=== PATIENT | male | born 1955 | race Caucasian/White ===

== ENCOUNTER 2016-07-08 09:31 | Inpatient (IN) | payer OTHER ==
--- NOTE | 2016-06-13 10:58 | PAT Medication Instructions ---
Service Date Jun 13, 2016. 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 Instructions For Your Scheduled Surgery -Continue as directed: [Nitroglycerin], 1 SPRAY PO UD PRN for RN - Hold the following medications the morning of surgery: Calcium Carbonate (Antacid) (Tums), 500-1,000 MG PO PRN Enalapril (Vasotec), 5 MG PO QAM Furosemide (Lasix), 20 MG PO DAILY PRN Ibuprofen (Advil), 800 MG PO PRN - Take the following medications the morning of surgery with a sip of water OTHERWISE NOTHING TO EAT OR DRINK AFTER MIDNIGHT: Levothyroxine Sodium (Levothyroxine Sodium), 1 TAB PO QAM Carvedilol (Coreg), 12.5 MG PO QAM Aspirin (Aspirin Ec), 81 MG PO QAM Atorvastatin (Lipitor), 80 MG PO QAM If you have any questions please call us at [phone] or [phone] or [phone]
[2016-06-13 11:47] LABS: BASO % 1.5 %; COMPLETE YES; EOS % 3.2 %; HEMATOCRIT 29.8 % (42-52); LYMPH ABS # 1.06 K/uL (1.2-3.4); MEAN CORPUSCULAR HEMOGLOBIN 22.8 pg (25-34); MEAN CORPUSCULAR HGB CONC 31.2 g/dl (32-36); MEAN PLATELET VOLUME 10.6 fL (7.4-10.4); MONO % 9.3 %; PLATELET COUNT 257 K/uL (130-400); RED BLOOD COUNT 4.08 M/uL (4.7-6.1); WHITE BLOOD COUNT 6.64 K/uL (4.8-10.8)
[2016-06-13 11:54] LABS: INR 1.1 (0.9-1.1); PARTIAL THROMBOPLASTIN RATIO 1.1; PROTHROMBIN TIME (PATIENT) 11.4 SECONDS (9.0-12.0)
[2016-06-13 11:57] LABS: ESTIMATED AVERAGE GLUCOSE 117 mg/dl; HA1C FLAG Normal (Normal)
[2016-06-13 12:17] LABS: BUN/CREATININE RATIO 10.6 (10-20); CALCIUM 9.1 mg/dl (8.5-10.1); CREATININE 1.2 mg/dl (0.60-1.40)
--- NOTE | 2016-07-03 20:29 | HISTORY & PHYSICAL EXAMINATION ---
DATE OF ADMISSION: 07/08/2016 SUBJECTIVE: CHIEF COMPLAINT: Right knee pain. HISTORY OF PRESENT ILLNESS: The patient is a 60-year-old male, who presents with right knee pain. He states that his pain has been chronic and nontraumatic. He describes the pain as being aching, throbbing and stabbing at times. It makes it difficult for him to do his activities of daily living. He has failed cortisone injections, anti-inflammatories and physical therapy. He would like to proceed with a right total knee arthroplasty. PAST MEDICAL HISTORY: Significant for hypothyroidism, hypercholesterolemia and hypertension. PAST SURGICAL HISTORY: CABG, stent placement, left TKA and tonsillectomy. SOCIAL HISTORY: He drinks alcohol occasionally. He denies smoking or tobacco use. He denies IV drug use. He lives in a one-renea house. 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 FAMILY HISTORY: Dad had a history of heart attack. ALLERGIES: No known drug allergies. MEDICATIONS: Atorvastatin 80 mg once a day, levothyroxine 125 mcg one tablet once a day, enalapril 5 mg once a day, carvedilol 12.5 mg twice daily, Lasix 20 mg one tablet as needed for weight loss, nitroglycerin 0.4 mg per spray as needed for chest pain and aspirin 81 mg one tablet daily. REVIEW OF SYSTEMS: He denies headaches, fevers, chills, double vision, blurry vision, sore throat, cough, chest pain, nausea, vomiting, diarrhea, constipation, numbness, tingling, feelings tired, urinary problems, thoughts to harm himself or harm others or depression. He is positive for joint pain and joint stiffness of the right knee. OBJECTIVE: GENERAL APPEARANCE: The patient is in no acute distress. He is well dressed and well nourished. He is awake, alert and oriented x3. VITAL SIGNS: He is 6 feet 1 inch tall, 235 pounds. Blood pressure is 122/92. HEENT: Normocephalic and atraumatic. Extraocular movements are intact. PERRLA. Mucosa was moist. No septal deviation. NECK: Supple, no lymphadenopathy, no JVD, no thyromegaly. HEART: Regular rate and rhythm. No murmurs or gallops. LUNGS: Clear to auscultation. No wheezing or rhonchi. ABDOMEN: Soft, nontender and nondistended. Normal bowel sounds, no hepatosplenomegaly. EXTREMITIES: Paying particular attention to the right lower extremity; he is able to extend his knee to 0 degrees flexion and actively flex his knee to 100 degrees. His ligaments are intact. Negative Yoan, negative anterior and negative posterior drawer. Negative valgus and varus stress tests. He has diffuse pain over the knee, more particularly to the medial joint line. NEUROLOGIC: Cranial nerves II-XII are intact. Pulses were compared bilaterally and were equal. IMAGING: X-rays of the right knee demonstrate bone on bone in the medial compartment, subchondral sclerosis and periarticular osteophyte formation. IMPRESSION: Severe end-stage osteoarthritis of the right knee. PLAN: The patient is scheduled for a right total knee arthroplasty. The patient has failed conservative therapies that include cortisone injections, anti-inflammatories and physical therapy. He would like to proceed with a right total knee arthroplasty. Risks and benefits of surgery were discussed that were included but not limited to infection, DVT, pain, stiffness, need for revision surgeries, blood vessel damage, nerve damage, PE, and anesthesia risks were all discussed and he wishes to proceed. All questions were answered to his satisfaction. Discharged, he would like to go home with outpatient thereapy. Followup appointment is 07/21/2016 at 8:00 a.m. Per his defect cutter, he must maintain his aspirin uninterrupted throughout the perioperative period, which he understands and there is no medication changes to be made at this time. DVT prophylaxis will be aspirin 81 mg. MARIBEL
[~2016-07-08] VITALS: Ht 185.4 cm; Wt 106.2 kg
[2016-07-08] MEDS: TRANEXAMIC ACID INJ 1,000 MG in SODIUM CHLORIDE 0.9% 100ML 100 ML IV SCH ×2 (06:30→10:39)
[~2016-07-08 09:31] MED LIST: ACETAMINOPHEN 500 MG TAB PO SCH; ASPI81TA28 PO; ATOR-26 PO; BUPIVACAINE 0.25% 30 ML VIAL ONE; BUPIVACAINE 0.5 % 5 MG/1 ML PF 10ML VIAL ONE; CALC500C50 PO; CARV12.52 PO; CEFAZOLIN 2000 MG/60 ML D5W 60 ML IV SCH; CeleBREX 200 MG CAP PO SCH; DEXAMETHASONE 4 MG TAB PO SCH; ENAL5TAB83 PO; FAMOTIDINE 20 MG TAB PO SCH; FERR1TAB13 PO; FURO20TA PO; GABAPENTIN 300 MG CAP PO SCH; IBUP-1050 PO; LACTATED RINGER'S 1000ML 1,000 ML IV SCH; LACTATED RINGER'S 1000ML IV SCH; LACTATED RINGER'S 500 ML IV SCH; LEVO125T5 PO; METOCLOPRAMIDE HCL 10 MG TAB PO SCH; MIDAZOLAM HCL 1 MG/ML 2ML VIAL ONE; NITROGLYCERIN PO; ROPIVACAINE 5MG/ML 30 ML 150 MG, BUPIVACAINE/EPINEPHR 0.5% MPF 30 ML, KETOROLAC TROMETH... INFIL SCH
[2016-07-08] MEDS ORDERED: FENTANYL CITRATE INJ 50 MCG/1 ML 2 ML VIAL ONE (09:49)
[2016-07-08 09:52] VITALS: BP 147/80; PULSE 67; TEMP 36.7; O2SAT 98; Ht 185.4 cm; Wt 106.2 kg
--- NOTE | 2016-07-08 09:52 | History & Physical Bridge Note ---
H&P Re-Evaluation Bridge Note: I have examined the patient, reviewed the History & Physical and in the interval since the performance of the History & Physical I have noted the following changes of clinical significance: No changes noted
[2016-07-08 10:24] LABS: HEMATOCRIT 30.9 % (42-52); MEAN CELL VOLUME 76.9 fL (80-100); MEAN CORPUSCULAR HEMOGLOBIN 23.9 pg (25-34); MEAN PLATELET VOLUME 10.1 fL (7.4-10.4); PLATELET COUNT 282 K/uL (130-400); RED BLOOD COUNT 4.02 M/uL (4.7-6.1); WHITE BLOOD COUNT 6.37 K/uL (4.8-10.8)
[2016-07-08 10:26] LABS: MEAN CORPUSCULAR HGB CONC 31.1 g/dl (32-36)
[2016-07-08] MEDS ORDERED: NALOXONE HCL 0.4 MG/1 ML VIAL/CARP IV PRN (11:15)
[2016-07-08] MEDS ORDERED: HYDROmorphone INJ 1 MG/ML SYR IV PRN (11:15)
[2016-07-08] MEDS ORDERED: ATROPINE SULFATE 0.1 MG/ML 5ML SYR IV PRN (11:15)
[2016-07-08] MEDS ORDERED: EpHEDrine SULFATE INJ 50 MG/ML AMP IV PRN (11:15)
[2016-07-08] MEDS ORDERED: BACITRACIN 50,000 UNITS IR ONE (11:51)
--- NOTE | 2016-07-08 12:31 | [facility] Post Operative Brief Note ---
Immediate Operative Summary Operative Date July 08, 2016. Pre-Operative Diagnosis Severe End Stage Osteoarthritis of the Right Knee Post-Operative Diagnosis Severe End Stage Osteoarthritis of the Right Knee Procedure(s) Performed Right Total Knee Arthroplasty - Cemented Surgeon Dr. Dashawn Friedman Calender Worker Helper Surgeon(s) Harshal Huntley PA-C Estimated Blood Loss 20mL Findings above Specimens A: Right Knee Tissue and Bone Drains 1 hemovac Anesthesia spinal Complication(s) None Disposition Recovery Room / PACU
[2016-07-08] MEDS ORDERED: LIDOCAINE HCL 2% 2 ML VIAL (20MG/ML) ONE (12:34)
[2016-07-08] MEDS ORDERED: PROPOFOL IV EMULSION 10 MG/ML 20 ML VIAL IV ONE (12:34)
[2016-07-08] MEDS ORDERED: DiphenhydrAMINE HCL 50 MG/ML VIAL IV PRN (12:45)
[2016-07-08] MEDS ORDERED: MoRPHine SULFATE 2 MG/ML CARP IV PRN (12:45)
[2016-07-08] MEDS ORDERED: NITROGLYCERIN 400 MCG/1 SPRAY 60 DOSE UT PRN (12:45)
[2016-07-08] MEDS ORDERED: ZOLPIDEM TARTRATE 5 MG TAB PO PRN (12:45)
[2016-07-08] MEDS ORDERED: CALCIUM CARBONATE 500 MG CHEWABLE PO PRN (12:45)
[2016-07-08] MEDS ORDERED: METOCLOPRAMIDE HCL INJ 5 MG/ML 2 ML VIAL IV PRN (12:45)
[2016-07-08] MEDS ORDERED: ALUMINUM/MAGNESIUM/SIMETH (MAALOX MAX) 30 ML UDC PO PRN (12:45)
[2016-07-08] MEDS ORDERED: MAGNESIUM HYDROXIDE SUSP 30 ML UDC PO PRN (12:45)
[2016-07-08] MEDS ORDERED: ONDANSETRON INJ 2 MG/ML 2 ML VIAL IV PRN (12:45)
[2016-07-08] MEDS ORDERED: POVIDONE-IODINE OP SOLN 30 ML BTL ONE (13:46)
[2016-07-08] MEDS ORDERED: ORTHO JOINT ANESTHETIC ONE (13:46)
--- NOTE | 2016-07-08 13:46 | DIAGNOSTIC IMAGING REPORT ---
RIGHT KNEE 1 OR 2 VIEWS ROUTINE CLINICAL HISTORY: Osteoarthritis. Postsurgical study. COMPARISON: None. DISCUSSION: There are postsurgical changes of a total right knee arthroplasty and patellar resurfacing. The femoral and tibial components appear well seated. Overlying skin evie and surgical drains are evident. There is air in soft tissues consistent with recent surgery. IMPRESSION: Postsurgical changes of a total right knee arthroplasty. Electronically signed by: Nicko Jorgensen M.D. 07/08/2016 1:45 PM Dictated Date/Time: 07/08/2016 1:44 PM
--- NOTE | 2016-07-08 13:56 | Anesthesiology Progress Note ---
Anesthesia Post Op Note Date & Time July 08, 2016 at 13:52 Vital Signs Pain Intensity: 0 Vital Signs Past 12 Hours Date Time Temp Pulse Resp B/P Pulse Ox O2 Delivery O2 Flow Rate FiO2 07/08/16 13:45 56 16 138/96 99 Nasal Cannula 2 07/08/16 13:35 56 16 140/92 99 Nasal Cannula 2 07/08/16 13:25 51 16 139/83 100 Diffusion Mask 10 07/08/16 13:15 51 16 141/87 100 Diffusion Mask 10 07/08/16 13:07 36.3 51 16 140/90 100 Diffusion Mask 10 07/08/16 09:52 36.7 67 20 147/80 98 Room Air Notes Mental Status: alert / awake / arousable, participated in evaluation Pt Amnestic to Procedure: Yes Nausea / Vomiting: adequately controlled Pain: adequately controlled Airway Patency, RR, SpO2: stable & adequate BP & HR: stable & adequate, see Notes Hydration State: stable & adequate Anesthetic Complications: no major complications apparent Patient first noted in AFib after spinal placed when put on monitor in OR. Rate remained below 70 without intervention. Patient was awake at the time and asymptomatic with acceptable blood pressure. I spoke with the patient and he claims he has never had afib in the past. He does have a history of chronic systolic failure which appears well compentated with an EF 20-25%. Case was otherwise uncomplicated and proceeded without incident. I have moved patient's disposition to PCU and will consult [facility] cardiology for decision making of rate vs rhythm control and anticoagulation given his fresh total knee replacement.
[2016-07-08 14:49] VITALS: BP 155/92; PULSE 58; TEMP 36.6; O2SAT 98
[2016-07-08 15:18] VITALS: BP 145/91; PULSE 67; TEMP 36.5; O2SAT 99
[2016-07-08] MEDS ORDERED: NITROGLYCERIN SL SPR 4.9 GM BTL UT PRN (15:30)
[2016-07-08] MEDS: D5W AND 1/2NSS + 20MEQ KCL 1,000 ML IV SCH (15:36)
[2016-07-08] MEDS: KETOROLAC TROMETHAMINE 30 MG/ML VIAL IV. SCH ×2 (15:55→21:37)
[2016-07-08] MEDS: FERROUS GLUCONATE 324 MG TAB PO SCH (16:14)
--- NOTE | 2016-07-08 16:48 | CARDIOLOGY CONSULTATION ---
DATE OF CONSULTATION: 07/08/2016 REFERRING PHYSICIAN: Dr. Friedman. REASON FOR CONSULTATION: Atrial fibrillation. HISTORY OF PRESENT ILLNESS: Mr. Wheatley is a 60-year-old gentleman who was admitted today for elective right total knee arthroplasty. Procedure was uneventful. I was contacted by the anesthesiologist regarding atrial fibrillation. Apparently, the patient was placed on a monitor at that time of spinal anesthesia, where an irregular rhythm was noted. ECG confirms the presence of atrial fibrillation with controlled ventricular response. The patient was recovered without incident. He has been transferred to the progressive care unit for telemetry monitoring. The monitor confirms the presence of atrial fibrillation. The patient was seen and examined at the bedside. He is feeling well postoperatively. Knee pain is controlled. He is unaware of the irregular heartbeat, palpitations, or change in functional capacity recently. His most recent echocardiogram demonstrated an ischemic cardiomyopathy with an ejection fraction of 20%-25% in June of 2015. His ejection fraction was calculated as 40% per nuclear study in June of 2015. He does not have a defibrillator. In general, he is an active person. He was able to levi over the fall and winter without restrictions. Denies exertional chest pain or unusual shortness of breath. His is present at bedside. She offers no other complaints/concerns. Review of the medical record demonstrates an iron deficiency, microcytic anemia, for which the patient has been prescribed iron supplementation. REVIEW OF SYSTEMS: The pertinent positives noted above. Comprehensive 10-system review is otherwise negative. PAST MEDICAL HISTORY: 1. Ischemic cardiomyopathy, ejection fraction of 40%. 2. Coronary artery disease with coronary artery bypass grafting as well as a history of PCI to the LAD. 3. Hypertension. 4. Dyslipidemia. 5. Hypothyroidism. PAST SURGICAL HISTORY: 1. Left total knee replacement. 2. Coronary artery bypass grafting. 3. PCI of the LAD. 4. Tonsillectomy. FAMILY HISTORY: Father with a history of coronary artery disease. SOCIAL HISTORY: He drinks alcohol socially. Denies any tobacco or illicit drug use. He lives with his in a one-story home. ALLERGIES: No known drug allergies. CURRENT OUTPATIENT MEDICATIONS: 1. Atorvastatin 80 mg daily. 2. Synthroid 125 mcg daily. 3. Enalapril 5 mg daily. 4. Carvedilol 12.5 mg twice daily. 5. Lasix 20 mg as needed. 6. Nitro spray as needed. 7. Aspirin 81 mg daily. 8. Ferrous gluconate 324 mg t.i.d. ECG: Atrial fibrillation with slow ventricular response, left axis deviation, and nonspecific interventricular conduction block. LABORATORY DATA: White blood cell count 6.37, hemoglobin is 9.6, MCV is 76.9, and platelet count is 282. INR is 1.1. On 06/13/2016, sodium was 134, potassium was 5.0, chloride was 101, CO2 was 26, BUN was 13, and creatinine was 1.20. PHYSICAL EXAMINATION: VITAL SIGNS: Temperature is 36.5 degrees centigrade, pulse is 62 beats per minute and irregular, respiratory rate is 18 breaths per minute, blood pressure 145/91, and Sa02 is 99% on 2 liters. GENERAL: NAD, awake, alert and oriented x3. THROAT: Mucous membranes are moist. No scleral icterus. Conjunctivae pink. NECK: Supple. No JVD or HJR. No carotid bruits. HEART: Irregular, borderline bradycardic with a normal S1 and S2. There is no murmur, rub or gallop. LUNGS: Clear without rales, rhonchi or wheeze. ABDOMEN: Soft and nontender. No rebound or guarding. Normal bowel sounds. EXTREMITIES: Warm and dry. There is no clubbing, cyanosis, or edema. Right knee immobilizer noted. There is a drain in place with bloody drainage. NEUROLOGIC: Cranial nerves intact. FINAL IMPRESSION: 1. Paroxysmal atrial fibrillation with slow ventricular response. This is a new diagnosis. The patient is asymptomatic. 2. Ischemic cardiomyopathy with reported ejection fraction ranging from 25% to 40%. The patient appears well compensated with functional class 1 activity level. 3. Chronic coronary artery disease with a history of prior coronary artery bypass grafting as well as PCI to the LAD -- clinically stable without angina. 4. Microcytic anemia. Recently diagnosed with iron deficiency. The patient is unaware of this diagnosis. 5. Postoperative day zero right-sided total knee replacement. 6. Hypertension, controlled. 7. Dyslipidemia. PLAN AND RECOMMENDATIONS: The patient will continue current outpatient cardiovascular medications including carvedilol, enalapril, atorvastatin, and aspirin. Stroke risk associated with his atrial fibrillation discussed. Oral anticoagulation is indicated; however, newly diagnosed iron deficiency anemia requires further evaluation. We will discuss further with internal medicine regarding possible gastroenterology referral and fecal occult blood testing. He will continue iron supplementation. Repeat resting 2D transthoracic echo ordered and pending at this time. I have also ordered a repeat basic metabolic panel, serum magnesium level, and thyroid stimulating hormone level. Further recommendations pending result of testing and clinical course. Thank you for allowing me to take part in the care of your patient.
[2016-07-08 17:09] LABS: BUN/CREATININE RATIO 14.5 (10-20); CALCIUM 8.9 mg/dl (8.5-10.1); CREATININE 0.94 mg/dl (0.60-1.40); MAGNESIUM 1.9 mg/dl (1.8-2.4); POTASSIUM 4.8 mmol/L (3.5-5.1)
[2016-07-08 17:25] LABS: THYROID STIMULATING HORMONE 0.399 uIu/ml (0.300-4.500)
[2016-07-08] MEDS: ACETAMINOPHEN 500 MG TAB PO SCH (17:42)
--- NOTE | 2016-07-08 18:14 | Medical Consult ---
Consultation Date of Consultation: July 08, 2016. Attending Physician: Dashawn Friedman M.D. Reason for Consultation: A.fib postop and anemia History of Present Illness 60 y/o female, with PMHx of ischemic cardiomyopathy w/ ejection fraction of 40% , coronary artery disease with coronary artery bypass grafting as well as a history of PCI to the LAD, hypertension, dyslipidemia, hypothyroidism, s/p R TKA on 07/[address] Friedman on 07/08. Cardiology was contacted after the procedure regarding a.fib on the monitor at the time of spinal anesthesia. Patient states he is feeling well postop. His pain is 0/10. He just ate dinner with no complaints. He denies any flatus/BM postop. He admits to a history of anemia. He was recently placed on iron supplement 3 weeks ago because his iron level was low. He denies any h/o GI bleed. He denies any BRBPR or melena. He denies excessive alcohol or NSAID use. He denies h/o anticoagulation therapy. Patient denies any fever, chills, sweats, lightheadedness, dizziness, vision changes, CP, palpitations, edema, SOB, wheezing, cough, abdominal pain, nausea, vomiting, diarrhea, urinary symptoms, melena, numbness/tingling, weakness, muscle/joint pain, anxiety/depression, active bleeding, or new skin discoloration/changes. Past Medical/Surgical History PAST MEDICAL HISTORY: Ischemic cardiomyopathy w/ ejection fraction of 40%. Coronary artery disease with coronary artery bypass grafting as well as a history of PCI to the LAD. Hypertension Dyslipidemia Hypothyroidism PAST SURGICAL HISTORY: Left total knee replacement Coronary artery bypass grafting PCI of the LAD Tonsillectomy Family History CAD Social History Smoking Status: Former Smoker Drug Use: none Marital Status: Housing Status: lives with significant other Occupation Status: employed Allergies Coded Allergies: Shellfish (Verified Allergy, Severe, TONGUE SWELLS UP, 07/08/16) Iodinated Diagnostic Agents (Verified Adverse Reaction, Unknown, SWEATING, NAUSEA-WITH TEST DYE, 07/08/16) Per patient, no issues now Home Medications Reported Home Medications Medications Dose Route/Sig Max Daily Dose Days Date Category Dose Instructions Kp Ferrous Sulfate (Ferrous Sulfate) 325 Mg Tab 1 Tab PO BID 30 06/23/16 Reported Advil (Ibuprofen) 200 Mg Tab 800 Mg PO PRN 06/13/16 Reported Aspirin Ec (Aspirin) 81 Mg Tab 81 Mg PO QAM 06/13/16 Reported [Nitroglycerin] 1 [place] PO UD PRN 07/13/15 Reported 0.4 MG PER SPRAY Levothyroxine Sodium 125 Mcg Tab 1 Tab PO QAM 90 07/13/15 Reported Coreg (Carvedilol) 12.5 Mg Tab 12.5 Mg PO QAM 07/13/15 Reported Vasotec (Enalapril Maleate) 5 Mg Tab 5 Mg PO QAM 07/13/15 Reported Lipitor (Atorvastatin Calcium) 80 Mg Tab 80 Mg PO QAM 07/13/15 Reported Lasix (Furosemide) 20 Mg Tab 20 Mg PO DAILY PRN 01/18/12 Reported Tums (Calcium Carbonate (Antacid)) 500 Mg Chw 500-1,000 Mg PO PRN 01/18/12 Reported Current Inpatient Medications Current Inpatient Medications Medications (Trade) Dose Ordered Sig/Latanya Route Start Time Stop Time Status Last Admin Dose Admin Lactated Ringer's 1,000 ml @ 60 mls/hr [id number] IV 07/08/16 06:00 07/08/16 22:39 Cefazolin Sodium (Ancef 2000mg/60 ml D5W) 60 ml @ 100 mls/hr PREOP IV 07/08/16 06:00 07/08/16 18:00 07/08/16 11:10 100 MLS/HR Acetaminophen (Tylenol Tab) 1,000 mg PREOP PO 07/08/16 06:00 07/08/16 18:00 07/08/16 10:18 1,000 MG Celecoxib (CeleBREX CAP) 200 mg PREOP PO 07/08/16 06:00 07/08/16 18:00 07/08/16 10:18 200 MG Dexamethasone (Decadron Tab) 8 mg PREOP PO 07/08/16 06:00 07/08/16 18:00 07/08/16 10:17 8 MG Famotidine (Pepcid Tab) 20 mg PREOP PO 07/08/16 06:00 07/08/16 18:00 07/08/16 10:18 20 MG Gabapentin (Neurontin Cap) 600 mg PREOP PO 07/08/16 06:00 07/08/16 18:00 07/08/16 10:17 600 MG Metoclopramide HCl 10 mg 10 mg PREOP PO 07/08/16 06:00 07/08/16 18:00 07/08/16 10:17 10 MG Tranexamic Acid 1000 mg/Sodium Chloride 110 ml @ 660 mls/hr TODAY@06,0630 IV 07/08/16 06:00 07/08/16 18:00 07/08/16 10:39 660 MLS/HR Lactated Ringer's (Lr 1000ml) 1,000 ml @ 15 mls/hr Q24H IV 07/08/16 06:00 07/09/16 05:59 07/08/16 10:25 15 MLS/HR Atorvastatin Calcium (Lipitor Tab) 80 mg QAM PO 07/09/16 09:00 08/08/16 08:59 Calcium Carbonate (Tums Chew Tab) 500 mg QAM PRN PO 07/08/16 12:45 08/07/16 12:44 Carvedilol (Coreg Tab) 12.5 mg QAM PO 07/09/16 09:00 08/08/16 08:59 Enalapril Maleate (Vasotec Tab) 5 mg QAM PO 07/09/16 09:00 08/08/16 08:59 Furosemide (Lasix Tab) 20 mg DAILY PO 07/09/16 09:00 08/08/16 08:59 Levothyroxine Sodium 125 mcg 125 mcg DAILYBB PO 07/09/16 06:00 08/08/16 05:59 Potassium Chloride/Dextrose/ Sod Cl 1,000 ml @ 100 mls/hr Q10H IV 07/08/16 16:00 07/09/16 15:59 07/08/16 15:36 100 MLS/HR Cefazolin Sodium/ Dextrose (Ancef Iv/D5 50ml) 60 ml @ 100 mls/hr Q8H IV 07/08/16 20:00 07/09/16 04:35 Ketorolac Tromethamine (Toradol Inj) 30 mg Q6H IV. 07/08/16 16:00 07/09/16 15:59 07/08/16 15:55 30 MG Celecoxib (CeleBREX CAP) 200 mg BID PO 07/08/16 21:00 08/07/16 20:59 Future Hold Oxycodone HCl (Roxicodone Immediate Rel Tab) 1 TABLET FOR PAIN RATING... Q4H PRN PO 07/08/16 12:45 07/22/16 12:44 Oxycodone HCl (Oxycontin Tab) 10 mg Q12 PO 07/08/16 21:00 07/22/16 20:59 Morphine Sulfate (MoRPHine SULFATE INJ) 2 mg Q2H PRN IV 07/08/16 12:45 07/22/16 12:44 Acetaminophen (Tylenol Tab) 1,000 mg Q8H PO 07/08/16 18:00 08/07/16 17:59 07/08/16 17:42 1,000 MG Magnesium Hydroxide (Milk Of Magnesia Susp) 30 ml Q6H PRN PO 07/08/16 12:45 08/07/16 12:44 Docusate Sodium (coLACE CAP) 100 mg BID PO 07/08/16 21:00 08/07/16 20:59 Diphenhydramine HCl (Benadryl Cap) 25 mg Q8H PRN PO 07/08/16 12:45 08/07/16 12:44 Diphenhydramine HCl (Benadryl Inj) 25 mg Q8H PRN IV 07/08/16 12:45 08/07/16 12:44 Al Hydrox/Mg Hydrox/Simethicone (Maalox Max Susp) 15 ml Q4H PRN PO 07/08/16 12:45 08/07/16 12:44 Zolpidem Tartrate (Ambien Tab) 5 mg HSZ PRN PO 07/08/16 12:45 08/07/16 12:44 Multivitamins (Multivitamin Tab) 1 tab QAM PO 07/09/16 09:00 08/08/16 08:59 Ondansetron HCl (Zofran Inj) 4 mg Q6H PRN IV 07/08/16 12:45 08/07/16 12:44 Metoclopramide HCl (Reglan Inj) 10 mg Q6H PRN IV 07/08/16 12:45 08/07/16 12:44 Ferrous Gluconate (Ferrous Gluconate Tab) 324 mg TIDM PO 07/08/16 16:45 08/07/16 17:59 07/08/16 16:14 324 MG Pantoprazole Sodium (Protonix Tab) 40 mg QAM PO 07/09/16 09:00 6/12/17 08:59 Dexamethasone (Decadron Tab) 8 mg 0730 ONCE PO 07/09/16 07:30 07/09/16 07:31 Aspirin (Ecotrin Tab) 81 mg BID PO 07/08/16 21:00 08/07/16 20:59 Nitroglycerin (Nitrolingual [place]) 1 sprays DAILY PRN [place] 07/08/16 15:30 08/07/16 12:44 Physical Exam Date Time Temp Pulse Resp B/P Pulse Ox O2 Delivery O2 Flow Rate FiO2 07/08/16 15:18 36.5 67 18 145/91 99 Nasal Cannula 2.0 07/08/16 14:49 36.6 58 20 155/92 98 Room Air 07/08/16 14:15 36.1 56 16 139/93 99 Nasal Cannula 2 07/08/16 14:05 36.1 56 16 137/86 99 Nasal Cannula 2 07/08/16 13:55 56 16 138/89 99 Nasal Cannula 2 07/08/16 13:45 56 16 138/96 99 Nasal Cannula 2 07/08/16 13:35 56 16 140/92 99 Nasal Cannula 2 07/08/16 13:25 51 16 139/83 100 Diffusion Mask 10 07/08/16 13:15 51 16 141/87 100 Diffusion Mask 10 07/08/16 13:07 36.3 51 16 140/90 100 Diffusion Mask 10 07/08/16 09:52 36.7 67 20 147/80 98 Room Air General Appearance: no apparent distress, + obese Head: normocephalic, atraumatic Eyes: normal inspection, PERRL ENT: hearing grossly normal Neck: supple Respiratory/Chest: lungs clear, no respiratory distress, no accessory muscle use Cardiovascular: regular rate, rhythm Abdomen/GI: normal bowel sounds, non tender, soft Back: normal inspection Extremities/Musculoskelatal: no calf tenderness, no pedal edema, + pertinent finding (SCDs on ) Neurologic/Psych: alert, normal mood/affect, oriented x 3 Skin: normal color, warm/dry, no rash Laboratory Results Last 24 Hours Test 07/08/16 10:08 07/08/16 16:45 White Blood Count 6.37 K/uL Red Blood Count 4.02 M/uL Hemoglobin 9.6 g/dL Hematocrit 30.9 % Mean Corpuscular Volume 76.9 fL Mean Corpuscular Hemoglobin 23.9 pg Mean Corpuscular Hemoglobin Concent 31.1 g/dl RDW Standard Deviation 53.4 fL RDW Coefficient of Variation 19.3 % Platelet Count 282 K/uL Mean Platelet Volume 10.1 fL Sodium Level 131 mmol/L Potassium Level 4.8 mmol/L Chloride Level 100 mmol/L Carbon Dioxide Level 25 mmol/L Anion Gap 6.0 mmol/L Blood Urea Nitrogen 14 mg/dl Creatinine 0.94 mg/dl Est Creatinine Clear Calc Drug Dose 108.8 ml/min Estimated GFR () 103.2 Estimated GFR (Non- 89.0 BUN/Creatinine Ratio 14.5 Random Glucose 125 mg/dl Calcium Level 8.9 mg/dl Magnesium Level 1.9 mg/dl Thyroid Stimulating Hormone (TSH) 0.399 uIu/ml Assessment & Plan 60 y/o female, with PMHx of ischemic cardiomyopathy w/ ejection fraction of 40% , coronary artery disease with coronary artery bypass grafting as well as a history of PCI to the LAD, hypertension, dyslipidemia, hypothyroidism, s/p R TKA on 07/[address] Friedman on 07/08. s/p R TKA on 07/[address] Friedman: - Surgical management, pain management, PT/OT, and DVT prophylaxis as per primary team - Follow CBC and PRP Ischemic cardiomyopathy w/ ejection fraction of 40%/CAD s/p CABG/a.fib: - Cardiology following - ECHO pending per cardiology - Coreg 12.5 mg daily, Lasix 20 mg daily Chronic anemia- STABLE: - Continue Ferrous sulfate BID - Check iron level - Follow H&H postop Hypothyroidism: - TSH WNL - Continue Synthroid 125 mcg daily Hyponatremia: - IVF - Follow PRP Dyslipidemia: Lipitor 80 mg daily HTN: Vasotec 5 mg daily- postop PRP reviewed GI prophylaxis: Protonix DVT prophylaxis: As per primary team Code Status: LEVEL I, FULL Dispo: Discharge as per primary team
[2016-07-08 19:16] VITALS: BP 129/83; PULSE 52; TEMP 36.8; O2SAT 99
[2016-07-08] MEDS: CEFAZOLIN IV 2,000 MG in DEXTROSE 5% 50ML 50 ML IV SCH (20:26)
[2016-07-08] MEDS ORDERED: CeleBREX 200 MG CAP PO SCH (21:00)
[2016-07-08] MEDS ORDERED: NON-FORMULARY MEDICATION (Ferrous Sulfate (Kp Ferrous Sulfate) 1 TAB) PO SCH (21:00)
--- NOTE | 2016-07-08 21:24 | OPERATIVE REPORT ---
DATE OF OPERATION: 07/08/2016 PREOPERATIVE DIAGNOSIS: Right knee degenerative joint disease. POSTOPERATIVE DIAGNOSIS: Same. PROCEDURE: Right total knee arthroplasty. SURGEON: Dr. Friedman. QUALITY REVIEWER: JORGE L Penny, who assisted with the procedure with positioning, prepping, draping, retraction and closure. ANESTHESIA: Spinal with adductor canal block. SPECIMEN: Bone and tissue. IMPLANTS: Mejia \T\ Nephew Journey version II, femur 7, tibia 6, poly 12, patella 35 oval. COMPLICATIONS: None. ESTIMATED BLOOD LOSS: 20 mL INDICATIONS: The patient is a 60-year-old male with longstanding degenerative joint disease of the right knee, he has bone on bone. He has failed conservative measures. Failing conservative measures, he wished to proceed with right total knee arthroplasty. Risks, benefits, and alternatives of surgery including but not limited to infection, DVT, pain, stiffness, need for urgent surgery, failure to relieve all symptoms, damage to blood vessels, damage to nerves, risks of anesthesia discussed with the patient, and he wished to proceed. DESCRIPTION OF PROCEDURE: The patient was identified, laterality was confirmed and marked. He received a preoperative antibiotic as well as a spinal anesthetic and adductor canal block. A well-padded tourniquet was placed on the thigh. Limb was prepped and draped in usual sterile manner with ChloraPrep. Limb was exsanguinated and tourniquet was inflated. I made an anterior incision on the anterior aspect of the knee, sharply incised the skin utilizing Bovie electrocautery to achieve hemostasis. I made a medial parapatellar arthrotomy, mobilized the patella laterally. I then excised the anterior horns of the medial and lateral meniscus and then elevated deep MCL. I then pinned into place a distal femoral cutting guide, made my distal femoral resection, and then pinned into place a size 5-in-1 cutting guide, made my anterior, posterior and chamfer cuts. I then removed the cruciates and the remaining portions of the menisci. I then pinned into place patient-matched tibial cutting guide, made my tibial resection. I then positioned and pinned a size 6 tibia and then cut for the post. I then removed posterior osteophytes from the femur. I then placed the trial femur into position, cut for the trochlear component. I then sequentially trialed up to a size 12 poly. We had good range of motion, good soft tissue balancing with the 12. I then prepared the patella with a freehand cut, sized and drilled for a 35 oval patella. We had good tracking of the patella. No lateral release was needed. All the trial components were removed. Wound was thoroughly irrigated. The deep tissues were anesthetized with an Orthomix solution, and then with Simplex HV with gent cement, I cemented my definitive components. This was Mejia \T\ Nephew Journey version II, femur 7, tibia 6, poly 12, patella 35 oval. Deep drain was placed. Arthrotomy was closed with interrupted #1 Vicryl sutures, subcutaneous tissue with interrupted 2-0 Vicryl suture, and skin with evie. A sterile dressing was applied. All needle and sponge counts were correct at the end of the procedure. The patient was transferred to PACU in stable condition without apparent complication. I attest to the content of the Intraoperative Record and any orders documented therein. Any exceptio ns are noted below.
[2016-07-08] MEDS: ASPIRIN 81 MG ECTAB PO SCH (21:37)
[2016-07-08] MEDS: OXYCODONE HCL 10 MG TABCR (OXYCONTIN) PO SCH (21:38)
[2016-07-08] MEDS: DOCUSATE SODIUM 100 MG CAP PO SCH (21:38)
[2016-07-09] VITALS (7 sets, daily range): BP systolic 124–150; BP diastolic 71–89; PULSE 53–81; TEMP 36.6–36.9; O2SAT 95–98
[2016-07-09] MEDS: D5W AND 1/2NSS + 20MEQ KCL 1,000 ML IV SCH ×2 (01:57→11:41)
[2016-07-09] MEDS: OXYCODONE HCL IR 5 MG TAB (IMMEDIATE RELEASE) PO PRN ×2 (01:58→12:54)
[2016-07-09] MEDS: ACETAMINOPHEN 500 MG TAB PO SCH ×3 (02:34→17:11)
[2016-07-09] MEDS: KETOROLAC TROMETHAMINE 30 MG/ML VIAL IV. SCH ×2 (04:12→10:07)
[2016-07-09] MEDS: CEFAZOLIN IV 2,000 MG in DEXTROSE 5% 50ML 50 ML IV SCH (04:12)
[2016-07-09] MEDS: LEVOTHYROXINE 125 MCG TAB PO SCH (05:47)
[2016-07-09 06:10] LABS: MEAN CELL VOLUME 76.7 fL (80-100); MEAN CORPUSCULAR HEMOGLOBIN 23.9 pg (25-34); MEAN CORPUSCULAR HGB CONC 31.1 g/dl (32-36); MEAN PLATELET VOLUME 10.4 fL (7.4-10.4); PLATELET COUNT 273 K/uL (130-400); RED BLOOD COUNT 3.52 M/uL (4.7-6.1); WHITE BLOOD COUNT 9.57 K/uL (4.8-10.8)
[2016-07-09 06:45] LABS: BUN/CREATININE RATIO 13.2 (10-20); CALCIUM 8.6 mg/dl (8.5-10.1); MAGNESIUM 1.9 mg/dl (1.8-2.4); POTASSIUM 4.9 mmol/L (3.5-5.1)
[2016-07-09] MEDS ORDERED: DEXAMETHASONE 4 MG TAB PO ONE (07:30)
[2016-07-09] MEDS: MULTIVITAMIN TAB PO SCH (08:15)
[2016-07-09] MEDS: OXYCODONE HCL 10 MG TABCR (OXYCONTIN) PO SCH ×2 (08:15→20:24)
[2016-07-09] MEDS: ATORVASTATIN 40 MG TAB PO SCH (08:16)
[2016-07-09] MEDS: ASPIRIN 81 MG ECTAB PO SCH ×2 (08:16→20:20)
[2016-07-09] MEDS: PANTOprazole SOD 40 MG TAB PO SCH (08:16)
[2016-07-09] MEDS: FERROUS GLUCONATE 324 MG TAB PO SCH ×3 (08:16→17:10)
[2016-07-09] MEDS: FUROSEMIDE 20 MG TAB PO SCH (08:17)
[2016-07-09] MEDS: CARVEDILOL 12.5 MG TAB PO SCH (08:17)
[2016-07-09] MEDS: DOCUSATE SODIUM 100 MG CAP PO SCH ×2 (08:18→20:19)
[2016-07-09] MEDS: ENALAPRIL MALEATE 5 MG TAB PO SCH (08:18)
--- NOTE | 2016-07-09 08:40 | Hospitalist Progress Note ---
Hospitalist Progress Note Date of Service July 09, 2016. Subjective Pt evaluation today including: conversation w/ patient, chart review Denies CP or SOB. Tele: Rate controlled atrial fibrillation Medications Medications (Trade) Dose Ordered Sig/Latanya Route Start Time Stop Time Status Last Admin Dose Admin Bacitracin (Bacitracin 50,000 Units) 50,000 units ONE ONCE IR 07/08/16 11:51 07/08/16 11:53 DC 07/08/16 11:51 50,000 UNITS Atorvastatin Calcium (Lipitor Tab) 80 mg QAM PO 07/09/16 09:00 08/08/16 08:59 07/09/16 08:16 80 MG Carvedilol (Coreg Tab) 12.5 mg QAM PO 07/09/16 09:00 08/08/16 08:59 07/09/16 08:17 12.5 MG Enalapril Maleate (Vasotec Tab) 5 mg QAM PO 07/09/16 09:00 08/08/16 08:59 07/09/16 08:18 5 MG Furosemide (Lasix Tab) 20 mg DAILY PO 07/09/16 09:00 08/08/16 08:59 07/09/16 08:17 20 MG Levothyroxine Sodium 125 mcg 125 mcg DAILYBB PO 07/09/16 06:00 08/08/16 05:59 07/09/16 05:47 125 MCG Potassium Chloride/Dextrose/ Sod Cl 1,000 ml @ 100 mls/hr Q10H IV 07/08/16 16:00 07/09/16 15:59 07/09/16 01:57 100 MLS/HR Cefazolin Sodium/ Dextrose (Ancef Iv/D5 50ml) 60 ml @ 100 mls/hr Q8H IV 07/08/16 20:00 07/09/16 04:35 DC 07/09/16 04:12 100 MLS/HR Ketorolac Tromethamine (Toradol Inj) 30 mg Q6H IV. 07/08/16 16:00 07/09/16 15:59 07/09/16 04:12 30 MG Oxycodone HCl (Roxicodone Immediate Rel Tab) 1 TABLET FOR PAIN RATING... Q4H PRN PO 07/08/16 12:45 07/22/16 12:44 07/09/16 01:58 10 MG Oxycodone HCl (Oxycontin Tab) 10 mg Q12 PO 07/08/16 21:00 07/22/16 20:59 07/09/16 08:15 10 MG Acetaminophen (Tylenol Tab) 1,000 mg Q8H PO 07/08/16 18:00 08/07/16 17:59 07/09/16 02:34 1,000 MG Docusate Sodium (coLACE CAP) 100 mg BID PO 07/08/16 21:00 08/07/16 20:59 07/09/16 08:18 100 MG Multivitamins (Multivitamin Tab) 1 tab QAM PO 07/09/16 09:00 08/08/16 08:59 07/09/16 08:15 1 TAB Ferrous Gluconate (Ferrous Gluconate Tab) 324 mg TIDM PO 07/08/16 16:45 08/07/16 17:59 07/09/16 08:16 324 MG Pantoprazole Sodium (Protonix Tab) 40 mg QAM PO 07/09/16 09:00 08/08/16 08:59 07/09/16 08:16 40 MG Dexamethasone (Decadron Tab) 8 mg 0730 ONCE PO 07/09/16 07:30 07/09/16 07:31 DC 07/09/16 08:19 8 MG Aspirin (Ecotrin Tab) 81 mg BID PO 07/08/16 21:00 08/07/16 20:59 07/09/16 08:16 81 MG Objective Vital Signs Date Time Temp Pulse Resp B/P Pulse Ox O2 Delivery O2 Flow Rate FiO2 07/09/16 08:15 36.7 79 20 130/86 95 Room Air 07/09/16 07:31 Nasal Cannula 3.0 07/09/16 07:31 Room Air 07/09/16 04:00 36.6 60 18 150/82 97 Room Air 07/09/16 04:00 Room Air 07/09/16 00:00 Room Air 07/09/16 00:00 36.7 72 18 124/79 98 Nasal Cannula 2.0 07/08/16 20:00 Room Air 07/08/16 19:16 36.8 52 20 129/83 99 Nasal Cannula 2.0 07/08/16 15:18 36.5 67 18 145/91 99 Nasal Cannula 2.0 07/08/16 14:49 36.6 58 20 155/92 98 Room Air 07/08/16 14:15 36.1 56 16 139/93 99 Nasal Cannula 2 07/08/16 14:05 36.1 56 16 137/86 99 Nasal Cannula 2 07/08/16 13:55 56 16 138/89 99 Nasal Cannula 2 07/08/16 13:45 56 16 138/96 99 Nasal Cannula 2 07/08/16 13:35 56 16 140/92 99 Nasal Cannula 2 07/08/16 13:25 51 16 139/83 100 Diffusion Mask 10 07/08/16 13:15 51 16 141/87 100 Diffusion Mask 10 07/08/16 13:07 36.3 51 16 140/90 100 Diffusion Mask 10 07/08/16 09:52 36.7 67 20 147/80 98 Room Air Physical Exam General Appearance: WD/WN Eyes: normal inspection ENT: normal ENT inspection Neck: supple, no adenopathy Respiratory/Chest: chest non-tender, lungs clear Cardiovascular: no edema, no gallop, + irregularly irregular Abdomen: normal bowel sounds, non tender, soft Extremities: + pertinent finding (right knee in dressing with drain) Neurologic/Psychiatric: no motor/sensory deficits, alert, normal mood/affect Laboratory Results Last 24 Hours Test 07/08/16 10:08 07/08/16 16:45 07/09/16 05:39 White Blood Count 6.37 K/uL 9.57 K/uL Red Blood Count 4.02 M/uL 3.52 M/uL Hemoglobin 9.6 g/dL 8.4 g/dL Hematocrit 30.9 % 27.0 % Mean Corpuscular Volume 76.9 fL 76.7 fL Mean Corpuscular Hemoglobin 23.9 pg 23.9 pg Mean Corpuscular Hemoglobin Concent 31.1 g/dl 31.1 g/dl RDW Standard Deviation 53.4 fL 53.4 fL RDW Coefficient of Variation 19.3 % 19.0 % Platelet Count 282 K/uL 273 K/uL Mean Platelet Volume 10.1 fL 10.4 fL Sodium Level 131 mmol/L 129 mmol/L Potassium Level 4.8 mmol/L 4.9 mmol/L Chloride Level 100 mmol/L 97 mmol/L Carbon Dioxide Level 25 mmol/L 25 mmol/L Anion Gap 6.0 mmol/L 7.0 mmol/L Blood Urea Nitrogen 14 mg/dl 13 mg/dl Creatinine 0.94 mg/dl 1.00 mg/dl Est Creatinine Clear Calc Drug Dose 108.8 ml/min 102.2 ml/min Estimated GFR () 103.2 95.7 Estimated GFR (Non- 89.0 82.6 BUN/Creatinine Ratio 14.5 13.2 Random Glucose 125 mg/dl 147 mg/dl Calcium Level 8.9 mg/dl 8.6 mg/dl Magnesium Level 1.9 mg/dl 1.9 mg/dl Thyroid Stimulating Hormone (TSH) 0.399 uIu/ml Iron Level 92 mcg/dl Assessment and Plan 60 y/o female, with PMHx of ischemic cardiomyopathy w/ ejection fraction of 40% , coronary artery disease with coronary artery bypass grafting as well as a history of PCI to the LAD, hypertension, dyslipidemia, hypothyroidism, s/p R TKA on 07/[address] Friedman on 07/08. s/p R TKA on 07/[address] Friedman: - Surgical management, pain management, PT/OT, and DVT prophylaxis as per primary team - Follow CBC and PRP Ischemic cardiomyopathy w/ ejection fraction of 40%/CAD s/p CABG/a.fib: - Cardiology following - ECHO pending per cardiology - Coreg 12.5 mg daily, Lasix 20 mg daily New onset atrial fibrillation - Rate is controlled. - Anti coagulants, oral when OK with Orthopedics given recent surgery as per Cards recommendations Chronic anemia- STABLE: - Continue Ferrous sulfate BID - Check iron level - Follow H&H postop Hypothyroidism: - TSH WNL - Continue Synthroid 125 mcg daily Hyponatremia: - IVF - Follow PRP Dyslipidemia: Lipitor 80 mg daily HTN: Vasotec 5 mg daily- postop PRP reviewed GI prophylaxis: Protonix DVT prophylaxis: As per primary team Code Status: LEVEL I, FULL Dispo: Discharge as per primary team
--- NOTE | 2016-07-09 09:58 | CARDIOLOGY PROGRESS NOTE ---
DATE: 07/09/2016 DATE: 07/09/2016. HISTORY OF PRESENT ILLNESS: This is a 60-year-old male patient who underwent a right total knee replacement. The patient is followed by Dr. Hugh Mendez through our cardiology clinic. He has a history of prior coronary artery bypass surgery as well as PCI to the LAD. He also has a history of ischemic cardiomyopathy with an estimated left ventricular ejection fraction around 40%. During the patient's surgery, it was noted that he was in atrial fibrillation and postop he was admitted to telemetry unit. His surgery was noncomplicated and he actually is unaware that he is in a rate controlled atrial fibrillation. He has no complaints this morning and is anxious to move forward with physical therapy. OBJECTIVE: GENERAL: He is alert and oriented in no acute distress. VITAL SIGNS: Blood pressure 130/80, pulse is regular at 80. He is afebrile. HEAD, EYES, EARS, NOSE, AND THROAT: He is normocephalic. Pupils are equal and reactive to light. Extraocular muscles are intact bilaterally. NECK: The neck veins are flat. Carotids have good upstrokes bilaterally without bruits. Thyroid is nonpalpable. RESPIRATORY: Breath sounds equal bilaterally and clear to auscultation. CARDIOVASCULAR: Heart has an irregular rhythm. Normal S1, S2. No S3, S4. No cardiac rubs or murmurs. GASTROINTESTINAL: Abdomen is soft, nontender without organomegaly. EXTREMITIES: The patient is status post right total knee replacement. NEUROLOGIC: Grossly intact. SKIN: Warm to touch. LYMPH NODES: Negative to palpation. LABORATORY DATA: Hemoglobin is 8.4, potassium is 4.9, creatinine 1.0. IMPRESSION: 1. Status post right total knee replacement. 2. Ischemic cardiomyopathy, estimated left ventricular ejection fraction of 40%. 3. Paroxysmal atrial fibrillation. 4. Previous coronary artery bypass surgery. RECOMMENDATIONS: As outlined above, the patient is completely unaware that he is in atrial fibrillation. He will need to be anticoagulated for several weeks postop and I think that that should proceed. We can make further decisions regarding the atrial fibrillation even after he returns as an outpatient to see Dr. Mendez. We will continue to follow him during his hospital stay. At present I would leave him on the telemetry unit.
--- NOTE | 2016-07-09 10:48 | Orthopedic Progress Note ---
Orthopedic Progress Note Date of Service July 09, 2016. Subjective Post OP Day: 1 Reports: feeling well, pain controlled w PO medications, Denies: SOB, calf pain , chest pain, complaints, light headedness, nausea / vomiting Objective calves soft nontender, N/V intact, dressing C/D/I, hemovac drainage Date Time Temp Pulse Resp B/P Pulse Ox O2 Delivery O2 Flow Rate FiO2 07/09/16 08:15 36.7 79 20 130/86 95 Room Air 07/09/16 07:31 Nasal Cannula 3.0 07/09/16 07:31 Room Air 07/09/16 04:00 36.6 60 18 150/82 97 Room Air 07/09/16 04:00 Room Air 07/09/16 00:00 Room Air 07/09/16 00:00 36.7 72 18 124/79 98 Nasal Cannula 2.0 07/08/16 20:00 Room Air 07/08/16 19:16 36.8 52 20 129/83 99 Nasal Cannula 2.0 07/08/16 15:18 36.5 67 18 145/91 99 Nasal Cannula 2.0 07/08/16 14:49 36.6 58 20 155/92 98 Room Air 07/08/16 14:15 36.1 56 16 139/93 99 Nasal Cannula 2 07/08/16 14:05 36.1 56 16 137/86 99 Nasal Cannula 2 07/08/16 13:55 56 16 138/89 99 Nasal Cannula 2 07/08/16 13:45 56 16 138/96 99 Nasal Cannula 2 07/08/16 13:35 56 16 140/92 99 Nasal Cannula 2 07/08/16 13:25 51 16 139/83 100 Diffusion Mask 10 07/08/16 13:15 51 16 141/87 100 Diffusion Mask 10 07/08/16 13:07 36.3 51 16 140/90 100 Diffusion Mask 10 Laboratory Results 24 Hours: Test 07/09/16 05:39 Hematocrit 27.0 % Hemoglobin 8.4 g/dL Assessment & Plan Assessment: POD 1 R TKA Plan: Pain controlled doing ROM in bed, has not yet PT yet on ASA 81 mg for DVT proph now, uncertain what cardio will want for prophylaxis for a-fib hgb 8.4, no symptoms currently, will follow Inhouse Planning Pain Management: Oxycontin, Oxy IR DVT Prophylaxis: TEDs, SCDs, ASA
[2016-07-10] VITALS (7 sets, daily range): BP systolic 118–151; BP diastolic 66–89; PULSE 58–71; TEMP 36.6–36.9; O2SAT 97–99
[2016-07-10] MEDS: ACETAMINOPHEN 500 MG TAB PO SCH ×3 (02:42→21:23)
[2016-07-10] MEDS: OXYCODONE HCL IR 5 MG TAB (IMMEDIATE RELEASE) PO PRN ×3 (04:30→17:36)
[2016-07-10] MEDS: LEVOTHYROXINE 125 MCG TAB PO SCH (04:37)
--- NOTE | 2016-07-10 06:43 | Orthopedic Progress Note ---
Orthopedic Progress Note Date of Service July 10, 2016. Subjective Post OP Day: 2 Reports: feeling well, pain controlled w PO medications, Denies: SOB, calf pain , chest pain, complaints, light headedness, nausea / vomiting Objective calves soft nontender, N/V intact, capillary refill less than 2 sec., dressing C /D/I, A&O x3, toes mobile Date Time Temp Pulse Resp B/P Pulse Ox O2 Delivery O2 Flow Rate FiO2 07/10/16 04:00 Room Air 07/10/16 03:44 36.9 66 20 137/77 97 Room Air 07/10/16 00:00 36.7 71 18 136/84 98 Room Air 07/09/16 23:59 Room Air 07/09/16 20:00 Room Air 07/09/16 19:05 36.8 72 18 134/89 97 Room Air 07/09/16 16:08 Room Air 07/09/16 16:04 36.9 53 18 133/83 98 Room Air 07/09/16 12:35 36.7 81 20 125/71 96 Room Air 07/09/16 11:57 Room Air 07/09/16 11:21 78 97 07/09/16 08:15 36.7 79 20 130/86 95 Room Air 07/09/16 07:31 Nasal Cannula 3.0 07/09/16 07:31 Room Air Assessment & Plan Assessment: POD 2 R TKA -pt/ot -dvt proph with shavon/scd/asa- pending any further recommendations from cardiology -d/c drain today -plan for home PT followed by [facility]T @ [facility] Plan: PER CARDIOLOGY Ischemic cardiomyopathy, estimated left ventricular ejection fraction of 40%, Paroxysmal atrial fibrillation, Previous coronary artery bypass surgery. -recommending anticoagulation for several weeks post-op and will make decision then re: his Afib.
[2016-07-10 07:15] LABS: BASO % 0.1 %; BASO ABS # 0.01 K/uL (0-0.2); EOS % 0.3 %; HEMATOCRIT 25.2 % (42-52); IG% 0.1 %; LYMPH % 10.5 %; LYMPH ABS # 1.17 K/uL (1.2-3.4); MEAN CORPUSCULAR HEMOGLOBIN 24.5 pg (25-34); MEAN CORPUSCULAR HGB CONC 31.3 g/dl (32-36); MEAN PLATELET VOLUME 9.6 fL (7.4-10.4); MONO % 8.6 %; NEUT % 80.4 %; PLATELET COUNT 282 K/uL (130-400); RED BLOOD COUNT 3.23 M/uL (4.7-6.1); WHITE BLOOD COUNT 11.13 K/uL (4.8-10.8)
[2016-07-10 07:40] LABS: ACANTHOCYTES 1+; ANISOCYTOSIS PRESENT; COMPLETE YES
[2016-07-10] MEDS: FERROUS GLUCONATE 324 MG TAB PO SCH ×3 (07:46→17:35)
[2016-07-10] MEDS: PANTOprazole SOD 40 MG TAB PO SCH (07:47)
[2016-07-10] MEDS: MULTIVITAMIN TAB PO SCH (07:47)
[2016-07-10] MEDS: CARVEDILOL 12.5 MG TAB PO SCH (07:47)
[2016-07-10] MEDS: FUROSEMIDE 20 MG TAB PO SCH (07:47)
[2016-07-10] MEDS: ATORVASTATIN 40 MG TAB PO SCH (07:48)
[2016-07-10 07:54] LABS: BUN/CREATININE RATIO 12.7 (10-20); CALCIUM 8.4 mg/dl (8.5-10.1); CREATININE 0.9 mg/dl (0.60-1.40); POTASSIUM 4.8 mmol/L (3.5-5.1)
--- NOTE | 2016-07-10 08:12 | Hospitalist Progress Note ---
Hospitalist Progress Note Date of Service July 10, 2016. Subjective No cardio-resp symptoms Medications Medications (Trade) Dose Ordered Sig/Latanya Route Start Time Stop Time Status Last Admin Dose Admin Atorvastatin Calcium (Lipitor Tab) 80 mg QAM PO 07/09/16 09:00 08/08/16 08:59 07/10/16 07:48 80 MG Carvedilol (Coreg Tab) 12.5 mg QAM PO 07/09/16 09:00 08/08/16 08:59 07/10/16 07:47 12.5 MG Enalapril Maleate (Vasotec Tab) 5 mg QAM PO 07/09/16 09:00 08/08/16 08:59 07/09/16 08:18 5 MG Furosemide (Lasix Tab) 20 mg DAILY PO 07/09/16 09:00 08/08/16 08:59 07/10/16 07:47 20 MG Multivitamins (Multivitamin Tab) 1 tab QAM PO 07/09/16 09:00 08/08/16 08:59 07/10/16 07:47 1 TAB Pantoprazole Sodium (Protonix Tab) 40 mg QAM PO 07/09/16 09:00 08/08/16 08:59 07/10/16 07:47 40 MG Objective Vital Signs Date Time Temp Pulse Resp B/P Pulse Ox O2 Delivery O2 Flow Rate FiO2 07/10/16 07:42 36.8 70 20 151/89 98 Room Air 07/10/16 04:00 Room Air 07/10/16 03:44 36.9 66 20 137/77 97 Room Air 07/10/16 00:00 36.7 71 18 136/84 98 Room Air 07/09/16 23:59 Room Air 07/09/16 20:00 Room Air 07/09/16 19:05 36.8 72 18 134/89 97 Room Air 07/09/16 16:08 Room Air 07/09/16 16:04 36.9 53 18 133/83 98 Room Air 07/09/16 12:35 36.7 81 20 125/71 96 Room Air 07/09/16 11:57 Room Air 07/09/16 11:21 78 97 07/09/16 08:15 36.7 79 20 130/86 95 Room Air Physical Exam General Appearance: WD/WN Eyes: normal inspection ENT: normal ENT inspection Neck: supple, no adenopathy Respiratory/Chest: chest non-tender, lungs clear Cardiovascular: no murmur, + irregularly irregular Abdomen: normal bowel sounds, non tender, soft Extremities: + pertinent finding (Dressing over right knee with drain in-situ) Neurologic/Psychiatric: 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 tested, alert, oriented x 3 Skin: normal color Laboratory Results Last 24 Hours Test 07/10/16 07:00 White Blood Count 11.13 K/uL Red Blood Count 3.23 M/uL Hemoglobin 7.9 g/dL Hematocrit 25.2 % Mean Corpuscular Volume 78.0 fL Mean Corpuscular Hemoglobin 24.5 pg Mean Corpuscular Hemoglobin Concent 31.3 g/dl Platelet Count 282 K/uL Mean Platelet Volume 9.6 fL Neutrophils (%) (Auto) 80.4 % Lymphocytes (%) (Auto) 10.5 % Monocytes (%) (Auto) 8.6 % Eosinophils (%) (Auto) 0.3 % Basophils (%) (Auto) 0.1 % Neutrophils # (Auto) 8.95 K/uL Lymphocytes # (Auto) 1.17 K/uL Monocytes # (Auto) 0.96 K/uL Eosinophils # (Auto) 0.03 K/uL Basophils # (Auto) 0.01 K/uL RDW Standard Deviation 55.7 fL RDW Coefficient of Variation 19.5 % Immature Granulocyte % (Auto) 0.1 % Immature Granulocyte # (Auto) 0.01 K/uL Anisocytosis PRESENT Acanthocytes 1+ Sodium Level 132 mmol/L Potassium Level 4.8 mmol/L Chloride Level 99 mmol/L Carbon Dioxide Level 28 mmol/L Anion Gap 5.0 mmol/L Blood Urea Nitrogen 11 mg/dl Creatinine 0.90 mg/dl Est Creatinine Clear Calc Drug Dose 114.5 ml/min Estimated GFR () 108.7 Estimated GFR (Non- 93.8 BUN/Creatinine Ratio 12.7 Random Glucose 106 mg/dl Calcium Level 8.4 mg/dl Assessment and Plan 60 y/o male with PMHx of ischemic cardiomyopathy w/ ejection fraction of 40%, coronary artery disease with coronary artery bypass grafting as well as a history of PCI to the LAD, hypertension, dyslipidemia, hypothyroidism, s/p R TKA on 07/[address] Friedman on 07/08. s/p R TKA on 07/[address] Friedman: - Surgical management, pain management, PT/OT, and DVT prophylaxis as per primary team - Follow CBC and PRP Ischemic cardiomyopathy w/ ejection fraction of 40%/CAD s/p CABG/a.fib: - Cardiology following - ECHO pending per cardiology - Coreg 12.5 mg daily, Lasix 20 mg daily New onset atrial fibrillation - Rate is controlled. - Anti coagulants, oral when OK with Orthopedics given recent surgery as per Cards recommendations Chronic anemia- STABLE: - Continue Ferrous sulfate BID - Check iron level - Follow H&H postop Hypothyroidism: - TSH WNL - Continue Synthroid 125 mcg daily Hyponatremia: - IVF - Follow PRP Dyslipidemia: Lipitor 80 mg daily HTN: Vasotec 5 mg daily- postop PRP reviewed GI prophylaxis: Protonix DVT prophylaxis: As per primary team Code Status: LEVEL I, FULL Dispo: Discharge as per primary team
[2016-07-10] MEDS: OXYCODONE HCL 10 MG TABCR (OXYCONTIN) PO SCH ×2 (10:03→21:21)
[2016-07-10] MEDS: ASPIRIN 81 MG ECTAB PO SCH ×2 (10:03→21:20)
[2016-07-10] MEDS: ENALAPRIL MALEATE 5 MG TAB PO SCH (10:03)
[2016-07-10] MEDS: DOCUSATE SODIUM 100 MG CAP PO SCH ×2 (10:04→21:21)
--- NOTE | 2016-07-10 11:40 | PROGRESS NOTE ---
DATE: 07/10/2016 SUBJECTIVE: The patient is a 60-year-old who underwent right total knee replacement. He has a history of ischemic heart disease with an ischemic cardiomyopathy. He has been in atrial fibrillation since his surgery. The rate has been controlled and he has been completely asymptomatic in regard to the dysrhythmia and continues to be so. He is receiving physical therapy and has no cardiac complaints. He still has a drain in his knee and it would appear that he will be remaining in the hospital for that reason. 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 PHYSICAL EXAMINATION: VITAL SIGNS: Blood pressure 150/80. Pulse is regular at 70 beats per minute. He is afebrile. GENERAL: He is alert and oriented, in no acute distress. HEENT: Normocephalic. Pupils are equal and reactive to light. Extraocular muscles are intact bilaterally. NECK: The neck veins are flat. Carotids have good upstrokes bilaterally without bruits. Thyroid is nonpalpable. RESPIRATORY: Breath sounds equal bilaterally and clear to auscultation. CARDIOVASCULAR: Heart has a regular rhythm. Normal S1, S2. No S3, S4. No cardiac rubs or murmurs. GASTROINTESTINAL: Abdomen is soft, nontender without organomegaly. EXTREMITIES: Free of edema, digit clubbing, or cyanosis. NEUROLOGIC: Grossly intact. SKIN: Warm to touch. LYMPH NODES: Negative to palpation. IMPRESSION: 1. Persistent atrial fibrillation. 2. Status post right total knee replacement. 3. Ischemic cardiomyopathy. 4. History of coronary artery bypass surgery. RECOMMENDATIONS: Clinically, the patient remains stable and is completely asymptomatic in regard to his atrial arrhythmias. At this point, I would continue his current treatment, but maintain him on the telemetry unit. His primary digital business analyst, Dr. Mendez, will be back tomorrow and can make decisions regarding his atrial arrhythmias.
[2016-07-11 04:00] VITALS: BP 123/82; PULSE 70; TEMP 36.6; O2SAT 98
[2016-07-11] MEDS: LEVOTHYROXINE 125 MCG TAB PO SCH (05:51)
[2016-07-11] MEDS: ACETAMINOPHEN 500 MG TAB PO SCH ×3 (05:51→19:41)
[2016-07-11] MEDS: DOCUSATE SODIUM 100 MG CAP PO SCH ×2 (08:07→19:40)
[2016-07-11] MEDS: OXYCODONE HCL 10 MG TABCR (OXYCONTIN) PO SCH ×2 (08:07→19:41)
[2016-07-11] MEDS: ASPIRIN 81 MG ECTAB PO SCH ×2 (08:07→19:40)
[2016-07-11] MEDS: MULTIVITAMIN TAB PO SCH (08:07)
[2016-07-11] MEDS: ENALAPRIL MALEATE 5 MG TAB PO SCH (08:07)
[2016-07-11] MEDS: CARVEDILOL 12.5 MG TAB PO SCH (08:07)
[2016-07-11] MEDS: ATORVASTATIN 40 MG TAB PO SCH (08:07)
[2016-07-11] MEDS: FERROUS GLUCONATE 324 MG TAB PO SCH ×3 (08:08→17:33)
[2016-07-11] MEDS: PANTOprazole SOD 40 MG TAB PO SCH (08:08)
[2016-07-11] MEDS: FUROSEMIDE 20 MG TAB PO SCH (08:08)
--- NOTE | 2016-07-11 08:33 | Anesthesiology Progress Note ---
Anesthesia Post Op Note Date & Time July 11, 2016 at 08:33 Vital Signs Pain Intensity: 1.0 Vital Signs Past 12 Hours Date Time Temp Pulse Resp B/P Pulse Ox O2 Delivery O2 Flow Rate FiO2 07/11/16 07:30 Room Air 07/11/16 04:00 36.6 70 18 123/82 98 Room Air 07/11/16 04:00 Room Air 07/10/16 23:59 Room Air 07/10/16 23:55 36.6 63 18 127/81 99 Room Air Notes Mental Status: alert / awake / arousable, participated in evaluation Pt Amnestic to Procedure: Yes Nausea / Vomiting: adequately controlled Pain: adequately controlled Airway Patency, RR, SpO2: stable & adequate BP & HR: stable & adequate Hydration State: stable & adequate Neuraxial Anesthesia: sensory block resolved Anesthetic Complications: no major complications apparent
[2016-07-11 09:04] VITALS: BP 155/87; PULSE 85; TEMP 36.5; O2SAT 96
--- NOTE | 2016-07-11 09:23 | Hospitalist Progress Note ---
Hospitalist Progress Note Date of Service July 11, 2016. Subjective Pt evaluation today including: conversation w/ patient, conversation w/ family , physical exam, chart review, lab review, review of studies Pain: Moderate, 4/10 PO Intake: good Voiding: no voiding problems The patient was seen and examined this morning. Patient reports feeling well today. He has just worked with physical therapy and reports this why he is having moderate pain in his knee. He denies having any acute complaints. Patient denies any fever, chills, sweats overnight. Discussion was held regarding the plan of starting anticoagulation, and that we will ask orthopedics to choose. Additional Comments: Constitutional: No fever, sweats or chills Eyes: No diplopia, no worsening or blurred vision ENT: normal hearing, no trouble swallowing Respiratory: No cough, sputum, dyspnea at rest or on exertion Cardiovascular: No chest pain, tightness or palpitations Abdomen: No pain, nausea, vomiting, diarrhea or constipation Musculoskeletal: + Right knee pain, no calf pain, no swelling Neurologic: No weakness, numbness/tingling, or balance problems Psychiatric: No anxiety or depression Skin: No rash or itch Objective Vital Signs Date Time Temp Pulse Resp B/P Pulse Ox O2 Delivery O2 Flow Rate FiO2 07/11/16 09:04 36.5 85 20 155/87 96 Room Air 07/11/16 07:30 Room Air 07/11/16 04:00 36.6 70 18 123/82 98 Room Air 07/11/16 04:00 Room Air 07/10/16 23:59 Room Air 07/10/16 23:55 36.6 63 18 127/81 99 Room Air 07/10/16 20:00 Room Air 07/10/16 18:56 36.8 62 20 139/66 99 Room Air 07/10/16 16:30 Room Air 07/10/16 15:43 36.8 58 18 118/72 97 Room Air 07/10/16 12:30 Room Air 07/10/16 12:00 36.9 64 20 129/84 98 Room Air Physical Exam Notes: General: awake, alert, no apparent distress Head: Normocephalic, atraumatic ENT: PERRL, EOMI, no pharyngeal exudate, mucous membranes moist Chest: Clear to auscultation, on room air, no adventitious breath sounds Cardiac: Irregularly irregular, no JVD, normal peripheral pulses, good capillary refill Abdominal: NABS x 4 quadrants, soft, nontender to palpation, no rebound, guarding or tenderness Extremities: Right knee with bandage overlying surgical site, appears C/D/I, drain in place, no peripheral edema or erythema, calfs nontender to palpation Psych: Normal mood and affect Neuro: AAO x 3, no motor deficits, speech is clear, no peripheral sensory deficits Assessment and Plan 60 y/o male with PMHx of ischemic cardiomyopathy w/ ejection fraction of 40%, coronary artery disease with coronary artery bypass grafting as well as a history of PCI to the LAD, hypertension, dyslipidemia, hypothyroidism, s/p R TKA on 07/[address] Friedman on 07/08. s/p R TKA on 07/[address] Friedman: - Surgical management, pain management, PT/OT, and DVT prophylaxis as per primary team - Hemoglobin has remained stable, rechecking now and will follow with morning labs. - Would recommend not transfusing a unit of blood at this time as the patient is feeling well, denies any lightheadedness or dizziness, and is asymptomatic even though he is in A. fib. Would not transfuse unless the patient drops more than a gram. - Orthopedic plan to start Pradaxa twice a day and stop ASA once pradaxa is started. - Follow CBC and PRP Ischemic cardiomyopathy w/ ejection fraction of 40%/CAD s/p CABG/a.fib: - Cardiology following - appreciate recs - Coreg 12.5 mg daily, Lasix 20 mg daily - ECHO unnecessary, canceled Chronic paroxysmal atrial fibrillation - Rate is controlled - pt remains asymptomatic - Per Cards pt should be anticoagulated for several weeks- Will start Pradaxa BID Chronic anemia- STABLE: - Continue Ferrous sulfate BID - iron level is adequate - H&H recheck now Hypothyroidism: - TSH WNL - Continue Synthroid 125 mcg daily Hyponatremia: resolved - Pt is tolerating oral intake without difficulty, fluids off. Dyslipidemia: Cont Lipitor 80 mg daily HTN: Vasotec 5 mg daily DVT ppx: on asa now, plan to start Pradaxa BID. CODE STATUS: FULL CODE Dispo: Discharge as per primary team, likely within 1 day.
--- NOTE | 2016-07-11 10:57 | Orthopedic Progress Note ---
Orthopedic Progress Note Date of Service July 11, 2016. Subjective Post OP Day: 3 Reports: feeling well, Denies: complaints Objective calves soft nontender, N/V intact, dressing C/D/I, A&O x3, toes mobile Date Time Temp Pulse Resp B/P Pulse Ox O2 Delivery O2 Flow Rate FiO2 07/11/16 09:04 36.5 85 20 155/87 96 Room Air 07/11/16 07:30 Room Air 07/11/16 04:00 36.6 70 18 123/82 98 Room Air 07/11/16 04:00 Room Air 07/10/16 23:59 Room Air 07/10/16 23:55 36.6 63 18 127/81 99 Room Air 07/10/16 20:00 Room Air 07/10/16 18:56 36.8 62 20 139/66 99 Room Air 07/10/16 16:30 Room Air 07/10/16 15:43 36.8 58 18 118/72 97 Room Air 07/10/16 12:30 Room Air 07/10/16 12:00 36.9 64 20 129/84 98 Room Air Assessment & Plan Assessment: POD 3 R TKA -Acute Blood Loss Anemia -pt/ot -dvt proph with shavon/scd/ Pradaxa bid. -plan for home PT followed by [facility] @ [facility] Plan: Spoke to Dr Mendez. Starting Pradaxa today bid. Stop ASA once Pradaxa started Hgb drop to 7.9 yesterday. With lower EF, Dr Mendez asking for 1 unit of PRBC' s to get him above 9.0 Hgb We will keep him one more day to make sure he's maintaining his Hgb. Inhouse Planning Pain Management: Oxycontin, Morphine, Oxy IR DVT Prophylaxis: TEDs, SCDs, ASA, other (Pradaxa to be added by Dr Mendez today) Discharge Planning Discharge Planning: home with oppt Pain Management: Oxycontin, Oxy IR DVT Prophylaxis: TEDs, SCDs, other (Pradaxa) Therapy: Physical Therapy
--- NOTE | 2016-07-11 11:07 | Cardiology Follow-Up ---
Subjective Subjective Date of Service: July 11, 2016. Pt evaluation today including: conversation w/ patient, physical exam, chart review, lab review, review of studies, conversation w/ data management consultant, review of inpatient medication list Additional Details: Pt seen and examined, states that he feels fine, ambulating well in hallway. Denies cp, sob, palpitations, lightheadedness or dizziness. Tele reviewed: atrial fibrillation rate controlled at rest, rvr with exertion. Review of Systems Respiratory: No cough, No dyspnea at rest, No dyspnea on exertion, No hemoptysis, No problem reported, No see HPI, No shortness of breath, No sputum, No wheezing Cardiac: No PND, No chest pain, No claudication, No edema, No orthopnea, No palpitations, No problem reported, No see HPI Objective Vital Signs Last Vital Signs Documentation Date Time Temp Pulse Resp B/P Pulse Ox O2 Delivery O2 Flow Rate FiO2 07/11/16 09:04 36.5 85 20 155/87 96 Room Air 07/09/16 07:31 3.0 Physical Exam: General Appearance: WD/WN, no apparent distress Eyes: bilateral eyes EOMI, bilateral eyes PERRL, bilateral eyes normal inspection ENT: normal ENT inspection, hearing grossly normal, pharynx normal Neck: supple, no adenopathy, thyroid normal, no JVD, no carotid bruits, trachea midline Respiratory/Chest: chest non-tender, lungs clear, normal breath sounds, no respiratory distress, no accessory muscle use Cardiovascular: no murmur, + bradycardia, + irregularly irregular Abdomen: normal bowel sounds, non tender, soft Extremities: normal inspection, no pedal edema, no calf tenderness, + pertinent finding (Dressing over right knee with drain in-situ) Neurologic/Psychiatric: training representative II-XII nml as tested, no motor/sensory deficits, alert, normal mood/affect, oriented x 3 Skin: normal color, warm/dry, no rash Lymphatic: no adenopathy Assessment and Plan 1. atrial fibrillation new onset unclear duration asymptomatic rates relatively well controlled on outpatient coreg discussed STEPHANIE guided cardioversion now vs. anticoagulation for 1 month and then possible cardioversion pt would prefer not to undergo STEPHANIE lengthy discussion on anticoagulation agents pros and cons of meds reviewed pt would prefer Pradaxa, I have asked case management to check for insurance coverage will follow as an outpatient in 3-4 weeks 2. ICM stable would prefer to maintain hgb >9 discussed with ortho, agreeable 3. anemia newly discovered since starting anticoagulation would prefer to monitor for additional 24 hours will require further work up as outpatient with PCP and likely GI
[2016-07-11 11:46] LABS: HEMATOCRIT 27.8 % (42-52); MEAN CELL VOLUME 78.1 fL (80-100); MEAN CORPUSCULAR HEMOGLOBIN 23.9 pg (25-34); MEAN CORPUSCULAR HGB CONC 30.6 g/dl (32-36); MEAN PLATELET VOLUME 9.6 fL (7.4-10.4); PLATELET COUNT 311 K/uL (130-400); RED BLOOD COUNT 3.56 M/uL (4.7-6.1); WHITE BLOOD COUNT 11.27 K/uL (4.8-10.8)
[2016-07-11 12:12] VITALS: BP 112/75; PULSE 69; TEMP 37.1; O2SAT 100
[2016-07-11] MEDS ORDERED: DABIGATRAN ELEXILATE 75 MG CAP PO ONE (12:30)
[2016-07-11] MEDS ORDERED: ACET-1138 PO (13:16)
[2016-07-11] MEDS ORDERED: PRD75 PO (13:16)
[2016-07-11] MEDS ORDERED: OXYSR10 PO (13:16)
[2016-07-11] MEDS ORDERED: ONDA8TAB6 PO (13:16)
[2016-07-11] MEDS ORDERED: RXC5 PO (13:16)
--- NOTE | 2016-07-11 13:23 | Discharge Instructions ---
Discharge Instructions Date of Service July 11, 2016. Admission Reason for Admission: Right Knee Osteoarthritis Discharge Discharge Diagnosis / Problem: Right Knee Djd Discharge Goals Goal(s): Decrease discomfort, Improve function Activity Recommendations Activity Limitations: per Instructions/Follow-up section Weightbearing Status: Right weightbearing (as tolerated) . Instructions / Follow-Up Instructions / Follow-Up ACTIVITY RECOMMENDATIONS: SELF CARE INSTRUCTIONS AFTER TOTAL KNEE REPLACEMENT A. You may need to continue a physical therapy program after discharge from the hospital. There are several options available to you. Your doctor will assist you in selecting the best one for you. 1. An out-patient facility 2 to 3 times a week for therapy or home therapy. 2. Continue working on all exercises taught to you in the hospital. Your goals should be to increase bending of your knee to 90 degrees and beyond and to fully straighten your knee. B. You may progress at your own pace from walking with a walker or crutches to a cane; then to no assistive devices. C. Make walking a part of your daily routine. Be up as much as comfortable with rest periods throughout the day. Rest with leg elevation is very important. Use the ice wrap frequently for the first 3-4 weeks. D. There are no restrictions on activities. You may ride in a car, shop, participate in jukebox routeman and all social activities. E. Wear the long elastic stockings (ANANT hose) 20 hours a day for 2 weeks after surgery. They can be removed several times a day for laundering and for a bath. F. You may shower, no tub baths until cleared by your doctor. SPECIAL CARE INSTRUCTIONS: VERY IMPORTANT TO READ AND REVIEW A. There are a few signs you need to watch for after you are home. Call [facility] if you notice any of the followin. Increased severe knee pain. Some pain is expected especially when you exercise. 2. Increased swelling in your leg or knee; pain or swelling of the calf muscle in either lower leg. 3. Any fluid drainage from the incision. 4. Shortness of breath or chest pain. B. Please call [facility] at if you have any concerns or questions about your operation or recovery. The doctor or his nurse will return your call promptly. C. You must take antibiotics before dental work, bladder, bowel or other surgery. Your doctor will provide you with a permanent care to carry describing this precaution. IMPORTANT: * REMEMBER TO TAKE ASPIRIN, 81 MG, TWICE DAILY FOR 4 WEEKS UNLESS OTHERWISE DIRECTED. THIS IS YOUR BLOOD THINNER. * HIGH RISK PATIENTS MAY BE PRESCRIBED A STRONGER BLOOD THINNER. THIS WILL BE PROVIDED AT DISCHARGE. * CALL IF INCREASED PAIN, REDNESS, DRAINAGE OR FEVER GREATER THAT 101. * WEAR ANANT HOSE 20 HOURS PER DAY FOR 2 WEEKS. * Silverlon- This is a large adhesive bandage that contains silver ions. This helps your incision heal by fighting off bacteria and protecting it from the outside environment. You are permitted to shower with this dressing. This will remain on your incision for 7 days and then should be removed. Some visible blood or drainage through the dressing window is normal. If there is significant drainage or leaking noted before the 7 days notify your doctor's office immediately. Once removed, keep incision clean and dry. If there is any drainage or redness noted, please call your surgeon. . FOLLOW UP VISIT: If appointment is not already scheduled: Please call [facility] to make a follow-up appointment for 2 weeks after your surgery at . Current Hospital Diet Patient's current hospital diet: Regular Diet Discharge Diet Recommended Diet: Regular Diet Procedures Procedures Performed: Right Total Knee Arthroplasty - Cemented Pending Studies Studies pending at discharge: no Laboratory Results Hemoglobin A1c Test 06/13/16 11:03 Range/Units Estimated Average Glucose 117 mg/dl Hemoglobin A1c 5.7 H 4.5-5.6 % Medical Emergencies . Who to Call and When: Medical Emergencies: If at any time you feel your situation is an emergency, please call 911 immediately. . Non-Emergent Contact Non-Emergency issues call your: Surgeon Call Non-Emergent contact if: temperature is above 101.5, your pain is not controlled, your pain is worsening, wound has increased drainage, wound has increased redness . "Provider Documentation" section prepared by Harshal Huntley. . VTE Core Measure Inpt VTE Proph given/why not?: Other Anticoagulation, T.E.D. Stockings, SCD's [place] Drug Monitoring Program Search Results: patient reviewed within database, no issues identified
[2016-07-11 15:49] VITALS: BP 132/88; PULSE 69; TEMP 36.7; O2SAT 98
[2016-07-11] MEDS: OXYCODONE HCL IR 5 MG TAB (IMMEDIATE RELEASE) PO PRN (16:54)
[2016-07-11 19:30] VITALS: BP 138/84; PULSE 71; TEMP 37; O2SAT 99
[2016-07-11] MEDS: DABIGATRAN ELEXILATE 75 MG CAP PO SCH (19:40)
[2016-07-12] VITALS (7 sets, daily range): BP systolic 112–143; BP diastolic 73–93; PULSE 67–80; TEMP 36.8–37.1; O2SAT 94–98
[2016-07-12] MEDS: OXYCODONE HCL IR 5 MG TAB (IMMEDIATE RELEASE) PO PRN (01:59)
[2016-07-12] MEDS: LEVOTHYROXINE 125 MCG TAB PO SCH (06:13)
[2016-07-12] MEDS: ACETAMINOPHEN 500 MG TAB PO SCH ×2 (06:13→14:42)
[2016-07-12] MEDS: CARVEDILOL 12.5 MG TAB PO SCH (07:49)
[2016-07-12] MEDS: FUROSEMIDE 20 MG TAB PO SCH (07:49)
[2016-07-12] MEDS: MULTIVITAMIN TAB PO SCH (07:49)
[2016-07-12] MEDS: ATORVASTATIN 40 MG TAB PO SCH (07:49)
[2016-07-12] MEDS: ASPIRIN 81 MG ECTAB PO SCH (07:50)
[2016-07-12] MEDS: DOCUSATE SODIUM 100 MG CAP PO SCH (07:50)
[2016-07-12] MEDS: ENALAPRIL MALEATE 5 MG TAB PO SCH (07:50)
[2016-07-12] MEDS: FERROUS GLUCONATE 324 MG TAB PO SCH ×3 (07:50→15:46)
[2016-07-12] MEDS: PANTOprazole SOD 40 MG TAB PO SCH (07:50)
[2016-07-12] MEDS: OXYCODONE HCL 10 MG TABCR (OXYCONTIN) PO SCH (07:51)
[2016-07-12] MEDS: DABIGATRAN ELEXILATE 75 MG CAP PO SCH (07:52)
[2016-07-12 08:55] LABS: HEMATOCRIT 30.3 % (42-52)
--- NOTE | 2016-07-12 10:09 | Cardiology Follow-Up ---
Subjective Subjective Date of Service: July 12, 2016. Pt evaluation today including: conversation w/ patient, physical exam, chart review, lab review, review of studies, conversation w/ agriculture consultant, review of inpatient medication list Additional Details: Pt seen and examined, states that he feels fine. Was awoken this AM by nursing around 0415 but denied complaints. Otherwise feels great, no knee pain. Denies cp, sob, palpitations, lightheadedness or dizziness. Tele reviewed: afib variable rates, over a 20 second run of ventricular tachycardia at approx 0411 this AM. Review of Systems Respiratory: No cough, No dyspnea at rest, No dyspnea on exertion, No hemoptysis, No problem reported, No see HPI, No shortness of breath, No sputum, No wheezing Cardiac: No PND, No chest pain, No claudication, No edema, No orthopnea, No palpitations, No problem reported, No see HPI Objective Vital Signs Last Vital Signs Documentation Date Time Temp Pulse Resp B/P Pulse Ox O2 Delivery O2 Flow Rate FiO2 07/12/16 08:04 Room Air 07/12/16 07:42 36.8 74 16 143/93 98 07/09/16 07:31 3.0 Physical Exam: General Appearance: WD/WN, no apparent distress Eyes: bilateral eyes EOMI, bilateral eyes PERRL, bilateral eyes normal inspection ENT: normal ENT inspection, hearing grossly normal, pharynx normal Neck: supple, no adenopathy, thyroid normal, no JVD, no carotid bruits, trachea midline Respiratory/Chest: chest non-tender, lungs clear, normal breath sounds, no respiratory distress, no accessory muscle use Cardiovascular: no murmur, + bradycardia, + irregularly irregular Abdomen: normal bowel sounds, non tender, soft Extremities: normal inspection, no pedal edema, no calf tenderness, + pertinent finding (Dressing over right knee with drain in-situ) Neurologic/Psychiatric: editor at large II-XII nml as tested, no motor/sensory deficits, alert, normal mood/affect, oriented x 3 Skin: normal color, warm/dry, no rash Lymphatic: no adenopathy Assessment and Plan 1. atrial fibrillation new onset unclear duration asymptomatic rates relatively well controlled on outpatient coreg discussed STEPHANIE guided cardioversion now vs. anticoagulation for 1 month and then possible cardioversion pt would prefer not to undergo STEPHANIE lengthy discussion on anticoagulation agents pros and cons of meds reviewed pt would prefer Pradaxa, I have asked case management to check for insurance coverage will follow as an outpatient in 3-4 weeks insurance will not cover pradaxa, will d/c and start Xarelto 2. ventricular tachycardia sustained asymptomatic given EF <35% will require ICD unfortunately, given that he is POD #4 from knee will have to be delayed will place LifeVest and tentatively plan for ICD in 1 month discussed adding amiodarone but would require STEPHANIE to evaluate for NANNETTE thrombus pt would prefer to avoid additional procedures at this time will proceed with LifeVest only and continued beta freya 3. ICM echo repeated today, EF <35% full report to follow 4. anemia newly discovered HGB up to 9 this AM will require further work up as outpatient with PCP and likely GI would be ok to d/c to home today once LifeVest is placed
[2016-07-12 10:28] LABS: BUN/CREATININE RATIO 13.1 (10-20); CALCIUM 9.1 mg/dl (8.5-10.1); CREATININE 1.1 mg/dl (0.60-1.40); POTASSIUM 4.6 mmol/L (3.5-5.1)
--- NOTE | 2016-07-12 11:24 | Progress Note ---
Progress Note Date of Service July 12, 2016. 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 Dictation Number [id number]
--- NOTE | 2016-07-12 12:04 | ECHOCARDIOGRAM REPORT ---
*NOTICE TO RECEIVING [employer] This information is strictly Confidential and protected under [place] law. [place] law prohibits you from making any further disclosure of this information unless further disclosure is expressly permitted by the written consent of the person to whom it pertains or is authorized by law. A general authorization for the release of medical or other information is not sufficient for this purpose. Hospital accepts no responsibility if the information is made available to any other person, INCLUDING THE PATIENT. Interpretation Summary * Name: BREE EMMANUEL Study Date: 07/12/2016 09:44 AM BP: 143/93 mmHg * Patient Location: 35 HR: 79 * : 1955 (M/d/yyyy) Gender: Male Height: 73 in * Age: 60 yrs Ethnicity: [place] Weight: 234 lb * Ordering Physician: Hugh Mendez DO * Referring Physician: Hugh Mendez DO * Performed By: Elsa Mejia RCS * * Reason For Study: EVAL WALL MOTION / EF * BSA: 2.3 m2 * -- Conclusions -- * The left ventricle is mildly dilated. * Left ventricular systolic function is severely reduced. * Ejection Fraction = 25-30%. * Akinesis of the anteroseptal, anterior, anterolateral and apical sosa. Mild to moderate hypokinesis of the inferoseptal wall. Normal motion of the inferior/inferolateral sosa. Procedure Details * Limited views were obtained. Left Ventricle * The left ventricle is mildly dilated. * Left ventricular systolic function is severely reduced. * Ejection Fraction = 25-30%. * Akinesis of the anteroseptal, anterior, anterolateral and apical sosa. Mild to moderate hypokinesis of the inferoseptal wall. Normal motion of the inferior/inferolateral sosa. MMode 2D Measurements and Calculations IVSd 1.4 cm IVSs 1.9 cm LVIDd 5.5 cm LVIDs 4.9 cm LVPWd 1.8 cm LVPWs 1.8 cm IVS/LVPW 0.76 FS 10.9 % EDV(Teich) 149.1 ml ESV(Teich) 114.0 ml EF(Teich) 23.5 % EDV(cubed) 168.8 ml ESV(cubed) 119.3 ml EF(cubed) 29.3 % % IVS thick 41.0 % % LVPW thick 0.27 % LV mass(C)d 407.6 grams LV mass(C)dI 177.2 grams/m\S\2 LV mass(C)s 441.9 grams LV mass(C)sI 192.1 grams/m\S\2 SV(Teich) 35.1 ml SI(Teich) 15.2 ml/m\S\2 SV(cubed) 49.5 ml SI(cubed) 21.5 ml/m\S\2 Ao root diam 3.4 cm Ao root area 8.9 cm\S\2 LVOT diam 2.0 cm LVOT area 3.3 cm\S\2
--- NOTE | 2016-07-12 12:15 | Progress Note ---
Subjective Date of Service: July 12, 2016. Subjective Pt evaluation today including: conversation w/ patient, physical exam, lab review, review of studies, conversation w/ healthcare network pricing consultant, review of inpatient medication list Pain: little knee pain PO Intake: adequate Voiding: no voiding problems patient feeling well, no complaints had a run of V tach at 0415, was sleeping, no symptoms discussed with Dr. Mendez, he checked an echo and EF 35%, should have and ICD appreciate EP consult, due to recent knee surgery, would need to delay ICD for several weeks, recommend life vest can go home once life vest placed and follow up with cardiology Review of Systems Musculoskeletal: + joint pain (right knee, mild to moderate only) All Other Systems: Reviewed and Negative Medications Current Inpatient Medications Medications (Trade) Dose Ordered Sig/Latanya Route Start Time Stop Time Status Last Admin Dose Admin Atorvastatin Calcium (Lipitor Tab) 80 mg QAM PO 07/09/16 09:00 08/08/16 08:59 07/12/16 07:49 80 MG Calcium Carbonate (Tums Chew Tab) 500 mg QAM PRN PO 07/08/16 12:45 08/07/16 12:44 Carvedilol (Coreg Tab) 12.5 mg QAM PO 07/09/16 09:00 08/08/16 08:59 07/12/16 07:49 12.5 MG Enalapril Maleate (Vasotec Tab) 5 mg QAM PO 07/09/16 09:00 08/08/16 08:59 07/12/16 07:50 5 MG Furosemide (Lasix Tab) 20 mg DAILY PO 07/09/16 09:00 08/08/16 08:59 07/12/16 07:49 20 MG Levothyroxine Sodium (Synthroid Tab) 125 mcg DAILYBB PO 07/09/16 06:00 08/08/16 05:59 07/12/16 06:13 125 MCG Celecoxib (CeleBREX CAP) 200 mg BID PO 07/08/16 21:00 08/07/16 20:59 Future Hold Oxycodone HCl (Roxicodone Immediate Rel Tab) 1 TABLET FOR PAIN RATING... Q4H PRN PO 07/08/16 12:45 07/22/16 12:44 07/12/16 01:59 10 MG Oxycodone HCl (Oxycontin Tab) 10 mg Q12 PO 07/08/16 21:00 07/22/16 20:59 07/12/16 07:51 10 MG Morphine Sulfate (MoRPHine SULFATE INJ) 2 mg Q2H PRN IV 07/08/16 12:45 07/22/16 12:44 Acetaminophen (Tylenol Tab) 1,000 mg Q8H PO 07/08/16 18:00 08/07/16 17:59 07/12/16 06:13 1,000 MG Magnesium Hydroxide (Milk Of Magnesia Susp) 30 ml Q6H PRN PO 07/08/16 12:45 08/07/16 12:44 Docusate Sodium (coLACE CAP) 100 mg BID PO 07/08/16 21:00 08/07/16 20:59 07/12/16 07:50 100 MG Diphenhydramine HCl (Benadryl Cap) 25 mg Q8H PRN PO 07/08/16 12:45 08/07/16 12:44 Diphenhydramine HCl (Benadryl Inj) 25 mg Q8H PRN IV 07/08/16 12:45 08/07/16 12:44 Al Hydrox/Mg Hydrox/Simethicone (Maalox Max Susp) 15 ml Q4H PRN PO 07/08/16 12:45 08/07/16 12:44 Zolpidem Tartrate (Ambien Tab) 5 mg HSZ PRN PO 07/08/16 12:45 08/07/16 12:44 Multivitamins (Multivitamin Tab) 1 tab QAM PO 07/09/16 09:00 08/08/16 08:59 07/12/16 07:49 1 TAB Ondansetron HCl (Zofran Inj) 4 mg Q6H PRN IV 07/08/16 12:45 08/07/16 12:44 Metoclopramide HCl (Reglan Inj) 10 mg Q6H PRN IV 07/08/16 12:45 08/07/16 12:44 Ferrous Gluconate (Ferrous Gluconate Tab) 324 mg TIDM PO 07/08/16 16:45 08/07/16 17:59 07/12/16 11:51 324 MG Pantoprazole Sodium (Protonix Tab) 40 mg QAM PO 07/09/16 09:00 08/08/16 08:59 07/12/16 07:50 40 MG Aspirin (Ecotrin Tab) 81 mg BID PO 07/08/16 21:00 08/07/16 20:59 07/12/16 07:50 81 MG Nitroglycerin (Nitrolingual Amenia) 1 sprays DAILY PRN UT 07/08/16 15:30 08/07/16 12:44 Dabigatran (Pradaxa Cap) 150 mg BID PO 07/11/16 21:00 08/10/16 20:59 07/12/16 07:52 150 MG Objective Vital Signs Date Time Temp Pulse Resp B/P Pulse Ox O2 Delivery O2 Flow Rate FiO2 07/12/16 11:04 37.1 78 18 112/73 94 Room Air 07/12/16 08:04 Room Air 07/12/16 07:42 36.8 74 16 143/93 98 Room Air 07/12/16 04:00 Room Air 07/12/16 04:00 36.8 69 20 134/76 96 Room Air 07/12/16 00:00 37.0 80 20 137/83 96 Room Air 07/12/16 00:00 Room Air 07/11/16 20:00 Room Air 07/11/16 19:30 37.0 71 18 138/84 99 Room Air 07/11/16 16:15 Room Air 07/11/16 15:49 36.7 69 18 132/88 98 Room Air 07/11/16 12:30 Room Air 07/11/16 12:12 37.1 69 20 112/75 100 Room Air Physical Exam General Appearance: WD/WN, no apparent distress Eyes: normal inspection, EOMI, sclerae normal Neck: supple, no adenopathy, no JVD, trachea midline Respiratory/Chest: chest non-tender, lungs clear, normal breath sounds, no respiratory distress, no accessory muscle use Cardiovascular: no edema, no gallop, no JVD, no murmur, + irregularly irregular Abdomen: normal bowel sounds, non tender, soft, no organomegaly Extremities: no pedal edema, no calf tenderness, normal capillary refill, pelvis stable, + pertinent finding (right knee swelling, decreased ROM) Neurologic/Psychiatric: pressurizer II-XII nml as tested, no motor/sensory deficits, alert, normal mood/affect, oriented x 3 Skin: normal color, warm/dry, no rash Lymphatic: no adenopathy Laboratory Results Last 24 Hours Test 07/11/16 12:41 07/12/16 07:50 07/12/16 10:00 Total Bilirubin 0.4 mg/dl Direct Bilirubin 0.1 mg/dl Aspartate Amino Transf (AST/SGOT) 17 U/L Alanine Aminotransferase (ALT/SGPT) 18 U/L Alkaline Phosphatase 64 U/L Total Protein 6.4 gm/dl Albumin 3.6 gm/dl Hemoglobin 9.0 g/dL Hematocrit 30.3 % Magnesium Level 1.8 mg/dl Sodium Level 134 mmol/L Potassium Level 4.6 mmol/L Chloride Level 98 mmol/L Carbon Dioxide Level 31 mmol/L Anion Gap 5.0 mmol/L Blood Urea Nitrogen 14 mg/dl Creatinine 1.10 mg/dl Est Creatinine Clear Calc Drug Dose 93.6 ml/min Estimated GFR () 85.3 Estimated GFR (Non- 73.6 BUN/Creatinine Ratio 13.1 Random Glucose 91 mg/dl Calcium Level 9.1 mg/dl Assessment and Plan 60 y/o male with PMHx of ischemic cardiomyopathy w/ ejection fraction of 40%, coronary artery disease with coronary artery bypass grafting as well as a history of PCI to the LAD, hypertension, dyslipidemia, hypothyroidism, s/p R TKA on 07/[address] Friedman on 07/08. s/p R TKA on 07/[address] Friedman: - Surgical management, pain management, PT/OT, and DVT prophylaxis as per primary team - Hemoglobin dropped slightly but trending back up, 9.0 today, no need for transfusion - stable for discharge from medical standpoint, see below for cardiac discussion Ischemic cardiomyopathy w/ prior ejection fraction ranging from 25% - 40%/CAD s/ p CABG, paroxysmal afib rates controlled on Coreg 12.5mg BID which was prior home dose will anticoagulate on Pradaxa BID repeat echo today shows EF 35% will follow up with [facility] cardiology Ventricular tachycardia (20 seconds): occurred overnight, 414, no symptoms with EF of 35% he needs ICD but with recent TKA, would want to delay for several weeks to prevent hardware infection cardiology recommends Life Vest placement and can be discharged home once placed should follow up with [facility] cardiology in a few weeks Chronic anemia- STABLE: - Continue Ferrous sulfate BID - iron level is adequate - Hb 9.0 today Hypothyroidism: - TSH WNL - Continue Synthroid 125 mcg daily Hyponatremia: resolved - Pt is tolerating oral intake without difficulty, fluids off. Dyslipidemia: Cont Lipitor 80 mg daily HTN: Vasotec 5 mg daily DVT ppx: Pradaxa BID CODE STATUS: FULL CODE Dispo: can d/c home once Life Vest placed, follow up with cardiology in 2 weeks to discuss elective ICD placement in approximately one month
--- NOTE | 2016-07-12 12:22 | Discharge Instructions ---
Discharge Instructions Date of Service July 12, 2016. Admission Reason for Admission: Right Knee Osteoarthritis Discharge Discharge Diagnosis / Problem: Right knee osteoarthritis, paroxysmal atrial fibrillation, V tach Discharge Goals Goal(s): Improve function, Therapeutic intervention (defibrillator placement in one month) Activity Recommendations Activity Limitations: as noted below please refer to orthopedic surgery instructions for limitations . Instructions / Follow-Up Instructions / Follow-Up Medications: - XARELTO: started for anticoagulation with atrial fibrillation, take once a day Medical issues that were addressed: - Atrial fibrillation: your rates have been controlled on Coreg dose that you were previously taking, you have been started on Xarelto for anticoagulation - Ventricular tachycardia: lasted about 20 seconds while you were sleeping, stopped spontaneously, however, with your cardiomyopathy and ejection fraction of 35%, you are at risk for further V tach cardiology recommends that you go home with a Life Vest which will act as a defibrillator if you need it ultimately, you need an ICD (implanted defibrillator) in about one month's time after you have recovered and knee incision completely healed *FOLLOW UP* - Dr. Mendez in 2 weeks for follow up and to set up elective ICD placement in 4 weeks time, Current Hospital Diet Patient's current hospital diet: Regular Diet Discharge Diet Recommended Diet: AHA Diet (Heart Healthy) Procedures Procedures Performed: Right Total Knee Arthroplasty - Cemented Pending Studies Studies pending at discharge: no Laboratory Results Hemoglobin A1c Test 06/13/16 11:03 Range/Units Estimated Average Glucose 117 mg/dl Hemoglobin A1c 5.7 H 4.5-5.6 % Medical Emergencies . Who to Call and When: Medical Emergencies: If at any time you feel your situation is an emergency, please call 911 immediately. . Non-Emergent Contact Non-Emergency issues call your: Medical Fee Clerk Call Non-Emergent contact if: you have any medication questions . Past History Medical & Surgical History: (1) Atrial fibrillation (2) Ventricular tachycardia (3) Ischemic cardiomyopathy (4) Chronic systolic (congestive) heart failure . "Provider Documentation" section prepared by Jose Jurado. . VTE Core Measure Inpt VTE Proph given/why not?: Other Anticoagulation, T.E.D. Stockings, SCD's
--- NOTE | 2016-07-12 13:26 | CARDIOLOGY CONSULTATION ---
DATE OF CONSULTATION: 07/12/2016 CONSULTING PHYSICIAN: Dr. Hugh Mendez. REASON FOR CONSULT: Sustained ventricular tachycardia. HISTORY OF PRESENT ILLNESS: This is a 60-year-old gentleman known to Dr. Mendez as he has a past medical history of coronary artery disease and is status post CABG and PCI to the LAD, hypertension, ischemic cardiomyopathy, ejection fraction 40%, hyperlipidemia, hypothyroidism. He underwent a total knee replacement on 07/08/2016 without any complications. On his admission EKG, he was found to be in atrial fibrillation which seemed to be a newly found diagnosis for him. He was asymptomatic. He has been monitored on telemetry since the total knee replacement; however, earlier this morning around 4:00 in the morning, he went into wide complex tachycardia that seemed to accelerate to over 300 beats a minute, it does not seem to be AFib with aberrancy,rather to be sustained ventricular tachycardia/ventricular fibrillation, asymptomatic as pt was asleep. The patient was sleeping during it. This prompted electrophysiology consult. The patient denies any lightheadedness, dizziness or near syncopal episodes. He denies any palpitations, nausea or vomiting. He has been up and walking around and was due to go home this morning. PAST MEDICAL HISTORY: Coronary artery disease, hypertension, ischemic cardiomyopathy, hyperlipidemia, hypothyroidism. PAST SURGICAL HISTORY: CABG along with cardiac catheterization and stent to the LAD, recent total knee replacement on the right on 07/08/2016 and a history of left total knee replacement in 07/2005. The CABG was in 2008, GUILLORY to LAD, SVG to diagonal, posterolateral circumflex, and PDA. ALLERGIES: TO IODINE. FAMILY HISTORY: Unknown. SOCIAL HISTORY: He is a former tobacco user, he used to smoke a pipe. Alcohol use socially. REVIEW OF SYSTEMS: All other 10-point review of systems were reviewed and are essentially negative at this time. PHYSICAL EXAMINATION: VITAL SIGNS: Temperature 37 degrees Celsius, heart rate 78, blood pressure 112/73, respirations 18, oxygen saturation 94% on room air. GENERAL: He is awake, alert, and oriented x3, in no acute distress, sitting up in the bed comfortably. HEENT: Normocephalic, atraumatic. Extraocular movements intact. Sclerae nonicteric. Mucous membranes moist. NECK: Supple. No JVD, no carotid bruits appreciated. CARDIOVASCULAR: Irregularly irregular. S1, S2. No murmur appreciated. PULMONARY: Clear to auscultation without any wheezes, rales or rhonchi. ABDOMEN: Positive bowel sounds, soft, nontender. EXTREMITIES: No clubbing or cyanosis in bilateral fingers. No edema in bilateral lower extremities. Right surgical bandage noted over the knee. NEUROLOGIC: Grossly intact. PERTINENT TESTING: Telemetry strips reviewed from this morning, he has been in AFib since he has been in the hospital with average rates in the 70s and then around 410 this morning. He went into wide complex tachycardia initially around 150 beats per minute, seems pretty regular, broke out of it for a couple of beats and then went back in at an accelerated rate of 300 and more, again regular monomorphic sustained VT were over about 30 seconds. A preliminary limited echocardiogram performed today while the patient is in AFib, there does seem to be anterior wall severe hypokinesis and akinesis and the global EF depressed about 30%. EKG from 07/11/2016 is atrial fibrillation, 74 beats per minute, nonspecific IVCD, QTc 421. EKG on 07/08/2016, AFib at 59 beats per minute, nonspecific IVCD, QTc about 451. LABORATORY STUDIES: Hemoglobin 9, hematocrit 30. Chemistry from today, sodium 134, potassium 4.6, chloride 98, carbon dioxide 31, BUN 14, creatinine 1.1, glucose 91, calcium 9.1. LFTs on 07/11/2016, total bilirubin 0.4, direct bilirubin 0.1, AST 17, ALT 18, alkaline phosphatase 64, total protein 6.4, albumin 3.6. TSH on 07/08/2016 was 0.399, on the lower end of normal. Echocardiogram 07/17/2015 done as an outpatient, EF 20-25%. Sosa are moderately hypokinetic, the anterior and inferior septal sosa are severely hypokinetic at the midlevel, and the apex is akinetic and thinning with mild atypical expansion. Prior echo in 2012, ejection fraction was 30-34%, the LA was moderately enlarged, there was moderate MR, anterior and inferolateral sosa were hypokinetic at the midlevel and akinetic at the apex, and the LV was mildly enlarged. Cardiac cath in 2008 was done at [place]. Left main was normal, LAD stent in the proximal portion widely patent, in the mid was 50-60%, the diagonal 2 was a medium-sized vessel, had ostial 70%, circumflex medium sized vessel and mid 90%, RCA was large dominant vessel, stent in the mid portion widely patent, the distal portion of the RCA at the origin of PDA was 80%, minimal collaterals from the RCA filling the subtotally occluded distal circumflex. IMPRESSION: 1. Sustained monomorphic ventricular tachycardia. 2. Ischemic cardiomyopathy, ejection fraction about 30%. 3. Atrial fibrillation, probably persistent, although the onset is uncertain. Started on Pradaxa. 4. Coronary artery disease, history of coronary artery bypass graft along with left anterior descending artery and right coronary artery stent. 5. Hypertension. 6. Hyperlipidemia. 7. Sinus bradycardia. 8. Arthritis, status post recent right-sided total knee replacement. PLAN: The patient does qualify for implantable cardiac defibrillator given his sustained ventricular tachycardia and his ischemic cardiomyopathy; however, in the recent setting of a total knee replacement, I would opt to not do this elective procedure at this time, would give at least 4 weeks, maybe even 6-8 before putting an implantable cardiac defibrillator in him since he just had a total knee replacement. His QRS duration is 120 milliseconds when he is in normal sinus rhythm. Does not seem to have too much heart failure, so I think the best would probably be a dual chamber given his sinus bradycardia, so then we can increase his dose of carvedilol. I would recommend at this point for, prior to hospital discharge, him having a LifeVest in place, would make sure the settings are appropriate for high ventricular runs. Dr. Mendez and I did talk to the patient today about possible amiodarone antiarrhythmics; however, to safely start amiodarone, he would need a STEPHANIE prior since we do not know the duration of his AFib. Given this and the patient is not symptomatic, I do think it is the best option, and the patient declined a STEPHANIE anyway. So the patient is safe for discharge home as long as he gets his LifeVest today. Would continue the Coreg. If we can titrate it up, that would be ideal and he will follow up in my office as an outpatient. MARIBEL
[2016-07-12] MEDS ORDERED: XRL20 PO (14:45)
--- NOTE | 2016-07-12 16:52 | Orthopedic Progress Note ---
Orthopedic Progress Note Date of Service July 12, 2016. Subjective Post OP Day: 4 Reports: feeling well, Denies: complaints Objective calves soft nontender, N/V intact, dressing C/D/I, A&O x3, toes mobile Date Time Temp Pulse Resp B/P Pulse Ox O2 Delivery O2 Flow Rate FiO2 07/12/16 16:02 Room Air 07/12/16 15:42 36.8 67 20 127/78 98 Room Air 07/12/16 12:26 37.1 78 18 94 Room Air 07/12/16 12:06 Room Air 07/12/16 11:04 37.1 78 18 112/73 94 Room Air 07/12/16 08:04 Room Air 07/12/16 07:42 36.8 74 16 143/93 98 Room Air 07/12/16 04:00 Room Air 07/12/16 04:00 36.8 69 20 134/76 96 Room Air 07/12/16 00:00 37.0 80 20 137/83 96 Room Air 07/12/16 00:00 Room Air 07/11/16 20:00 Room Air 07/11/16 19:30 37.0 71 18 138/84 99 Room Air Laboratory Results 24 Hours: Test 07/12/16 07:50 Hematocrit 30.3 % Hemoglobin 9.0 g/dL Assessment & Plan Assessment: POD 4 R TKA -Acute Blood Loss Anemia -pt/ot -dvt proph with shavon/scd/ Pradaxa bid. -plan for home PT followed by OPPT @ [facility] SVT overnight Plan: Spoke to Dr Mendez this AM. Due to SVT overnight, Pt will need ICD device but must weight 1 month. Will need to fitted with an external defib vest before going home. Authorizations put in and waiting to hear if it's been approved. Once vest is fitted, patient will be able to go home. Likely tomorrow. Hgb 9.0 Inhouse Planning Pain Management: Oxycontin, Morphine, Oxy IR DVT Prophylaxis: TEDs, SCDs, other (Pradaxa) Discharge Planning Discharge Planning: home with oppt Pain Management: Oxycontin, Oxy IR DVT Prophylaxis: TEDs, SCDs, other (Pradaxa) Therapy: Physical Therapy
[2016-07-12] MEDS ORDERED: RIVAROXABAN 20 MG TAB PO SCH (17:00)
--- NOTE | 2016-07-15 08:19 | DISCHARGE SUMMARY ---
DISCHARGE DIAGNOSIS: Degenerative joint disease, right knee. SECONDARY DIAGNOSES: Hypothyroidism, hypercholesterolemia, hypertension, ischemic cardiomyopathy with ejection fraction of 40%, coronary artery disease with coronary artery bypass graft and history of percutaneous coronary intervention to the left anterior descending, paroxysmal atrial fibrillation during this stay with slow ventricular response, anemia. CONSULTS: 1. Dr. Miller. 2. Saritha Larsen PA-C/Frandy Garcia M.D. COMPLICATIONS: New onset paroxysmal atrial fibrillation during this stay with an episode of SVT requiring external ICD vest. PROCEDURES: Right total knee arthroplasty performed by Dr. Friedman on 07/08/2016. BRIEF HISTORY: As dictated in the history and physical. HOSPITAL SUMMARY: The patient was admitted on the above date and had the above-noted surgery performed which he tolerated well. Postoperatively, the patient developed paroxysmal atrial fibrillation with a slow ventricular response postoperatively which was a new diagnosis. Dr. Miller was consulted as well as was [facility] hospitalist service. The patient was then taken to the telemetry unit where he stayed for the majority of his stay. He was remaining stable; however, was continued workup for his atrial fibrillation. On his first postoperative day, he was feeling well and pain was controlled with his knee. Calves were soft, nontender, neurovascularly intact. Dressings clean, dry and intact and hemoglobin was 8.4. Vital signs showed stable. He was afebrile. He was doing range of motion in bed but had not yet done PT and plans were to start physical therapy and OT whenever it was okay with cardiology. Currently, he was on aspirin 81 mg for DVT prophylaxis at this time and plans were to discuss this with cardiology. By the second postoperative day, he was feeling well and pain was continuing to remain controlled and calves were soft, nontender, neurovascularly intact. Silverlon dressing was intact and toes were mobile. Vital signs were stable. He was afebrile. By his third postoperative day calves were soft, nontender, neurovascularly intact. Dressings were intact. He was feeling well and had no complaints and had been started on his PT and OT protocols. I spoke with Dr. Mendez and plans were to start Pradaxa that morning and stop his aspirin once his Pradaxa was started. Hemoglobin had dropped down to 7.9 the previous day and with his lower ejection fraction it was a possibility that he would need a transfusion. Repeat H\T\H did show his hemoglobin had come up to 8.5 and his transfusion was held, but that evening the patient ended up going into SVT and he would need an ICD device implanted, which would have to wait 1 month since he was just recently underwent his total knee arthroplasty. Plans were to fit him with an external defibrillator vest before going home and once vest was fitted he would be able to discharged. He was otherwise remaining stable and the rest of his stay was uneventful and by 07/12/2016 it was felt that he could be discharged to home. For further review, please see chart. LAB AND X-RAY DATA: As per chart. DISCHARGE INSTRUCTIONS: The patient was discharged to home in satisfactory condition on 07/12/2016. DIET: Regular. ACTIVITY: Weightbearing as tolerated right lower extremity. Follow TK instruction sheets and special care instructions as noted. Patient to follow up with Dr. Friedman in 2 weeks. The patient to call for appointment if one has not been made for you. The patient to follow up with Dr. Mendez for further workup for his atrial fibrillation and SVT. DISCHARGE MEDICATIONS: Acetaminophen 1000 mg p.o. q. 8 hours, Zofran 8 mg p.o. t.i.d., OxyContin 10 mg p.o. q. 12 hours, oxycodone 5-10 mg p.o. q. 4 hours p.r.n., Xarelto 20 mg p.o. daily, atorvastatin 80 mg p.o. q.a.m., resume calcium carbonate, carvedilol 12.5 mg p.o. q.a.m., enalapril 5 mg p.o. q.a.m., ferrous sulfate 1 tab p.o. b.i.d., furosemide 20 mg p.o. daily, levothyroxine 1 tab p.o. q.a.m., nitroglycerin 1 spray p.o. daily p.r.n., stop taking aspirin and ibuprofen. Note, Dr. Mendez to make final decision on dabigatran versus rivaroxaban for definitive DVT prophylaxis.
== END 2016-07-12 18:50 | disposition home or self-care (01) | DRG 470 ==
LOC: ENRESERVDT → ENRESERVTM → C.ACU 09:31 → C.2T 14:02 → EDBEDREQSVC 14:05 → EDBEDREQ 14:05
PROVIDERS: ADMIT Orthopaedic Surgery; ATTEND Orthopaedic Surgery
PROC: 0SRC0J9 Replacement of Right Knee Joint with Synthetic Substitute, Cemented, Open Approach (ICD-10-PCS; principal; 2016-07-08 12:00)
DX: M17.11 Unilateral primary osteoarthritis, right knee (principal); D62 Acute posthemorrhagic anemia; I47.2 Ventricular tachycardia; E87.1 Hypo-osmolality and hyponatremia; I48.0 Paroxysmal atrial fibrillation; D50.9 Iron deficiency anemia, unspecified; I25.5 Ischemic cardiomyopathy; I25.10 Atherosclerotic heart disease of native coronary artery without angina pectoris; I11.9 Hypertensive heart disease without heart failure; E03.9 Hypothyroidism, unspecified; E78.00 Pure hypercholesterolemia, unspecified; E78.5 Hyperlipidemia, unspecified; E66.9 Obesity, unspecified; Z51.81 Encounter for therapeutic drug level monitoring; Z79.899 Other long term (current) drug therapy; Z79.82 Long term (current) use of aspirin; Z96.652 Presence of left artificial knee joint; Z95.1 Presence of aortocoronary bypass graft; Z95.5 Presence of coronary angioplasty implant and graft; Z68.30 Body mass index [BMI] 30.0-30.9, adult; Z82.49 Family history of ischemic heart disease and other diseases of the circulatory system

== ENCOUNTER 2016-08-17 11:10 | Observation (INO) | payer OTHER ==
[~2016-08-17] VITALS: Ht 185.4 cm; Wt 100.7 kg
[2016-08-17] VITALS (12 sets, daily range): BP systolic 136–170; BP diastolic 85–107; PULSE 71–91; TEMP 36.8–37.2; O2SAT 95–98; Ht 185.4 cm; Wt 100.7 kg
[~2016-08-17 11:10] MED LIST changes: +ACET-1138 PO; -ACETAMINOPHEN 500 MG TAB PO SCH; -ASPI81TA28 PO; -BUPIVACAINE 0.25% 30 ML VIAL ONE; -BUPIVACAINE 0.5 % 5 MG/1 ML PF 10ML VIAL ONE; -CEFAZOLIN 2000 MG/60 ML D5W 60 ML IV SCH; +CEFAZOLIN 2000 MG/60 ML D5W IV SCH; -CeleBREX 200 MG CAP PO SCH; -DEXAMETHASONE 4 MG TAB PO SCH; -FAMOTIDINE 20 MG TAB PO SCH; -GABAPENTIN 300 MG CAP PO SCH; -IBUP-1050 PO; -LACTATED RINGER'S 1000ML IV SCH; -LACTATED RINGER'S 500 ML IV SCH; -METOCLOPRAMIDE HCL 10 MG TAB PO SCH; -MIDAZOLAM HCL 1 MG/ML 2ML VIAL ONE; +ONDA8TAB6 PO; +OXYSR10 PO; -ROPIVACAINE 5MG/ML 30 ML 150 MG, BUPIVACAINE/EPINEPHR 0.5% MPF 30 ML, KETOROLAC TROMETH... INFIL SCH; +RXC5 PO; +XRL20 PO
--- NOTE | 2016-08-17 12:07 | Procedure Note ---
Pre-Mod Sedation Assessment General Date of Moderate Sedation: Aug 17, 2016. Vital Signs: Vital Signs Past 12 Hours Date Time Temp Pulse Resp B/P (MAP) Pulse Ox O2 Delivery O2 Flow Rate FiO2 08/17/16 11:39 37.2 74 18 150/87 (108) 98 Room Air Review Cardiovascular: + irregularly irregular Abdomen: soft Lungs: lungs clear Airway Class: II Pre-Sedation Airway Assessment Oral Cavity: WNL Short Thick Neck: No Hx of Sleep Apnea: No Smoking Status: Light Tobacco Smoker Mallampati Classification: Class II ASA Classification: Class II Procedure Planning Contraindications-for Mod Sed: None Yes Notes The planned sedation has been discussed with the patient and consent obtained. I have identified the patient, determined the appropriateness of sedation and have assessed the patient immediately prior to the procedure. All medicine(s) and interventions are by my order.
--- NOTE | 2016-08-17 12:10 | Discharge Instructions ---
Discharge Instructions Date of Service Aug 17, 2016. Admission Reason for Admission: Ischemic Cardiomyopathy Discharge Discharge Diagnosis / Problem: ICM Discharge Goals Goal(s): Improve function Activity Recommendations Activity Limitations: as noted below Lifting Limitations: no more than 10 pounds (DO NOT LIFT THE LEFT ELBOW OVER THE LEFT SHOULDER FOR 1 MONTH; DO NOT LIFT MORE THAN 10 POUNDS WITH THE LEFT ARM FOR 2 WEEKS) Shower/Bathe: tomorrow Driving or Machine Use: resume 1 day after discharge . Current Hospital Diet Patient's current hospital diet: Discharge Diet Recommended Diet: AHA Diet (Heart Healthy), Low Sodium Diet (2gm Na) Procedures Procedures Performed: dual chamber ICD Pending Studies Studies pending at discharge: no Laboratory Results Hemoglobin A1c Test 06/13/16 11:03 Range/Units Estimated Average Glucose 117 mg/dl Hemoglobin A1c 5.7 H 4.5-5.6 % Medical Emergencies . Who to Call and When: Medical Emergencies: If at any time you feel your situation is an emergency, please call 911 immediately. . Non-Emergent Contact Non-Emergency issues call your: Sightseeing Guide . . "Provider Documentation" section prepared by Sera Quiros. . VTE Core Measure Inpt VTE Proph given/why not?: Other Anticoagulation (XARELTO)
[2016-08-17] MEDS ORDERED: FENTANYL CITRATE INJ 50 MCG/1 ML 2 ML VIAL ONE (13:10)
[2016-08-17] MEDS ORDERED: MIDAZOLAM HCL 5 MG/ML 1 ML VIAL ONE (13:10)
[2016-08-17] MEDS ORDERED: DiphenhydrAMINE HCL 50 MG/ML VIAL ONE (13:11)
[2016-08-17] MEDS ORDERED: METHYLPREDNISOLONE 125 MG VIAL ONE (13:11)
[2016-08-17] MEDS ORDERED: RANITIDINE HCL 25 MG/ML INJ ONE (13:11)
[2016-08-17] MEDS ORDERED: LIDOCAINE HCL 1% 20 ML VIAL ONE (13:15)
[2016-08-17] MEDS ORDERED: BUPIVACAINE 0.5 % 5 MG/1 ML MPF 30ML VIAL ONE (13:16)
[2016-08-17] MEDS ORDERED: BACITRACIN 50000 UNIT VIAL ONE (13:16)
[2016-08-17] MEDS ORDERED: ACETAMINOPHEN 325 MG TAB PO PRN (14:45)
[2016-08-17] MEDS ORDERED: FUROSEMIDE 20 MG TAB PO PRN (14:45)
--- NOTE | 2016-08-17 14:51 | Discharge Summary ---
Discharge Summary Date of Service Aug 17, 2016. Discharge Summary Admission Date: Discharge Date: Aug 18, 2016 Principal Diagnosis: ICM Secondary Diagnoses/Problems: 1. pVT 2. Persistent AF diagnosed 06/2016 after TKR on xarelto 3. CAD h/o CABG 4. HTN 5. HLD Procedures: Dual chamber ICD with peripheral venogram Medication Reconciliation Continued Medications: Acetaminophen (Tylenol Extra Strength) 500 Mg Tab 1000 MG PO Q8H for 30 Days, #180 TAB Atorvastatin (Lipitor) 80 Mg Tab 80 MG PO QAM, TAB Calcium Carbonate (Antacid) (Tums) 500 Mg Chw 500-1000 MG PO PRN Carvedilol (Coreg) 12.5 Mg Tab 12.5 MG PO QAM, TAB Enalapril (Vasotec) 5 Mg Tab 5 MG PO QAM, TAB Ferrous Sulfate (Kp Ferrous Sulfate) 325 Mg Tab 1 TAB PO BID for 30 Days, #60 TAB 3 Refills Furosemide (Lasix) 20 Mg Tab 20 MG PO DAILY PRN, TAB Levothyroxine Sodium (Levothyroxine Sodium) 125 Mcg Tab 1 TAB PO QAM for 90 Days, #90 TAB 3 Refills Rivaroxaban (Xarelto) 20 Mg Tab 20 MG PO DAILY for 30 Days, #30 TABS 3 Refills [Nitroglycerin] () 1 SPRAY PO UD PRN for RN 0.4 MG PER SPRAY Admission Information Physical Exam (per Admitting): aaox3, NAD NC/AT, EOMI Supple, No JVD Irregular irregular S1/S2, no murmur CTA b/l no w/r/r Soft NT/ND No edema b/l No focal deficits Skin intact Hospital Course Pt admitted for elective ICD due to ICM. He underwent dual chamber ICD implant without any complications. Monitored overnight and discharged home in stable condition next morning. Remained in AF this will be addressed as outpatient by general cardiology Total time spent on discharge = This includes examination of the patient, discharge planning, medication reconciliation, and communication with other providers. Discharge Instructions ACTIVITY RECOMMENDATIONS: * Do not raise affected arm over head for 4 weeks. SPECIAL CARE INSTRUCTIONS: * If bleeding occurs, apply direct pressure to area for 5 minutes. * Call your doctor if you have severe pain, fever, drainage or bleeding at site. * Keep dry for 24 hours then remove. * Keep any scheduled doctor's appointment. * Implant Card - hand held device with website information given. SKIN IRRITATION: * You may experience some redness and/or swelling in the area where radiation was administered. If any skin irritation occurs, please contact your family physician. FOLLOW UP VISIT: Keep any scheduled doctor appointments.
[2016-08-17] MEDS ORDERED: IV FLUIDS COMPLETED PRN (15:00)
[2016-08-17] MEDS ORDERED: NITROGLYCERIN SL SPR 4.9 GM BTL SL PRN (15:15)
[2016-08-17 16:33] LABS: CREATININE 0.93 mg/dl (0.60-1.40)
[2016-08-17 16:34] LABS: PROTHROMBIN TIME (PATIENT) 11.1 SECONDS (9.0-12.0)
--- NOTE | 2016-08-17 16:43 | Procedure Note ---
Post-Mod Sedation Assessment General Date of Moderate Sedation Aug 17, 2016. Vital Signs: Vital Signs Past 12 Hours Date Time Temp Pulse Resp B/P (MAP) Pulse Ox O2 Delivery O2 Flow Rate FiO2 08/17/16 15:00 37.2 72 18 150/85 Room Air 08/17/16 14:40 72 18 150/85 (106) 100 Room Air 08/17/16 14:25 77 18 161/107 (125) 100 Room Air 08/17/16 14:10 77 18 153/109 (124) 100 Mask 5 08/17/16 11:39 37.2 74 18 150/87 (108) 98 Room Air Review - Discharge Criteria Vital Signs Stable: Yes Alert/Oriented/Conversant: Yes Returned to Baseline Mental St: Yes Nausea Absent/Minimal: Yes Pain/Discomfort/Absent/Minimal: Yes Normal/Baseline Respirations: Yes Active Bleeding?: No Pt Received D/C Instructions: N/A Prescriptions Given: None Specific Proced. D/C Criteria Distal Pulses Present (Cardiac: N/A Groin site assessed-Card Cath: N/A Voided Prior To Discharge: N/A Discharged Patients Adult Escort/Transportation: N/A
--- NOTE | 2016-08-17 16:44 | [facility] Post Operative Brief Note ---
Immediate Operative Summary Operative Date Aug 17, 2016. Pre-Operative Diagnosis icm, pVT, persistent AF Post-Operative Diagnosis same Procedure(s) Performed dual chamber ICD with peripheral venogram Surgeon ruth ann mas Wheel Presser Surgeon(s) none Estimated Blood Loss 10cc Findings none Fluids (cc crystalloids) 200cc Specimens none Drains none Anesthesia 3mg versed and 75mcg fenatnyl Complication(s) None Disposition PCU
--- NOTE | 2016-08-17 17:07 | OPERATIVE REPORT ---
DATE OF OPERATION: 08/17/2016 PREOPERATIVE DIAGNOSES: Ischemic cardiomyopathy, paroxysmal ventricular tachycardia. POSTOPERATIVE DIAGNOSES: Same. PROCEDURE: Dual chamber rate responsive implantable cardiac defibrillator under fluoroscopic guidance along with peripheral venogram. SURGEON: Sera Quiros DO WEB DEVELOPER: None. ANESTHESIA: Monitored conscious sedation given under my supervision, administered by Xander Erickson, start time 1315, end time 1412, a total of 3 mg of Versed and 75 mcg of fentanyl. INTRAVENOUS FLUIDS: 200 mL. NOTE: Since the patient has a contrast allergy, he was given 50 mg of Benadryl, 50 mg of Zantac, and 125 mg of Solu-Medrol. CONTRAST: 10 mL of IV contrast. COMPLICATIONS: None. CONDITION: Stable. BLOOD LOSS: Less than 5 mL. URINE OUTPUT: Not applicable. SPECIMENS: None. FINDINGS: None. DRAINS: None. INDICATIONS FOR PROCEDURE: This is a 60-year-old gentleman with a past medical history of ischemic cardiomyopathy, ejection fraction 20-30%, paroxysmal ventricular tachycardia, atrial fibrillation, persistent has been diagnosed in June 2016 after total knee replacement on Xarelto, IVCD, coronary artery disease, history of CABG in 2008, hypertension and hyperlipidemia. The patient was discharged home after a total knee replacement where he had a VT during that hospitalization on a LifeVest and wanted to wait a good 4 weeks after his total knee replacement before having implantable cardiac defibrillator. CONSENT: The patient was informed of the risks, benefits, alternatives to the procedure. Risks include but not limited to sudden cardiac ; cardiac arrhythmias; cerebrovascular accident; myocardial infarction; injury to the blood vessels, chamber of the heart, lungs, bleeding and infection. The patient understood these risks and agreed to go to the procedure as planned. Informed consent was obtained. DESCRIPTION OF THE PROCEDURE: The patient was brought into the electrophysiology lab in a fasting state. He was connected to continuous cardiac monitoring. Timeout was performed to ensure patient's identity and procedure correctly. The patient received prophylactic antibiotics prior to incision. He was given monitored conscious sedation throughout the procedure for patient's comfort level. [place] precautions were maintained throughout the procedure. A 10 mL of 1% lidocaine, bupivacaine mixture were given in the left deltopectoral. Incision was made in the left deltoid repair. Blunt dissection was performed down to identify the cephalic vein; however, none could be identified, so a peripheral venogram was performed using 10 mL of IV contrast diluted in 10 mL of saline followed by 20 mL flush. The axillary vein was then obtained with axillary venous access stick. A 9 and an 8-Sammarinese sheath was inserted over the guidewire without any resistance. The dilator was removed and a second guidewire was inserted through the 8-Sammarinese sheath without any resistance and the sheath was removed. A 9.5-Sammarinese sheath was inserted over one of the guidewires without any resistance. The guidewire and dilator were removed. The right ventricular defibrillator lead was advanced into the right ventricle and positioned into the right ventricular apex under fluoroscopic guidance. There was adequate pacing and sensing thresholds and no diaphragmatic stimulation with high output pacing. The sheath was peeled away and lead was fixated to pectoralis muscle using 0 silk suture. The 8-Sammarinese sheath was then advanced over the retained guidewire without any resistance. The guidewire and dilator were removed. The right atrial pacing lead was advanced into the right atrium and positioned into the right atrial appendage under fluoroscopic guidance. Initially with a J preformed curved however, it became dislodged, so we used the mart preformed curve. There was adequate pacing and sensing thresholds. The patient was in AFib, so we did not do any threshold testing, but there was no diaphragmatic stimulation when we paced briefly at 10 volts. The sheath was peeled away and lead was fixated to pectoralis muscle using 0 silk suture. A pacemaker pocket was created using blunt dissection over the pectoralis muscle within the pectoralis fascia. The pocket was flushed with copious amounts of bacitracin saline wash and inspected for hemostasis. The defibrillator generator was then attached to the leads making sure that the pins were in appropriate position, passed the set screws and the set screws were all tightened. The defibrillator was placed in the pocket, making sure that the leads were lying flat beneath the device. The incision was closed in a 3-layer fashion using 2-0 Vicryl suture, followed by a 3-0 Vicryl suture, followed by a 4-0 Monocryl running stitch and Dermabond applied. Stevenson stat was used in the pocket as the patient is on Xarelto and a pressure dressing was placed since the patient is going back on the Xarelto. EQUIPMENT: 1. Defibrillator generator is an [employer]Dep-Xplora XT [place] [id number], serial number [id number]. 2. Right atrial lead: Medtronic 5076-52 cm, serial number [id number]. 3. Right ventricular lead: Medtronic 6935-62 cm, serial number [id number]. INTRAOPERATIVE TESTIN. Right atrial lead: P-wave 1.7 millivolts, impedance 558 ohms, AFib waves were 1.7 millivolts, so no threshold testing as the patient was in AFib. 2. Right ventricular lead: R-wave 6.6 millivolts, impedance 765 ohms, threshold 0.3 volts at 0.3 milliamps. FINAL MEASUREMENTS THROUGH THE DEVICE: 1. Right atrial lead: Fib waves 1.5 millivolts, impedance 437 ohms. 2. Right ventricular lead: R-wave 7.4 millivolts, impedance 627 ohms, threshold 0.5 volts at 0.4 milliseconds. FINAL PARAMETERS: 1. MVP-R 60/140. Right atrial and right ventricular amplitude 3.5 volts, pulse width 0.4 milliseconds, sensitivity 0.3 millivolts. 2. VF zone at 200 beats per minute, 30/40. VT zone at 176 beats per minute with 20 intervals and the monitor zone at 150 for 32 intervals. INTERVAL IMPRESSION: Successful implantation of the implantable cardiac defibrillator rate responsive secondary to cardiomyopathy and ventricular tachycardia. PLAN: Monitor the patient overnight, 12-lead ECG, chest x-ray, continue his home medications. He is not allowed to lift the left elbow over the left shoulder for 1 month and he cannot lift more than 10 pounds with the left arm for 2 weeks. He can shower tomorrow, let water run over the incision and do not scrub it. He will follow up in our [facility] device clinic in 7-10 days for device and wound check and he will follow up with general cardiology to arrange for cardioversion once he has been back on his Xarelto for 3 weeks to reestablish sinus rhythm. I attest to the content of the Intraoperative Record and any orders documented therein. Any exceptions are noted below. MARIBEL
[2016-08-17] MEDS ORDERED: NURSING VERBAL MED ORDER ONE ×3 (17:15→18:00)
[2016-08-17] MEDS: FERROUS SULFATE 325 MG TAB PO SCH (17:37)
[2016-08-17] MEDS ORDERED: HydrALAZINE HCL 20 MG/ML VIAL IV. PRN (18:15)
[2016-08-17] MEDS: ACETAMINOPHEN 500 MG TAB PO SCH (22:19)
[2016-08-18 03:30] VITALS: BP 155/96; PULSE 73; TEMP 37; O2SAT 96
[2016-08-18] MEDS: ACETAMINOPHEN 500 MG TAB PO SCH (05:50)
[2016-08-18] MEDS ORDERED: LEVOTHYROXINE 125 MCG TAB PO SCH (06:00)
--- NOTE | 2016-08-18 07:20 | DIAGNOSTIC IMAGING REPORT ---
CHEST 2 VIEWS ROUTINE CLINICAL HISTORY: EXACT TIME ORDERED Evaluate for pneumothorax and lead placement COMPARISON STUDY: 07/13/2015 FINDINGS: Bipolar cardiac pacer with leads in good position. No evidence pneumothorax. Lungs are grossly clear. Minimal atelectasis left base. IMPRESSION: Bipolar cardiac pacer with leads in good position no evidence pneumothorax. Electronically signed by: Chay Beltre M.D. 08/18/2016 7:18 AM Dictated Date/Time: 08/18/2016 7:17 AM
[2016-08-18] MEDS: FERROUS SULFATE 325 MG TAB PO SCH (07:52)
[2016-08-18 08:00] VITALS: O2SAT 96
[2016-08-18 08:11] VITALS: BP_SYST 178; BP_SYST 189; BP_DIAS 103; BP_DIAS 119; PULSE 100; TEMP 36.8; O2SAT 97
--- NOTE | 2016-08-18 08:28 | Cardiology Follow-Up ---
Subjective Subjective Date of Service: Aug 18, 2016. Pt evaluation today including: conversation w/ patient, physical exam, lab review Additional Details: No pain; BP still on high side but he did not get his evening dose of anti- hypertensives Review of Systems Constitutional: No fatigue Respiratory: No shortness of breath Cardiac: No chest pain, No edema, No palpitations Abdomen: No diarrhea Endo: No fatigue Objective Vital Signs Last Vital Signs Documentation Date Time Temp Pulse Resp B/P (MAP) Pulse Ox O2 Delivery O2 Flow Rate FiO2 08/18/16 08:11 36.8 100 16 178/119 (138) 97 Room Air 189/103 (131) 08/17/16 14:10 5 Physical Exam: General Appearance: WD/WN, no apparent distress Eyes: bilateral eyes PERRL, bilateral eyes EOMI Neck: supple, no JVD Respiratory/Chest: lungs clear, normal breath sounds Cardiovascular: no edema (left pectoral incision intact no hematoma mild ecchymosis), no JVD, no murmur, + irregularly irregular Abdomen: normal bowel sounds, soft Extremities: no pedal edema Neurologic/Psychiatric: alert, oriented x 3 Skin: normal color, warm/dry, no rash Assessment and Plan Impression: 1. ICM s/p dual chamber ICD 08/17/2016 2. pVT 3. Persistent AF on xarelto 4. HTN 5. HLD 6. CAD Plan: -Ok for discharge home today -Continue home medications -Monitor BP if still elevated he is to call us and we will adjust anti- hypertensive medications as outpatient -Not allowed to left the left elbow over the left shoulder for 1 month and no lifting more than 10 pounds with the left arm for 2 weeks -Wound and device check in 7-10 days in [facility] device clinic -F/u with general cardiology to arrange for DCCV in about 3-4 weeks of uninterrupted Xarelto Discharge planning: home Medications: Medications Administered Medications (Trade) Dose Ordered Sig/Latanya Route Start Time Stop Time Status Last Admin Dose Admin Cefazolin Sodium 60 ml @ 100 mls/hr PREOP IV 08/17/16 06:00 08/17/16 18:00 DC 08/17/16 06:00 100 MLS/HR Midazolam HCl (Versed Inj) 5 mg STK-MED ONCE .ROUTE 08/17/16 13:10 08/17/16 13:11 DC 08/17/16 13:10 3 MG Fentanyl Citrate (Fentanyl Inj) 100 mcg STK-MED ONCE .ROUTE 08/17/16 13:10 08/17/16 13:11 DC 08/17/16 13:10 75 MCG Diphenhydramine HCl (Benadryl Inj) 50 mg STK-MED ONCE .ROUTE 08/17/16 13:11 08/17/16 13:12 DC 08/17/16 13:11 50 MG Ranitidine HCl (zANTac IV) 50 mg STK-MED ONCE .ROUTE 08/17/16 13:11 08/17/16 13:12 DC 08/17/16 13:11 50 MG Methylprednisolone Sodium Succinate (Solu-Medrol IV) 125 mg STK-MED ONCE .ROUTE 08/17/16 13:11 08/17/16 13:12 DC 08/17/16 13:11 125 MG Acetaminophen (Tylenol Tab) 1,000 mg Q8H PO 08/17/16 22:00 09/16/16 21:59 08/18/16 05:50 1,000 MG Atorvastatin Calcium (Lipitor Tab) 80 mg QAM PO 08/18/16 09:00 09/17/16 08:59 08/18/16 07:52 80 MG Carvedilol (Coreg Tab) 12.5 mg QAM PO 08/18/16 09:00 09/17/16 08:59 08/18/16 07:52 12.5 MG Enalapril Maleate (Vasotec Tab) 5 mg QAM PO 08/18/16 09:00 09/17/16 08:59 08/18/16 07:52 5 MG Levothyroxine Sodium (Synthroid Tab) 125 mcg DAILYBB PO 08/18/16 06:00 09/17/16 06:59 08/18/16 05:48 125 MCG Rivaroxaban (Xarelto Tab) 20 mg DAILY PO 08/18/16 09:00 09/17/16 08:59 08/18/16 07:52 20 MG Ferrous Sulfate (Feosol Tab) 325 mg BID17 PO 08/17/16 17:00 09/16/16 16:59 08/18/16 07:52 325 MG Lab Results: ECG: AF Telemetry: AF ICD Interrogation: Stable threshold in RV; stable sensing and impedance of RA & RV 6.8% RVP overnight CXR: No PTX Leads in place Last 24 Hours Test 08/17/16 15:55 Prothrombin Time 11.1 SECONDS Prothromb Time International Ratio 1.0 Creatinine 0.93 mg/dl Est Creatinine Clear Calc Drug Dose 109.9 ml/min Estimated GFR () 104.5 Estimated GFR (Non- 90.2
[2016-08-18 08:35] VITALS: BP 149/95
[2016-08-18 08:37] VITALS: BP 149/95; PULSE 100; TEMP 36.8; O2SAT 97
[2016-08-18] MEDS ORDERED: CARVEDILOL 12.5 MG TAB PO SCH (09:00)
[2016-08-18] MEDS ORDERED: RIVAROXABAN 20 MG TAB PO SCH (09:00)
[2016-08-18] MEDS ORDERED: ENALAPRIL MALEATE 5 MG TAB PO SCH (09:00)
[2016-08-18] MEDS ORDERED: ATORVASTATIN 40 MG TAB PO SCH (09:00)
== END 2016-08-18 09:40 | disposition home or self-care (01) ==
LOC: C.ACU 11:10 → EDBEDREQ 14:02 → ENRESERV 14:17 → C.2T 14:43
PROVIDERS: ADMIT Internal Medicine; ATTEND Internal Medicine
DX: I25.5 Ischemic cardiomyopathy (principal); I48.1 Persistent atrial fibrillation; I25.10 Atherosclerotic heart disease of native coronary artery without angina pectoris; I10 Essential (primary) hypertension; E78.5 Hyperlipidemia, unspecified; E03.9 Hypothyroidism, unspecified; Z96.652 Presence of left artificial knee joint; Z87.891 Personal history of nicotine dependence

== ENCOUNTER → 2016-12-05 | Day surgery (SDC) | payer OTHER ==
[~2016-12-05] VITALS: Ht 185.4 cm; Wt 102.0 kg
[~2016-12-05] MED LIST changes: -CEFAZOLIN 2000 MG/60 ML D5W IV SCH; +FENTANYL CITRATE INJ 50 MCG/1 ML 2 ML VIAL ONE; -LACTATED RINGER'S 1000ML 1,000 ML IV SCH; +LEVO125T4 PO; -LEVO125T5 PO; +MIDAZOLAM HCL 1 MG/ML 2ML VIAL ONE; -ONDA8TAB6 PO; -OXYSR10 PO; -RXC5 PO
[2016-12-05 07:59] VITALS: BP 144/88; PULSE 75; TEMP 37; O2SAT 95
--- NOTE | 2016-12-05 08:03 | Procedure Note ---
Pre-Mod Sedation Assessment General Date of Moderate Sedation: Dec 05, 2016. Review Cardiovascular: no edema, no gallop, no JVD, no murmur, normal peripheral pulses, + irregularly irregular Abdomen: normal bowel sounds, non tender, soft, no organomegaly, no pulsatile mass Lungs: chest non-tender, lungs clear, normal breath sounds, no respiratory distress, no accessory muscle use Airway Class: III Pre-Sedation Airway Assessment Smoking Status: Former Smoker Notes The planned sedation has been discussed with the patient and consent obtained. I have identified the patient, determined the appropriateness of sedation and have assessed the patient immediately prior to the procedure. All medicine(s) and interventions are by my order.
[2016-12-05 08:28] VITALS: Ht 185.4 cm; Wt 102.0 kg
[2016-12-05 08:45] VITALS: BP 142/90; PULSE 84; O2SAT 98
[2016-12-05 08:50] VITALS: BP 142/81; PULSE 78; O2SAT 97
[2016-12-05 08:55] VITALS: BP 141/77
--- NOTE | 2016-12-05 09:17 | Procedure Note ---
Post-Mod Sedation Assessment General Date of Moderate Sedation Dec 05, 2016. Vital Signs: Vital Signs Past 12 Hours Date Time Temp Pulse Resp B/P (MAP) Pulse Ox O2 Delivery O2 Flow Rate FiO2 12/05/16 09:10 60 16 118/66 (83) 90 Room Air 12/05/16 09:04 60 10 131/70 (90) 91 Room Air 12/05/16 08:59 61 9 137/67 (90) 95 Nasal Cannula 2 12/05/16 08:45 84 20 142/90 98 Nasal Cannula 2 12/05/16 07:59 37.0 75 12 144/88 95 Room Air Review - Discharge Criteria Vital Signs Stable: Yes Alert/Oriented/Conversant: Yes Returned to Baseline Mental St: Yes Nausea Absent/Minimal: Yes Pain/Discomfort/Absent/Minimal: Yes Normal/Baseline Respirations: Yes Active Bleeding?: No Pt Received D/C Instructions: Yes
--- NOTE | 2016-12-05 09:19 | [facility] Post Operative Brief Note ---
Immediate Operative Summary Operative Date Dec 05, 2016. Pre-Operative Diagnosis Paroxysmal atrial fibrillation Post-Operative Diagnosis Same Procedure(s) Performed DC Cardioversion Surgeon Andrea Concrete Floor Installer Surgeon(s) Jaylyn KUMAR Estimated Blood Loss none Findings successful hinduism of sinus rhythm/atrial pacing Specimens none start time: 08 stop time: 0848 Anesthesia Versed 4mg, Fentanyl 75mcg, moderate sedation Complication(s) None Disposition cardiopulmonary lab
[2016-12-05 09:30] VITALS: BP 138/76; PULSE 61; O2SAT 95
--- NOTE | 2016-12-05 10:00 | Discharge Instructions ---
Discharge Instructions Date of Service Dec 05, 2016. Admission Reason for Admission: No Anesthesia,Irreg Heart Rhythm,*Andrea To Do* Discharge Discharge Diagnosis / Problem: atrial fibrillation Discharge Goals Goal(s): Improve function Activity Recommendations Activity Limitations: as noted below (return to normal activity tomorrow) Lifting Limitations: none Exercise/Sports Limitations: none, rest today May Resume Sexual Activity: when tolerated Shower/Bathe: no limitations Driving or Machine Use: resume 1 day after discharge . Current Hospital Diet Patient's current hospital diet: Discharge Diet Recommended Diet: AHA Diet (Heart Healthy) Procedures Procedures Performed: DC Cardioversion Pending Studies Studies pending at discharge: no Medical Emergencies . Who to Call and When: Medical Emergencies: If at any time you feel your situation is an emergency, please call 911 immediately. . Non-Emergent Contact Non-Emergency issues call your: Primary Care Provider . . "Provider Documentation" section prepared by Hugh Mendez. . VTE Core Measure Inpt VTE Proph given/why not?: Other Anticoagulation
--- NOTE | 2016-12-05 10:09 | Procedure Note ---
Procedure Note Date of Service Dec 05, 2016. Procedure Note Pt presented for scheduled elective cardioversion. Informed consent obtained. Moderate sedation achieved. Unsuccessful cardioversion attempt with 200J of synchronized energy further sedation provided Success cardioversion on second attempt with 360J of synchronized energy EKG confirmed pt tolerated well recovered in CPL as per protocol Plan: DC to home restrictions reviewed cont current meds my office will arrange f/u with me in 1 month
== END | disposition home or self-care (01) ==
LOC: C.CPL 07:48
PROVIDERS: ATTEND Internal Medicine Cardiovascular Disease
DX: I48.0 Paroxysmal atrial fibrillation (principal)

== ENCOUNTER 2017-03-24 05:46 | Inpatient (IN) | payer OTHER ==
[~2017-03-24] VITALS: Ht 182.9 cm; Wt 101.5 kg
[2017-03-24] VITALS (8 sets, daily range): BP systolic 109–128; BP diastolic 74–89; PULSE 72–78; TEMP 36.6–37; O2SAT 91–98; Ht 182.9 cm; Wt 101.5 kg
[~2017-03-24 05:46] MED LIST changes: -CALC500C50 PO; -FENTANYL CITRATE INJ 50 MCG/1 ML 2 ML VIAL ONE; -LEVO125T4 PO; +LEVO125T5 PO; -MIDAZOLAM HCL 1 MG/ML 2ML VIAL ONE
[2017-03-24] MEDS ORDERED: RIVA1TAB4 PO (06:00)
[2017-03-24] MEDS ORDERED: FERR18TA2 PO (06:04)
[2017-03-24] MEDS ORDERED: FUROSEMIDE 40 MG/4 ML VIAL IV STA (06:16)
[2017-03-24 06:18] LABS: BASO % 1.7 %; EOS % 3.8 %; EOS ABS # 0.23 K/uL (0-0.5); HEMATOCRIT 31.2 % (42-52); IG# 0.01 K/uL (0.00-0.02); LYMPH % 21.2 %; LYMPH ABS # 1.28 K/uL (1.2-3.4); MEAN CELL VOLUME 83.4 fL (80-100); MEAN CORPUSCULAR HEMOGLOBIN 26.7 pg (25-34); MEAN CORPUSCULAR HGB CONC 32.1 g/dl (32-36); MEAN PLATELET VOLUME 9.6 fL (7.4-10.4); MONO % 7.6 %; MONO ABS # 0.46 K/uL (0.11-0.59); NEUT % 65.5 %; NEUT ABS # 3.96 K/uL (1.4-6.5); PLATELET COUNT 318 K/uL (130-400); RED CELL DISTRIBUTION WIDTH CV 17.7 % (11.5-14.5); RED CELL DISTRIBUTION WIDTH SD 54.3 fL (36.4-46.3); WHITE BLOOD COUNT 6.04 K/uL (4.8-10.8)
--- NOTE | 2017-03-24 06:27 | EMERGENCY ROOM VISIT NOTE ---
History First contact with patient: 05:56 Chief Complaint: RESPIRATORY PROBLEMS Stated Complaint: SHORTNESS OF BREATH,LEGS/ANKLES SWOLLEN Nursing Triage Summary: patient states for past two days he has had increased SOB and over the past twelve hours has notices increased swelling to bilat lower extermities. hx CHF and other cardiac hx. History of Present Illness The patient is a 61 year old male who presents to the Emergency Room for evaluation of shortness of breath. Patient with extensive cardiac history with CABG 2008 post stenting, Paroxysmal Afib on Xarelto, Ischemic Cardiomyopathy with EF 20-25%, previous VTach arrest with ICD now placed, HTN, Dyslipidemia and former minor smoker. Notes severe CAD in family with father dying at 52 of [place] and son with CABG at 34. Arrives with SHOB rapidly worsening over the previous 24 hours. Worse with exertion and laying flat. So severe unable to catch breath this morning. Associated with rapid swelling legs/abdomen as well as feeling weak. No medications prior to arrival. Exertion makes worse, rest makes better. Leg so swollen unable to walk normally. Denies syncope, cp, nausea, vomiting, palpations, headache, neck pain, rashes, abdominal pain, back pain, urinary/ bowel changes, scrotal swelling, fevers, chills, productive cough, nor other symptoms. Denies any black/bloody stools. No recent trauma/injuries. No sick contacts. Review of Systems See HPI for pertinent positives & negatives. A total of 10 systems reviewed and were otherwise negative. Past Medical/Surgical History Medical Problems: (1) Atrial fibrillation (2) Chronic systolic (congestive) heart failure (3) DJD (degenerative joint disease) of knee (4) Ischemic cardiomyopathy (5) Ischemic cardiomyopathy (6) Ventricular tachycardia Social History Smoking Status: Never Smoker Alcohol Use: none Drug Use: none Marital Status: Housing Status: lives with significant other Occupation Status: employed Current/Historical Medications Scheduled Acetaminophen (Tylenol Extra Strength), 1,000 MG PO Q8H Atorvastatin (Lipitor), 80 MG PO DAILY Carvedilol (Coreg), 12.5 MG PO BID Enalapril (Vasotec), 5 MG PO QAM Ferrous Fumarate (Iron), 65 MG PO Q2D Furosemide (Lasix), 20 MG PO DAILY PRN Levothyroxine Sodium (Levothyroxine Sodium), 125 MCG PO QAM Rivaroxaban (Xarelto), 20 MG PO DAILY Scheduled PRN [Nitroglycerin], 0.4 MG PO UD PRN for chest pain Physical Exam Vital Signs Date Time Temp Pulse Resp B/P (MAP) Pulse Ox O2 Delivery O2 Flow Rate FiO2 03/24/17 06:33 83 20 122/94 100 Nasal Cannula 2.0 03/24/17 06:21 89 03/24/17 06:01 96 Nasal Cannula 2.0 03/24/17 06:00 93 Nasal Cannula 2.0 03/24/17 05:50 36.5 86 20 139/94 91 Room Air Physical Exam GENERAL: Patient is unwell appearing and in moderate distress. HEENT: No acute trauma, normocephalic atraumatic, mucous membranes moist, no nasal congestion, no scleral icterus. NECK: +JVD, No stridor, no adenopathy, no meningismus, trachea is midline. LUNGS: +dyspnea. Crackles bilateral lower lobes. No wheezing. Lungs equal bilaterally. HEART: ICD Left upper chest. Regular rate and rhythm. No murmurs, rubs, gallops appreciated. ABDOMEN: +Pitting edema lower abdomen. Soft, nontender, bowel sounds positive, no masses appreciated, no peritonitis. BACK: +Pitting edema lower back. No midline tenderness, no CVA tenderness EXTREMITIES: 4+ pitting edema entire legs with venous stasis erythema lower legs. Normal motion all extremities, no cyanosis. NEUROLOGIC: Alert and oriented, no acute motor or sensory deficits, no focal weakness, cranial nerves grossly intact. SKIN: No rash, no jaundice, no diaphoresis. Medical Decision & Procedures ER Provider Diagnostic Interpretation: 1 View portable Chest Xray interpreted by me: Bilateral pulmonary edema with left upper chest ICD and enlarged heart. Laboratory Results Test 03/24/17 06:05 Pro-B-Type Natriuretic Peptide 5766 pg/ml (0-900) Thyroid Stimulating Hormone (TSH) 2.840 uIu/ml (0.300-4.500) Thyroxine (T4) 10.4 mcg/dl (4.5-10.9) Medications Administered Medications (Trade) Dose Ordered Sig/Latanya Route Start Time Stop Time Status Last Admin Dose Admin Furosemide (Lasix Inj) 40 mg NOW STAT IV 03/24/17 06:16 03/24/17 06:17 DC 03/24/17 06:26 40 MG ECG Indication: SOB/dyspnea Rate (beats per minute): 87 Rhythm: sinus rhythm Findings: 1st degree AV block (PA 246), no acute ischemic change (with intraventricular block) Comparison ECG Date: 2016 Change: no significant change (other than periodically paced EKGs) Medical Decision Differential: CHF, COPD, PE, ACS, Pneumothorax, Effusion, Infectious, Anemia, Renal Failure, amongst other etiologies entertained. 61 yr old male with extensive cardiac history and known low EF who arrives with rapidly worsening SHOB. Exam consistent with CHF and cxr confirms this. Given IV lasix early in treatment course. Doing better with NC O2. No evidence COPD by exam. EKG without ischemia. No fevers, wbc elevation, nor tachy/ hypotensive thus I feel this is unlikely infectious. No significant effusion noted on CXR. He is on xarelto and I feel this is unlikely PE. HgB 10 improved from previous. Na is low which is below his baseline, which is likely fluid overload and probably part of his fatigue/weakness. Will admit to hospitalist given significant symptoms, CXR findings, and rapid onset of symptoms. Medication Reconcilliation Current Medication List: was personally reviewed by me Blood Pressure Screening Patient's blood pressure: Elevated blood pressure Blood pressure disposition: Elevated BP felt to be situational Impression Primary Impression: Acute congestive heart failure Additional Impressions: Pulmonary edema Acute hyponatremia Departure Information Dispostion Being Evaluated By Hospitalist Referrals Eugene Torres M.D. (PCP) Patient Instructions My [facility] Problem Qualifiers
[2017-03-24 06:36] LABS: BLOOD UREA NITROGEN 10 mg/dl (7-18); CALCIUM 8.8 mg/dl (8.5-10.1); CARBON DIOXIDE 29 mmol/L (21-32); GLUCOSE 83 mg/dl (70-99); POTASSIUM 4.1 mmol/L (3.5-5.1); SODIUM 127 mmol/L (136-145)
--- NOTE | 2017-03-24 07:31 | DIAGNOSTIC IMAGING REPORT ---
SINGLE VIEW CHEST CLINICAL HISTORY: Atypical chest pain. FINDINGS: An AP, portable, upright chest radiograph is compared to study dated 08/18/2016. The examination is degraded by portable technique and patient rotation. A 2-lead cardiac pacemaker is unchanged in position and partially obscures the left mid chest. The patient is status post midline sternotomy. The most superior sternotomy wires are fractured. The heart is enlarged and there is atherosclerotic calcification of the thoracic aorta. There is pulmonary vascular congestion. More focal consolidative changes suggestive the left lung base. Small pleural effusions are identified. No pneumothorax is seen. The skeletal structures are osteopenic. The bony thorax is grossly intact. IMPRESSION: 1. Cardiomegaly and cardiac pacemaker. There is evidence of congestive failure. 2. More focal airspace consolidation is seen at the left lung base. Although this could represent atelectasis, correlate clinically for evidence of superimposed pneumonia. 3. Small pleural effusions. Electronically signed by: Giovanny Gramajo M.D. 03/24/2017 7:30 AM Dictated Date/Time: 03/24/2017 7:27 AM
--- NOTE | 2017-03-24 08:05 | History and Physical ---
History & Physical Date & Time of Service: Mar 24, 2017 at 08:04 Chief Complaint: Shortness Of Breath,Legs/Ankles Swollen Primary Care Physician: Eugene Torres M.D. History of Present Illness Source: patient Patient with ardiac history with CABG 2009 post stenting, Paroxysmal Afib on Xarelto, Ischemic Cardiomyopathy with EF 20-25%, previous VTach arrest with ICD now placed, HTN, Dyslipidemia and former smoker, with Family history of CAD - father dying at 52 of [place] and son with CABG in his 30s, who is here in the ED after 1 month of progressive worsening shortness of breath and edema. Patient reports that edema at baseline typically blow the ankles but now edema throughout legs and to abdomen. Patient reports shortness of breath has been getting worse and feels more shortness of breath when lying flat. In the ED, BNP above 5000 and chest X ray shows pulmonary congestion. Patient given Lasix 40 mg IV x 1 and patient is making urine. Patient reports adherence to home regimen of Lasix 20 mg BID. Family History FH: CABG (coronary artery bypass surgery) SON Social History Smoking Status: Never Smoker Drug Use: none Marital Status: Housing status: lives with family Occupational Status: employed Allergies Coded Allergies: Shellfish (Verified Allergy, Severe, TONGUE SWELLS UP, 03/24/17) Iodinated Diagnostic Agents (Verified Adverse Reaction, Unknown, SWEATING, NAUSEA-WITH TEST DYE, 03/24/17) Per patient, no issues now Home Medications Scheduled Acetaminophen (Tylenol Extra Strength), 1,000 MG PO Q8H Atorvastatin (Lipitor), 80 MG PO DAILY Carvedilol (Coreg), 12.5 MG PO BID Enalapril (Vasotec), 5 MG PO QAM Ferrous Fumarate (Iron), 65 MG PO Q2D Furosemide (Lasix), 20 MG PO DAILY PRN Levothyroxine Sodium (Levothyroxine Sodium), 125 MCG PO QAM Rivaroxaban (Xarelto), 20 MG PO DAILY Scheduled PRN [Nitroglycerin], 0.4 MG PO UD PRN for chest pain Review of Systems Constitutional: No fever Eyes: No eye pain ENT: No hearing loss, No unusual epistaxis, No nasal symptoms, No sore throat Respiratory: + shortness of breath, No cough, No sputum, No wheezing Cardiovascular: + orthopnea, + edema, No chest pain, No palpitations Abdomen: No pain, No nausea, No vomiting Musculoskeletal: + swelling, No joint pain Genitourinary - Male: No dysuria Neurologic: No paralysis Psychiatric: No substance abuse Endocrine: No fatigue Hematologic / Lymphatic: No abnormal bleeding/bruising Integumentary: No rash, No itch Physical Exam Vital Signs Date Time Temp Pulse Resp B/P (MAP) Pulse Ox O2 Delivery O2 Flow Rate FiO2 03/24/17 06:33 83 20 122/94 100 Nasal Cannula 2.0 03/24/17 06:21 89 03/24/17 06:01 96 Nasal Cannula 2.0 03/24/17 06:00 93 Nasal Cannula 2.0 03/24/17 05:50 36.5 86 20 139/94 91 Room Air General Appearance: no apparent distress Head: normocephalic, atraumatic Eyes: normal inspection, EOMI, sclerae normal ENT: normal ENT inspection, hearing grossly normal, pharynx normal Neck: supple, thyroid normal, no JVD, trachea midline Respiratory/Chest: chest non-tender, lungs clear, normal breath sounds, no respiratory distress, no accessory muscle use Cardiovascular: regular rate, rhythm, no JVD, normal peripheral pulses, + pertinent finding (edema of lower extremities up to lower abdomen) Abdomen/GI: normal bowel sounds, non tender, soft, no organomegaly, no pulsatile mass, + pertinent finding (some hardening of skin of lower abdomen secondary to edema ) Back: normal inspection, no CVA tenderness, no muscle spasm, normal range of motion Extremities/Musculoskelatal: non-tender, + pedal edema, + swelling Neurologic/Psych: director money II-XII nml as tested, no motor/sensory deficits, alert, normal mood/affect, oriented x 3 Skin: + pertinent finding (some redness of lower extremity where edema is most prevalent) Diagnostics Laboratory Results Results Past 24 Hours Test 03/24/17 06:05 Range/Units White Blood Count 6.04 4.8-10.8 K/uL Red Blood Count 3.74 4.7-6.1 M/uL Hemoglobin 10.0 14.0-18.0 g/dL Hematocrit 31.2 42-52 % Mean Corpuscular Volume 83.4 80-100 fL Mean Corpuscular Hemoglobin 26.7 25-34 pg Mean Corpuscular Hemoglobin Concent 32.1 32-36 g/dl Platelet Count 318 130-400 K/uL Mean Platelet Volume 9.6 7.4-10.4 fL Neutrophils (%) (Auto) 65.5 % Lymphocytes (%) (Auto) 21.2 % Monocytes (%) (Auto) 7.6 % Eosinophils (%) (Auto) 3.8 % Basophils (%) (Auto) 1.7 % Neutrophils # (Auto) 3.96 1.4-6.5 K/uL Lymphocytes # (Auto) 1.28 1.2-3.4 K/uL Monocytes # (Auto) 0.46 0.11-0.59 K/uL Eosinophils # (Auto) 0.23 0-0.5 K/uL Basophils # (Auto) 0.10 0-0.2 K/uL RDW Standard Deviation 54.3 36.4-46.3 fL RDW Coefficient of Variation 17.7 11.5-14.5 % Immature Granulocyte % (Auto) 0.2 % Immature Granulocyte # (Auto) 0.01 0.00-0.02 K/uL Sodium Level 127 136-145 mmol/L Potassium Level 4.1 3.5-5.1 mmol/L Chloride Level 92 98-107 mmol/L Carbon Dioxide Level 29 21-32 mmol/L Anion Gap 6.0 3-11 mmol/L Blood Urea Nitrogen 10 7-18 mg/dl Creatinine 0.80 0.60-1.40 mg/dl Estimated GFR () 113.3 Estimated GFR (Non- 97.8 BUN/Creatinine Ratio 12.0 10-20 Random Glucose 83 70-99 mg/dl Calcium Level 8.8 8.5-10.1 mg/dl Magnesium Level 1.8 1.8-2.4 mg/dl Troponin I < 0.015 0-0.045 ng/ml Pro-B-Type Natriuretic Peptide 5766 0-900 pg/ml Impression Assessment and Plan CHF exacerbation At home patient takes Lasix 20 mg BID, reports compliance In the ED given 40 mg IV Lasix, likely will benefit from Lasix 40 mg IV BID, have placed these orders, appreciate cardiology service recommendations on further recommendations on diuresis Patient follows with [facility] with Dr. Mendez CAD with stents / Paroxysmal atrial fibrillation / Cardiac Defibrillator Continue home medications of Xarelto, Carvedilol, Atorvastatin, Enalapril No chest pain, if chest pain then give nitro prn Hypothyroidism Continue home dose Levothyroxine, Check Tsh/T4 Electrolytes Serum Magnesium 1.8 - ordered 1 gram magnesium IV Serum Sodium - Hyponatremia likely due to fluid overload, repeat serum sodium labs after diuresis in the ED Serum Potassium - Monitor for Hypokalemia with increased doses of diuretics EKG in the ED is read as: "Sinus rhythm with 1st degree A-V block Left axis deviation Non-specific intra-ventricular conduction block" however is poor quality EKG and to be repeated Troponin negative x 1 and no chest pain, send second troponin with electrolyte recheck Diet - Low salt, heart healthy diet with fluid restriction DVT ppx: Xarelto Full Code Level of Care Telemetry Resuscitation Status FULL RESUSCITATION VTE Prophylaxis VTE Risk Assessment Done? Y/N: Yes Risk Level: Moderate
[2017-03-24] MEDS ORDERED: NITROGLYCERIN 0.4 MG SL PER TAB CHARGE SL PRN (08:15)
[2017-03-24] MEDS ORDERED: MAGNESIUM SULFATE 1GM / D5W 1 GM in PREMIXED IN D5W 100 ML IV STA (09:30)
[2017-03-24] MEDS ORDERED: PERFLUTREN LIPID MICROSPHERE (DEFINITY) IV ONE (10:34)
[2017-03-24] MEDS: ENALAPRIL MALEATE 5 MG TAB PO SCH (10:58)
--- NOTE | 2017-03-24 11:40 | ECHOCARDIOGRAM REPORT ---
*NOTICE TO RECEIVING [employer] This information is strictly Confidential and protected under [place] law. [place] law prohibits you from making any further disclosure of this information unless further disclosure is expressly permitted by the written consent of the person to whom it pertains or is authorized by law. A general authorization for the release of medical or other information is not sufficient for this purpose. Hospital accepts no responsibility if the information is made available to any other person, INCLUDING THE PATIENT. Interpretation Summary * Name: BREE EMMANUEL Study Date: 03/24/2017 09:39 AM BP: 105/64 mmHg * Patient Location: [facility]\S\N284\S\1 HR: 73 * : 1955 (M/d/yyyy) Gender: Male Height: 72 in * Age: 61 yrs Ethnicity: CA Weight: 224 lb * Ordering Physician: Hugh Mendez * Referring Physician: Self, Referred * Performed By: Elsa Mejia RCS * * Reason For Study: CHF * BSA: 2.2 m2 * -- Conclusions -- * No significant change compared to previous study. * Mildly dilated LV chamber size. * Severely reduced LV systolic function, EF 20-25%. * Akinesis of the anteroseptal, anterior, anterolateral and apical sosa. Mild to moderate hypokinesis of the inferoseptal wall. Normal motion of the inferior/inferolateral sosa. * Grade III diastolic dsyfunction. * No significant valvular pathology. * Severe left atrial enlargement. Procedure Details * A complete two-dimensional transthoracic echocardiogram was performed (2D, M-mode, Doppler and color flow Doppler). * A contrast injection of Definity was performed to improve assessment of LV function. * Contrast was injected into an intravenous site in the left arm. * One vial of Definity ultrasound contrast was diluted in normal saline to a total volume of 10 ml. A total of '1' ml of solution was administered during imaging. * Lot # [id number] of Definity utilized for procedure. * Expiration date MAR 17. * The attending nurse who injected the contrast agent was BRANNON ZEE CPL, RN. Left Ventricle * The left ventricle is mildly dilated. * There is mild concentric left ventricular hypertrophy. * Left ventricular systolic function is severely reduced. * Ejection Fraction = 20-25%. * Akinesis of the anteroseptal, anterior, anterolateral and apical sosa. Mild to moderate hypokinesis of the inferoseptal wall. Normal motion of the inferior/inferolateral sosa. Right Ventricle * The right ventricular cavity size is normal (basal dimension <4.2 cm in right ventricular apical 4-chamber view). * There is a pacemaker lead in the right ventricle. * The right ventricular systolic function is normal as assessed by tricuspid annular plane systolic excursion (TAPSE) (normal >1.5 cm). Atria * The left atrium is severely dilated. * Right atrial size is normal. * No ASD detected; PFO is not assessed. Mitral Valve * Focal calcification present on posterior chordae tendinae. Unchanged compared to previous studies. * There is no mitral valve stenosis. * There is no mitral regurgitation noted. Tricuspid Valve * The tricuspid valve is normal in structure and function. Aortic Valve * The aortic valve is normal in structure and function. Pulmonic Valve * The pulmonary valve is not well seen, but the Doppler examination is normal without significant regurgitation or stenosis. Great Vessels * The aortic root is normal size. Pericardium/Pleural * There is no pericardial effusion. Left Ventricular Diastolic Function * Diastolic dysfunction, Grade III (restrictive pattern), consistent with markedly increased left atrial pressure. MMode 2D Measurements and Calculations IVSd 1.1 cm IVSs 1.5 cm LVIDd 5.9 cm LVIDs 5.4 cm LVPWd 1.1 cm LVPWs 1.2 cm IVS/LVPW 0.95 FS 8.7 % EDV(Teich) 171.6 ml ESV(Teich) 139.0 ml EF(Teich) 19.0 % EDV(cubed) 202.8 ml ESV(cubed) 154.2 ml EF(cubed) 24.0 % % IVS thick 38.7 % % LVPW thick 7.0 % LV mass(C)d 273.2 grams LV mass(C)dI 122.2 grams/m\S\2 LV mass(C)s 311.2 grams LV mass(C)sI 139.2 grams/m\S\2 SV(Teich) 32.5 ml SI(Teich) 14.6 ml/m\S\2 SV(cubed) 48.7 ml SI(cubed) 21.8 ml/m\S\2 Ao root diam 2.8 cm Ao root area 6.2 cm\S\2 ACS 2.2 cm LA dimension 5.8 cm LA/Ao 2.1 LVOT diam 2.0 cm LVOT area 3.0 cm\S\2 LVAd ap4 48.6 cm\S\2 LVLd ap4 10.5 cm EDV(MOD-sp4) 178.9 ml EDV(sp4-el) 190.2 ml LVAs ap4 34.5 cm\S\2 LVLs ap4 9.8 cm ESV(MOD-sp4) 104.4 ml ESV(sp4-el) 102.9 ml EF(MOD-sp4) 41.7 % EF(sp4-el) 45.9 % LVAd ap2 48.3 cm\S\2 LVLd ap2 10.1 cm EDV(MOD-sp2) 193.5 ml EDV(sp2-el) 195.7 ml LVAs ap2 38.7 cm\S\2 LVLs ap2 10.3 cm ESV(MOD-sp2) 124.7 ml ESV(sp2-el) 123.7 ml EF(MOD-sp2) 35.6 % EF(sp2-el) 36.8 % LVLd %diff -4.16 % EDV(MOD-bp) 189.0 ml LVLs %diff 4.7 % ESV(MOD-bp) 116.7 ml EF(MOD-bp) 38.3 % SV(MOD-sp4) 74.5 ml SI(MOD-sp4) 33.3 ml/m\S\2 SV(MOD-sp2) 68.8 ml SI(MOD-sp2) 30.8 ml/m\S\2 SV(MOD-bp) 72.3 ml SI(MOD-bp) 32.3 ml/m\S\2 SV(sp4-el) 87.2 ml SI(sp4-el) 39.0 ml/m\S\2 SV(sp2-el) 72.0 ml SI(sp2-el) 32.2 ml/m\S\2 Doppler Measurements and Calculations MV E max maicol 99.7 cm/sec MV P1/2t max maicol 102.7 cm/sec MV P1/2t 71.7 msec MVA(P1/2t) 3.1 cm\S\2 MV dec slope 419.3 cm/sec\S\2 MV dec time 0.14 sec Ao V2 max 123.3 cm/sec Ao max PG 6.1 mmHg Ao max PG (full) 4.2 mmHg NATALYA(V,A) 1.7 cm\S\2 NATALYA(V,D) 1.7 cm\S\2 LV V1 max PG 1.9 mmHg LV V1 max 69.1 cm/sec MR max maicol 405.2 cm/sec MR max PG 65.7 mmHg PA V2 max 88.9 cm/sec PA max PG 3.2 mmHg TR max maicol 239.2 cm/sec
--- NOTE | 2017-03-24 11:57 | CARDIOLOGY CONSULTATION ---
DATE OF CONSULTATION: 03/24/2017 CONSULTATION REQUESTED BY: Dr. Best. REASON FOR CONSULTATION: Acute decompensated systolic heart failure. HISTORY OF PRESENT ILLNESS: Mr. Wheatley is a very pleasant 61-year-old gentleman who normally follows with myself for his history of ischemic cardiomyopathy. He presented to [facility] early in the a.m. of 03/24/2017 with a complaint of shortness of breath and lower extremity swelling. The patient admits that he has not been feeling well for a quite some time. He states that this started around the Thanksgiving this year when he came down with an upper respiratory tract infection and then, ever since then he states he is seeming to slowly accumulate with fluid. He states that shortly after Thanksgiving, he started feeling a little short of breath and developed lower extremity edema. He started taking his p.r.n. Lasix as he has been instructed to do and his symptoms would resolve; however, it e again started approximately 2 months ago and slowly progressed to the point where he was dyspneic with even minimal exertion and significant lower extremity edema. He admits that he was counseled by his family, both his and children that he should seek the medical attention; however, he was trying to hold off hoping that p.r.n. Lasix would help improve his symptoms. When his symptoms became too severe this morning, he came into the Emergency Room. In the Emergency Room, he was evaluated and found to be significantly volume overloaded. He was given a dose of IV Lasix with almost immediate significant diuresis and then admitted to telemetry. Even after only receiving 1 dose of Lasix, he states he is starting to feel better already. His shortness of breath is improving, but he is not quite sure if his lower extremities have changed at all. Otherwise, he denies experiencing any chest pain and states he does not feel as though he come back in atrial fibrillation. He has not had any firing of his ICD. He has been compliant with his medications and his diet restrictions. PAST SURGICAL HISTORY: 1. Coronary artery bypass grafting surgery x4 in 2008 with a GUILLORY to the LAD, vein graft to the diagonal, posterior lateral circ, and PDA. 2. PCI to the LAD. 3. Single-lead ICD placement, the Medtronic device. MEDICAL ILLNESSES: 1. Coronary artery disease, status post CABG and PCI. 2. Ischemic cardiomyopathy, EF 20%-25%, status post ICD placement. 3. History of sustained ventricular tachycardia, status post ICD placement. 4. Hypertension. 5. Hyperlipidemia. 6. Paroxysmal atrial fibrillation, on chronic Xarelto anticoagulation. FAMILY HISTORY: Noncontributory. SOCIAL HISTORY: The patient is a former smoker, quit in 2003. Denies any alcohol or recreational drug use. He is and lives at home with his . He is a very avid rahul. REVIEW OF SYSTEMS: As per HPI. All other review of systems reviewed and negative at this time. ALLERGIES: IODINE. MEDICATIONS AN OUTPATIENT: 1. Carvedilol 12.5 mg b.i.d. 2. Xarelto 20 mg daily with the evening meal. 3. Atorvastatin 80 mg daily. 4. Lasix 20 mg daily on an as needed basis for fluid accumulation. 5. Enalapril 5 mg daily. 6. Aspirin 81 mg daily. 7. Levoxyl daily. PHYSICAL EXAMINATION: VITALS: Temperature 36.6, pulse 72, respiratory rate 12, and blood pressure 120/82. GENERAL: Awake, alert, and oriented x3, in no acute distress. HEENT: Normocephalic and atraumatic. Pupils equal, round, and reactive to light and accommodation. Extraocular muscles intact. Anicteric sclerae. Moist mucous membranes. NECK: No JVD. No bruit. CARDIOVASCULAR: Regular. Positive S4. Normal S1 and S2. No S3. No murmurs or rubs. PULMONARY: Poor air movement in the bilateral bases with scant crackles. No rhonchi or wheezing. ABDOMEN: Bowel sounds x4. Soft. No rebound, guarding, or tenderness. No organomegaly. EXTREMITIES: No clubbing or cyanosis. +1 bilateral lower extremity pitting edema. +2 pedal pulses bilaterally. SKIN: Warm and dry. TEST RESULTS: Chest x-ray performed in the Emergency Department was read as cardiomegaly with cardiac pacemaker, evidence of congestive heart failure. More focal airspace consolidation is seen in the left lung base, although this could represent atelectasis. Correlate clinically for evidence of superimposed pneumonia. Small pleural effusions. LABORATORY STUDIES OF SIGNIFICANCE: White count of 6, hemoglobin of 10, and platelet count of 318. Sodium 127, potassium 4.1, BUN 10, and creatinine 0.8. IMPRESSION: 1. Acute decompensated systolic heart failure. 2. History of ischemic cardiomyopathy, EF 20%-25%, status post ICD placement. 3. History of paroxysmal atrial fibrillation, on chronic Xarelto anticoagulation. 4. History of sustained ventricular tachycardia. RECOMMENDATIONS: It was my pleasure to see Mr. Wheatley in consultation today. At this point, the patient definitely appears to be decompensated and I believe that he needs to be diuresed. At the same time, we will interrogate his ICD to evaluate for any signs of atrial fibrillation that may have sparked this episode. At the same time, we will repeat an echocardiogram to evaluate for any further impairment of his LV systolic function. Otherwise, he will be maintained on Lasix 40 mg IV b.i.d. for now. His electrolytes will be followed and repleted as necessary. Otherwise, we will continue on all his other outpatient cardiac medications and he will be monitored on telemetry.
[2017-03-24 13:19] LABS: ALBUMIN 3.2 gm/dl (3.4-5.0); ALT/SGPT 19 U/L (12-78); AST/SGOT 31 U/L (15-37); BLOOD UREA NITROGEN 10 mg/dl (7-18); CALCIUM 8.6 mg/dl (8.5-10.1); CARBON DIOXIDE 29 mmol/L (21-32); CREATININE 0.81 mg/dl (0.60-1.40); GLUCOSE 120 mg/dl (70-99); POTASSIUM 3.8 mmol/L (3.5-5.1); SODIUM 127 mmol/L (136-145)
[2017-03-24 13:24] LABS: ALKALINE PHOSPHATASE 209 U/L (45-117)
[2017-03-24] MEDS: RIVAROXABAN 10 MG TAB PO SCH (17:46)
[2017-03-24] MEDS: FUROSEMIDE INJ 40 MG in SYRINGE 0 ML IV SCH (18:19)
[2017-03-24] MEDS ORDERED: FUROSEMIDE INJ 40 MG in SYRINGE 0 ML IV ONE (20:00)
[2017-03-24] MEDS: CARVEDILOL 12.5 MG TAB PO SCH (20:04)
[2017-03-24] MEDS: ATORVASTATIN 40 MG TAB PO SCH (20:04)
[2017-03-24] MEDS ORDERED: FUROSEMIDE INJ 40 MG in SYRINGE 0 ML IV SCH (21:00)
[2017-03-25] VITALS (8 sets, daily range): BP systolic 106–132; BP diastolic 70–94; PULSE 71–76; TEMP 36.7–37; O2SAT 91–98
[2017-03-25] MEDS: LEVOTHYROXINE 100 MCG TAB PO SCH (06:12)
[2017-03-25] MEDS ORDERED: LEVOTHYROXINE 125 MCG TAB PO SCH (06:30)
[2017-03-25 07:41] LABS: BASO % 1.4 %; BASO ABS # 0.08 K/uL (0-0.2); EOS % 2.8 %; EOS ABS # 0.16 K/uL (0-0.5); HEMATOCRIT 29.6 % (42-52); HEMOGLOBIN 9.5 g/dL (14.0-18.0); LYMPH ABS # 1.21 K/uL (1.2-3.4); MEAN CELL VOLUME 82.7 fL (80-100); MEAN CORPUSCULAR HEMOGLOBIN 26.5 pg (25-34); MEAN PLATELET VOLUME 9.6 fL (7.4-10.4); MONO % 10.4 %; NEUT % 64.4 %; PLATELET COUNT 287 K/uL (130-400); RED CELL DISTRIBUTION WIDTH CV 17.8 % (11.5-14.5); RED CELL DISTRIBUTION WIDTH SD 53.8 fL (36.4-46.3); WHITE BLOOD COUNT 5.75 K/uL (4.8-10.8)
[2017-03-25 07:45] LABS: MEAN CORPUSCULAR HGB CONC 32.1 g/dl (32-36)
[2017-03-25 08:11] LABS: ALBUMIN 2.9 gm/dl (3.4-5.0); CALCIUM 9.2 mg/dl (8.5-10.1); CREATININE 0.71 mg/dl (0.60-1.40); POTASSIUM 3.9 mmol/L (3.5-5.1); TOTAL PROTEIN 7.1 gm/dl (6.4-8.2)
[2017-03-25] MEDS: FUROSEMIDE INJ 40 MG in SYRINGE 0 ML IV SCH ×2 (09:30→17:19)
[2017-03-25] MEDS: ENALAPRIL MALEATE 5 MG TAB PO SCH (09:31)
[2017-03-25] MEDS: CARVEDILOL 12.5 MG TAB PO SCH ×2 (09:31→20:47)
--- NOTE | 2017-03-25 12:36 | PROGRESS NOTE ---
DATE: 03/25/2017 FOLLOWUP VISIT SUBJECTIVE: The patient is a 61-year-old with a history of ischemic cardiomyopathy, presented with congestive heart failure. He has been diuresed and has lost approximately 10 pounds of fluid weight. He feels better. OBJECTIVE: GENERAL: He is alert and oriented, in no acute distress. VITAL SIGNS: Blood pressure is 110/70 and pulse is regular at 70. He is afebrile. HEENT: He is normocephalic. Pupils are equal and reactive to light. Extraocular muscles are intact bilaterally. NECK: The neck veins are flat. Carotids have good upstrokes bilaterally without bruits. Thyroid is nonpalpable. RESPIRATORY: Breath sounds equal bilaterally and clear to auscultation. CARDIOVASCULAR: Heart has a regular rhythm. Normal S1 and S2. No S3 or S4. No cardiac rubs or murmurs. GASTROINTESTINAL: Abdomen is soft and nontender without organomegaly. EXTREMITIES: Have edema to the mid calf bilaterally. NEUROLOGIC: Grossly intact. SKIN: Warm to touch. LYMPH NODES: Negative to palpation. LABORATORY DATA: Hemoglobin is 9.5. Creatinine is 0.71, potassium is 3.9, and sodium is 129. IMPRESSION: 1. Decompensated congestive heart failure. 2. Ischemic cardiomyopathy. RECOMMENDATIONS: The patient is still retaining some fluid and I would continue diuresis through today.
--- NOTE | 2017-03-25 16:41 | Progress Note ---
Internal Med Progress Note Date of Service: Mar 25, 2017. Provider Documentation: SUBJECTIVE: Patient seen and examined at bedside. Is breathing on room air. No respiratory distress. Patient reports less swelling of abdomen and lower extremities OBJECTIVE: General Appearance: no apparent distress Head: normocephalic, atraumatic Eyes: normal inspection, EOMI, sclerae normal ENT: normal ENT inspection, hearing grossly normal, pharynx normal Neck: supple, thyroid normal, no JVD, trachea midline Respiratory/Chest: chest non-tender, lungs clear, normal breath sounds, no respiratory distress, no accessory muscle use Cardiovascular: regular rate, rhythm, no JVD, normal peripheral pulses Abdomen/GI: normal bowel sounds, non tender, softer today compared to yesterday Back: normal inspection, no CVA tenderness, no muscle spasm, normal range of motion Extremities/Musculoskelatal: bilateral lower extremity swelling still present 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 Mendez CAD with stents / Paroxysmal atrial fibrillation / Cardiac Defibrillator Continue home medications of Xarelto, Carvedilol, Atorvastatin, Enalapril Hypothyroidism T4 level 10.4 on 03/24/17 and daily levothyroxine decreased from home dose to 100 mcg daily Electrolytes Serum Sodium - Hyponatremia likely due to fluid overload, improving from 127 to 129 while on diuresis and fluid restriction Monitor for Hypokalemia and hypomagnesemia with increased doses of diuretics Diet - Low salt, heart healthy diet with fluid restriction DVT ppx: Xarelto Full Code Vital Signs: Date Time Temp Pulse Resp B/P (MAP) Pulse Ox O2 Delivery O2 Flow Rate FiO2 03/25/17 15:40 36.8 72 20 115/83 (94) 95 Room Air 03/25/17 12:00 98 Room Air 03/25/17 11:43 37.0 75 18 106/70 (82) 95 03/25/17 08:00 98 Room Air 03/25/17 07:15 37.0 71 16 120/79 (93) 97 03/25/17 04:32 36.9 75 18 118/84 (95) 92 Room Air 03/25/17 04:00 Room Air 03/25/17 00:00 Room Air 03/24/17 23:03 36.8 74 18 109/74 (86) 91 03/24/17 20:09 97 Room Air 03/24/17 19:10 37.0 78 20 123/79 (94) 95 Room Air Lab Results: Results Past 24 Hours Test 03/25/17 07:28 Range/Units White Blood Count 5.75 4.8-10.8 K/uL Red Blood Count 3.58 4.7-6.1 M/uL Hemoglobin 9.5 14.0-18.0 g/dL Hematocrit 29.6 42-52 % Mean Corpuscular Volume 82.7 80-100 fL Mean Corpuscular Hemoglobin 26.5 25-34 pg Mean Corpuscular Hemoglobin Concent 32.1 32-36 g/dl Platelet Count 287 130-400 K/uL Mean Platelet Volume 9.6 7.4-10.4 fL Neutrophils (%) (Auto) 64.4 % Lymphocytes (%) (Auto) 21.0 % Monocytes (%) (Auto) 10.4 % Eosinophils (%) (Auto) 2.8 % Basophils (%) (Auto) 1.4 % Neutrophils # (Auto) 3.70 1.4-6.5 K/uL Lymphocytes # (Auto) 1.21 1.2-3.4 K/uL Monocytes # (Auto) 0.60 0.11-0.59 K/uL Eosinophils # (Auto) 0.16 0-0.5 K/uL Basophils # (Auto) 0.08 0-0.2 K/uL RDW Standard Deviation 53.8 36.4-46.3 fL RDW Coefficient of Variation 17.8 11.5-14.5 % Immature Granulocyte % (Auto) 0.0 % Immature Granulocyte # (Auto) 0.00 0.00-0.02 K/uL Sodium Level 129 136-145 mmol/L Potassium Level 3.9 3.5-5.1 mmol/L Chloride Level 93 98-107 mmol/L Carbon Dioxide Level 29 21-32 mmol/L Anion Gap 7.0 3-11 mmol/L Blood Urea Nitrogen 11 7-18 mg/dl Creatinine 0.71 0.60-1.40 mg/dl Est Creatinine Clear Calc Drug Dose 141.9 ml/min Estimated GFR () 119.0 Estimated GFR (Non- 102.7 BUN/Creatinine Ratio 15.8 10-20 Random Glucose 84 70-99 mg/dl Calcium Level 9.2 8.5-10.1 mg/dl Magnesium Level 1.9 1.8-2.4 mg/dl Total Bilirubin 2.0 0.2-1 mg/dl Aspartate Amino Transf (AST/SGOT) 28 15-37 U/L Alanine Aminotransferase (ALT/SGPT) 17 12-78 U/L Alkaline Phosphatase 178 45-117 U/L Total Protein 7.1 6.4-8.2 gm/dl Albumin 2.9 3.4-5.0 gm/dl Globulin 4.2 2.5-4.0 gm/dl Albumin/Globulin Ratio 0.7 0.9-2
[2017-03-25] MEDS: RIVAROXABAN 10 MG TAB PO SCH (17:19)
[2017-03-25] MEDS: ATORVASTATIN 40 MG TAB PO SCH (20:47)
[2017-03-25] MEDS: ACETAMINOPHEN 500 MG TAB PO SCH (20:49)
[2017-03-26 04:33] VITALS: BP 125/73; PULSE 78; TEMP 36.9; O2SAT 94
[2017-03-26] MEDS: ACETAMINOPHEN 500 MG TAB PO SCH ×3 (05:32→21:16)
[2017-03-26] MEDS: LEVOTHYROXINE 100 MCG TAB PO SCH (05:33)
[2017-03-26 06:05] LABS: BASO % 1.6 %; BASO ABS # 0.09 K/uL (0-0.2); EOS % 3.7 %; EOS ABS # 0.21 K/uL (0-0.5); HEMOGLOBIN 9.2 g/dL (14.0-18.0); IG# 0.01 K/uL (0.00-0.02); LYMPH % 21.2 %; LYMPH ABS # 1.21 K/uL (1.2-3.4); MEAN CELL VOLUME 82.6 fL (80-100); MEAN CORPUSCULAR HEMOGLOBIN 26.2 pg (25-34); MEAN CORPUSCULAR HGB CONC 31.7 g/dl (32-36); MEAN PLATELET VOLUME 10.3 fL (7.4-10.4); MONO % 11.4 %; MONO ABS # 0.65 K/uL (0.11-0.59); NEUT % 61.9 %; NEUT ABS # 3.53 K/uL (1.4-6.5); PLATELET COUNT 299 K/uL (130-400); RED CELL DISTRIBUTION WIDTH CV 17.8 % (11.5-14.5); RED CELL DISTRIBUTION WIDTH SD 54.4 fL (36.4-46.3)
[2017-03-26 06:41] LABS: ALBUMIN 2.8 gm/dl (3.4-5.0); CALCIUM 8.4 mg/dl (8.5-10.1); CREATININE 0.93 mg/dl (0.60-1.40); POTASSIUM 3.6 mmol/L (3.5-5.1)
[2017-03-26 06:44] LABS: TOTAL PROTEIN 7.1 gm/dl (6.4-8.2)
[2017-03-26 07:14] VITALS: BP 105/68; PULSE 66; TEMP 36.8; O2SAT 93
[2017-03-26] MEDS ORDERED: POTASSIUM CHLORIDE 20 MEQ TABCR PO STA (07:21)
[2017-03-26] MEDS: CARVEDILOL 12.5 MG TAB PO SCH ×2 (08:09→20:41)
[2017-03-26] MEDS: FERROUS FUMARATE CONTR REL CAP 65 MG CAPCR PO SCH (08:09)
[2017-03-26] MEDS: ENALAPRIL MALEATE 5 MG TAB PO SCH (08:10)
[2017-03-26] MEDS: FUROSEMIDE INJ 40 MG in SYRINGE 0 ML IV SCH ×2 (09:02→16:53)
[2017-03-26 11:21] VITALS: BP 109/76; PULSE 66; TEMP 36.7; O2SAT 96
--- NOTE | 2017-03-26 13:15 | PROGRESS NOTE ---
DATE: 03/26/2017 FOLLOWUP VISIT SUBJECTIVE: The patient is a 61-year-old with a history of ischemic cardiomyopathy, who presented with congestive heart failure and volume overload. He has been slowly diuresing. He had another large diuresis yesterday and continues to improve. OBJECTIVE: GENERAL: He is alert and oriented, in no acute distress. VITAL SIGNS: Blood pressure 109/76 and pulse is regular at 66 beats per minute. He is afebrile. HEENT: He is normocephalic. Pupils are equal and reactive to light. Extraocular muscles are intact bilaterally. NECK: The neck veins are flat. Carotids have good upstrokes bilaterally without bruits. Thyroid is nonpalpable. RESPIRATORY: Breath sounds equal bilaterally and clear to auscultation. CARDIOVASCULAR: Heart has regular rhythm. Normal S1 and S2. No S3 or S4. No cardiac rubs or murmurs. GASTROINTESTINAL: Abdomen is soft and nontender without organomegaly. EXTREMITIES: Free of edema, digit clubbing, or cyanosis. NEUROLOGIC: Grossly intact. SKIN: Warm to touch. LYMPH NODES: Negative to palpation. LABORATORY DATA: Potassium is 3.6. Sodium is 129 with the patient on a fluid restriction. BUN is 14 and creatinine is 0.93. IMPRESSION: 1. Decompensated congestive heart failure. 2. Ischemic cardiomyopathy. RECOMMENDATIONS: The patient continues to have edema of the lower extremities and although he has made good progress, I think we should continue IV diuretics for at least through today. I will reevaluate him tomorrow.
[2017-03-26 14:57] VITALS: BP 113/77; PULSE 69; TEMP 36.7; O2SAT 96
[2017-03-26] MEDS ORDERED: MAGNESIUM SULFATE 1GM / D5W 1 GM in PREMIXED IN D5W 100 ML IV STA (16:15)
--- NOTE | 2017-03-26 16:20 | Progress Note ---
Internal Med Progress Note Date of Service: Mar 26, 2017. Provider Documentation: SUBJECTIVE: Patient seen and examined at bedside. Is breathing on room air. No respiratory distress. 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 Mendez CAD with stents / Paroxysmal atrial fibrillation / Cardiac Defibrillator Continue home medications of Xarelto, Carvedilol, Atorvastatin, Enalapril Hypothyroidism T4 level 10.4 on 03/24/17 and daily levothyroxine decreased from home dose to 100 mcg daily Electrolytes Serum Sodium - Hyponatremia likely due to fluid overload, improving from 127 to 129 while on diuresis and fluid restriction potassium 40 meq PO given today and magnesium 1 gram IV ordered to treat potassium an magnesium lost to urine from diuresis Diet - Low salt, heart healthy diet with fluid restriction DVT ppx: Xarelto Full Code Vital Signs: Date Time Temp Pulse Resp B/P (MAP) Pulse Ox O2 Delivery O2 Flow Rate FiO2 03/26/17 14:57 36.7 69 16 113/77 (89) 96 03/26/17 12:00 Room Air 03/26/17 11:21 36.7 66 16 109/76 (87) 96 03/26/17 09:22 Room Air 03/26/17 07:14 36.8 66 16 105/68 (80) 93 03/26/17 04:33 36.9 78 18 125/73 (90) 94 Room Air 03/26/17 04:00 Room Air 03/26/17 00:00 Room Air 03/25/17 22:48 37.0 76 18 122/82 (95) 91 Room Air 03/25/17 20:26 Room Air 03/25/17 19:40 36.7 74 20 132/94 (107) 95 Room Air Lab Results: Results Past 24 Hours Test 03/26/17 05:23 Range/Units White Blood Count 5.70 4.8-10.8 K/uL Red Blood Count 3.51 4.7-6.1 M/uL Hemoglobin 9.2 14.0-18.0 g/dL Hematocrit 29.0 42-52 % Mean Corpuscular Volume 82.6 80-100 fL Mean Corpuscular Hemoglobin 26.2 25-34 pg Mean Corpuscular Hemoglobin Concent 31.7 32-36 g/dl Platelet Count 299 130-400 K/uL Mean Platelet Volume 10.3 7.4-10.4 fL Neutrophils (%) (Auto) 61.9 % Lymphocytes (%) (Auto) 21.2 % Monocytes (%) (Auto) 11.4 % Eosinophils (%) (Auto) 3.7 % Basophils (%) (Auto) 1.6 % Neutrophils # (Auto) 3.53 1.4-6.5 K/uL Lymphocytes # (Auto) 1.21 1.2-3.4 K/uL Monocytes # (Auto) 0.65 0.11-0.59 K/uL Eosinophils # (Auto) 0.21 0-0.5 K/uL Basophils # (Auto) 0.09 0-0.2 K/uL RDW Standard Deviation 54.4 36.4-46.3 fL RDW Coefficient of Variation 17.8 11.5-14.5 % Immature Granulocyte % (Auto) 0.2 % Immature Granulocyte # (Auto) 0.01 0.00-0.02 K/uL Sodium Level 129 136-145 mmol/L Potassium Level 3.6 3.5-5.1 mmol/L Chloride Level 92 98-107 mmol/L Carbon Dioxide Level 32 21-32 mmol/L Anion Gap 5.0 3-11 mmol/L Blood Urea Nitrogen 14 7-18 mg/dl Creatinine 0.93 0.60-1.40 mg/dl Est Creatinine Clear Calc Drug Dose 108.3 ml/min Estimated GFR () 103.8 Estimated GFR (Non- 89.5 BUN/Creatinine Ratio 14.6 10-20 Random Glucose 85 70-99 mg/dl Calcium Level 8.4 8.5-10.1 mg/dl Magnesium Level 1.7 1.8-2.4 mg/dl Total Bilirubin 1.8 0.2-1 mg/dl Aspartate Amino Transf (AST/SGOT) 26 15-37 U/L Alanine Aminotransferase (ALT/SGPT) 17 12-78 U/L Alkaline Phosphatase 180 45-117 U/L Total Protein 7.1 6.4-8.2 gm/dl Albumin 2.8 3.4-5.0 gm/dl Globulin 4.3 2.5-4.0 gm/dl Albumin/Globulin Ratio 0.7 0.9-2
[2017-03-26] MEDS: RIVAROXABAN 10 MG TAB PO SCH (16:53)
[2017-03-26 19:55] VITALS: BP 116/79; PULSE 71; TEMP 36.8; O2SAT 95
[2017-03-26] MEDS: ATORVASTATIN 40 MG TAB PO SCH (20:41)
[2017-03-26 23:41] VITALS: BP 117/71; PULSE 70; TEMP 37; O2SAT 94
[2017-03-27] VITALS (10 sets, daily range): BP systolic 103–133; BP diastolic 72–89; PULSE 67–74; TEMP 36.8–37; O2SAT 91–96
[2017-03-27] MEDS: LEVOTHYROXINE 100 MCG TAB PO SCH (06:07)
[2017-03-27] MEDS: ACETAMINOPHEN 500 MG TAB PO SCH ×3 (06:07→21:11)
[2017-03-27] MEDS: FUROSEMIDE INJ 40 MG in SYRINGE 0 ML IV SCH ×2 (08:10→17:17)
[2017-03-27] MEDS: CARVEDILOL 12.5 MG TAB PO SCH ×2 (08:10→21:10)
[2017-03-27] MEDS: ENALAPRIL MALEATE 5 MG TAB PO SCH (08:11)
[2017-03-27 08:13] LABS: ALBUMIN 2.8 gm/dl (3.4-5.0); CREATININE 0.92 mg/dl (0.60-1.40); POTASSIUM 4.3 mmol/L (3.5-5.1)
[2017-03-27 08:15] LABS: TOTAL PROTEIN 7.3 gm/dl (6.4-8.2)
--- NOTE | 2017-03-27 10:41 | PROGRESS NOTE ---
DATE: 03/27/2017 FOLLOWUP VISIT SUBJECTIVE: The patient is a 61-year-old with a history of ischemic cardiomyopathy, who presents with congestive heart failure and volume overload. He continues to have diuresis with IV diuretics. His weight is down approximately 20 pounds. He has no new cardiac complaints. OBJECTIVE: GENERAL: He is alert and oriented, in no acute distress. VITAL SIGNS: Blood pressure is 130/90, pulse is regular at 70. He is afebrile. HEENT: Normocephalic. Pupils are equal and reactive to light. Extraocular muscles are intact bilaterally. NECK: The neck veins are flat. Carotids have good upstrokes bilaterally without bruits. Thyroid is nonpalpable. RESPIRATORY: Breath sounds equal bilaterally and clear to auscultation. CARDIOVASCULAR: Heart has a regular rhythm. Normal S1, S2. No S3, S4. No cardiac rubs or murmurs. GASTROINTESTINAL: Abdomen is soft, nontender, without organomegaly. EXTREMITIES: Have hard edema to the mid calf bilaterally. NEUROLOGIC: Grossly intact. SKIN: Warm to touch. LYMPH NODES: Negative to palpation. IMPRESSION: 1. Congestive heart failure. 2. Ischemic cardiomyopathy. RECOMMENDATIONS: Although the patient is markedly improved and has lost about 20 pounds of fluid weight, he continues to have edema of the lower extremities and is diuresing still large amounts with loop diuretics. I would continue that through today. We will reassess him tomorrow.
--- NOTE | 2017-03-27 15:27 | Progress Note ---
Internal Med Progress Note Date of Service: Mar 27, 2017. Provider Documentation: SUBJECTIVE: Patient seen and examined at bedside. Is breathing on room air. No respiratory distress. Patient is ambulatory. Patient informed by cardiology service of continuing hospital stay for IV diuresis. 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 Mendez CAD with stents / Paroxysmal atrial fibrillation / Cardiac Defibrillator Continue home medications of Xarelto, Carvedilol, Atorvastatin, Enalapril Hypothyroidism T4 level 10.4 on 03/24/17 and daily levothyroxine decreased from home dose to 100 mcg daily Electrolytes Serum Sodium - Hyponatremia likely due to fluid overload, improving from 127 to 130 while on diuresis and fluid restriction monitor serum potassium and serum magnesium while on IV diuretics Diet - Low salt, heart healthy diet with fluid restriction DVT ppx: Xarelto Full Code Vital Signs: Date Time Temp Pulse Resp B/P (MAP) Pulse Ox O2 Delivery O2 Flow Rate FiO2 03/27/17 15:08 36.8 70 18 129/81 (97) 96 Room Air 03/27/17 12:00 94 Room Air 03/27/17 11:20 36.8 67 18 103/72 (82) 92 Room Air 03/27/17 08:03 36.9 73 20 133/89 (104) 91 Room Air 03/27/17 08:00 96 Room Air 03/27/17 04:12 37.0 72 20 114/78 (90) 96 Room Air 03/27/17 04:10 Room Air 03/27/17 00:10 Room Air 03/26/17 23:41 37.0 70 20 117/71 (86) 94 Room Air 03/26/17 20:30 Room Air 03/26/17 19:55 36.8 71 20 116/79 (91) 95 Room Air 03/26/17 15:30 Room Air Lab Results: Results Past 24 Hours Test 03/27/17 07:41 Range/Units Sodium Level 130 136-145 mmol/L Potassium Level 4.3 3.5-5.1 mmol/L Chloride Level 94 98-107 mmol/L Carbon Dioxide Level 27 21-32 mmol/L Anion Gap 9.0 3-11 mmol/L Blood Urea Nitrogen 15 7-18 mg/dl Creatinine 0.92 0.60-1.40 mg/dl Est Creatinine Clear Calc Drug Dose 107.7 ml/min Estimated GFR () 105.1 Estimated GFR (Non- 90.7 BUN/Creatinine Ratio 15.8 10-20 Random Glucose 76 70-99 mg/dl Calcium Level 9.0 8.5-10.1 mg/dl Magnesium Level 2.0 1.8-2.4 mg/dl Total Bilirubin 1.7 0.2-1 mg/dl Aspartate Amino Transf (AST/SGOT) 25 15-37 U/L Alanine Aminotransferase (ALT/SGPT) 16 12-78 U/L Alkaline Phosphatase 169 45-117 U/L Pro-B-Type Natriuretic Peptide 3650 0-900 pg/ml Total Protein 7.3 6.4-8.2 gm/dl Albumin 2.8 3.4-5.0 gm/dl Globulin 4.5 2.5-4.0 gm/dl Albumin/Globulin Ratio 0.6 0.9-2
[2017-03-27] MEDS: RIVAROXABAN 10 MG TAB PO SCH (17:16)
[2017-03-27] MEDS: ATORVASTATIN 40 MG TAB PO SCH (21:10)
[2017-03-28] VITALS (7 sets, daily range): BP systolic 107–117; BP diastolic 69–78; PULSE 71–78; TEMP 36.3–36.9; O2SAT 93–100
[2017-03-28] MEDS: ACETAMINOPHEN 500 MG TAB PO SCH ×2 (05:51→13:29)
[2017-03-28] MEDS: LEVOTHYROXINE 100 MCG TAB PO SCH (05:51)
[2017-03-28 06:49] LABS: CALCIUM 8.5 mg/dl (8.5-10.1); CREATININE 0.89 mg/dl (0.60-1.40); POTASSIUM 3.9 mmol/L (3.5-5.1)
[2017-03-28] MEDS: ENALAPRIL MALEATE 5 MG TAB PO SCH (07:46)
[2017-03-28] MEDS: FERROUS FUMARATE CONTR REL CAP 65 MG CAPCR PO SCH (07:46)
[2017-03-28] MEDS: CARVEDILOL 12.5 MG TAB PO SCH (07:47)
[2017-03-28] MEDS: FUROSEMIDE INJ 40 MG in SYRINGE 0 ML IV SCH (09:21)
--- NOTE | 2017-03-28 12:06 | Progress Note ---
Subjective Date of Service: Mar 28, 2017. Subjective The patient is a 61-year-old male with a history of an ischemic cardiomyopathy who presented with massive volume overload and congestive heart failure. He has diuresed over 20 pounds of fluid weight. He feels better and has no new cardiac complaints today. He would like to return home. Problem List Medical Problems: (1) Acute congestive heart failure Status: Acute (2) Acute hyponatremia Status: Acute (3) Pulmonary edema Status: Acute Review of Systems All Other Systems: Reviewed and Negative Medications Current Inpatient Medications Medications (Trade) Dose Ordered Sig/Latanya Route Start Time Stop Time Status Last Admin Dose Admin Atorvastatin Calcium (Lipitor Tab) 80 mg HS PO 03/24/17 21:00 04/23/17 20:59 03/27/17 21:10 80 MG Carvedilol (Coreg Tab) 12.5 mg BID PO 03/24/17 21:00 04/23/17 20:59 03/28/17 07:47 12.5 MG Enalapril Maleate (Vasotec Tab) 5 mg QAM PO 03/24/17 10:00 04/23/17 09:59 03/28/17 07:46 5 MG Rivaroxaban (Xarelto Tab) 20 mg QDD PO 03/24/17 17:00 04/23/17 16:59 03/27/17 17:16 20 MG Ferrous Fumarate (Corry-Sequels Contr Rel Cap) 65 mg Q2D PO 03/26/17 08:00 04/25/17 07:59 03/28/17 07:46 65 MG Nitroglycerin (Nitrostat Tab) 0.4 mg UD PRN SL 03/24/17 08:15 04/23/17 08:14 Furosemide 40 mg/ Syringe 4 ml @ 4 mls/min BID17 IV 03/24/17 17:00 04/23/17 20:59 03/28/17 09:21 4 MLS/MIN Levothyroxine Sodium (Synthroid Tab) 100 mcg DAILYBB PO 03/25/17 06:30 04/24/17 06:29 03/28/17 05:51 100 MCG Acetaminophen (Tylenol Tab) 1,000 mg Q8 PO 03/25/17 22:00 04/24/17 21:59 03/28/17 05:51 1,000 MG Objective Vital Signs Date Time Temp Pulse Resp B/P (MAP) Pulse Ox O2 Delivery O2 Flow Rate FiO2 03/28/17 08:26 95 Room Air 03/28/17 08:00 Room Air 03/28/17 07:49 36.9 74 18 117/78 (91) 95 Room Air 03/28/17 04:00 36.3 78 18 115/71 (86) 95 03/28/17 04:00 93 Room Air 03/28/17 00:05 93 Room Air 03/27/17 23:48 36.9 67 18 120/72 (88) 93 Room Air 03/27/17 20:05 93 Room Air 03/27/17 19:26 36.8 74 18 116/80 (92) 96 Room Air 03/27/17 16:00 93 Room Air 03/27/17 15:08 36.8 70 18 129/81 (97) 96 Room Air Physical Exam General Appearance: WD/WN, no apparent distress Eyes: PERRL, EOMI ENT: normal ENT inspection, hearing grossly normal Neck: supple, thyroid normal, no JVD Respiratory/Chest: lungs clear, normal breath sounds Cardiovascular: regular rate, rhythm, no gallop, no murmur Abdomen: normal bowel sounds, non tender, soft Extremities: normal range of motion, non-tender, + pedal edema (the patient does have edema bilaterally the lower extremities which has improved but is also chronic.) Neurologic/Psychiatric: no motor/sensory deficits, alert, normal mood/affect, oriented x 3 Skin: normal color, warm/dry, no rash Lymphatic: no adenopathy Laboratory Results Last 24 Hours Test 03/28/17 05:50 Sodium Level 129 mmol/L Potassium Level 3.9 mmol/L Chloride Level 95 mmol/L Carbon Dioxide Level 30 mmol/L Anion Gap 4.0 mmol/L Blood Urea Nitrogen 17 mg/dl Creatinine 0.89 mg/dl Est Creatinine Clear Calc Drug Dose 111.3 ml/min Estimated GFR () 108.5 Estimated GFR (Non- 93.6 BUN/Creatinine Ratio 18.9 Random Glucose 80 mg/dl Calcium Level 8.5 mg/dl Magnesium Level 1.9 mg/dl Assessment and Plan Impression: #1 congestive heart failure #2 ischemic cardiomyopathy Recommendations: Clinically the patient is stable. He is back to I believe baseline. He can be discharged. I will arrange for follow-up.
[2017-03-28] MEDS ORDERED: SYN100 PO (12:47)
[2017-03-28] MEDS ORDERED: FURO40TA3 PO (12:47)
--- NOTE | 2017-03-28 12:54 | Discharge Instructions ---
Discharge Instructions Date of Service Mar 28, 2017. Admission Reason for Admission: Acute Congestive Heart Failure Discharge Discharge Diagnosis / Problem: ACUTE chf Discharge Goals Goal(s): Decrease discomfort, Improve function Activity Recommendations Activity Limitations: resume your previous activity . Instructions / Follow-Up Instructions / Follow-Up FOLLOWUP WITH FAMILY DOCTOR ON MondayMar AT 1:05PM. FOLLOWUP WITH CARDIOLOGY SCHEDULED. CHANGE IN MEDICATIONS: LEVOTHYROXINE CHANGED TO 100MCG PO ONCE DAILY ( PREVIOUS DOSE 125MCG PO ONCE DAILY). NEW MEDICATION: LASIX 40MG PO ONCE DAILY . LAB:BMP IN 5-7 DAYS AND FOLLOW RESULTS WITH FAMILY DOCTOR. LAB: THYROID PROFILE IN 4 - 6 WEEKS WITH FAMILY DOCTOR Call your Primary Care doctor if any of the following symptoms or problems start or get worse: * Shortness of breath or difficulty breathing * Wake up at night short of breath * Chest pain * Cough * Swelling of your hands, feet, or legs * More fatigued or tired with your normal activity * Palpitations - sudden fast heart beats WEIGHT * Weigh yourself every morning after using the bathroom. * Use the same scale. * Wear the same amount of clothing. * Write your weight down on a chart. * Call your Primary Care doctor if you gain more than 2-3 pounds in 1-2 days. MEDICATIONS * Use this discharge instruction sheet for medication instructions. * Take your medications at the time your doctor ordered. * Do not skip a dose of your medicines. * If you miss a dose of medicine, take it as soon as possible, but DO NOT DOUBLE A DOSE. * Read your medicine information when you get home. * Know all of the side effects of your medicine. If in doubt, ask your pharmacist * Call your Primary Care doctor's office if you have any side effects. * Be sure all of your doctors know what medicine and herbs you take (including cold, flu, and herbal medicine). Take the following with you to your follow-up doctor appointments: * Weight Chart * Medication List * List of questions Do not drink excessive alcohol, beer or wine. Current Hospital Diet Patient's current hospital diet: AHA Diet (Heart Healthy), Low Sodium Diet (2gm Na) Discharge Diet Recommended Diet: AHA Diet (Heart Healthy) Pending Studies Studies pending at discharge: no Medical Emergencies . Who to Call and When: Call 911 or go to the Emergency Room if: * If at any time you feel your situation is an emergency * You have tightness or pain in your chest that does not go away with rest or Nitroglycerin * You are very short of breath even with rest . Non-Emergent Contact Non-Emergency issues call your: Primary Care Provider . . "Provider Documentation" section prepared by Josué Waggoner. . VTE Core Measure Inpt VTE Proph given/why not?: Other Anticoagulation (XARELTO)
--- NOTE | 2017-03-28 18:46 | Progress Note ---
Internal Med Progress Note Date of Service: Mar 28, 2017. Provider Documentation: SUBJECTIVE: resting comfortably afebrile no sob no chest pain no cough want to go home OBJECTIVE: Vital Signs-as noted below Exam: General-alert and oriented. Not in distress ENT-Normal hearing Neck-no neck masses Lungs-cta b/l no wheezing or crackles Heart-S1 and S2 heard regular rate and rhythm, no murmurs Abdomen-soft bowel sounds present no tenderness no distension Extremities-lower extremity edema present no erythema Neuro-alert and awake moves extremities Lab data as noted below. ASSESSMENT & PLAN: Acute systolic CHF exacerbation troponin negative, no chest pain on Lasix 40 mg IV BID as per cardiology service Patient follows with [facility] at [facility] with Dr. Mendez lost about 20pound weight since admission cardiology ok for discharge on lasix 40mg daily and close out patient followup. CAD with stents / Paroxysmal atrial fibrillation / Cardiac Defibrillator Stable on home medications of Xarelto, Carvedilol, Atorvastatin, Enalapril Hypothyroidism T4 level 10.4 on 03/24/17 and daily levothyroxine decreased from home dose to 100 mcg daily f/u lbas in 4-6 weeks with pcp Electrolytes Serum Sodium - Hyponatremia likely due to fluid overload, improving from 127 to 130 while on diuresis and fluid restriction monitor serum potassium and serum magnesium while on IV diuretics f/u labs with pcp Diet - Low salt, heart healthy diet with fluid restriction DVT ppx: Xarelto discharged home Vital Signs: Date Time Temp Pulse Resp B/P (MAP) Pulse Ox O2 Delivery O2 Flow Rate FiO2 03/28/17 13:36 36.7 71 18 100 Room Air 03/28/17 12:08 100 Room Air 03/28/17 12:04 36.7 71 18 107/69 (82) 94 Room Air 03/28/17 12:00 Room Air 03/28/17 08:26 95 Room Air 03/28/17 08:00 Room Air 03/28/17 07:49 36.9 74 18 117/78 (91) 95 Room Air 03/28/17 04:00 36.3 78 18 115/71 (86) 95 03/28/17 04:00 93 Room Air 03/28/17 00:05 93 Room Air 03/27/17 23:48 36.9 67 18 120/72 (88) 93 Room Air 03/27/17 20:05 93 Room Air 03/27/17 19:26 36.8 74 18 116/80 (92) 96 Room Air Lab Results: Results Past 24 Hours Test 03/28/17 05:50 Range/Units Sodium Level 129 136-145 mmol/L Potassium Level 3.9 3.5-5.1 mmol/L Chloride Level 95 98-107 mmol/L Carbon Dioxide Level 30 21-32 mmol/L Anion Gap 4.0 3-11 mmol/L Blood Urea Nitrogen 17 7-18 mg/dl Creatinine 0.89 0.60-1.40 mg/dl Est Creatinine Clear Calc Drug Dose 111.3 ml/min Estimated GFR () 108.5 Estimated GFR (Non- 93.6 BUN/Creatinine Ratio 18.9 10-20 Random Glucose 80 70-99 mg/dl Calcium Level 8.5 8.5-10.1 mg/dl Magnesium Level 1.9 1.8-2.4 mg/dl
--- NOTE | 2017-03-28 18:51 | Discharge Summary ---
Discharge Summary Date of Service Mar 28, 2017. Discharge Summary Admission Date: Mar 24, 2017 at 08:02 Discharge Date: Mar 28, 2017 Discharge Disposition: Home Principal Diagnosis: ACUTE SYSTOLIC CHF HYPONATREMIA Secondary Diagnoses/Problems: CABG 2008 post stenting, Paroxysmal Afib on Xarelto, Ischemic Cardiomyopathy with EF 20-25%, previous VTach arrest with ICD now placed, HTN, Dyslipidemia Procedures: ECHO: No significant change compared to previous study. * Mildly dilated LV chamber size. * Severely reduced LV systolic function, EF 20-25%. * Akinesis of the anteroseptal, anterior, anterolateral and apical sosa. Mild to moderate hypokinesis of the inferoseptal wall. Normal motion of the inferior/inferolateral sosa. * Grade III diastolic dsyfunction. * No significant valvular pathology. * Severe left atrial enlargement. Consultations: CARDIOLOGY Medication Reconciliation New Medications: Furosemide (Lasix) 40 Mg Tab 40 MG PO DAILY, #30 TAB 2 Refills Levothyroxine Sodium (Synthroid) 100 Mcg Tab 100 MCG PO DAILYBB, #30 TAB 2 Refills Continued Medications: Acetaminophen (Tylenol Extra Strength) 500 Mg Tab 1000 MG PO Q8H for 30 Days, #180 TAB Atorvastatin (Lipitor) 80 Mg Tab 80 MG PO DAILY, TAB Carvedilol (Coreg) 12.5 Mg Tab 12.5 MG PO BID, TAB Enalapril (Vasotec) 5 Mg Tab 5 MG PO QAM, TAB Ferrous Fumarate (Iron) 18 Mg Tab 65 MG PO Q2D Rivaroxaban (Xarelto) 20 Mg Tab 20 MG PO DAILY, TAB [Nitroglycerin] () MG 0.4 MG PO UD PRN for chest pain 0.4 MG PER SPRAY Discontinued Medications: Furosemide (Lasix) 20 Mg Tab 20 MG PO DAILY PRN, TAB Levothyroxine Sodium (Levothyroxine Sodium) 125 Mcg Tab 125 MCG PO QAM for 90 Days, #90 TAB 3 Refills Admission Information HPI (per Admitting provider): Patient with ardiac history with CABG 2008 post stenting, Paroxysmal Afib on Xarelto, Ischemic Cardiomyopathy with EF 20-25%, previous VTach arrest with ICD now placed, HTN, Dyslipidemia and former smoker, with Family history of CAD - father dying at 52 of [place] and son with CABG in his 30s, who is here in the ED after 1 month of progressive worsening shortness of breath and edema. Patient reports that edema at baseline typically blow the ankles but now edema throughout legs and to abdomen. Patient reports shortness of breath has been getting worse and feels more shortness of breath when lying flat. In the ED, BNP above 5000 and chest X ray shows pulmonary congestion. Patient given Lasix 40 mg IV x 1 and patient is making urine. Patient reports adherence to home regimen of Lasix 20 mg BID. Physical Exam (per Admitting): General Appearance: no apparent distress Head: normocephalic, atraumatic Eyes: normal inspection, EOMI, sclerae normal ENT: normal ENT inspection, hearing grossly normal, pharynx normal Neck: supple, thyroid normal, no JVD, trachea midline Respiratory/Chest: chest non-tender, lungs clear, normal breath sounds, no respiratory distress, no accessory muscle use Cardiovascular: regular rate, rhythm, no JVD, normal peripheral pulses, + pertinent finding (edema of lower extremities up to lower abdomen) Abdomen/GI: normal bowel sounds, non tender, soft, no organomegaly, no pulsatile mass, + pertinent finding (some hardening of skin of lower abdomen secondary to edema ) Back: normal inspection, no CVA tenderness, no muscle spasm, normal range of motion Extremities/Musculoskelatal: non-tender, + pedal edema, + swelling Neurologic/Psych: teletypesetter II-XII nml as tested, no motor/sensory deficits, alert , normal mood/affect, oriented x 3 Skin: + pertinent finding (some redness of lower extremity where edema is most prevalent) Hospital Course Acute systolic CHF exacerbation troponin negative, no chest pain on Lasix 40 mg IV BID as per cardiology service Patient follows with [facility] at [facility] with Dr. Mendez lost about 20pound weight since admission cardiology ok for discharge on lasix 40mg daily and close out patient followup. CAD with stents / Paroxysmal atrial fibrillation / Cardiac Defibrillator Stable on home medications of Xarelto, Carvedilol, Atorvastatin, Enalapril Hypothyroidism T4 level 10.4 on 03/24/17 and daily levothyroxine decreased from home dose to 100 mcg daily f/u lbas in 4-6 weeks with pcp Electrolytes Serum Sodium - Hyponatremia likely due to fluid overload, improving from 127 to 130 while on diuresis and fluid restriction monitor serum potassium and serum magnesium while on IV diuretics f/u labs with pcp Diet - Low salt, heart healthy diet with fluid restriction DVT ppx: Xarelto discharged home Total time spent on discharge = 40MINUTES This includes examination of the patient, discharge planning, medication reconciliation, and communication with other providers. Discharge Instructions Discharge Instructions Date of Service Mar 28, 2017. Admission Reason for Admission: Acute Congestive Heart Failure Discharge Discharge Diagnosis / Problem: ACUTE chf Discharge Goals Goal(s): Decrease discomfort, Improve function Activity Recommendations Activity Limitations: resume your previous activity . Instructions / Follow-Up Instructions / Follow-Up FOLLOWUP WITH FAMILY DOCTOR ON MondayMar AT 1:05PM. FOLLOWUP WITH CARDIOLOGY SCHEDULED. CHANGE IN MEDICATIONS: LEVOTHYROXINE CHANGED TO 100MCG PO ONCE DAILY ( PREVIOUS DOSE 125MCG PO ONCE DAILY). NEW MEDICATION: LASIX 40MG PO ONCE DAILY . LAB:BMP IN 5-7 DAYS AND FOLLOW RESULTS WITH FAMILY DOCTOR. LAB: THYROID PROFILE IN 4 - 6 WEEKS WITH FAMILY DOCTOR Call your Primary Care doctor if any of the following symptoms or problems start or get worse: * Shortness of breath or difficulty breathing * Wake up at night short of breath * Chest pain * Cough * Swelling of your hands, feet, or legs * More fatigued or tired with your normal activity * Palpitations - sudden fast heart beats WEIGHT * Weigh yourself every morning after using the bathroom. * Use the same scale. * Wear the same amount of clothing. * Write your weight down on a chart. * Call your Primary Care doctor if you gain more than 2-3 pounds in 1-2 days. MEDICATIONS * Use this discharge instruction sheet for medication instructions. * Take your medications at the time your doctor ordered. * Do not skip a dose of your medicines. * If you miss a dose of medicine, take it as soon as possible, but DO NOT DOUBLE A DOSE. * Read your medicine information when you get home. * Know all of the side effects of your medicine. If in doubt, ask your pharmacist * Call your Primary Care doctor's office if you have any side effects. * Be sure all of your doctors know what medicine and herbs you take (including cold, flu, and herbal medicine). Take the following with you to your follow-up doctor appointments: * Weight Chart * Medication List * List of questions Do not drink excessive alcohol, beer or wine. Current Hospital Diet Patient's current hospital diet: AHA Diet (Heart Healthy), Low Sodium Diet (2gm Na) Discharge Diet Recommended Diet: AHA Diet (Heart Healthy) Pending Studies Studies pending at discharge: no Medical Emergencies . Who to Call and When: Call 911 or go to the Emergency Room if: * If at any time you feel your situation is an emergency * You have tightness or pain in your chest that does not go away with rest or Nitroglycerin * You are very short of breath even with rest . Non-Emergent Contact Non-Emergency issues call your: Primary Care Provider . . "Provider Documentation" section prepared by Josué Waggoner. . VTE Core Measure Inpt VTE Proph given/why not?: Other Anticoagulation (XARELTO)
== END 2017-03-28 13:57 | disposition home or self-care (01) | DRG 293 ==
LOC: C.EDB 05:48 → C.MED 08:02 → ENRESERV 08:22
PROVIDERS: ADMIT Hospitalist; ATTEND Internal Medicine
DX: I11.0 Hypertensive heart disease with heart failure (principal); I50.23 Acute on chronic systolic (congestive) heart failure; I48.0 Paroxysmal atrial fibrillation; E78.5 Hyperlipidemia, unspecified; I25.5 Ischemic cardiomyopathy; Z79.01 Long term (current) use of anticoagulants; Z79.82 Long term (current) use of aspirin; Z79.899 Other long term (current) drug therapy; Z87.891 Personal history of nicotine dependence; Z95.5 Presence of coronary angioplasty implant and graft

== ENCOUNTER 2023-03-12 08:48 | Inpatient (IN) ==
--- OUTSIDE RECORDS SUMMARY | 2023-03-12 08:53 | External Medical Summary | Summary of Care ---
Author Name Unknown Organization [facility] Address [address] [facility] [place] [address] Phone [phone] Care Team Providers Care Music Copyist Name Role Phone Unavailable Primary Care Provider Unavailabl e Reason for Visit * Reason Onset Date Comments Advice 03/09/2023 Encounter Details Date Type Department Care Team (Late st Contact Info) Description 03/09/2023 Telephone Access Center, [place] [address] [facility] *DO NOT REMOVE THIS DEPARTMENT* [place] [id number] Andrea Regalado, Hugh Garber, Advice Allergies Active Allergy Reactions Criticality Noted Date Comments Iodine Anaphylaxis High 04/17/2001 documented as of this encounter (statuses as of 03/10/2023) Medications Medication Sig Dispensed Refills Start Date End Date Status nitroglycerin 0.4 MG/SPRAY sprayIndications:Montoya ry atherosclerosis of [place] coronary artery use 1-2 sprays under tongue as needed for chest pain. max 3 sprays in 15 minutes 4.9 g 5 04/13/2015 Active acetaminophen (TYLENOL) 500 MG Tablet Take 1,000 mg by mouth every 8 hours as needed for Pain. 0 07/12/2016 Active Calcium Carbonate Antacid 500 MG chewable tabletIndications:1-2 tablets as needed Take 500 mg by mouth as needed for Heartburn. Indications: 1-2 tablets as needed 0 Active Ferrous Fumarate ER 18 MG TBCRIndications:Q2D Take 1 Tab by mouth every other day. Indications: Q2D 0 03/29/2017 Active adalimumab (HUMIRA PEN) 40 MG/0.8ML injection Inject 40 mg under the skin every 14 days. 2 Each 5 03/26/2018 Active folic acid 1 MG Tablet Take 1 Tab by mouth daily. 30 Tab 5 07/12/2018 Active predniSONE (DELTASONE) 5 MG Tablet 1 tab daily 100 Tab 1 10/30/2018 Active atorvaSTATin (LIPITOR) 80 MG TabletIndications:Dysli pidemia, goal LDL below 100 Take 1 Tab by mouth daily. 90 Tab 3 08/22/2018 Active leflunomide (ARAVA) 10 MG Tablet Take 1 Tab by mouth daily. 30 Tab 5 11/28/2018 Active enalapril (VASOTEC) 5 MG TabletIndications:Ische sven cardiomyopathy Take 1 Tab by mouth daily. 90 Tab 1 12/18/2018 Active carvedilol (COREG) 12.5 MG TabletIndications:Ather osclerosis of [place] coronary artery of [place] heart without angina pectoris,Ischemic cardiomyopathy Take 1 Tab by mouth 2 times a day. 180 Tab 1 05/29/2019 Active furosemide (LASIX) 40 MG TabletIndications:Ische sven cardiomyopathy take 1 tablet daily[address] as per dr hendrix 2.19.18: may use an extra dose as needed for edema, weight gain or increased shortness of breath 90 Tab 1 05/29/2019 Active levothyroxine (LEVOXYL) 100 MCG Tablet Take 1 Tab by mouth daily. (at least 30 min prior to breakfast or other meds) 90 Tab 1 05/29/2019 Active Rivaroxaban 20 MG Oral Tablet (Xarelto)Indications:Pa roxysmal atrial fibrillation (HCC) take 1 tablet every day with dinner 31 Tab 5 11/29/2019 Active documented as of this encounter (statuses as of 03/10/2023) Active Problems Problem Noted Date Diagnosed Date Rheumatoid arthritis involvi ng multiple sites with positive rheumatoid factor 07/27/2017 Generalized osteoarthritis 07/27/2017 Encounter for long-term (current) use of medicat ions 07/27/2017 Paroxysmal atrial fibrillation 01/09/2017 Cardiac defibrillator in situ 08/24/2016 Total knee replacement status 08/07/2015 Overview: left Ischemic cardiomyopathy 03/26/2012 DYSLIPIDEMIA, GOAL LDL BELOW 100 02/03/2009 Overview: Per Lipid Taxonomy. ADVANCE DIRECTIVE INFORMATION 06/08/2005 Overview: No, Advance Directive brochure given to patient. Coronary atherosclerosis of [place] coronary fariha ry 06/09/2004 Acquired hypothyroidism 06/04/2003 Dental caries extending into pulp documented as of this encounter (statuses as of 03/10/2023) Resolved Problems Problem Noted Date Diagnosed Date Resolved Date Old myocardial infarct 09/18/200811/21 Overview: Modified by Acute UT Protocol #5. Anterior UT seen at [facility], transferred to [facility], had stent of critical lesion LAD, has 60-70% RCA lesion, EF 35 % Mixed dyslipidemia 06/09/2004 9 Overview: Per Lipid Taxonomy. CHR ISCHEMIC HRT DIS NEC 06/09/2004 Acute myocardial infarction of anterior wall, initial episode of care 07/13/2003 09/18/2008 Overview: Modified by Acute UT Protocol #5. Anterior UT seen at [facility], transferred to [facility], had stent of critical lesion LAD, has 60-70% RCA lesion, EF 35 % BMI 31.0-31.9,adult 03/27/19 13 BMI 30.0-30.9,adult 11/22/19 14 BMI 32.0-32.9,adult 07/21/19 18 documented as of this encounter (statuses as of 03/10/2023) Immunizations Name Administration Dates Next Due Pneumococcal Polysaccharide PPV23 (Pneumovax) Seasonal Influenza, PF, 6 M & above, IM , (FluLaval or Fluzone) 02/19/2018,03/31/2017 Seasonal Influenza, Quadrivalent, No Preserve, I M 03/21/2016 Seasonal Influenza, Split, IIV3, With Preserve, Inj 11/13/2014,11/21/2013 TDAP (age 10 and older)(Boostrix) 08/29/2016 TDAP (age 11 and older)(Adacel) 08/27/2006 documented as of this encounter Social History Tobacco Use Types Packs/Day Years Used Date Smoking Tobacco: Former Pipe Q uit: 07/12/2003 Smokeless Tobacco: Never Comments:mostly during Alcohol Use Standard Drinks/Week Comments Yes 0 (1 standard drink = 0.6 oz pur e alcohol) occ PHQ-2 Answer Date Recorded PHQ-2 Score 0 12/31/2017 Sex and Gender Information Value Date Recorded Sex Assigned at Not on file Gender Identity Not on file Sexual Orientation Not on file Job Start Date Occupation Industry Not on file Not on file Not on file documented as of this encounter Miscellaneous Notes * Telephone Encounter - Carmen Benoit RN - 03/10/2023 12:14 PM EST Called, spoke with spouse Brunilda at [phone]; previous number provided incorrect. Spouse reports patient now following with [facility] Cardiology. [facility] to be sending information/assistingin arranging appointment within [facility] for possible lead revision and/or gen change. Brunilda aware no information received from [facility] at this time. Aware to call [facility] Cardiology if not word from [facility] next week. No further action needed by this office at this time. * Telephone Encounter - Jackie Byrnes OSA - 03/09/2023 5:09 PM EST Person calling: Brunilda Relationship to patient: spouse Number to return call: [phone] Reason for call: Brunilda states she had received a phone call that patient has a broken lead on his pacemaker and was to call this number I did not see any notes regards this please advise Pharmacy: Provider Name: last seen Andrea in Feb 2018 documented in this encounter Plan of Treatment Scheduled Procedures Name Priority Associated Diagnoses Date/Ti me COLONOSCOPY FLEXIBLE PROXIMA L DIAGNOSTIC Recall Encounter for screening colonoscopy Health Maintenance Due Date Last Done Comments COVID-19 Vaccine (#1) 1962 HIV Screening 1972 Zoster Vaccines (1 of 2) 1976 Cologuard 2002 Fecal Occult Blood Test 2002 Sigmoidoscopy 2002 Depression Screening 07/31/2018 07/31/2017 TSH 12/08/2019 12/07/2018, 08/28, 11/13/2014, Additional history exists Influenza Vaccine (FLU shot) (#1) 2022 02/08/2022, 01/19/2021, 01/06/2020, Additional history exists AAA Screening 2022 Diabetes Screening 12/26/2025 12/26/2022, 1 03/28/2021, 10/06/2021, Additional history exists DTaP,Tdap,and Td Vaccines (3 - Td or Tdap) 08/29/2026 08/29/2016, 08/27/2006 Colonoscopy 08/10/2027 08/09/2017 Colorectal Cancer Screening 08/10/2027 Pneumococcal Vaccine: 65+ Years Completed 02/16/2023, 06/14/2006 GARDASIL-HPV IMMUNIZATION SERIES Aged Out No longer eligible based on patient's age to complete this topic Hepatitis B Aged Out No longer eligi ble based on patient's age to complete this topic MENINGOCOCCAL (MENACTRA/MENVEO) Aged Out No longer eligible based on patient's age to complete this topic documented as of this encounter Medical Devices Not on filedocumented as of this encounter
[2023-03-12] MEDS ORDERED: SODIUM CHLORIDE 0.9% 250 ML IV PRN (08:58)
[2023-03-12] MEDS ORDERED: SODIUM CHLORIDE 0.9% 500 ML IV ONE (08:58)
[2023-03-12] MEDS ORDERED: cefTRIAXone SODIUM 2,000 MG/50 ML BAG IV STA (09:12)
--- NOTE | 2023-03-12 09:18 | Emergency Department Note ---
Impression & Plan Acute UTI, Anemia, Hyponatremia, CHF (congestive heart failure), Elevated brain natriuretic peptide (BNP) level, Hypomagnesemia ED Provider Note NAME: BREE EMMANUEL AGE: 67 SEX: M : 1955 ARRIVES VIA: Walk-In INFORMANT: [Patient][family] ED PROVIDER(S): [Giovanny Malave MD] CHIEF COMPLAINT: Referred by HISTORY OF PRESENT ILLNESS: The patient is a 67-year-old male with a history of previous CVA. He has a pacer and defibrillator and is on Eliquis. The patient states that he noticed a foul smell to his urine 3 or so days ago and went to his doctor's office. He had a urine sample done and laboratory testing done. He was called and told to come to the hospital as there were some abnormalities. The patient denies shortness of breath, fever, chills, chest pain or abdominal pain. His stools have been normal, not black or bloody. He does not have burning to urinate, he has just noticed a foul smell. The patient did have a UTI recently and was treated with what seems to be Macrobid. Of note, the patient did have to receive 6 or so units of blood last year around December. His count had dropped. He was told that he was bleeding internally however, with endoscopy and colonoscopy, no source was found. PMHx/PSHx/Social Hx: See Below PHYSICAL EXAM: GENERAL: Patient is in no acute distress. HEENT: No acute trauma, normocephalic atraumatic, mucous membranes moist, no nasal congestion. NECK: No stridor, no adenopathy, no meningismus, trachea is midline. LUNGS: Clear to auscultation bilaterally, no wheeze, no rhonchi, breath sounds equal. HEART: Subtle systolic murmur, irregular rhythm, normal rate. ABDOMEN: Soft, nontender, no peritonitis. EXTREMITIES: No cyanosis, full range of motion of all the joints without pain or difficulty. NEUROLOGIC: Oriented x 3, no acute motor or sensory deficits, no focal weakness. SKIN: No jaundice, no diaphoresis. Pale skin. Rectal: Brown stool, heme-negative. This exam was done with a female nurse director radio news and the patient's significant other present. DIFFERENTIAL DIAGNOSIS: Upper or lower GI bleeding, UTI, bacteremia or sepsis, electrolyte imbalance, anemia, among others. EMERGENCY DEPARTMENT PROCEDURES: MEDICAL DECISION MAKING: There is no leukocytosis. The patient is anemic with a hemoglobin of 8.7. I did perform a rectal exam, stool was brown and heme-negative. There was a normal platelet count. INR was elevated at 1.2, likely from his Eliquis use. Sodium is low at 128. Magnesium is low at 1.6. No renal failure. No concerning liver enzyme elevation. BNP was elevated consistent with some CHF and fluid overload. ECG shows a sinus rhythm, no acute ischemia. Chest x-ray does show some CHF. Patient appeared to be in a euthyroid state. Urinalysis is consistent with infection. COVID, influenza and RSV test were negative. The patient received IV Lasix, 40 mg. He received a 500 cc saline bolus. He was given IV magnesium. He received IV ceftriaxone for his UTI. Patient was found to be hyponatremic, hypomagnesemic and fluid overloaded. He does have a UTI. Given these findings, I do think a hospital stay would be warranted. I spoke with the patient and case management, the on-call hospitalist was consulted. Prior/Outside records/notes reviewed: Cardiology note from 03/08/2023 discussing his pacer defibrillator and the need for exchange. ECG per my interpretation: Indication was possible bacteremia or sepsis. The ECG shows a sinus rhythm with what seems to be sinus arrhythmia. There is a very poor baseline. Artifact is present. The rate is 85. There appears to be a right bundle branch block. No obvious ST elevation. No PVCs. The QTc is 511. Continuous Cardiac Monitoring per my interpretation: An order was placed for continuous cardiac monitoring. The monitor shows a rate of 91 with normal sinus rhythm. Imaging/x-ray results per my interpretation: Chest x-ray does show cardiomegaly as well as some CHF. No obvious pneumonia. Chronic Medical/Social conditions affecting care: Chronic anticoagulation. Care/Management discussed with: Case management, the on-call hospitalist. Level of care consideration(s): After review of the information above and other included data: --I believe the patient requires escalation of care to admission DISPOSITION: Admission Past Med/Surg History Medical History Prediabetes Elevated AST (SGOT) High alkaline phosphatase Anemia History of myocardial infarction (07/13/03) Anterior MS at [facility], TPA, stent LAD, 60-70%RCA, EF 35% Erosive osteoarthritis bilateral feet Arthritis Hypertension Hyperlipidemia Hypothyroidism (acquired) Ventricular tachycardia With arrest now with ICD Ischemic cardiomyopathy DJD (degenerative joint disease) of knee Chronic systolic (congestive) heart failure Atrial fibrillation (~12/2016) Surgical History History of total left knee replacement (TKR) (08/07/15) History of implantable cardiac defibrillator (ICD) Single lead ICD placement, Medtronic device History of percutaneous coronary intervention To the LAD History of coronary artery bypass graft (~2008) X4 in 2008 with a GUILLORY to the LAD, vein graft to the diagonal, posterior lateral circ, and PDA Family History Father Myocardial infarction, Onset Age: 52 Family history of coronary artery disease Son Family history of coronary artery disease, Onset Age: 30 Denies family history of Ovarian cancer Prostate cancer Breast cancer Colorectal cancer Social History Smoking Status: Never smoker Cigarettes Per Day: hx of chewing tobacco; Second Hand Exposure: No; Do You Dip or Chew Tobacco: No; Hx Alcohol Use: Yes Alcohol type: beer Alcohol Intake Frequency: 2-3 x/Week Hx Substance Use: No Preferred Language: Vietnamese Communication Ability: Effective Visual Impairment: Limited Hearing Ability: Normal Software Programmer Required: No Beliefs That Will Affect Care: None marital status: Current Living Situation: Spouse current occupational status: retired current occupation: [employer] How many Children do You have: 2 Feels Safe at Home: Yes Childhood Exposure to Second-Hand Smoke: No Diet: regular Diet Comment: Regular caffeine: Yes (coffee) during the past year weight has: remained stable Dental Care, Regularly: No Physical Activity Frequency: Daily Seatbelt Use: always Sunscreen Use: Yes Allergies Allergies Allergy/AdvReac Type Severity Reaction Status Date / Time shellfish derived Allergy Severe TONGUE Verified 03/12/23 10:41 SWELLS UP Iodinated Contrast Media AdvReac Unknown SWEATING,NAUSEA-WITH Verified 03/12/23 10:41 TEST DYE Home Meds Home Medications Medication Instructions Recorded Confirmed ascorbic acid (vitamin C) 500 mg 500 mg PO DAILY 12/13/22 03/12/23 tablet (Vitamin C With Clare Hips) atorvastatin 80 mg tablet 80 mg PO QAM 12/13/22 03/12/23 cholecalciferol (vitamin D3) 50 50 mcg PO QAM 12/13/22 03/12/23 mcg (2,000 unit) tablet (Vitamin D3) cyanocobalamin (vitamin B-12) 500 500 mcg PO QAM 12/13/22 03/12/23 mcg tablet (Vitamin B-12) folic acid 1 mg tablet 1 mg PO QAM 12/13/22 03/12/23 levothyroxine 88 mcg tablet 88 mcg PO DAILYBB 12/13/22 03/12/23 upadacitinib 15 mg tablet,extended 15 mg PO QAM 12/13/22 03/12/23 release 24 hr (Rinvoq) aspirin 81 mg chewable tablet 81 mg PO DAILY 12/27/22 03/12/23 ferrous sulfate 325 mg (65 mg 325 mg PO 2XWK 01/24/23 03/12/23 iron) tablet,delayed release furosemide 40 mg tablet 40 mg PO DAILY 03/12/23 03/12/23 methotrexate sodium 2.5 mg tablet 12.5 mg PO WK 03/12/23 03/12/23 Previous Rx's Medication Instructions Recorded nitroglycerin 400 mcg/spray 0.4 mg sublingual Q5M PRN chest 07/09/19 translingual pain #12 grams carvedilol 12.5 mg tablet 12.5 mg PO BID #180 tabs 08/31/22 pantoprazole 40 mg tablet,delayed 40 mg PO DAILY #90 tabs 01/25/23 release apixaban 5 mg tablet (Eliquis) 5 mg PO BID #60 tabs 01/26/23 potassium chloride 20 mEq 20 meq PO DAILY #90 tabs 02/03/23 tablet,extended release(part/cryst) Results & Data (ED) Vital Signs Vital Signs - 24 hr 03/12/23 08:51 03/12/23 09:17 03/12/23 09:30 Temperature 36.6 C Temperature Source Temporal Artery Scan Pulse Rate 83 85 87 Pulse Rate from SpO2 Sensor 87 Respiratory Rate 18 21 Respiratory Effort / Characteristics Non-Labored Spontaneous Respiratory Depth Normal Respiratory Pattern Regular Blood Pressure 113/74 115/82 Blood Pressure Mean 87 93 Blood Pressure Position Sitting Pulse Oximetry 98 97 Oxygen Delivery Method Room Air Sepsis Recent Fever Within 48 Hours No Sepsis New/Unexplained Change in Mental Status No Sepsis Action Taken by Nursing No Action Required 03/12/23 10:30 03/12/23 11:00 03/12/23 11:00 Temperature Temperature Source Pulse Rate 73 72 Pulse Rate from SpO2 Sensor 77 72 Respiratory Rate 22 24 Respiratory Effort / Characteristics Respiratory Depth Respiratory Pattern Blood Pressure 112/81 Blood Pressure Mean 91 Blood Pressure Position Pulse Oximetry 97 95 97 Oxygen Delivery Method Room Air Sepsis Recent Fever Within 48 Hours Sepsis New/Unexplained Change in Mental Status Sepsis Action Taken by Nursing 03/12/23 11:00 03/12/23 11:30 03/12/23 11:30 Temperature Temperature Source Pulse Rate 89 Pulse Rate from SpO2 Sensor 88 Respiratory Rate 19 Respiratory Effort / Characteristics Respiratory Depth Respiratory Pattern Blood Pressure 113/72 116/72 Blood Pressure Mean 84 88 Blood Pressure Position Pulse Oximetry 96 Oxygen Delivery Method Sepsis Recent Fever Within 48 Hours Sepsis New/Unexplained Change in Mental Status Sepsis Action Taken by Nursing 03/12/23 12:00 03/12/23 12:00 Temperature Temperature Source Pulse Rate 82 Pulse Rate from SpO2 Sensor 81 Respiratory Rate 22 Respiratory Effort / Characteristics Respiratory Depth Respiratory Pattern Blood Pressure 125/84 Blood Pressure Mean 96 Blood Pressure Position Pulse Oximetry 93 Oxygen Delivery Method Sepsis Recent Fever Within 48 Hours Sepsis New/Unexplained Change in Mental Status Sepsis Action Taken by [facility] Medications Current Medication List: was personally reviewed by me Laboratory Data Attestation: I reviewed the patient's lab results. 03/12/23 09:05 03/12/23 09:05 Lab Results 03/12/23 03/12/23 03/12/23 Range/Units 09:00 09:05 09:11 WBC 6.22 (4.8-10.8) K/ul RBC 2.98 L (4.70-6.10) M/uL Hgb 8.7 L (14.0-18.0) g/dl Hct 26.8 L (42.0-52.0) % MCV 89.9 (80.0-100.0) fL MCH 29.2 (25.0-34.0) pg MCHC 32.5 (32.0-36.0) g/dL RDW Std Deviation 54.7 H (36.4-46.3) fL RDW Coeff of Shahid 16.8 H (11.5-14.5) % Plt Count 323 (130-400) K/uL MPV 10.0 (9.4-12.4) fL Immature Gran % (Auto) 0.3 % Neut % (Auto) 64.6 % Lymph % (Auto) 12.7 % Maury % (Auto) 8.7 % Eos % (Auto) 12.4 % Baso % (Auto) 1.3 % Reticulocyte % (Auto) 2.8 H (0.5-2.0) % Neut # (Auto) 4.02 (1.40-6.50) K/uL Lymph # (Auto) 0.79 L (1.20-3.40) K/uL Maury # (Auto) 0.54 (0.11-0.59) K/uL Eos # (Auto) 0.77 H (0.00-0.50) K/uL Baso # (Auto) 0.08 (0.00-0.20) K/uL Reticulocyte # 0.08 (0.02-0.10) 10^6/uL Immature Gran # (Auto) 0.02 (0.01-0.20) K/uL PT 12.9 H (9.0-12.0) Seconds INR 1.2 H (0.9-1.1) APTT 36 H (21-31) Seconds PTT Ratio 1.3 Sodium 128 L (136-145) mmol/L Potassium 4.1 (3.5-5.1) mmol/L Chloride 95 L (98-107) mmol/L Carbon Dioxide 26 (21-32) mmol/L Anion Gap 7 (3-11) BUN 10 (6-23) mg/dl Creatinine 1.11 (0.6-1.4) mg/dl Est Cr Clr Drug Dosing 81.5 ml/min Est GFR ( Amer) 80.3 ml/min Est GFR (Non-Af Amer) 69.3 ml/min BUN/Creatinine Ratio 9.0 L (10-20) Glucose 101 H (70-99(Fasting)) mg/dl Lactate 1.7 (0.4-2.0) mmol/L Calcium 9.5 (8.6-10.3) mg/dl Magnesium 1.6 L (1.7-2.4) mg/dl Iron 41 (35-175) mcg/dl TIBC 239 L (250-450) mcg/dl Unsaturated IBC 198 (155-355) mcg/dl Transferrin % Sat 17 L (20-50) % Total Bilirubin 1.2 H (0.2-1.0) mg/dl AST 20 (13-39) U/L ALT 10 (7-52) U/L Alkaline Phosphatase 147 H (34-104) U/L B-Natriuretic Peptide (0-100) pg/ml Total Protein 8.4 H (6.0-8.3) gm/dl Albumin 3.9 (3.4-5.0) gm/dl Globulin 4.5 H (2.5-4.0) gm/dl Albumin/Globulin Ratio 0.9 (0.9-2) Vitamin B12 804 (180-914) pg/ml Folate 12.67 (>5.38) ng/ml Procalcitonin < 0.05 (0-0.5) ng/ml TSH 2.350 (0.300-4.500) uIu/ml Urine Color Dark Yellow Urine Appearance Turbid A (Clear) Urine pH 6.5 (4.5-7.5) Ur Specific [place] 1.012 (1.000-1.030) Urine Protein Trace H (Negative) Urine Glucose (UA) Negative (Negative) Urine Ketones Negative (Negative) Urine Blood 1+ H (Negative) Urine Nitrite Positive A (Negative) Urine Bilirubin Negative (Negative) Urine Urobilinogen Negative (Negative) Ur Leukocyte Esterase 3+ H (Negative) Urine WBC (Auto) >30 H (0-5) /hpf Urine RBC (Auto) 0-4 (0-4) /hpf U Hyaline Cast (Auto) 1-5 (0-5) /lpf U Epithel Cells (Auto) 0-5 (0-5) /lpf Urine Bacteria (Auto) 4+ H (Negative) SARS-CoV-2 (PCR) (Negative) Influenza Type A (PCR) (Neg) Influenza Type B (PCR) (Neg) RSV (RT-PCR) (Neg) Blood Type A Negative Antibody Screen NEGATIVE Crossmatch See Detail 03/12/23 03/12/23 Range/Units 09:18 11:45 WBC (4.8-10.8) K/ul RBC (4.70-6.10) M/uL Hgb (14.0-18.0) g/dl Hct (42.0-52.0) % MCV (80.0-100.0) fL MCH (25.0-34.0) pg MCHC (32.0-36.0) g/dL RDW Std Deviation (36.4-46.3) fL RDW Coeff of Shahid (11.5-14.5) % Plt Count (130-400) K/uL MPV (9.4-12.4) fL Immature Gran % (Auto) % Neut % (Auto) % Lymph % (Auto) % Maury % (Auto) % Eos % (Auto) % Baso % (Auto) % Reticulocyte % (Auto) (0.5-2.0) % Neut # (Auto) (1.40-6.50) K/uL Lymph # (Auto) (1.20-3.40) K/uL Maury # (Auto) (0.11-0.59) K/uL Eos # (Auto) (0.00-0.50) K/uL Baso # (Auto) (0.00-0.20) K/uL Reticulocyte # (0.02-0.10) 10^6/uL Immature Gran # (Auto) (0.01-0.20) K/uL PT (9.0-12.0) Seconds INR (0.9-1.1) APTT (21-31) Seconds PTT Ratio Sodium (136-145) mmol/L Potassium (3.5-5.1) mmol/L Chloride (98-107) mmol/L Carbon Dioxide (21-32) mmol/L Anion Gap (3-11) BUN (6-23) mg/dl Creatinine (0.6-1.4) mg/dl Est Cr Clr Drug Dosing ml/min Est GFR ( Amer) ml/min Est GFR (Non-Af Amer) ml/min BUN/Creatinine Ratio (10-20) Glucose (70-99(Fasting)) mg/dl Lactate (0.4-2.0) mmol/L Calcium (8.6-10.3) mg/dl Magnesium (1.7-2.4) mg/dl Iron (35-175) mcg/dl TIBC (250-450) mcg/dl Unsaturated IBC (155-355) mcg/dl Transferrin % Sat (20-50) % Total Bilirubin (0.2-1.0) mg/dl AST (13-39) U/L ALT (7-52) U/L Alkaline Phosphatase (34-104) U/L B-Natriuretic Peptide 866 H (0-100) pg/ml Total Protein (6.0-8.3) gm/dl Albumin (3.4-5.0) gm/dl Globulin (2.5-4.0) gm/dl Albumin/Globulin Ratio (0.9-2) Vitamin B12 (180-914) pg/ml Folate (>5.38) ng/ml Procalcitonin (0-0.5) ng/ml TSH (0.300-4.500) uIu/ml Urine Color Urine Appearance (Clear) Urine pH (4.5-7.5) Ur Specific [place] (1.000-1.030) Urine Protein (Negative) Urine Glucose (UA) (Negative) Urine Ketones (Negative) Urine Blood (Negative) Urine Nitrite (Negative) Urine Bilirubin (Negative) Urine Urobilinogen (Negative) Ur Leukocyte Esterase (Negative) Urine WBC (Auto) (0-5) /hpf Urine RBC (Auto) (0-4) /hpf U Hyaline Cast (Auto) (0-5) /lpf U Epithel Cells (Auto) (0-5) /lpf Urine Bacteria (Auto) (Negative) SARS-CoV-2 (PCR) NEGATIVE (Negative) Influenza Type A (PCR) Negative (Neg) Influenza Type B (PCR) Negative (Neg) RSV (RT-PCR) Negative (Neg) Blood Type Antibody Screen Crossmatch Administered Medications Discontinued Medications Furosemide (Furosemide 40 Mg/4 Ml Vial) 40 mg IV ONE ONE Stop: 03/12/23 11:17 Last Admin: 03/12/23 11:23 Dose: 40 mg Documented By: ALF Sodium Chloride (Nss) 500 mls @ 999 mls/hr IV .Q31M ONE Stop: 03/12/23 09:28 Last Infusion: 03/12/23 09:56 Dose: Infused Documented By: Admin: 03/12/23 09:23 Dose: 999 mls/hr Documented By: CLIFTON Ceftriaxone Sodium (Rocephin) 2,000 mg in 50 mls @ 100 mls/hr IV NOW STA Stop: 03/12/23 09:41 Last Infusion: 03/12/23 09:56 Dose: Infused Documented By: Admin: 03/12/23 09:23 Dose: 100 mls/hr Documented By: CLIFTON Magnesium Sulfate/Dextrose (Magnesium Sulfate / D5w) 1 gm in 100 mls @ 100 mls/hr IV NOW STA Stop: 03/12/23 11:05 Last Infusion: 03/12/23 11:24 Dose: Infused Documented By: Admin: 03/12/23 10:20 Dose: 100 mls/hr Documented By: CLIFTON Magnesium Sulfate/Dextrose (Magnesium Sulfate / D5w) 1 gm in 100 mls @ 50 mls/hr IV ONE ONE Stop: 03/12/23 14:10 Last Infusion: 03/12/23 14:25 Dose: Infused Documented By: Admin: 03/12/23 12:25 Dose: 50 mls/hr Documented By: ALF Imaging Data Radiologist's Impression: Chest X-Ray 03/12/23 08:59 SINGLE VIEW CHEST CLINICAL HISTORY: Generalized weakness. FINDINGS: An AP, portable, upright chest radiograph is compared to study dated 12/13/2022. A 3-lead cardiac AICD is unchanged in position. The patient is status post midline sternotomy. The heart is enlarged noting atherosclerotic calcification of the thoracic aorta. There is pulmonary vascular congestion. There are bilateral airspace opacities, left greater than right. No large pleural effusion or pneumothorax is seen. The skeletal structures are osteopenic. The bony thorax is grossly intact. Arthritic change is seen in the shoulders. IMPRESSION: 1. Cardiomegaly and AICD with evidence of congestive failure. 2. Bilateral airspace opacities likely represent pulmonary edema. Correlate clinically for evidence of a superimposed infectious/inflammatory pneumonitis. Radiographic follow-up to resolution is recommended. ACT 112: Negative or not required by law. Electronically signed by: Giovanny Gramajo M.D. 03/12/2023 9:41 AM Discharge Plan Visit Data Chief Complaint: Referred by Doctor Stated Complaint: REFERRED BY PCP, ABNORMAL LABS - INFECTION ED Provider: Giovanny Malave Discharge Problem: Acute UTI, Anemia, Hyponatremia, CHF (congestive heart failure), Elevated brain natriuretic peptide (BNP) level, Hypomagnesemia Patient Disposition: Admitted As Inpatient Condition: Fair Discharge Instructions Interventions: ED Discharge Assessment Last Done: 03/12/23 14:46 Discharge Problem: Anemia Qualifiers: Anemia type: unspecified type Qualified Code(s): D64.9 - Anemia, unspecified CHF (congestive heart failure) Qualifiers: Heart failure type: unspecified Heart failure chronicity: acute Qualified Code(s): I50.9 - Heart failure, unspecified
[2023-03-12 09:31] LABS: Basophils # (auto) 0.08 K/uL (0.00-0.20); Basophils % (auto) 1.3 %; Eosinophils # (auto) 0.77 K/uL (0.00-0.50); Eosinophils % (auto) 12.4 %; Hematocrit (blood only) 26.8 % (42.0-52.0); Hemoglobin 8.7 g/dl (14.0-18.0); Immature Granulocytes # (auto) 0.02 K/uL (0.01-0.20); Immature Granulocytes % (auto) 0.3 %; Lymphocytes # (auto) 0.79 K/uL (1.20-3.40); Lymphocytes % (auto) 12.7 %; Mean Corpuscular Hemoglobin 29.2 pg (25.0-34.0); Mean Corpuscular Hgb Conc 32.5 g/dL (32.0-36.0); Mean Corpuscular Volume 89.9 fL (80.0-100.0); Monocytes # (auto) 0.54 K/uL (0.11-0.59); Monocytes % (auto) 8.7 %; Neutrophils # (auto) 4.02 K/uL (1.40-6.50); Neutrophils % (auto) 64.6 %; Platelet Count 323 K/uL (130-400); RDW Coefficient of Variation 16.8 % (11.5-14.5); RDW Standard Deviation 54.7 fL (36.4-46.3); Red Blood Count 2.98 M/uL (4.70-6.10); White Blood Count 6.22 K/ul (4.8-10.8)
--- NOTE | 2023-03-12 09:42 | XRay Report ---
SINGLE VIEW CHEST CLINICAL HISTORY: Generalized weakness. FINDINGS: An AP, portable, upright chest radiograph is compared to study dated 12/13/2022. A 3-lead c ardiac AICD is unchanged in position. The patient is status post midline sternotomy. The heart is enl arged noting atherosclerotic calcification of the thoracic aorta. There is pulmonary vascular congest ion. There are bilateral airspace opacities, left greater than right. No large pleural effusion or pn eumothorax is seen. The skeletal structures are osteopenic. The bony thorax is grossly intact. Arthri tic change is seen in the shoulders. IMPRESSION: 1. Cardiomegaly and AICD with evidence of congestive failure. 2. Bilateral airspace opacities likely represent pulmonary edema. Correlate clinically for evidence o f a superimposed infectious/inflammatory pneumonitis. Radiographic follow-up to resolution is recomme nded. ACT 112: Negative or not required by law. Electronically signed by: Giovanny Gramajo M.D. 03/12/2023 9:41 AM
[2023-03-12 10:03] LABS: Albumin Globulin Ratio 0.9 (0.9-2); Albumin Level 3.9 gm/dl (3.4-5.0); Bilirubin,Total 1.2 mg/dl (0.2-1.0); Calcium 9.5 mg/dl (8.6-10.3); Creatinine Clr Calc Pharmacy 81.5 ml/min; Est GFR (African American) 80.3 ml/min; Est GFR (Non-African American) 69.3 ml/min; Globulin 4.5 gm/dl (2.5-4.0); Magnesium 1.6 mg/dl (1.7-2.4); Potassium 4.1 mmol/L (3.5-5.1); Total Protein 8.4 gm/dl (6.0-8.3)
[2023-03-12] MEDS ORDERED: MAGNESIUM SULFATE / D5W 1 GM/100 ML BAG IV STA (10:06)
[2023-03-12 10:07] LABS: INR 1.2 (0.9-1.1); Partial Thromboplastin Ratio 1.3; Partial Thromboplastin Time 36 Seconds (21-31); Prothrombin Time 12.9 Seconds (9.0-12.0)
[2023-03-12 10:19] LABS: Thyroid Stimulating Hormone 2.35 uIu/ml (0.300-4.500)
[2023-03-12 10:55] LABS: Appearance Urine Turbid (Clear); Bacteria Urine Automated 4+ (Negative); Bilirubin Urine Negative (Negative); Blood Urine 1+ (Negative); Color Urine Dark Yellow; Epithelial Cell Urine Auto 0-5 /lpf (0-5); Glucose Urine UA Negative (Negative); Ketones Urine Negative (Negative); Leukocyte Esterase Urine 3+ (Negative); Nitrite Urine Positive (Negative); Protein Urine Trace (Negative); RBC Urine Automated 0-4 /hpf (0-4); Specific Gravity Urine 1.012 (1.000-1.030); Urobilinogen Urine Negative (Negative); WBC Urine Automated >30 /hpf (0-5); pH Urine 6.5 (4.5-7.5)
[2023-03-12] MEDS ORDERED: FUROSEMIDE 40 MG/4 ML VIAL IV ONE (11:16)
--- NOTE | 2023-03-12 11:39 | History & Physical Report ---
Date of Service March 12, 2023 Assessment & Plan (1) Hyponatremia: Plan: Na 128 on arrival Chronic; Na 131 on 02/01/2023 Likely secondary to acute on chronic CHF with reduced ejection fraction at LVEF 2530%; hypervolemic hyponatremia Diuresis with Lasix 40 mg IV BID A.m. CBC, BMP, mag (2) Acute on chronic systolic (congestive) heart failure: Plan: Patient denies AVALOS BNP 866 on arrival; most recently 502 on 02/01/2023 CXR revealed cardiomegaly and evidence of congestive failure, as well as bilateral airspace opacities likely to represent pulmonary edema COVID, flu, RSV ordered, pending Continuous telemetry monitoring Converted Lasix 40 mg p.o. --> Lasix 40 mg IV BID Continue potassium supplementation (20mEq daily); K 4.1 on arrival Weight 97.3 kg on arrival; monitor daily weights (3) UTI (urinary tract infection): Plan: UA positive on arrival No leukocytosis; afebrile Clinically, patient denies burning with urination, dysuria, and blood in the urine/stool; he endorses increased urinary frequency, and malodorous urine Patient had a UTI in January 2023, which was treated with Macrobid outpatient, but did not improve Urine culture on 03/09/2023 was positive for E. coli, sensitive to Rocephin Repeat urine culture ordered, pending Blood culture ordered, pending Lactate WNL Procalcitonin WNL Rocephin started in the ED Continue Rocephin 2000 mg IV q24h while inpatient (4) Anemia: Plan: Hgb 8.7 and HCT 26.8 on arrival Unclear etiology; rectal heme-negative on arrival, per ED; patient denies black tarry stool, hemoptysis, and blood in stool or urine; ?Dilution Patient had a recent hospitalization at [place] in December 2022 for anemia secondary to rectal bleeding; Hgb was 4.9 at that time, and he received 5 units PRBCs EGD on 01/18/2023 with [facility] Colonoscopy on 01/18/2023 revealed internal hemorrhoids, diverticulosis but no evidence of acute or active bleeding 2 units pRBCs ordered, held No signs of active bleeding on physical exam Okay to continue Eliquis Iron panel, Vit B12, Folate, Retic count ordered, pending Continue to monitor a.m. CBC (5) Hypertension: Plan: Normotensive on arrival Continue carvedilol (6) Hyperlipidemia: Plan: Lipid panel in July 2022 WNL Continue atorvastatin (7) Atrial fibrillation: Plan: EKG revealed sinus rhythm with marked sinus arrhythmia at 85 bpm; QTc 511 Continue Eliquis, carvedilol (8) Hypothyroidism (acquired): Plan: TSH 2.350 on 03/12/2023 Continue levothyroxine (9) Hypomagnesemia: Plan: Mag 1.6 on arrival Magnesium sulfate 1 g IV x 2 Recheck a.m. mag (10) Arthritis: Plan: Continue Rinvoq, methotrexate, folic acid Patient reports he takes methotrexate 2.5mg p.o. x 5 tabs (for a total of 12.5mg) once per week on Saturdays Repeat folate level ordered, pending (11) History of myocardial infarction: Plan: S/p stent LAD Continue aspirin daily Plan Disposition: Admit to [facility] telemetry DNR/DNI AHA diet VTE PPx: On Eliquis History of Present Illness Chief Complaint: Hyponatremia, UTI, CHF Primary Care Provider: TASHI Finn Marquise is a 67-year-old male with PMH of hypothyroidism, atrial fibrillation, HTN, HLD, CAD, VA, ICD, and CHF. He presented at the behest of his PCP over concerns for a UTI and outpatient labs. Patient reports he has no symptoms on arrival. He denies AVALOS. He reports that he took his morning medications today, and that there have been no recent changes in medications. Patient took Eliquis the morning of 03/12. No at home supplemental oxygen use. No recent tick bites or rashes. No recent injuries/trauma; no falls. No sick contacts. Of note, patient was recently at [facility] in December 2022 for anemia; Hgb 4.9 at that time, and patient was transfused 5 units PRBCs for rectal bleed. Patient denies smoking, tobacco use, vaping, and recreational drug use; endorses mild alcohol use with last being a couple beers on Monday. Vital stable at time of admission. ED course: Rocephin 2000 mg IV Lasix 40 mg IV NSS 500 mL IV Magnesium sulfate 1 g IV ROS: Patient endorses mild weight loss (unintentional; patient believes this is fluid related), and increased urinary frequency. Patient denies fever, chills, night-sweats, dizziness, lightheadedness, SIDHU, chest pain, chest palpitations, cough, hemoptysis, SOB at rest, AVALOS, abdominal, N/V/D, burning with urination, dysuria, dark/tarry stool, blood in the urine/stool, or numbness/tingling in the legs or arms. Allergies Allergy/AdvReac Type Severity Reaction Status Date / Time shellfish derived Allergy Severe TONGUE Verified 03/12/23 10:41 SWELLS UP Iodinated Contrast Media AdvReac Unknown SWEATING,NAUSEA-WITH Verified 03/12/23 10:41 TEST DYE Home Medications Medication Instructions Recorded Confirmed Type nitroglycerin 400 mcg/spray 0.4 mg sublingual Q5M PRN chest 07/09/19 03/12/23 Rx translingual pain #12 grams carvedilol 12.5 mg tablet 12.5 mg PO BID #180 tabs 08/31/22 03/12/23 Rx ascorbic acid (vitamin C) 500 mg 500 mg PO DAILY 12/13/22 03/12/23 History tablet (Vitamin C With Clare Hips) atorvastatin 80 mg tablet 80 mg PO QAM 12/13/22 03/12/23 History cholecalciferol (vitamin D3) 50 50 mcg PO QAM 12/13/22 03/12/23 History mcg (2,000 unit) tablet (Vitamin D3) cyanocobalamin (vitamin B-12) 500 500 mcg PO QAM 12/13/22 03/12/23 History mcg tablet (Vitamin B-12) folic acid 1 mg tablet 1 mg PO QAM 12/13/22 03/12/23 History levothyroxine 88 mcg tablet 88 mcg PO DAILYBB 12/13/22 03/12/23 History upadacitinib 15 mg tablet,extended 15 mg PO QAM 12/13/22 03/12/23 History release 24 hr (Rinvoq) aspirin 81 mg chewable tablet 81 mg PO DAILY 12/27/22 03/12/23 History ferrous sulfate 325 mg (65 mg 325 mg PO 2XWK 01/24/23 03/12/23 History iron) tablet,delayed release pantoprazole 40 mg tablet,delayed 40 mg PO DAILY #90 tabs 01/25/23 03/12/23 Rx release apixaban 5 mg tablet (Eliquis) 5 mg PO BID #60 tabs 01/26/23 03/12/23 Rx potassium chloride 20 mEq 20 meq PO DAILY #90 tabs 02/03/23 03/12/23 Rx tablet,extended release(part/cryst) furosemide 40 mg tablet 40 mg PO DAILY 03/12/23 03/12/23 History methotrexate sodium 2.5 mg tablet 12.5 mg PO WK 03/12/23 03/12/23 History Past Med/Surg History Medical History Prediabetes Elevated AST (SGOT) High alkaline phosphatase Anemia History of myocardial infarction (07/13/03) Anterior VA at [facility], TPA, stent LAD, 60-70%RCA, EF 35% Erosive osteoarthritis bilateral feet Arthritis Hypertension Hyperlipidemia Hypothyroidism (acquired) Ventricular tachycardia With arrest now with ICD Ischemic cardiomyopathy DJD (degenerative joint disease) of knee Chronic systolic (congestive) heart failure Atrial fibrillation (~12/2016) Surgical History History of total left knee replacement (TKR) (08/07/15) History of implantable cardiac defibrillator (ICD) Single lead ICD placement, Medtronic device History of percutaneous coronary intervention To the LAD History of coronary artery bypass graft (~2008) X4 in 2008 with a GUILLORY to the LAD, vein graft to the diagonal, posterior lateral circ, and PDA Family History Father Myocardial infarction, Onset Age: 52 Family history of coronary artery disease Son Family history of coronary artery disease, Onset Age: 30 Denies family history of Ovarian cancer Prostate cancer Breast cancer Colorectal cancer Social History Smoking Status: Former smoker Tobacco Type: Pipe Cigarettes Per Day: hx of chewing tobacco; Second Hand Exposure: No; Do You Dip or Chew Tobacco: No; Hx Alcohol Use: Yes Alcohol type: beer Alcohol Intake Frequency: 2-3 x/Week Hx Substance Use: No Preferred Language: Thai Communication Ability: Effective Visual Impairment: Limited Hearing Ability: Normal 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 Beliefs That Will Affect Care: None marital status: Current Living Situation: Spouse current occupational status: retired current occupation: [employer] How many Children do You have: 2 Feels Safe at Home: Yes Childhood Exposure to Second-Hand Smoke: No Diet: regular Diet Comment: Regular caffeine: Yes (coffee) during the past year weight has: remained stable Dental Care, Regularly: No Physical Activity Frequency: Daily Seatbelt Use: always Sunscreen Use: Yes Review of Systems Review of Systems: See HPI above Physical Exam Physical Exam: General: no acute distress; pleasant affect; non-toxic appearing; well- nourished; cooperative HEENT: normocephalic, atraumatic; no scleral icterus; PERRLA w/ EOMs intact; moist mucus membrane; vision and hearing grossly intact Neck: supple; negative for JVD; no lymphadenopathy; trachea midline Skin: warm, dry without signs of tenting; no cyanosis; no rashes, bruising, lesions, or erythema noted CV: chest wall NTP; RRR; S1/S2 normal; no murmurs/rubs/gallops; pulses intact and symmetric at radial, DP, and PT Lungs: no acute respiratory distress; symmetrical chest wall expansion; clear breath sounds across all lung jones w/o adventitious sounds; no wheezing ABD: Soft, NTP; BS present; no rebound/guarding; no ascites; no distention; negative CVA tenderness MSK: no tics or fasciculations; +2 pitting edema around ankles B/L, nonerythematous Neuro: A&Ox3; normal mood and affect; fluent speech; no focal deficits; sensation grossly intact in LEs B/L Results & Data Results & Data Vital Signs (Past 12 Hours) Vital Signs Temp Pulse Resp BP Pulse Ox O2 Del Method 03/12/23 10:30 73 22 112/81 97 03/12/23 09:30 87 21 115/82 97 03/12/23 09:17 85 03/12/23 08:51 36.6 C 83 18 113/74 98 Room Air Laboratory Results Abnormal lab results 03/12/23 03/12/23 03/12/23 Range/Units 09:00 09:05 09:11 RBC 2.98 L (4.70-6.10) M/uL Hgb 8.7 L (14.0-18.0) g/dl Hct 26.8 L (42.0-52.0) % RDW Std Deviation 54.7 H (36.4-46.3) fL RDW Coeff of Shahid 16.8 H (11.5-14.5) % Lymph # (Auto) 0.79 L (1.20-3.40) K/uL Eos # (Auto) 0.77 H (0.00-0.50) K/uL PT 12.9 H (9.0-12.0) Seconds INR 1.2 H (0.9-1.1) APTT 36 H (21-31) Seconds Sodium 128 L (136-145) mmol/L Chloride 95 L (98-107) mmol/L BUN/Creatinine Ratio 9.0 L (10-20) Glucose 101 H (70-99(Fasting)) mg/dl Magnesium 1.6 L (1.7-2.4) mg/dl Total Bilirubin 1.2 H (0.2-1.0) mg/dl Alkaline Phosphatase 147 H (34-104) U/L B-Natriuretic Peptide (0-100) pg/ml Total Protein 8.4 H (6.0-8.3) gm/dl Globulin 4.5 H (2.5-4.0) gm/dl Urine Appearance Turbid A (Clear) Urine Protein Trace H (Negative) Urine Blood 1+ H (Negative) Urine Nitrite Positive A (Negative) Ur Leukocyte Esterase 3+ H (Negative) Urine WBC (Auto) >30 H (0-5) /hpf Urine Bacteria (Auto) 4+ H (Negative) Crossmatch See Detail 03/12/23 Range/Units 09:18 RBC (4.70-6.10) M/uL Hgb (14.0-18.0) g/dl Hct (42.0-52.0) % RDW Std Deviation (36.4-46.3) fL RDW Coeff of Shahid (11.5-14.5) % Lymph # (Auto) (1.20-3.40) K/uL Eos # (Auto) (0.00-0.50) K/uL PT (9.0-12.0) Seconds INR (0.9-1.1) APTT (21-31) Seconds Sodium (136-145) mmol/L Chloride (98-107) mmol/L BUN/Creatinine Ratio (10-20) Glucose (70-99(Fasting)) mg/dl Magnesium (1.7-2.4) mg/dl Total Bilirubin (0.2-1.0) mg/dl Alkaline Phosphatase (34-104) U/L B-Natriuretic Peptide 866 H (0-100) pg/ml Total Protein (6.0-8.3) gm/dl Globulin (2.5-4.0) gm/dl Urine Appearance (Clear) Urine Protein (Negative) Urine Blood (Negative) Urine Nitrite (Negative) Ur Leukocyte Esterase (Negative) Urine WBC (Auto) (0-5) /hpf Urine Bacteria (Auto) (Negative) Crossmatch Diagnostic Findings Chest X-Ray 03/12/23 08:59 SINGLE VIEW CHEST CLINICAL HISTORY: Generalized weakness. FINDINGS: An AP, portable, upright chest radiograph is compared to study dated 12/13/2022. A 3-lead cardiac AICD is unchanged in position. The patient is status post midline sternotomy. The heart is enlarged noting atherosclerotic calcification of the thoracic aorta. There is pulmonary vascular congestion. There are bilateral airspace opacities, left greater than right. No large pleural effusion or pneumothorax is seen. The skeletal structures are osteopenic. The bony thorax is grossly intact. Arthritic change is seen in the shoulders. IMPRESSION: 1. Cardiomegaly and AICD with evidence of congestive failure. 2. Bilateral airspace opacities likely represent pulmonary edema. Correlate clinically for evidence of a superimposed infectious/inflammatory pneumonitis. Radiographic follow-up to resolution is recommended. ACT 112: Negative or not required by law. Electronically signed by: Giovanny Gramajo M.D. 03/12/2023 9:41 AM Code Status & VTE Plan Code Status DNR/DNI VTE Prophylaxis Plan VTE Prophylaxis will be ordered: Yes Supervising Physician Co-Signing Physician Notes I personally saw and examined the patient. I independently reviewed the labs, EKG, imaging, problem list, medication list, past medical history and family history. I verified all landa points and agree with Johnny Tellez PA-C with the following exceptions and/or additions: 67 year old male presents to the ER PG Care Time/CCT Total # of Minutes Spent Total Time Spent with Patient: Total time spent is greater than 50% in coordination of care (as documented) at patient's floor/unit and/or counseling patient: C[place] [address] INT INP/OBS CARE MIN Patient Type Established Medical Decision Making High Complexity Diagnoses Hyponatremia E87.1 Acute on chronic systolic (congestive) heart failure I50.23 UTI (urinary tract infection) N39.0 Anemia D64.9 Hypertension I10 Hyperlipidemia E78.5 Atrial fibrillation I48.91 Hypothyroidism (acquired) E03.9 Hypomagnesemia E83.42 Arthritis M19.90 History of myocardial infarction I25.2
[2023-03-12] MEDS ORDERED: MAGNESIUM SULFATE / D5W 1 GM/100 ML BAG IV ONE (12:11)
[2023-03-12 13:03] LABS: Influenza A virus by PCR Negative (Neg); Influenza B virus by PCR Negative (Neg); RSV by PCR Negative (Neg); SARS CoV2 RNA(COVID-19) Ceph NEGATIVE (Negative)
[2023-03-12] MEDS ORDERED: ACETAMINOPHEN 325 MG TAB PO PRN (14:46)
[2023-03-12] MEDS ORDERED: NITROGLYCERIN 60 SPRAYS/4.9 GM SPRAY SL PRN (14:46)
[2023-03-12 15:09] LABS: Reticulocyte % 2.8 % (0.5-2.0); Reticulocytes # 0.08 10^6/uL (0.02-0.10)
[2023-03-12 15:20] LABS: Iron 41 mcg/dl (35-175); Total Iron Binding Cap Calc 239 mcg/dl (250-450); Transferrin (FE) Percent Satur 17 % (20-50); Unsaturated Iron Binding Cap 198 mcg/dl (155-355)
[2023-03-12] MEDS ORDERED: NITROGLYCERIN SL 0.4 MG/TAB TAB SL PRN (15:31)
[2023-03-12 15:40] LABS: Folate (Folic Acid),Ser orPlas 12.67 ng/ml (>5.38)
[2023-03-12] MEDS: FUROSEMIDE 40 MG/4 ML VIAL IV SCH (17:08)
--- NOTE | 2023-03-12 21:16 | Electrocardiogram Report ---
Test Reason : Blood Pressure : / mmHG Vent. Rate : 085 BPM Atrial Rate : 085 BPM P-R Int : 132 ms QRS Dur : 148 ms QT Int : 430 ms P-R-T Axes : 000 -40 105 degrees QTc Int : 511 ms Poor data quality, interpretation may be adversely affected Probable Atrial fibrillation with occasional ventricular-paced complexes Abnormal ECG When compared with ECG of 13-DEC-2022 17:20, Vent. rate has increased BY 11 BPM Confirmed by Lloyd Good ([id number]) on 03/12/2023 9:15:55 PM Referred By: Dave Amador Confirmed By:Lloyd Good
[2023-03-12] MEDS: carvediloL 12.5 MG TAB PO SCH (22:03)
[2023-03-12] MEDS: APIXABAN 5 MG TABLET PO SCH (22:03)
[2023-03-13 05:05] LABS: Basophils # (auto) 0.08 K/uL (0.00-0.20); Basophils % (auto) 1.5 %; Eosinophils # (auto) 0.73 K/uL (0.00-0.50); Eosinophils % (auto) 13.4 %; Hematocrit (blood only) 23.3 % (42.0-52.0); Hemoglobin 7.7 g/dl (14.0-18.0); Immature Granulocytes # (auto) 0.03 K/uL (0.01-0.20); Immature Granulocytes % (auto) 0.6 %; Lymphocytes # (auto) 0.72 K/uL (1.20-3.40); Lymphocytes % (auto) 13.2 %; Mean Corpuscular Hemoglobin 29.2 pg (25.0-34.0); Mean Corpuscular Volume 88.3 fL (80.0-100.0); Monocytes # (auto) 0.26 K/uL (0.11-0.59); Monocytes % (auto) 4.8 %; Neutrophils # (auto) 3.62 K/uL (1.40-6.50); Neutrophils % (auto) 66.5 %; Platelet Count 331 K/uL (130-400); RDW Coefficient of Variation 16.8 % (11.5-14.5); RDW Standard Deviation 54.1 fL (36.4-46.3); Red Blood Count 2.64 M/uL (4.70-6.10); White Blood Count 5.44 K/ul (4.8-10.8)
[2023-03-13 05:20] LABS: BUN Creatinine Ratio 10.9 (10-20); Calcium 8.9 mg/dl (8.6-10.3); Creatinine Clr Calc Pharmacy 75.7 ml/min; Est GFR (African American) 81.2 ml/min; Est GFR (Non-African American) 70.1 ml/min; Magnesium 1.9 mg/dl (1.7-2.4); Potassium 3.4 mmol/L (3.5-5.1)
[2023-03-13 05:33] LABS: Acanthocytes 3+; Echinocytes 1+
[2023-03-13] MEDS: LEVOTHYROXINE SODIUM 88 MCG TABLET PO SCH (05:54)
[2023-03-13] MEDS: PANTOprazole 40 MG TAB PO SCH (07:50)
[2023-03-13] MEDS: ASPIRIN 81 MG CHEW PO SCH (07:50)
[2023-03-13] MEDS: APIXABAN 5 MG TABLET PO SCH ×2 (07:50→20:29)
[2023-03-13] MEDS: carvediloL 12.5 MG TAB PO SCH ×2 (07:50→20:29)
[2023-03-13] MEDS: ATORVASTATIN 40 MG TAB PO SCH (07:50)
[2023-03-13] MEDS: FOLIC ACID 1 MG TAB PO SCH (07:51)
[2023-03-13] MEDS: FUROSEMIDE 40 MG/4 ML VIAL IV SCH ×2 (07:51→15:57)
[2023-03-13] MEDS ORDERED: POTASSIUM CHLORIDE CRTAB 20 MEQ TABCR PO SCH (09:00)
[2023-03-13] MEDS ORDERED: cefTRIAXone SODIUM 2,000 MG in DEXTROSE 5 % MINI-B 50 ML IV SCH (09:30)
[2023-03-13] MEDS: POTASSIUM CHLORIDE CRTAB 20 MEQ TABCR PO SCH ×3 (09:58→20:28)
[2023-03-13 10:39] LABS: Ferritin 229.3 ng/ml (8-388)
[2023-03-13] MEDS ORDERED: IRON SUCROSE 200 MG in 0.9 % SODIUM CHLORIDE 100 ML IV ONE (18:00)
--- NOTE | 2023-03-13 18:24 | Hospitalist Progress Note ---
Date of Service March 13, 2023 Assessment & Plan (1) Anemia: Plan: Hgb 8.7 and HCT 26.8 on arrival heme-negative in the ER Review of CBCs dating back to earlier in 2022 --> * Hb 12 - 07/2022 * Hb 11.1 - 11/2022 * Hb 8.1 - 01/12/2023 * Hb 4.9 - [facility] 01/15/23 Had rectal bleeding at [facility] s/p 5 units PRBCs Colonoscopy with left-sided diverticular disease & internal hemorrhoids EGD with mild gastritis only * Hb 9.1 - 01/25/23 (post-[facility] hospitalization visit with primary care in [place]) Patient denies ANY overt bleeding since [facility] B12/folate today wnl Ferritin 229 but transferrin sat 17% TSH is wnl Although ferritin is normal this could represent acute phase reactant given the UTI Thus, since transferrin sat is <20% will give venofer 200mg IV x 1 and repeat CBC am (2) Hyponatremia: Plan: Na 128 on arrival Chronic; Na levels have been upper 120s to low 130s since 2018 based on records Did receive 2 doses of IV lasix today He does not look overtly volume overloaded at this time thus place additional IV doses on hold and repeat BMP am of note - he is typically on lasix 40mg daily at home for volume control (3) Acute on chronic systolic (congestive) heart failure: Plan: CXR with pulmonary edema/effusions but he does not examine volume overloaded today and denies any pulmonary complaints s/p 2 doses of IV lasix today will hold additional IV doses and repeat his labs with exam tomorrow last echo was at [facility] - 12/14/22 - EF 25-30% cont coreg BID (4) UTI (urinary tract infection): Plan: 03/09/23 outpatient urine cx with e.coli repeat urine cx from yesterday with GNR - likely to be e.coli continue rocephin IV check a PSA to r/o prostatitis if he grows out e.coli once again and PSA is high could have prostatitis and would Rx for 3-4 weeks in duration of abx (5) Hypertension: Plan: Continue carvedilol (6) Hyperlipidemia: Plan: Lipid panel in July 2022 WNL Continue atorvastatin (7) Atrial fibrillation: Plan: Continue Eliquis Continue carvedilol (8) Hypothyroidism (acquired): Plan: TSH 2.350 on 03/12/2023 Continue levothyroxine (9) Hypomagnesemia: Plan: Mag 1.6 on arrival s/p replacement level now normal (10) Arthritis: Plan: Continue Rinvoq, methotrexate, folic acid Patient reports he takes methotrexate 2.5mg p.o. x 5 tabs (for a total of 12.5mg) once per week on Saturdays Folic acid level wnl No flare at this time Follows with rheum in [place] (11) History of myocardial infarction: Plan: anterior [place] 2008 s/p stents x 2 to LAD followed by CABG in 2008 Continue aspirin daily Continue statin Continue coreg No ischemic symptoms at this time (12) Insomnia: Plan: melatonin 3mg HS vistaril 10mg HS re-eval tomorrow (13) Hypokalemia: Plan: replace with k-dur repeat level am (14) Gastritis: Plan: as seen on EGD at [facility] in 12/2022 cont PPI (15) DVT prophylaxis: Plan: eliquis 5mg BID (16) Acute ischemic left MCA stroke: Plan: 12/13/22 - taken emergently to [facility] underwent L MCA occlusion thrombectomy by neurosurgery, Dr Stratton had excellent recovery from his stroke event with essentially no residuals deficits Eliquis/asa resumed earlier this fall records suggest his post-op course at [facility] was complicated by sepsis, aspiration pneumonia, and shock Plan will obtain PT/OT evals while here Admission and Anticipated Discharge Date Admission Date: March 12, 2023 Subjective patient lying in bed flat during the visit no orthopnea complains of poor sleep for about 2 weeks difficulty falling asleep, and waking up frequently at night-time has lost ~9 pounds of weight last 1-2 months despite eating/drinking normally reports foul-smelling urine the last few days urine is also foamy denies any abd pain denies any scrotal pain or perineal pain denies dysuria has not seen any melena or BRBPR follows with rheumatology in [place] area (Dr Quinonez?) Review of Systems Review of Systems: gen - no fevers or chills cv - no chest pain pulm - no dyspnea at rest GI - no abd pain Physical Exam Physical Exam: gen - NAD, laying flat in bed comfortably neck - no JVD mouth - MMM heart - irregular, s1 s2, no obvious murmur lungs - CTA b/l abd - soft NT ND BS+ ext - no edema, pulses 2+ b/l skin - generalized pallor Results & Data Results & Data Vital Signs (Past 12 Hours) Vital Signs Temp Pulse Pulse Resp BP Pulse Ox O2 Del Method 03/13/23 15:16 65 03/13/23 15:03 37.1 C 61 18 106/72 96 Room Air 03/13/23 12:04 94 H 03/13/23 11:27 37.2 C 72 18 107/71 93 Room Air 03/13/23 07:37 37.2 C 80 18 126/71 97 Room Air Laboratory Results Laboratory Results - last 24 hr 03/13/23 03/13/23 04:23 04:23 WBC 5.44 RBC 2.64 L Hgb 7.7 L Hct 23.3 L MCV 88.3 MCH 29.2 MCHC 33.0 RDW Std Deviation 54.1 H RDW Coeff of Shahid 16.8 H Plt Count 331 MPV 10.0 Immature Gran % (Auto) 0.6 Neut % (Auto) 66.5 Lymph % (Auto) 13.2 Carver % (Auto) 4.8 Eos % (Auto) 13.4 Baso % (Auto) 1.5 Neut # (Auto) 3.62 Lymph # (Auto) 0.72 L Carver # (Auto) 0.26 Eos # (Auto) 0.73 H Baso # (Auto) 0.08 Immature Gran # (Auto) 0.03 Echinocytes 1+ Acanthocytes (Spur) 3+ Peripher Smr Path Cons Cancelled Sodium 129 L Potassium 3.4 L Chloride 93 L Carbon Dioxide 29 Anion Gap 7 BUN 12 Creatinine 1.10 Est Cr Clr Drug Dosing 75.7 Est GFR ( Amer) 81.2 Est GFR (Non-Af Amer) 70.1 BUN/Creatinine Ratio 10.9 Glucose 93 Calcium 8.9 Magnesium 1.9 Ferritin 229.3 PG Care Time/CCT Total # of Minutes Spent Total Time Spent with Patient: Total time spent is greater than 50% in coordination of care (as documented) at patient's floor/unit and/or counseling patient: Coding Level of Care Code 23593 SUB INP/OBS CARE 3/50MIN Diagnoses Anemia D64.9 Hyponatremia E87.1 Acute on chronic systolic (congestive) heart failure I50.23 UTI (urinary tract infection) N39.0 Hypertension I10 Hyperlipidemia E78.5 Atrial fibrillation I48.91 Hypothyroidism (acquired) E03.9 Hypomagnesemia E83.42 Arthritis M19.90 History of myocardial infarction I25.2 Insomnia G47.00 Hypokalemia E87.6 Gastritis K29.70 DVT prophylaxis Z29.9 Acute ischemic left MCA stroke I63.512
[2023-03-13] MEDS: MELATONIN 3 MG TAB PO SCH (20:29)
[2023-03-13] MEDS: hydrOXYzine HCl 10 MG TAB PO SCH (20:29)
[2023-03-14] MEDS: LEVOTHYROXINE SODIUM 88 MCG TABLET PO SCH (06:15)
[2023-03-14 07:31] LABS: Basophils # (auto) 0.06 K/uL (0.00-0.20); Basophils % (auto) 1.1 %; Eosinophils # (auto) 0.76 K/uL (0.00-0.50); Eosinophils % (auto) 14.3 %; Hematocrit (blood only) 23.9 % (42.0-52.0); Immature Granulocytes # (auto) 0.02 K/uL (0.01-0.20); Immature Granulocytes % (auto) 0.4 %; Lymphocytes # (auto) 0.74 K/uL (1.20-3.40); Lymphocytes % (auto) 13.9 %; Mean Corpuscular Hemoglobin 29.5 pg (25.0-34.0); Mean Corpuscular Hgb Conc 33.5 g/dL (32.0-36.0); Mean Corpuscular Volume 88.2 fL (80.0-100.0); Mean Platelet Volume 9.6 fL (9.4-12.4); Monocytes % (auto) 9.4 %; Neutrophils # (auto) 3.24 K/uL (1.40-6.50); Neutrophils % (auto) 60.9 %; Platelet Count 346 K/uL (130-400); RDW Coefficient of Variation 16.6 % (11.5-14.5); RDW Standard Deviation 53.1 fL (36.4-46.3); Red Blood Count 2.71 M/uL (4.70-6.10); White Blood Count 5.32 K/ul (4.8-10.8)
[2023-03-14 07:49] LABS: BUN Creatinine Ratio 12.5 (10-20); Calcium 9.1 mg/dl (8.6-10.3); Creatinine Clr Calc Pharmacy 74.3 ml/min; Est GFR (African American) 79.5 ml/min; Est GFR (Non-African American) 68.6 ml/min; Potassium 4.1 mmol/L (3.5-5.1)
[2023-03-14] MEDS ORDERED: FUROSEMIDE INJ 20 MG/2 ML VIAL IV ONE (08:03)
[2023-03-14] MEDS: carvediloL 12.5 MG TAB PO SCH ×2 (08:17→20:17)
[2023-03-14] MEDS: ASPIRIN 81 MG CHEW PO SCH (08:19)
[2023-03-14] MEDS: PANTOprazole 40 MG TAB PO SCH (08:19)
[2023-03-14] MEDS: ATORVASTATIN 40 MG TAB PO SCH (08:19)
[2023-03-14] MEDS: FOLIC ACID 1 MG TAB PO SCH (08:19)
[2023-03-14] MEDS: APIXABAN 5 MG TABLET PO SCH ×2 (08:19→20:17)
[2023-03-14] MEDS: POTASSIUM CHLORIDE CRTAB 20 MEQ TABCR PO SCH ×3 (08:20→20:18)
[2023-03-14] MEDS ORDERED: IRON SUCROSE 200 MG in 0.9 % SODIUM CHLORIDE 100 ML IV ONE (08:30)
[2023-03-14] MEDS ORDERED: FERROUS SULFATE 325 MG TAB PO SCH (09:00)
[2023-03-14] MEDS: AMOXICILLIN 500 MG CAP PO SCH ×3 (09:47→20:16)
--- NOTE | 2023-03-14 17:50 | Hospitalist Progress Note ---
Date of Service March 14, 2023 Assessment & Plan (1) Anemia: Plan: Hgb 8.7 and HCT 26.8 on arrival heme-negative stool in the ER Review of CBCs dating back to earlier in 2022 --> * Hb 12 - 07/2022 * Hb 11.1 - 11/2022 * Hb 8.1 - 01/12/2023 * Hb 4.9 - [facility] 01/15/23 Had rectal bleeding at [facility] s/p 5 units PRBCs Colonoscopy with left-sided diverticular disease & internal hemorrhoids EGD with mild gastritis only * Hb 9.1 - 01/25/23 (post-[place] hospitalization visit with primary care in [place]) Patient denies ANY overt bleeding since his [place] hospitalization B12/folate wnl Ferritin 229 but transferrin sat 17% TSH is wnl Although ferritin is normal this could represent acute phase reactant given the UTI Thus, since transferrin sat is <20%, gave venofer 200mg IV x 1 on 03/13/23, and will give additional 200mg x 1 today repeat CBC am (2) Hyponatremia: Plan: Na 128 on arrival Chronic; Na levels have been upper 120s to low 130s since 2018 based on records Na level 130 today & stable give 20mg of IV lasix today then stop all IV diuretics likely resume PO lasix tomorrow if AM labs are stable (3) Acute on chronic systolic (congestive) heart failure: Plan: appears compensated today no further IV lasix after this am's dose repeat labs am last echo was at [facility] - 12/14/22 - EF 25-30% cont coreg BID follows with [facility] Card[facility] - LOVE / ARB / Entresto -- not used due to low-normal BPs? (4) UTI (urinary tract infection): Plan: 03/09/23 outpatient urine cx with e.coli repeat urine cx from this admission also with e.coli PSA is <1 although PSA is low he still could have prostatitis possible he needs a lengthier course of Rx will d/c rocephin; change to amox 500mg TID x 3-4 weeks in duration (5) Hypertension: Plan: Continue carvedilol (6) Hyperlipidemia: Plan: Lipid panel in July 2022 WNL Continue atorvastatin (7) Atrial fibrillation: Plan: Continue Eliquis Continue carvedilol (8) Hypothyroidism (acquired): Plan: TSH 2.350 on 03/12/2023 Continue levothyroxine (9) Hypomagnesemia: Plan: Mag 1.6 on arrival s/p replacement level now normal repeat level am (10) Arthritis: Plan: Continue Rinvoq, methotrexate, folic acid Patient reports he takes methotrexate 2.5mg p.o. x 5 tabs (for a total of 12.5mg) once per week on Saturdays Folic acid level wnl No flare at this time Follows with rheum in [place] (11) History of myocardial infarction: Plan: anterior HI 2008 s/p stents x 2 to LAD followed by CABG in 2008 Continue aspirin daily Continue statin Continue coreg No ischemic symptoms at this time (12) Insomnia: Plan: melatonin 3mg HS vistaril 10mg HS this combination worked well ; will utilize again (13) Hypokalemia: Plan: replaced resolved (14) Gastritis: Plan: as seen on EGD at [facility] in 12/2022 cont PPI (15) DVT prophylaxis: Plan: eliquis 5mg BID (16) Acute ischemic left MCA stroke: Plan: 12/13/22 - taken emergently to [facility] underwent L MCA occlusion thrombectomy by neurosurgery, Dr Stratton had excellent recovery from his stroke event with essentially no residuals deficits Eliquis/asa resumed earlier this fall records suggest his post-op course at [place] was complicated by sepsis, aspiration pneumonia, and shock Plan passed PT/OT evals suspect he can d/c home tomorrow will update his family later today Admission and Anticipated Discharge Date Admission Date: March 12, 2023 Subjective tele stable overnight a.fib/pacing during the visit he was eating his lunch good appetite slept well last night voiding w/o difficulty denies any dyspnea at rest, denies AVALOS, denies orthopnea/PND Review of Systems Review of Systems: gen - feels well cv - no edema, no chest pain GI - no abd pain, no melena or BRBPR pulm - no cough Physical Exam Physical Exam: gen - NAD, looks well neck - no JVD mouth - MMM heart - irregular, s1 s2, no obvious murmur lungs - CTA b/l abd - soft NT ND BS+ ext - no edema, pulses 2+ b/l skin - generalized pallor Results & Data Results & Data Vital Signs (Past 12 Hours) Vital Signs Temp Pulse Pulse Resp BP Pulse Ox O2 Del Method 03/14/23 14:53 36.6 C 69 16 101/66 94 Room Air 03/14/23 14:30 71 03/14/23 11:52 36.3 C L 66 16 96/60 L 93 Room Air 03/14/23 08:10 82 03/14/23 07:56 36.7 C 54 L 16 121/78 96 Room Air 03/14/23 06:00 66 Laboratory Results Laboratory Results - last 24 hr 03/14/23 07:02 WBC 5.32 RBC 2.71 L Hgb 8.0 L Hct 23.9 L MCV 88.2 MCH 29.5 MCHC 33.5 RDW Std Deviation 53.1 H RDW Coeff of Shahid 16.6 H Plt Count 346 MPV 9.6 Immature Gran % (Auto) 0.4 Neut % (Auto) 60.9 Lymph % (Auto) 13.9 [place] % (Auto) 9.4 Eos % (Auto) 14.3 Baso % (Auto) 1.1 Neut # (Auto) 3.24 Lymph # (Auto) 0.74 L [place] # (Auto) 0.50 Eos # (Auto) 0.76 H Baso # (Auto) 0.06 Immature Gran # (Auto) 0.02 Sodium 130 L Potassium 4.1 D Chloride 95 L Carbon Dioxide 28 Anion Gap 7 BUN 14 Creatinine 1.12 Est Cr Clr Drug Dosing 74.3 Est GFR ( Amer) 79.5 Est GFR (Non-Af Amer) 68.6 BUN/Creatinine Ratio 12.5 Glucose 88 Calcium 9.1 Prostate Specific Ag 0.325 PG Care Time/CCT Total # of Minutes Spent Total Time Spent with Patient: Total time spent is greater than 50% in coordination of care (as documented) at patient's floor/unit and/or counseling patient: Coding Level of Care Code 13878 SUB INP/OBS CARE 2/35MIN Diagnoses Anemia D64.9 Hyponatremia E87.1 Acute on chronic systolic (congestive) heart failure I50.23 UTI (urinary tract infection) N39.0 Hypertension I10 Hyperlipidemia E78.5 Atrial fibrillation I48.91 Hypothyroidism (acquired) E03.9 Hypomagnesemia E83.42 Arthritis M19.90 History of myocardial infarction I25.2 Insomnia G47.00 Hypokalemia E87.6 Gastritis K29.70 DVT prophylaxis Z29.9 Acute ischemic left MCA stroke I63.512
[2023-03-14] MEDS: MELATONIN 3 MG TAB PO SCH (20:16)
[2023-03-14] MEDS: hydrOXYzine HCl 10 MG TAB PO SCH (20:16)
[2023-03-15] MEDS: LEVOTHYROXINE SODIUM 88 MCG TABLET PO SCH (05:31)
[2023-03-15 07:26] LABS: Basophils # (auto) 0.08 K/uL (0.00-0.20); Basophils % (auto) 1.2 %; Eosinophils # (auto) 0.99 K/uL (0.00-0.50); Eosinophils % (auto) 15.3 %; Hematocrit (blood only) 23.9 % (42.0-52.0); Hemoglobin 7.9 g/dl (14.0-18.0); Immature Granulocytes # (auto) 0.03 K/uL (0.01-0.20); Immature Granulocytes % (auto) 0.5 %; Lymphocytes # (auto) 0.76 K/uL (1.20-3.40); Lymphocytes % (auto) 11.7 %; Mean Corpuscular Hemoglobin 29.3 pg (25.0-34.0); Mean Corpuscular Hgb Conc 33.1 g/dL (32.0-36.0); Mean Corpuscular Volume 88.5 fL (80.0-100.0); Monocytes # (auto) 0.59 K/uL (0.11-0.59); Monocytes % (auto) 9.1 %; Neutrophils # (auto) 4.04 K/uL (1.40-6.50); Neutrophils % (auto) 62.2 %; Platelet Count 357 K/uL (130-400); RDW Coefficient of Variation 16.7 % (11.5-14.5); RDW Standard Deviation 53.1 fL (36.4-46.3); White Blood Count 6.49 K/ul (4.8-10.8)
[2023-03-15 07:47] LABS: BUN Creatinine Ratio 11.8 (10-20); Creatinine Clr Calc Pharmacy 69.9 ml/min; Est GFR (African American) 73.9 ml/min; Est GFR (Non-African American) 63.7 ml/min; Magnesium 1.7 mg/dl (1.7-2.4); Potassium 4.3 mmol/L (3.5-5.1)
[2023-03-15 07:54] LABS: Acanthocytes 2+; Ovalocytes 1+
[2023-03-15] MEDS: AMOXICILLIN 500 MG CAP PO SCH ×2 (08:24→13:32)
[2023-03-15] MEDS: APIXABAN 5 MG TABLET PO SCH (08:24)
[2023-03-15] MEDS: FOLIC ACID 1 MG TAB PO SCH (08:25)
[2023-03-15] MEDS: carvediloL 12.5 MG TAB PO SCH (08:25)
[2023-03-15] MEDS: POTASSIUM CHLORIDE CRTAB 20 MEQ TABCR PO SCH (08:25)
[2023-03-15] MEDS: ATORVASTATIN 40 MG TAB PO SCH (08:25)
[2023-03-15] MEDS: ASPIRIN 81 MG CHEW PO SCH (08:25)
[2023-03-15] MEDS: PANTOprazole 40 MG TAB PO SCH (08:25)
[2023-03-15] MEDS ORDERED: FUROSEMIDE 40 MG TAB PO SCH (09:00)
[2023-03-15] MEDS ORDERED: POTASSIUM CHLORIDE CRTAB 20 MEQ TABCR PO SCH (09:00)
[2023-03-15] MEDS ORDERED: IRON SUCROSE 200 MG in 0.9 % SODIUM CHLORIDE 100 ML IV ONE (11:30)
--- NOTE | 2023-03-15 13:14 | Discharge Summary ---
Date of Service March 15, 2023 Admission HPI Per Admitting Provider Marquise is a 67-year-old male with PMH of hypothyroidism, atrial fibrillation, HTN, HLD, CAD, TN, ICD, and CHF. He presented at the behest of his PCP over concerns for a UTI and outpatient labs. Patient reports he has no symptoms on arrival. He denies AVALOS. He reports that he took his morning medications today, and that there have been no recent changes in medications. Patient took Eliquis the morning of 03/12. No at home supplemental oxygen use. No recent tick bites or rashes. No recent injuries/trauma; no falls. No sick contacts. Of note, patient was recently at [facility] in December 2022 for anemia; Hgb 4.9 at that time, and patient was transfused 5 units PRBCs for rectal bleed. Patient denies smoking, tobacco use, vaping, and recreational drug use; endorses mild alcohol use with last being a couple beers on Monday. Vital stable at time of admission. ED course: Rocephin 2000 mg IV Lasix 40 mg IV NSS 500 mL IV Magnesium sulfate 1 g IV ROS: Patient endorses mild weight loss (unintentional; patient believes this is fluid related), and increased urinary frequency. Patient denies fever, chills, night-sweats, dizziness, lightheadedness, SIDHU, chest pain, chest palpitations, cough, hemoptysis, SOB at rest, AVALOS, abdominal, N/V/D, burning with urination, dysuria, dark/tarry stool, blood in the urine/stool, or numbness/tingling in the legs or arms. Discharge Exam gen - NAD, looks well neck - no JVD mouth - MMM heart - irregular, s1 s2, no obvious murmur lungs - CTA b/l abd - soft NT ND BS+ ext - no edema, pulses 2+ b/l skin - generalized pallor Discharge Data Allergies Allergy/AdvReac Type Severity Reaction Status Date / Time shellfish derived Allergy Severe TONGUE Verified 03/12/23 10:41 SWELLS UP Iodinated Contrast Media AdvReac Unknown SWEATING,NAUSEA-WITH Verified 03/12/23 10:41 TEST DYE Consultations 03/12/23 11:24 ED Decision to Admit Stat Hospital Course (1) Anemia: Hgb 8.7 and HCT 26.8 on arrival heme-negative stool in the ER Review of CBCs dating back to earlier in 2022 --> * Hb 12 - 07/2022 * Hb 11.1 - 11/2022 * Hb 8.1 - 01/12/2023 * Hb 4.9 - [facility] 01/15/23 Had rectal bleeding at [facility] s/p 5 units PRBCs Colonoscopy with left-sided diverticular disease & internal hemorrhoids EGD with mild gastritis only * Hb 9.1 - 01/25/23 (post-[place] hospitalization visit with primary care in [place]) Patient denies ANY overt bleeding since his [place] hospitalization B12/folate wnl Ferritin 229 but transferrin sat 17% TSH is wnl Although ferritin is normal this could represent acute phase reactant given the UTI Thus, since transferrin sat is <20%, gave venofer 200mg IV x 1 on 03/13/23, and will give additional 200mg x 1 today repeat CBC am (2) Hyponatremia: Na 128 on arrival Chronic; Na levels have been upper 120s to low 130s since 2018 based on records Na level 130 today & stable give 20mg of IV lasix today then stop all IV diuretics likely resume PO lasix tomorrow if AM labs are stable (3) Acute on chronic systolic (congestive) heart failure: appears compensated today no further IV lasix after this am's dose repeat labs am last echo was at [facility] - 12/14/22 - EF 25-30% cont coreg BID follows with [facility] - LOVE / ARB / Entresto -- not used due to low-normal BPs? (4) UTI (urinary tract infection): 03/09/23 outpatient urine cx with e.coli repeat urine cx from this admission also with e.coli PSA is <1 although PSA is low he still could have prostatitis possible he needs a lengthier course of Rx will d/c rocephin; change to amox 500mg TID x 3-4 weeks in duration (5) Hypertension: Continue carvedilol (6) Hyperlipidemia: Lipid panel in July 2022 WNL Continue atorvastatin (7) Atrial fibrillation: Continue Eliquis Continue carvedilol (8) Hypothyroidism (acquired): TSH 2.350 on 03/12/2023 Continue levothyroxine (9) Hypomagnesemia: Mag 1.6 on arrival s/p replacement level now normal repeat level am (10) Arthritis: Continue Rinvoq, methotrexate, folic acid Patient reports he takes methotrexate 2.5mg p.o. x 5 tabs (for a total of 12.5mg) once per week on Saturdays Folic acid level wnl No flare at this time Follows with rheum in [place] (11) History of myocardial infarction: anterior TN 2008 s/p stents x 2 to LAD followed by CABG in 2008 Continue aspirin daily Continue statin Continue coreg No ischemic symptoms at this time (12) Insomnia: melatonin 3mg HS vistaril 10mg HS this combination worked well ; will utilize again (13) Hypokalemia: replaced resolved (14) Gastritis: as seen on EGD at [facility] in 12/2022 cont PPI (15) DVT prophylaxis: eliquis 5mg BID (16) Acute ischemic left MCA stroke: 12/13/22 - taken emergently to [facility] underwent L MCA occlusion thrombectomy by neurosurgery, Dr Stratton had excellent recovery from his stroke event with essentially no residuals deficits Eliquis/asa resumed earlier this fall records suggest his post-op course at [place] was complicated by sepsis, aspiration pneumonia, and shock Plan passed PT/OT angie suspect he can d/c home tomorrow will update his family later today Discharge Plan Discharge Items Patient Disposition: Home - Self-Care Reason For Visit: Urinary tract infection Discharge Diagnosis: 1. e.coli urinary tract infection 2. chronic congestive heart failure 3. anemia - due in part to iron deficiency - follow-up needed with hematology 4. hyponatremia (low sodium levels) - chronic 5. pacemaker 6. prior stroke 2022 7. high number of eosinophils in the blood - follow-up needed with hematology 8. coronary artery disease 9. atrial fibrillation Activity: As commented below Activity Comment: gradually increase activities over the next 5-7 days as tolerated Non-emergency contact: Primary Care Provider and Specialist Call non-emergency contact if: you have any medication questions, your symptoms worsen and you have a fever Follow-up/Referrals: Dave Amador CRNP [Primary Care Provider] - 03/22/23 10:20 am Ramy Jones PADiegoC [Physician Materials Handler] - (see Mr Jones or Dr Lloyd Good, [facility], within 2-3 weeks ) Wanda Gan MD [Physician] - (first available - diagnosis: anemia, high eosinophil count) Diet: Heart Healthy Fluids: 1500ml (6 cups) Ambulatory Orders: Basic Metabolic Panel (Routine) Timeframe: 20230320 Location: Determined by Patient Ordered By: Cuong Pereira Complete Blood Count no Diff (Routine) Timeframe: 20230320 Location: Determined by Patient Ordered By: Cuong Pereira Magnesium (Routine) Timeframe: 20230320 Location: Determined by Patient Ordered By: Cuong Pereira Addtl Attending Provider Instructions: Mr Wheatley, You were hospitalized for a variety of issues including urinary tract infection, congestive heart failure, low sodium, anemia, etc. Your urine culture grew e.coli which is the same organism that grew on prior uri ne culture in January. The congestive heart failure was treated with IV lasix. Your sodium levels remained mildly low but stable in the upper 120s to low 130s range. This has been your sodium level for quite some time. Anemia - which is when your red cells are low in the blood - has been low for some time. Your hemoglobin level stayed about 8 during the hospitalization. We checked the stool for blood upon your arrival in the ER and the stool did not show signs of this. B12 and folic acid levels were normal. Your iron levels were mildly low likely due to prior gastrointestinal bleeding in December (when you were hospitalized in [place]) as well as frequent blood draws over the last few months. We administered 3 rounds of IV iron to you while you were hospitalized. Rheumatoid arthritis and other forms of rheumatic disease / inflammatory conditions can contribute to anemia. In addition to the above we noted that your eosinophil count (a type of white blood cell) was elevated during your stay. The cause & significance of this is uncertain. Eosinophils will often increase in individuals with asthma, allergic disease, and other conditions. We had your blood examined under the microscope by a pathologist (physician that looks at blood & other specimens in a lab) and they did not see any obvious signs of a blood cancer. Recommendations - 1. ok to HOLD your oral iron tablets for now since you received 3 runs of IV iron while here 2. for urinary tract infection - and possibly even prostate infection (prostatitis) - take amoxicillin 500mg three times daily x 10 additional days, first dose TONIGHT upon return home I will defer to your family doctor whether the antibiotic course should be extended out even further after the above 10-day course has finished 3. check your weight every morning on the same scale. If you gain more than 2- 3 pounds over 1-2 days OR more than 5 pounds in 5 days please let your cadd manager or family doctor know. This is typically one of the first signs of fluild weight gain from congestive heart failure 4. for trouble sleeping you can take [id number] melatonin 3mg at bedtime as needed/as desired 5. please have your family doctor repeat your lab work in 5-7 days. CBC, BMP, and magnesium are recommended; I will place lab orders for you (they can be drawn at [facility]) Follow-up - see separate section Return to [facility] if * you have fevers over 100 degrees * you have worsening shortness of breath * you have chest pains * you have severe dizziness or lightheadedness * you develop severe diarrhea * any other concerns It was our pleasure to care for you! Addtl Wet Finisher Provider Instructions: Congestive Heart Failure instructions - Call 911 and go to the Emergency Room if: * You have tightness or pain in your chest that does not go away with rest or Nitroglycerin * You are very short of breath even with rest Call your doctor if any of the following symptoms or problems start or get worse: * Shortness of breath or difficulty breathing * Wake up at night short of breath * Chest pain * Cough * Swelling of your hands, fee, or legs * More fatigued or tired with your normal activity * Palpitations - sudden fast heart beats WEIGHT * Weigh yourself every morning after using the bathroom. * Use the same scale. * Wear the same amount of clothing. * Write your weight down on your chart. * Call your doctor if you gain more than 2-3 pounds in 1-2 days. MEDICATIONS * Use this discharge instruction sheet for instructions. * Take your medications at the time your doctor ordered. * Do not skip a dose of your medicines. * If you miss a dose of medicine, take as soon as possible, but DO NOT DOUBLE A DOSE. * Read your medicine information when you get home. * Know all of the side effects of your medicine. * Call your doctor's office if you have any side effects. * Be sure all of your doctors know what medicine and herbs you take (including cold, flu, and herbal medicine). * Pain Medicine: If you do not get relief from your pain, please call your doctor for help. Take the following with you to your follow-up doctor appointments: * Weight Chart * Medication List * List of questions Do not drink excessive alcohol, beer or wine. Pending Studies at Discharge: No Stand-Alone Forms: My [facility] Pinger, Smoking Cessation Medications and DC Order Prescriptions: New amoxicillin 500 mg Capsule 500 mg PO TID 10 Days Qty: 30 1RF melatonin 3 mg Tablet 3 mg PO HS PRN (Reason: sleep) Qty: 30 0RF Rx Instructions: purchase [id number] Continued carvedilol 12.5 mg tablet 12.5 mg PO BID Qty: 180 1RF Rx Instructions: must administer with a meal/food aspirin 81 mg tablet,chewable 81 mg PO DAILY Hold Instructions: Per PH D/C Patient Comments: CONFIRMED ON [facility] DC SUMMARY AND WITH 12/27 potassium chloride 20 mEq tablet,ER particles/crystals 20 meq PO DAILY Qty: 90 2RF nitroglycerin 400 mcg/spray spray,non-aerosol 0.4 mg SL Q5M PRN (Reason: chest pain) Qty: 12 0RF Rx Instructions: do not exceed 3 doses per episode pantoprazole 40 mg tablet,delayed release (DR/EC) 40 mg PO DAILY Qty: 90 3RF Eliquis 5 mg tablet 5 mg PO BID Qty: 60 2RF atorvastatin 80 mg tablet 80 mg PO QAM Rx Instructions: TAKE ONE TABLET BY MOUTH EVERY DAY folic acid 1 mg tablet 1 mg PO QAM levothyroxine 88 mcg tablet 88 mcg PO DAILYBB cholecalciferol (vitamin D3) [Vitamin D3] 50 mcg (2,000 unit) Tablet 50 mcg PO QAM cyanocobalamin (vitamin B-12) [Vitamin B-12] 500 mcg Tablet 500 mcg PO QAM Rinvoq 15 mg Tablet Extended Release 24 Hr 15 mg PO QAM ascorbic acid (vitamin C) [Vitamin C With Clare Hips] 500 mg Tablet 500 mg PO DAILY furosemide 40 mg tablet 40 mg PO DAILY MDD May take additional if needed methotrexate sodium 2.5 mg tablet 12.5 mg PO WK Rx Instructions: 2.5mg p.o. x 5 tablets (for a total of 12.5mg) once per week on Saturdays Held ferrous sulfate 325 mg (65 mg iron) tablet,delayed release (DR/EC) 325 mg PO 2XWK Hold Instructions: hold for now since you received IV iron x 3 in the hospital Discharge Orders: Discharge Order (Routine); Ordered 03/15/23 Ordered By: Cuong Pereira Admission Data Admit Date/Time: 03/12/23 12:09 Attending Provider: Cuong Pereira Admit Provider: Cuong De Guzman Primary Care Provider: Dave Amador Other Providers: Cuong De Guzman Coding Diagnoses Anemia D64.9 Hyponatremia E87.1 Acute on chronic systolic (congestive) heart failure I50.23 UTI (urinary tract infection) N39.0 Hypertension I10 Hyperlipidemia E78.5 Atrial fibrillation I48.91 Hypothyroidism (acquired) E03.9 Hypomagnesemia E83.42 Arthritis M19.90 History of myocardial infarction I25.2 Insomnia G47.00 Hypokalemia E87.6 Gastritis K29.70 DVT prophylaxis Z29.9 Acute ischemic left MCA stroke I63.512
[2023-03-15 14:28] LABS: Bilirubin,Total 0.7 mg/dl (0.2-1.0)
[2023-03-18] MEDS ORDERED: metHOTREXate sodium 2.5 MG TAB PO SCH (09:00)
== END 2023-03-15 15:44 | disposition home or self-care (01) | DRG 689 ==
LOC: ED 08:48 → SUATTDRO 12:09 → EDINP 12:09 → 2W 14:46 → 2N 03-13 11:52

== ENCOUNTER 2023-05-18 07:58 | Observation (INO) ==
--- NOTE | 2023-05-18 10:12 | History & Physical Bridge Note ---
Date of Service May 18, 2023 History & Physical Bridge Note I have examined the patient, reviewed the History & Physical and in the interval since the performance of the History & Physical I have noted the following changes of clinical significance: no changes noted
--- NOTE | 2023-05-18 10:13 | Pre Anesthesia Assessment ---
Date of Service May 18, 2023 Pre Sedation Assessment Vital Signs Temp Pulse Resp BP Pulse Ox O2 Del Method 05/18/23 08:14 36.8 C 87 16 113/79 97 Room Air Cardiovascular + regular rate and + irregularly irregular Respiratory + respiratory effort normal Pre-Sedation Airway Assessment Smoking Status: Former smoker Hx Sleep Apnea: No Hx Difficult Intubation: No Short, Thick Neck: No Thyromental Distance: > or= 3.5 Finger Breadths Oral Cavity: + WNL Mallampati Class: IV ASA: ASA3 NPO Status Date of Last Intake of Fluids: 05/18/23 Time of Last Intake of Fluids: 05:00 Last Oral Intake of Fluids Comment: sip with meds Date of Last Intake of Solid Food: 05/17/23 Procedure Planning Contraindications for Sedation: none Current Medications Reviewed: Yes Notes The planned sedation has been discussed with the patient. Informed Consent was obtained. I have identified the patient, determined the appropriateness of sedation and have assessed the patient immediately prior to the procedure. All medicine(s) and interventions are by my order.
[2023-05-18] MEDS: VANCOMYCIN HCL 1000MG/20ML VIAL ONE (11:34)
[2023-05-18] MEDS: LIDOCAINE 1% LOCAL 20 ML VIAL ONE (11:34)
[2023-05-18] MEDS: BUPIVACAINE 0.25% PF 30 ML VIAL ONE (11:34)
[2023-05-18] MEDS: ceFAZolin 330 MG/ML 1 GM VIAL ONE (11:35)
[2023-05-18] MEDS: WATER, STERILE FOR INJ 10 ML VIAL ONE (11:35)
[2023-05-18] MEDS: fentaNYL citrate PF 100 MCG/2 ML VIAL ONE ×2 (11:35→11:36)
[2023-05-18] MEDS: MIDAZOLAM HCL 5 MG/ML 1 ML VIAL ONE (11:35)
[2023-05-18] MEDS ORDERED: oxyCODONE HCL IR 5 MG TAB (IMMEDIATE RELEASE) PO PRN (11:55)
--- NOTE | 2023-05-18 11:55 | Electrophysiology Report ---
Date of Service May 18, 2023 Electrophysiology Procedure Electrophysiology Procedure Report Procedure performed: Pulse generator change and lead revision for dual-chamber ICD Staff textile screen maker: Mohit Dumont MD Indication: The patient is a 67-year-old gentleman with a history of a cardiomyopathy and reduced LV systolic function who previously undergone implantation of a dual-chamber ICD. He was noted on routine monitoring to have reached the elective replacement interval. He was also noted to have poor function of the right ventricular lead. As such, he was advised to consider a lead revision at the time of pulse generator change. Shared decision-making was employed in order to determine the recommended procedure. We did discuss the alternative of not replacing the generator. We discussed the alternative of the need extraction and reimplantation and we also had planned for a possible upgrade of the device to include resynchronization therapy based on his level of pacing. Procedure in detail: The patient was informed of the risk benefits and alternatives to the intended procedure. He understood and wished to proceed. He was taken to the electrophysiology suite in a fasting state. Preoperative antibiotic was administered. Conscious sedation was administered per protocol and the patient was monitored electrocardiography throughout today's procedure. The left upper pectoral area was prepped and draped in usual sterile fashion. This area was an esthetized and subcutaneous menstruation with lidocaine and Marcaine solution. Incision was made at the site and carried down to the previously implanted pulse generator using the PlasmaBlade. Plasty was also employed for dissection and hemostasis. The previously implanted device and leads were then freed from surrounding scar tissue. A possible capsulotomy and pocket revision was then performed. The left axillary vein was subsequently accessed twice using modified cylinder technique and a sheath was placed over a guidewire at the site. There was great difficulty encountered in advancing the guidewire into the right atrium. There appeared to be a significant amount of venous stenosis and scar tissue associated with the previously implanted leads. A series of wires and dilators were employed in order to advance a long sheath into the proximal right atrium. The sheath was subsequently used to facilitate passage of an ICD lead to the right ventricular apex under fluoroscopic guidance. Adequate sensing and threshold parameters were obtained prior to active fixation of the lead to the endocardial surface. The proximal portion lead was then sutured to the prepectoralis fascia using nonabsorbable suture. The device pocket was irrigated with an antibiotic solution. The leads were detached from the old device and attached to the new device. The old right ventricular lead w as retained and capped. The leads and device were then placed back in the pocket and the pocket was closed in 3 layers of absorbable suture. Steri-Strips and a sterile dressing were applied. The device was tested noninvasively prior to inclusion of the procedure. The patient Toller procedure well. There were no immediate complications. Equipment used: New pulse generator: [employer] model number [id number] serial number [id number] Explanted pulse generator: [employer] model number [id number] serial number [id number] Retained right atrial lead: [employer] model #5076 serial number [id number] Retained and capped right ventricular pacing lead: [employer] model number 6935M serial number [id number] New right ventricular ICD lead: [employer] model number 6935M serial number [id number] Measured data Right atrial lead: Patient in permanent atrial fibrillation. P wave sensing 0.4 mV. Pacing impedance 437 ohms Right ventricular lead: R waves measured 4.5 mV and a bipolar configuration. Pacing threshold 0.5 V at 0.4 ms with a pacing impedance of 418 ohms Impression: Successful pulse generator change and lead revision for dual-chamber ICD. Capping and abandoning previously implanted right ventricular ICD lead Significant stenosis of the venous system and associated scar precluded advancement of any additional leads. [facility] Electrophysiology codes Pacing Procedure 1: Pacin Revision of packet for Pacer ICD Procedure 1: ICD: 61362 Insert single or dual ICD system PG Moderate Sedation Codes Moderate Sedation Codes Procedure 1: Sedation/Anesthesia: 77997 Mod Sedation by the same physician;Init15 Min Child Age 5 & Up Procedure 2: Sedation/Anesthesia: 48510 Mod Sedation by the same physician; Ea [id number] Minutes
--- NOTE | 2023-05-18 11:55 | Post Anesthesia Assessment ---
Date of Service May 18, 2023 Post Sedation Assessment Vital Signs Temp Pulse Resp BP Pulse Ox O2 Del Method 05/18/23 08:14 36.8 C 87 16 113/79 97 Room Air Recovery Score Activity: Moves 4 extremities Respiration: Deep Breath/Cough Circulation: +/-20% PreAnes Value Consciousness: Fully Awake Oxygen Saturation: > 92% On Room Air Discharge Sedation Level of Care: Fast Track Phase II Post Sedation Plan On clinical assessment, the patient appears to have tolerated the sedation without complications. Patient is recovering as anticipated. Patient will continue to be monitored by nursing and may be discharged when sedation discharge criteria are met per below protocol. Upon Completions of procedure up to 15 minutes continue every 5 minute vital signs and the P.A.R. score; then discharge to a Phase I or Fast Track to Phase II per the following guidelines: * Discharge Patient to appropriate Phase II area if PAR is 8 or greater or return to pre- procedure baseline. The post - procedure orders will be as directed. * If PAR score is less than 8 or not return to pre-procedure baseline then patient will follow Phase I monitoring till PAR is reached for Phase II. The Phase I may be done in procedure room or may call to secure a Phase I area. * If naloxone or flumazenil are used for reversal, hold in Phase I for continued monitoring from when last reversal dose was given for a minimum of 60 minutes or longer pending the nurse and/or physician discretion of patient condition before discharge to Phase II. Please call the Sedation Physician to re-evaluate and complete post-note for discharge to Phase II area. Do NOT discharge from procedure sedation or Phase 1 until post- sedation evaluation note is complete by procedure /sedation MD Sedation Discharge Instructions to be given to the patient at discharge to home.
[2023-05-18] MEDS ORDERED: MELATONIN 3 MG TAB PO PRN ×2 (11:59→14:09)
[2023-05-18] MEDS ORDERED: NITROGLYCERIN 60 SPRAYS/4.9 GM SPRAY SL PRN (11:59)
[2023-05-18] MEDS ORDERED: ceFAZolin 1000MG 1,000 MG/7.5 ML SYR IV ONE (18:30)
[2023-05-18] MEDS ORDERED: SODIUM CHLORIDE 1 GM TABLET PO SCH (21:00)
[2023-05-18] MEDS ORDERED: carvediloL 12.5 MG TAB PO SCH (21:00)
[2023-05-18] MEDS: ceFAZolin 1000MG 1,000 MG/7.5 ML SYR IV ONE (22:04)
[2023-05-18] MEDS: SODIUM CHLORIDE 1 GM TABLET PO SCH (22:05)
[2023-05-18] MEDS: carvediloL 12.5 MG TAB PO SCH (22:05)
[2023-05-19] MEDS: ACETAMINOPHEN 325 MG TAB PO PRN (02:30)
[2023-05-19] MEDS ORDERED: LEVOTHYROXINE SODIUM 88 MCG TABLET PO SCH (06:30)
[2023-05-19] MEDS: LEVOTHYROXINE SODIUM 88 MCG TABLET PO SCH (06:43)
[2023-05-19] MEDS: ASPIRIN 81 MG CHEW PO SCH (08:44)
[2023-05-19] MEDS: POTASSIUM CHLORIDE CRTAB 20 MEQ TABCR PO SCH (08:44)
[2023-05-19] MEDS: FUROSEMIDE 40 MG TAB PO SCH (08:44)
[2023-05-19] MEDS: PANTOprazole 40 MG TAB PO SCH (08:45)
[2023-05-19] MEDS ORDERED: POTASSIUM CHLORIDE CRTAB 20 MEQ TABCR PO SCH (09:00)
[2023-05-19] MEDS ORDERED: NON-FORMULARY MEDICATION (Upadacitinib [Rinvoq] 15 mg Tablet Extended Release 24 Hr) PO SCH (09:00)
[2023-05-19] MEDS ORDERED: ASPIRIN 81 MG CHEW PO SCH (09:00)
[2023-05-19] MEDS ORDERED: PANTOprazole 40 MG TAB PO SCH (09:00)
[2023-05-19] MEDS ORDERED: ATORVASTATIN 40 MG TAB PO SCH (09:00)
[2023-05-19] MEDS ORDERED: FUROSEMIDE 40 MG TAB PO SCH (09:00)
--- NOTE | 2023-05-19 11:26 | Discharge Summary ---
Date of Service May 19, 2023 Admission HPI Per Admitting Provider The patient is a 67-year-old gentleman with a history of prior ICD implantation. He is noted on routine monitoring to have reached elective replacement interval and also to have dysfunction of the right ventricular lead. Was therefore admitted for generator change and lead revision. Principal Diagnosis Cardiomyopathy Discharge Exam On the day of discharge the patient was feeling well. Evaluation of the implant site did not reveal any significant hematoma or bruising. No drainage. No erythema or tenderness. Discharge Data Allergies Allergy/AdvReac Type Severity Reaction Status Date / Time shellfish derived Allergy Severe TONGUE Verified 05/18/23 08:31 SWELLS UP Iodinated Contrast Media AdvReac Unknown SWEATING,NAUSEA-WITH Verified 05/18/23 08:31 TEST DYE Procedures Performed Operation Date: 05/18/23 09:30 Actual Procedures p ICD Insertion Single or Dual - Mohit Dumont MD s ICD Gen Change Dual - Mohit Dumont MD Ordered Studies 05/18/23 07:15 EP Lab Images for PACS ONCE EP Lab Images for PACS ONCE Hospital Course (1) ICD (implantable cardioverter-defibrillator) battery depletion: (2) Ischemic cardiomyopathy: Plan On the day of admission the patient underwent an ICD generator change and lead revision to involve the addition of a 2nd right ventricular ICD lead. The procedure was uncomplicated. The remainder of his hospitalization was unrem arkable. On the day of discharge and x-ray demonstrated stable lead position and no pneumothorax. Device interrogation revealed normal function of the newly implanted lead. Normal function of the device. Total Time Total Time Spent Total Time Spent (In Minutes): 20 Discharge Plan Discharge Items Patient Disposition: Home - Self-Care Reason For Visit: ICD GENERATOR CHANGE Discharge Diagnosis: Cardiomyopathy Activity: Resume your previous activity Lifting Comment: No lifting left arm above shoulder behind neck for 6 weeks Bathing: Keep incision dry Bathing Comment: Keep wound dry and Steri-Strips intact until follow-up Exercise/Sports: Rest today Driving/Machine Use: Resume 1 day after discharge Non-emergency contact: Harbor Department Manager Call non-emergency contact if: you have any medication questions, your pain is worsening, you have a fever, your wound has increased redness and your wound has increased drainage Follow-up/Referrals: Saritha Torrez PA-C [Physician Methodologist] - 05/24/23 10:20 am Diet: Heart Healthy Addtl Attending Provider Instructions: Do not resume Eliquis until MondayMay 20 Pending Studies at Discharge: No Stand-Alone Forms: My [facility] FilmBreak, Smoking Cessation Medications and DC Order Prescriptions: Continued aspirin 81 mg tablet,chewable 81 mg PO DAILY Hold Instructions: Per PH D/C Patient Comments: CONFIRMED ON [facility] DC SUMMARY AND WITH 12/27 ferrous sulfate 325 mg (65 mg iron) tablet,delayed release (DR/EC) 325 mg PO 2XWK Hold Instructions: hold for now since you received IV iron x 3 in the hospital potassium chloride 20 mEq tablet,ER particles/crystals 20 meq PO DAILY Qty: 90 2RF carvedilol 12.5 mg tablet 12.5 mg PO BID Qty: 180 1RF Rx Instructions: must administer with a meal/food atorvastatin 80 mg tablet 80 mg PO QAM Qty: 90 1RF Rx Instructions: TAKE ONE TABLET BY MOUTH EVERY DAY Eliquis 5 mg tablet 5 mg PO BID Qty: 60 2RF sodium chloride 1,000 mg tablet,soluble 1,000 mg PO BID Qty: 60 3RF nitroglycerin 400 mcg/spray spray,non-aerosol 0.4 mg SL Q5M PRN (Reason: chest pain) Qty: 12 0RF Rx Instructions: do not exceed 3 doses per episode pantoprazole 40 mg tablet,delayed release (DR/EC) 40 mg PO DAILY Qty: 90 3RF folic acid 1 mg tablet 1 mg PO QAM levothyroxine 88 mcg tablet 88 mcg PO DAILYBB cholecalciferol (vitamin D3) [Vitamin D3] 50 mcg (2,000 unit) Tablet 50 mcg PO QAM cyanocobalamin (vitamin B-12) [Vitamin B-12] 500 mcg Tablet 500 mcg PO QAM Rinvoq 15 mg Tablet Extended Release 24 Hr 15 mg PO QAM ascorbic acid (vitamin C) [Vitamin C With Clare Hips] 500 mg Tablet 500 mg PO DAILY furosemide 40 mg tablet 40 mg PO DAILY MDD May take additional if needed methotrexate sodium 2.5 mg tablet 12.5 mg PO WK Rx Instructions: 2.5mg p.o. x 5 tablets (for a total of 12.5mg) once per week on Saturdays amoxicillin 500 mg Capsule 500 mg PO TID 10 Days Qty: 30 1RF melatonin 3 mg Tablet 3 mg PO HS PRN (Reason: sleep) Qty: 30 0RF Rx Instructions: purchase [id number] Discharge Orders: Discharge Order (Routine); Ordered 05/19/23 Ordered By: Mohit Dumont Admission Data Admit Date/Time: 05/18/23 11:58 Attending Provider: Mohit Dumont Admit Provider: Mohit Dumont Primary Care Provider: Dave Amador Other Interventions: Discharge Summary Assessment (RN) Last Done: 05/19/23 11:43 Coding Level of Care Code 72809 IN/OBS DISCH 30 MIN/LESS Diagnoses ICD (implantable cardioverter-defibrillator) battery depletion Z45.02 Ischemic cardiomyopathy I25.5
--- NOTE | 2023-05-19 11:30 | XRay Report ---
TWO VIEW CHEST CLINICAL HISTORY: Post pacemaker implantation.. FINDINGS: PA and lateral chest radiographs are compared to study dated 03/12/2023. The patient is stat us post midline sternotomy. A 3-lead cardiac AICD is in place. The heart is enlarged noting atheroscl erotic calcification of the thoracic aorta. There is pulmonary vascular congestion. Small pleural eff usions are seen on the lateral projection. There is bibasilar scarring/atelectasis. Foci of parenchym al scarring are seen throughout both lungs. There is no pneumothorax. The skeletal structures are ost eopenic. The bony thorax appears intact. IMPRESSION: 1. A 3-lead cardiac pacemaker is in place. No pneumothorax is seen post procedure. 2. Cardiomegaly with pulmonary vascular congestion. 3. Small pleural effusions are noted on the lateral projection. ACT 112: Negative or not required by law. Electronically signed by: Giovanny Gramajo M.D. 05/19/2023 11:29 AM
[2023-05-19] MEDS: ATORVASTATIN 40 MG TAB PO SCH (11:34)
== END 2023-05-19 12:30 | disposition home or self-care (01) ==
LOC: EP 07:58 → 2E 07:58 → EP 13:00
PROC: EPB.ICD (2023-05-18 09:30)

== ENCOUNTER 2023-06-12 10:00 | Inpatient (IN) ==
[2023-06-12 11:13] LABS: Basophils # (auto) 0.04 K/uL (0.00-0.20); Basophils % (auto) 0.7 %; Eosinophils # (auto) 0.22 K/uL (0.00-0.50); Hematocrit (blood only) 30.3 % (42.0-52.0); Hemoglobin 10.2 g/dl (14.0-18.0); Immature Granulocytes # (auto) 0.02 K/uL (0.01-0.20); Immature Granulocytes % (auto) 0.4 %; Lymphocytes # (auto) 0.44 K/uL (1.20-3.40); Lymphocytes % (auto) 7.9 %; Mean Corpuscular Hgb Conc 33.7 g/dL (32.0-36.0); Mean Platelet Volume 11.2 fL (9.4-12.4); Monocytes % (auto) 3.6 %; Neutrophils # (auto) 4.64 K/uL (1.40-6.50); Neutrophils % (auto) 83.4 %; Platelet Count 156 K/uL (130-400); RDW Coefficient of Variation 17.8 % (11.5-14.5); RDW Standard Deviation 61.4 fL (36.4-46.3); Red Blood Count 3.19 M/uL (4.70-6.10); White Blood Count 5.56 K/ul (4.8-10.8)
--- NOTE | 2023-06-12 11:19 | Emergency Department Note ---
History of Present Illness General Chief complaint: Shortness of Breath/Dyspnea Stated complaint: TROUBLE BREATHING, WEAKNESS, LEG SWELLING Time Seen by Provider: 06/12/23 11:04 Source: patient, family ( who was at the bedside), RN notes reviewed and old records reviewed (05/24/23-primary care office visit for follow-up from hospital stay) Mode of arrival: ambulatory Limitations: no limitations History of Present Illness Maximum Pain Intensity: 8 This patient is 67-year-old male who comes in complaining short of breath. He said that he has been short of breath since last Monday however got worse overnight his feels he is retaining fluid she says his legs and abdomen swollen he takes Lasix 40 mg twice daily has not missed any medications he has been admitted once before for CHF his says he had denies any chest pain he had no fever he has a cough he had episodes of emesis at times but mostly they sound like them and posttussive no fall or trauma no blood or melena in his stool he feels very diffusely weak. He recently had an ICD/pacemaker placed here. He had no problems with the wound site. No firing of the defibrillator. Home Medications Medication Instructions Recorded Confirmed Type ascorbic acid (vitamin C) 500 mg 500 mg PO DAILY 12/13/22 06/12/23 History tablet (Vitamin C With Clare Hips) cholecalciferol (vitamin D3) 50 50 mcg PO QAM 12/13/22 06/12/23 History mcg (2,000 unit) tablet (Vitamin D3) cyanocobalamin (vitamin B-12) 500 500 mcg PO QAM 12/13/22 06/12/23 History mcg tablet (Vitamin B-12) folic acid 1 mg tablet 1 mg PO QAM 12/13/22 06/12/23 History levothyroxine 88 mcg tablet 88 mcg PO DAILYBB 12/13/22 06/12/23 History upadacitinib 15 mg tablet,extended 15 mg PO QAM 12/13/22 06/12/23 History release 24 hr (Rinvoq) aspirin 81 mg chewable tablet 81 mg PO DAILY 12/27/22 06/12/23 History ferrous sulfate 325 mg (65 mg 325 mg PO 2XWK 01/24/23 06/12/23 History iron) tablet,delayed release pantoprazole 40 mg tablet,delayed 40 mg PO DAILY #90 tabs 01/25/23 06/12/23 Rx release potassium chloride 20 mEq 20 meq PO DAILY #90 tabs 02/03/23 06/12/23 Rx tablet,extended release(part/cryst) furosemide 40 mg tablet 40 mg PO DAILY 03/12/23 06/12/23 History methotrexate sodium 2.5 mg tablet 12.5 mg PO WK 03/12/23 06/12/23 History melatonin 3 mg tablet 3 mg PO HS PRN sleep #30 tabs 03/15/23 06/12/23 Rx atorvastatin 80 mg tablet 80 mg PO QAM #90 tabs 04/27/23 06/12/23 Rx carvedilol 12.5 mg tablet 12.5 mg PO BID #180 tabs 04/27/23 06/12/23 Rx apixaban 5 mg tablet (Eliquis) 5 mg PO BID #60 tabs 05/01/23 06/12/23 Rx nitroglycerin 400 mcg/spray 0.4 mg sublingual Q5M PRN chest 05/24/23 06/12/23 Rx translingual pain #12 grams sodium chloride 1,000 mg soluble 2,000 mg (2 x 1,000 mg) PO BID 06/06/23 06/12/23 Rx tablet #120 tabs Allergies Allergy/AdvReac Type Severity Reaction Status Date / Time shellfish derived Allergy Severe TONGUE Verified 05/24/23 10:11 SWELLS UP Iodinated Contrast Media AdvReac Unknown SWEATING,NAUSEA-WITH Verified 05/24/23 10:11 TEST DYE Past Med/Surg History Medical History Abnormal lead impedance of implantable cardioverter-defibrillator (ICD) ICD (implantable cardioverter-defibrillator) battery depletion Proteinuria Hypothyroidism (acquired) Prediabetes Elevated AST (SGOT) High alkaline phosphatase History of myocardial infarction (07/13/03) Anterior [facility] at [facility], TPA, stent LAD, 60-70%RCA, EF 35% Erosive osteoarthritis bilateral feet Arthritis Hypertension Hyperlipidemia Ventricular tachycardia With arrest now with ICD Ischemic cardiomyopathy DJD (degenerative joint disease) of knee Chronic systolic (congestive) heart failure Atrial fibrillation (~12/2016) Surgical History History of total left knee replacement (TKR) (08/07/15) History of implantable cardiac defibrillator (ICD) Single lead ICD placement, Medtronic device History of percutaneous coronary intervention To the LAD History of coronary artery bypass graft (~2008) X4 in 2008 with a GUILLORY to the LAD, vein graft to the diagonal, posterior lateral circ, and PDA Family History Father Myocardial infarction, Onset Age: 52 Family history of coronary artery disease Son Family history of coronary artery disease, Onset Age: 30 CABG Denies family history of Ovarian cancer Prostate cancer Breast cancer Colorectal cancer Social History Smoking Status: Former smoker Tobacco Type: Pipe Cigarettes Per Day: hx of chewing tobacco; Second Hand Exposure: No; Do You Dip or Chew Tobacco: No; Hx Alcohol Use: No Hx Substance Use: No Preferred Language: Kiswahili Visual Impairment: Limited Hearing Ability: Normal Scientific Glass Blower Required: No Beliefs That Will Affect Care: None marital status: Current Living Situation: Family current occupational status: retired current occupation: [employer] How many Children do You have: 2 Feels Safe at Home: Yes Childhood Exposure to Second-Hand Smoke: No Diet: regular Diet Comment: Regular caffeine: Yes (coffee) during the past year weight has: remained stable Dental Care, Regularly: No Physical Activity Frequency: Daily Seatbelt Use: always Sunscreen Use: Yes Assistive Devices: Cane Review of Systems A total of 10 systems reviewed and were otherwise negative Physical Exam Vital Signs Vital Signs - 24 hr 06/12/23 10:22 06/12/23 10:44 06/12/23 12:29 Temperature 36.7 C Temperature Source Temporal Artery Scan Pulse Rate 74 67 Pulse Rate [Apical] 66 Pulse Rhythm [Apical] Regular Pulse Strength [Apical] Normal Respiratory Rate 18 17 Respiratory Effort / Characteristics Non-Labored Spontaneous Respiratory Depth Normal Respiratory Pattern Regular Blood Pressure 133/82 Blood Pressure [Right Arm] 121/98 Blood Pressure Mean 99 Blood Pressure Mean [Right Arm] 105 Blood Pressure Position [Right Arm] Semi-fowlers Pulse Oximetry 97 96 Oxygen Delivery Method Room Air Room Air Sepsis New/Unexplained Change in Mental Status No Sepsis Action Taken by Nursing No Action Required General: Well developed well nourished older male who appears mildly tachypneic but otherwise in no acute distress, breathing comfortably on room air. Normal speech HEENT: Normal cephalic atraumatic. Pupils are equal round and reactive to light. Extraocular movements are intact. Oropharynx is pink with moist mucous membranes. No swelling of the mouth lips or tongue. Neck: Supple with a midline trachea. No meningeal signs or stiffness, no JVD or bruits. No Stridor. Chest: Clear to auscultation bilaterally. No wheezes or rhonchi. No increased work of breathing. Heart: Regular rate and rhythm without murmurs or gallops. Abdomen: Soft nontender without rebound guarding or rigidity. His abdomen does seem somewhat distended but nontender. I suspect he does have some edema in his legs into the abdomen Extremities: No cyanosis clubbing. He does have 1+ bilateral lower extremity edema no calf tenderness or assymetry Spine/Back. Non tender to palpation. No CVA tenderness Skin: Good turgor without rashes. Neurologic exam: Cranial nerves two through 12 are intact. Motor and sensation are intact and symmetrical throughout. Medical Decision Making Differential Diagnosis CHF, pneumonia, acute coronary syndrome, arrhythmia, infection, respiratory illness, electrolyte or metabolic abnormality Medical Records Attestation: I reviewed the patient's medical records. Home Medications Current Medication List: was personally reviewed by me Laboratory Data Attestation: I reviewed the patient's lab results. 06/12/23 10:45 06/12/23 10:45 Lab Results 06/12/23 06/12/23 06/12/23 Range/Units 10:45 11:15 12:35 WBC 5.56 (4.8-10.8) K/ul RBC 3.19 L (4.70-6.10) M/uL Hgb 10.2 L (14.0-18.0) g/dl Hct 30.3 L (42.0-52.0) % MCV 95.0 (80.0-100.0) fL MCH 32.0 (25.0-34.0) pg MCHC 33.7 (32.0-36.0) g/dL RDW Std Deviation 61.4 H (36.4-46.3) fL RDW Coeff of Shahid 17.8 H (11.5-14.5) % Plt Count 156 (130-400) K/uL MPV 11.2 (9.4-12.4) fL Immature Gran % (Auto) 0.4 % Neut % (Auto) 83.4 % Lymph % (Auto) 7.9 % [place] % (Auto) 3.6 % Eos % (Auto) 4.0 % Baso % (Auto) 0.7 % Neut # (Auto) 4.64 (1.40-6.50) K/uL Lymph # (Auto) 0.44 L (1.20-3.40) K/uL [place] # (Auto) 0.20 (0.11-0.59) K/uL Eos # (Auto) 0.22 (0.00-0.50) K/uL Baso # (Auto) 0.04 (0.00-0.20) K/uL Immature Gran # (Auto) 0.02 (0.01-0.20) K/uL PT 18.3 H (9.0-12.0) Seconds INR 1.7 H (0.9-1.1) APTT 47 H (21-31) Seconds PTT Ratio 1.7 Sodium 125 L (136-145) mmol/L Potassium 4.4 (3.5-5.1) mmol/L Chloride 93 L (98-107) mmol/L Carbon Dioxide 22 (21-32) mmol/L Anion Gap 10 (3-11) BUN 34 H (6-23) mg/dl Creatinine 3.26 H (0.6-1.4) mg/dl Est Cr Clr Drug Dosing 29.6 ml/min Est GFR ( Amer) 21.8 ml/min Est GFR (Non-Af Amer) 18.8 ml/min BUN/Creatinine Ratio 10.4 (10-20) Glucose 124 H (70-99(Fasting)) mg/dl Calcium 9.1 (8.6-10.3) mg/dl Total Bilirubin 3.1 H (0.2-1.0) mg/dl AST 71 H (13-39) U/L ALT 15 (7-52) U/L Alkaline Phosphatase 204 H (34-104) U/L Troponin I High Sens 43.0 H 43.2 H (0-20) pg/ml B-Natriuretic Peptide 1056 H (0-100) pg/ml Total Protein 7.3 (6.0-8.3) gm/dl Albumin 3.6 (3.4-5.0) gm/dl Globulin 3.7 (2.5-4.0) gm/dl Albumin/Globulin Ratio 1.0 (0.9-2) Adenovirus (PCR) Not Detected (NotDetected) B. pertussis DNA (PCR) Not Detected (NotDetected) B.parapertussis DNA PCR Not Detected (NotDetected) C. pneumoniae DNA (PCR) Not Detected (NotDetected) Coronavirus OC43 (PCR) Not Detected (NotDetected) Coronavirus HKU1 (PCR) Not Detected (NotDetected) Coronavirus 229E (PCR) Not Detected (NotDetected) SARS-CoV-2 (PCR) Not Detected (NotDetected) Coronavirus NL63 (PCR) Not Detected (NotDetected) Human Metapneumovir PCR Not Detected (NotDetected) Influenza Type A (PCR) Not Detected (NotDetected) Influenza Type B (PCR) Not Detected (NotDetected) M. pneumoniae (PCR) Not Detected (NotDetected) Parainfluenza 1 (PCR) Not Detected (NotDetected) Parainfluenza 2 (PCR) Not Detected (NotDetected) Parainfluenza 3 (PCR) Not Detected (NotDetected) Parainfluenza 4 (PCR) Not Detected (NotDetected) RSV (PCR) Not Detected (NotDetected) Entero/Rhino (PCR) Not Detected (NotDetected) Imaging Data Attestation: I personally reviewed and interpreted this imaging study as follows: My Impression: Chest x-raycardiomegaly with congestive heart failure changes. Radiologist's Impression: Chest X-Ray 06/12/23 10:52 XR chest 1V portable CLINICAL HISTORY: Shortness of breath. COMPARISON STUDY: Chest radiograph May 19, 2023. FINDINGS: Left subclavian pacer/AICD is in place. There are median sternotomy wires and mediastinal surgical clips. Moderate cardiomegaly is unchanged. There is mild interstitial thickening. Mild left midlung opacity similar to earlier radiograph of March 12, 2023. IMPRESSION: 1. Cardiomegaly with mild interstitial pulmonary edema. 2. Persistent left midlung opacity. This may reflect scarring or a persistent infectious process. However, radiographic follow-up to ensure resolution and exclude the possibility of an underlying pulmonary lesion is recommended. ACT 112: Negative or not required by law. Electronically signed by: Ryan Mishra M.D. 06/12/2023 12:10 PM ECG Data Attestation: I personally reviewed and interpreted this ECG as follows: Indication: + SOB/dyspnea Rate (beats per minute): 70 Rhythm: + atrial fibrillation ECG Intervals/blocks: + Left bundle branch block and + Normal QT ECG [place]: + Left axis deviation ECG ST segments: + Normal ST segments ECG Findings: no PACs or no PVCs Comparison ECG Date: from (12/13/22) Change: the following changes noted (A-fib has replaced a paced rhythm) MDM Narrative This patient comes in described above he has had increasing shortness of breath and edema in his legs and abdomen. He does not weigh himself at home. he had CHF before. he has not missed any Lasix. His initial vital signs are stable. He was placed on a printed circuit boards stripper etcher. EKG shows no ischemic changes or ectopy has baseline A-fib. Multiple blood testing was obtained as well as chest x-ray. He was reassessed frequently also did swab him with a bio Plizy respiratory panel. His respiratory panel was negative. His chest x-ray shows congestive heart failure with some mild pulmonary edema. BNP is also elevated. Surprisingly however his renal functions are elevated with a creatinine greater than 3 and a BUN in the 30s. This is new for the patient. Troponin is mildly elevated at 43 with however it was rechecked it was 43.2 so is not trending upward. He will need hospitalizations for further inpatient treatment evaluation he will likely need renal and cardiology consultation. I did discuss case at length with Dr. Montes De Oca and the [facility] team and he will admit the patient for these measures Continuous cardiac monitoring: Orders placed in EMR for cancer printed circuit boards stripper etcher: Upon my evaluation, the patient noted to be in A-fib with a rate of 70. Impression & Plan CHF (congestive heart failure), SOB (shortness of breath), Bilateral edema of lower extremity, Acute renal failure, Elevated troponin, Elevated brain natriuretic peptide (BNP) level Discharge Plan Visit Data Chief Complaint: Shortness of Breath/Dyspnea Stated Complaint: TROUBLE BREATHING, WEAKNESS, LEG SWELLING ED Provider: Lexx Toth Discharge Problem: CHF (congestive heart failure), SOB (shortness of breath), Bilateral edema of lower extremity, Acute renal failure, Elevated troponin, Elevated brain natriuretic peptide (BNP) level Patient Disposition: Admitted As Inpatient Discharge Instructions Interventions: ED Discharge Assessment Last Done: 06/12/23 13:26 Discharge Problem: CHF (congestive heart failure) Qualifiers: Heart failure type: unspecified Heart failure chronicity: unspecified Qualified Code(s): I50.9 - Heart failure, unspecified Acute renal failure Qualifiers: Acute renal failure type: unspecified Qualified Code(s): N17.9 - Acute kidney failure, unspecified
[2023-06-12 11:30] LABS: Albumin Level 3.6 gm/dl (3.4-5.0); BUN Creatinine Ratio 10.4 (10-20); Bilirubin,Total 3.1 mg/dl (0.2-1.0); Calcium 9.1 mg/dl (8.6-10.3); Creatinine Clr Calc Pharmacy 29.6 ml/min; Est GFR (African American) 21.8 ml/min; Est GFR (Non-African American) 18.8 ml/min; Globulin 3.7 gm/dl (2.5-4.0); Potassium 4.4 mmol/L (3.5-5.1); Total Protein 7.3 gm/dl (6.0-8.3)
[2023-06-12 11:43] LABS: INR 1.7 (0.9-1.1); Partial Thromboplastin Ratio 1.7; Partial Thromboplastin Time 47 Seconds (21-31); Prothrombin Time 18.3 Seconds (9.0-12.0)
--- NOTE | 2023-06-12 12:11 | XRay Report ---
XR chest 1V portable CLINICAL HISTORY: Shortness of breath. COMPARISON STUDY: Chest radiograph May 19, 2023. FINDINGS: Left subclavian pacer/AICD is in place. There are median sternotomy wires and mediastinal s urgical clips. Moderate cardiomegaly is unchanged. There is mild interstitial thickening. Mild left m idlung opacity similar to earlier radiograph of March 12, 2023. IMPRESSION: 1. Cardiomegaly with mild interstitial pulmonary edema. 2. Persistent left midlung opacity. This may reflect scarring or a persistent infectious process. How ever, radiographic follow-up to ensure resolution and exclude the possibility of an underlying pulmon casey lesion is recommended. ACT 112: Negative or not required by law. Electronically signed by: Ryan Mishra M.D. 06/12/2023 12:10 PM
[2023-06-12 12:17] LABS: Adenovirus PCR Not Detected (NotDetected); Bordetella parapertussis PCR Not Detected (NotDetected); Bordetella pertussis PCR Not Detected (NotDetected); Chlamydia pneumoniae PCR Not Detected (NotDetected); Coronavirus 229E PCR Not Detected (NotDetected); Coronavirus CoV-2 (COVID19)PCR Not Detected (NotDetected); Coronavirus HKU1 PCR Not Detected (NotDetected); Coronavirus NL63 PCR Not Detected (NotDetected); Coronavirus OC43PCR Not Detected (NotDetected); Human Metapneumovirus PCR Not Detected (NotDetected); Influenza A PCR Not Detected (NotDetected); Influenza B PCR Not Detected (NotDetected); Mycoplasma pneumoniae PCR Not Detected (NotDetected); Parainfluenza Virus 1 PCR Not Detected (NotDetected); Parainfluenza Virus 2 PCR Not Detected (NotDetected); Parainfluenza Virus 3 PCR Not Detected (NotDetected); Parainfluenza Virus 4 PCR Not Detected (NotDetected); Respiratory Syncytial VirusPCR Not Detected (NotDetected); Rhinovirus/Enterovirus PCR Not Detected (NotDetected)
--- NOTE | 2023-06-12 12:26 | History & Physical Report ---
Date of Service June 12, 2023 Assessment & Plan (1) Chronic systolic (congestive) heart failure: Plan: Acute CHF,? Underlying cardiorenal - Hx HFrEF 25% s/p ICD placement with recent generator exchange - No leukocytosis - Hyponatremic at 125, creatinine acutely elevated at 3.26 from baseline of 1.34 - BNP acutely elevated 1056, previously ranging ~[id number] - High sensitive troponin 43, repeat pending - Chest x-ray: Cardiomegaly with interstitial pulmonary edema, persistent left midlung opacity? Scarring versus persistent infectious process, repeat imaging for resolution and to exclude pulmonary lesion recommended - Admitting weight 111.9 kg compared to last discharge weight of 103.8 kg, dry weight appears to be somewhere around 94-101 kg based on recent review Patient has a history of hyponatremia, likely due to to CHF and delusional. He was started on outpatient salt tablets approximately a month ago, and then this was increased to twice daily which coincides with his worsening symptoms suspect acute on chronic CHF with iatrogenic salt intake Lasix 40 mg IV twice daily ordered Discussed with nephrology, morning routine consult placed for tomorrow and will see he responds to diuresis today EKG A-fib without acute ischemic change on admission (2) ARF (acute renal failure): Plan: ARF Creatinine elevation from baseline 1.34, 3.26 on admission Suspect cardiorenal, diuresis as above. Nephrology consulted (3) Atrial fibrillation: Plan: History of A-fib: Continue Eliquis, carvedilol (4) Hyponatremia: Plan: Hyponatremia Chronic, mild and generally asymptomatic. Salt tablets discontinued. Continue diuresis as above, fluid restrict. (5) Arthritis: Plan: RA - Home meds continued except Rinvoq due to risk of cardiomyopathy/cardiac Plan Chronic stable issues: Chronic anemia: Improved from baseline, Trend daily Hypertension: Continue beta-freya Prediabetes: Spot glucose checks daily, if rising greater than 180 had basal bolus SSI Hypothyroidism: Continue Synthroid Hyperlipidemia: Continue statin History of ischemic left MCA stroke: No residual deficits, antiplatelet/ant DVT prophylaxis: Anticoagulated Disposition: PCU CODE STATUS: DNR/DNI discussed with patient on admission Diet: Heart healthy, fluid restricted History of Present Illness Primary Care Provider: TASHI Finn is a 67-year-old male currently discharged 05/19/2023 following admission for generator change and lead revision of his ICD who presents to the ER with progressive shortness of breath for approximately 5 days acutely worsened in the last 24 hours. Has had swelling in his legs and abdomen despite taking his prescribed Lasix 40 mg twice daily. Denies chest pain, chest pressure. Feels similar to prior CHF. Has been taking his blood thinner. Started swelling monday started twice daily NaCl around the same time, was on daily once daily for ~one month and then bumped to twice daily last week no chest pain, no chest pressure. Has a heaviness to reathing and pressure in belly from swelling NO fevers, chills, or sweats. No nausea/vomiting Peeing less and lessa amounts. Urination decreased despite Lasix after increasing salt tablets to twice daily No dysuria no abdominal pain, although feels a tight pressure from fluid in his abdomen Has not had chest pain at any point Endorses worsening orthopnea Medical History: Reviewed Medications: Reviewed Surgical History: Reviewed Family history: Reviewed Allergies: Reviewed Social History: No tobacco. No etoh in 7 days, no history of withdrawal. No rec drugs Code Status: DNR/DNI, discussed w/ pt Allergies Allergy/AdvReac Type Severity Reaction Status Date / Time shellfish derived Allergy Severe TONGUE Verified 05/24/23 10:11 SWELLS UP Iodinated Contrast Media AdvReac Unknown SWEATING,NAUSEA-WITH Verified 05/24/23 10:11 TEST DYE Home Medications Medication Instructions Recorded Confirmed Type ascorbic acid (vitamin C) 500 mg 500 mg PO DAILY 12/13/22 06/12/23 History tablet (Vitamin C With Clare Hips) cholecalciferol (vitamin D3) 50 50 mcg PO QAM 12/13/22 06/12/23 History mcg (2,000 unit) tablet (Vitamin D3) cyanocobalamin (vitamin B-12) 500 500 mcg PO QAM 12/13/22 06/12/23 History mcg tablet (Vitamin B-12) folic acid 1 mg tablet 1 mg PO QAM 12/13/22 06/12/23 History levothyroxine 88 mcg tablet 88 mcg PO DAILYBB 12/13/22 06/12/23 History upadacitinib 15 mg tablet,extended 15 mg PO QAM 12/13/22 06/12/23 History release 24 hr (Rinvoq) aspirin 81 mg chewable tablet 81 mg PO DAILY 12/27/22 06/12/23 History ferrous sulfate 325 mg (65 mg 325 mg PO 2XWK 01/24/23 06/12/23 History iron) tablet,delayed release pantoprazole 40 mg tablet,delayed 40 mg PO DAILY #90 tabs 01/25/23 06/12/23 Rx release potassium chloride 20 mEq 20 meq PO DAILY #90 tabs 02/03/23 06/12/23 Rx tablet,extended release(part/cryst) furosemide 40 mg tablet 40 mg PO DAILY 03/12/23 06/12/23 History methotrexate sodium 2.5 mg tablet 12.5 mg PO WK 03/12/23 06/12/23 History melatonin 3 mg tablet 3 mg PO HS PRN sleep #30 tabs 03/15/23 06/12/23 Rx atorvastatin 80 mg tablet 80 mg PO QAM #90 tabs 04/27/23 06/12/23 Rx carvedilol 12.5 mg tablet 12.5 mg PO BID #180 tabs 04/27/23 06/12/23 Rx apixaban 5 mg tablet (Eliquis) 5 mg PO BID #60 tabs 05/01/23 06/12/23 Rx nitroglycerin 400 mcg/spray 0.4 mg sublingual Q5M PRN chest 05/24/23 06/12/23 Rx translingual pain #12 grams sodium chloride 1,000 mg soluble 2,000 mg (2 x 1,000 mg) PO BID 06/06/23 06/12/23 Rx tablet #120 tabs Past Med/Surg History Medical History Abnormal lead impedance of implantable cardioverter-defibrillator (ICD) ICD (implantable cardioverter-defibrillator) battery depletion Proteinuria Hypothyroidism (acquired) Prediabetes Elevated AST (SGOT) High alkaline phosphatase History of myocardial infarction (07/13/03) Anterior [place] at [facility], TPA, stent LAD, 60-70%RCA, EF 35% Erosive osteoarthritis bilateral feet Arthritis Hypertension Hyperlipidemia Ventricular tachycardia With arrest now with ICD Ischemic cardiomyopathy DJD (degenerative joint disease) of knee Chronic systolic (congestive) heart failure Atrial fibrillation (~12/2016) Surgical History History of total left knee replacement (TKR) (08/07/15) History of implantable cardiac defibrillator (ICD) Single lead ICD placement, Medtronic device History of percutaneous coronary intervention To the LAD History of coronary artery bypass graft (~2008) X4 in 2008 with a GUILLORY to the LAD, vein graft to the diagonal, posterior lateral circ, and PDA Family History Father Myocardial infarction, Onset Age: 52 Family history of coronary artery disease Son Family history of coronary artery disease, Onset Age: 30 CABG Denies family history of Ovarian cancer Prostate cancer Breast cancer Colorectal cancer Social History Smoking Status: Former smoker Tobacco Type: Pipe Cigarettes Per Day: hx of chewing tobacco; Second Hand Exposure: No; Do You Dip or Chew Tobacco: No; Hx Alcohol Use: No Hx Substance Use: No Preferred Language: Yakut Visual Impairment: Limited Hearing Ability: Normal Azure Developer Required: No Beliefs That Will Affect Care: None marital status: Current Living Situation: Family current occupational status: retired current occupation: [employer] How many Children do You have: 2 Feels Safe at Home: Yes Childhood Exposure to Second-Hand Smoke: No Diet: regular Diet Comment: Regular caffeine: Yes (coffee) during the past year weight has: remained stable Dental Care, Regularly: No Physical Activity Frequency: Daily Seatbelt Use: always Sunscreen Use: Yes Assistive Devices: Cane Physical Exam Physical Exam: General: A&Ox3. NAD. Cooperative. HEENT: Atraumatic, normocephalic. JVD is present. Vision and hearing grossly intact Pulm: Diminished in the bases with crackles. symmetrical chest rise. No increased work of breathing. No respiratory distress. Cardiac: Irregularly irregular, systolic murmur. Radial pulses intact and symmetrical. JVD is present to the angle of the mandible. ICD exchange incision site C/C/I without signs of dehiscence erythema, warmth, or discharge Abdominal: softly distended, nontender. Without rebound/guarding Extremities: With tense pitting edema in the lower extremities bilaterally. Results & Data Results & Data Vital Signs (Past 12 Hours) Vital Signs Temp Pulse Resp BP Pulse Ox O2 Del Method 06/12/23 10:44 67 06/12/23 10:22 36.7 C 74 18 133/82 97 Room Air PG Care Time/CCT Total # of Minutes Spent Total Time Spent with Patient: Total time spent is greater than 50% in coordination of care (as documented) at patient's floor/unit and/or counseling patient: Coding Level of Care Code 97211 INT INP/OBS CARE 3/75MIN Diagnoses Chronic systolic (congestive) heart failure I50.22 ARF (acute renal failure) N17.9 Atrial fibrillation I48.91 Hyponatremia E87.1 Arthritis M19.90
[2023-06-12] MEDS ORDERED: NITROGLYCERIN 60 SPRAYS/4.9 GM SPRAY SL PRN (13:25)
[2023-06-12] MEDS ORDERED: MELATONIN 3 MG TAB PO PRN (13:25)
[2023-06-12] MEDS ORDERED: ACETAMINOPHEN 325 MG TAB PO PRN (13:25)
[2023-06-12] MEDS: FUROSEMIDE 40 MG/4 ML VIAL IV SCH (13:43)
--- NOTE | 2023-06-12 16:10 | Nephrology Consultation ---
Date of Consultation June 12, 2023 Assessment & Plan (1) Acute kidney injury: Non-oliguric. Clinical presentation suggestive of CRS. UA cloudy, +ketones, +bili. Urine microscopy with 3-5 RBC and hyaline casts. Clinical presentation suggestive of cardiorenal syndrome. Electrolytes acceptable. Good urine output with diuretics. No emergent indication for HYDROTECHNICAL SPECIALIST. Renal US requested. Medications are appropriately dosed for kidney function. Document strict I/O's. Repeat metabolic profile tomorrow AM. Methotrexate held. (2) CHF (congestive heart failure): Acute on chronic heart failure with reduced EF. s/p recent lead revision and generator change. EKG with atrial fibrillation and controlled rate. Furosemide 40 mg IV BID ordered. Fluid restrict to 1.2 L daily. Document I/Os and daily weights. Avoid RAASi due to kidney dysfunction. (3) Hyponatremia: Chronic. Hypervolemic. IV diuretics and fluid restriction started. Urea-Na therapy BID ordered. Repeat labs this evening. Oral NaCl held for now. Recent outpatient evaluation found the patient to be clinically euthyroid with replacement and with normal serum cortisol testing. (4) Chronic kidney disease: CKD III A1. Followed by Dr. River. Baseline creatinine 1.0-1.3 mg/dL. (5) Anemia: Chronic, stable. Followed by hematology. Maintained on oral FeSO4. (6) Elevated bilirubin: Suspected hepatic congestion. Clinical presentation atypical for HRS. Findings consistent with CRS. Rinvoq held. Prospetive monitoring will be provided. History of Present Illness Reason for Consultation: cardiorenal Requesting Physician: Dashawn Wynn MD Attending Physician: Dashawn Wynn MD History of Present Illness Mr. Marquise Wheatley is a 67 year-old male with coronary artery disease (h/o PCI to LAD, CABG), ischemic cardiomyopathy (HFrEF, dual chamber AICD), permanent atrial fibrillation, rheumatoid arthritis (methotrexate + Rinvoq), chronic anemia with iron deficiency (followed by hematology, GI evaluation in December demonstrating gastritis), hypothyroidism, history of ischemic CVA in November --> [place] [facility] disease. Marquise follows in [place] [facility] [place] with Dr. River regarding CKD and chronic hyponatremia. CKD III A1 attributed to microvascular disease. Baseline creatinine is 1.0-1.3 mg/dL. Marquise has not had significant albuminuria. No monoclonal abnormality was identified on serum or urine protein electrophoresis. Serum sodium typically 127-132 mmol/L. Prior evaluation consistent with increased ADH in the setting of heart failure complicated by low sodium diet and excessive fluid intake. Recent therapy has included the addition of oral NaCl tablets. Marquise underwent lead revision and generator change for ICD on May 18. There were no complications with the procedure. He presented to the ER at [facility] today with progressive shortness of breath x 5 days. Symptoms notably worse in the past 24 hours. Evaluation in the ER notable for acute CHF and acute on chronic kidney dysfunction. I discussed the case with Dr. Wynn earlier today. Allergies Allergy/AdvReac Type Severity Reaction Status Date / Time shellfish derived Allergy Severe TONGUE Verified 05/24/23 10:11 SWELLS UP Iodinated Contrast Media AdvReac Unknown SWEATING,NAUSEA-WITH Verified 05/24/23 10:11 TEST DYE Home Medications Medication Instructions Recorded Confirmed Type ascorbic acid (vitamin C) 500 mg 500 mg PO DAILY 12/13/22 06/12/23 History tablet (Vitamin C With Clare Hips) cholecalciferol (vitamin D3) 50 50 mcg PO QAM 12/13/22 06/12/23 History mcg (2,000 unit) tablet (Vitamin D3) cyanocobalamin (vitamin B-12) 500 500 mcg PO QAM 12/13/22 06/12/23 History mcg tablet (Vitamin B-12) folic acid 1 mg tablet 1 mg PO QAM 12/13/22 06/12/23 History levothyroxine 88 mcg tablet 88 mcg PO DAILYBB 12/13/22 06/12/23 History upadacitinib 15 mg tablet,extended 15 mg PO QAM 12/13/22 06/12/23 History release 24 hr (Rinvoq) aspirin 81 mg chewable tablet 81 mg PO DAILY 12/27/22 06/12/23 History ferrous sulfate 325 mg (65 mg 325 mg PO 2XWK 01/24/23 06/12/23 History iron) tablet,delayed release pantoprazole 40 mg tablet,delayed 40 mg PO DAILY #90 tabs 01/25/23 06/12/23 Rx release potassium chloride 20 mEq 20 meq PO DAILY #90 tabs 02/03/23 06/12/23 Rx tablet,extended release(part/cryst) furosemide 40 mg tablet 40 mg PO DAILY 03/12/23 06/12/23 History methotrexate sodium 2.5 mg tablet 12.5 mg PO WK 03/12/23 06/12/23 History melatonin 3 mg tablet 3 mg PO HS PRN sleep #30 tabs 03/15/23 06/12/23 Rx atorvastatin 80 mg tablet 80 mg PO QAM #90 tabs 04/27/23 06/12/23 Rx carvedilol 12.5 mg tablet 12.5 mg PO BID #180 tabs 04/27/23 06/12/23 Rx apixaban 5 mg tablet (Eliquis) 5 mg PO BID #60 tabs 05/01/23 06/12/23 Rx nitroglycerin 400 mcg/spray 0.4 mg sublingual Q5M PRN chest 05/24/23 06/12/23 Rx translingual pain #12 grams sodium chloride 1,000 mg soluble 2,000 mg (2 x 1,000 mg) PO BID 06/06/23 06/12/23 Rx tablet #120 tabs Patient History Medical History Abnormal lead impedance of implantable cardioverter-defibrillator (ICD) ICD (implantable cardioverter-defibrillator) battery depletion Proteinuria Hypothyroidism (acquired) Prediabetes Elevated AST (SGOT) High alkaline phosphatase History of myocardial infarction (07/13/03) Anterior [place] at [facility], TPA, stent LAD, 60-70%RCA, EF 35% Erosive osteoarthritis bilateral feet Arthritis Hypertension Hyperlipidemia Ventricular tachycardia With arrest now with ICD Ischemic cardiomyopathy DJD (degenerative joint disease) of knee Chronic systolic (congestive) heart failure Atrial fibrillation (~12/2016) Surgical History History of total left knee replacement (TKR) (08/07/15) History of implantable cardiac defibrillator (ICD) Single lead ICD placement, Medtronic device History of percutaneous coronary intervention To the LAD History of coronary artery bypass graft (~2008) X4 in 2008 with a GUILLORY to the LAD, vein graft to the diagonal, posterior lateral circ, and PDA Family History Father Myocardial infarction, Onset Age: 52 Family history of coronary artery disease Son Family history of coronary artery disease, Onset Age: 30 CABG Denies family history of Ovarian cancer Prostate cancer Breast cancer Colorectal cancer Social History Smoking Status: Former smoker Tobacco Type: Pipe Cigarettes Per Day: hx of chewing tobacco; Smoking End Date: 15-16 years ago; Second Hand Exposure: Yes; Do You Dip or Chew Tobacco: No; Tobacco Cessation Education Requested by Patient: No Hx Alcohol Use: Yes Alcohol type: beer Alcohol Intake Frequency: 2-3 x/Week Hx Substance Use: No Preferred Language: Nicaraguan Communication Ability: Effective Visual Impairment: Limited Hearing Ability: Normal Italian Teacher Required: No Beliefs That Will Affect Care: None marital status: Current Living Situation: Spouse current occupational status: retired current occupation: [id number] [facility] [facility] How many Children do You have: 2 Other Information That Helps Us Care for You: No Feels Safe at Home: Yes Safety Concerns: Feels Safe At This Time Childhood Exposure to Second-Hand Smoke: No Diet: regular Diet Comment: Regular caffeine: Yes (coffee) during the past year weight has: remained stable Dental Care, Regularly: No Physical Activity Frequency: Daily Seatbelt Use: always Sunscreen Use: Yes Assistive Devices: Cane and Walker Review of Systems Review of Systems: All systems reviewed & are unremarkable except as noted in HPI & below Physical Exam Constitutional: well developed; no acute distress Eyes: + anicteric sclerae; no corneal abnormal ity ENMT: external ear and nose normal, oropharynx normal Mouth: oral mucous membranes not dry Neck: normal visual inspection and trachea midline Respiratory: normal respiratory effort Auscultation: lungs clear to auscultation bilaterally and + rales Cardiovascular: Rate/Rhythm: + irregularly irregular Heart Sounds: normal S1, normal S2 and + murmur Extremities: + edema Musculoskeletal: Extremities: no cyanosis and no clubbing Skin: normal turgor; no lesions Neurologic: Motor/Sensory: no tremor and no asterixis Psychiatric: Orientation: alert and oriented x 3 Results & Data Vital Signs (Past 12 Hours) Vital Signs Temp Pulse Pulse Pulse Resp BP BP 06/12/23 14:52 06/12/23 14:52 36.3 C L 78 24 119/77 06/12/23 14:30 78 19 106/82 06/12/23 14:00 79 24 111/77 06/12/23 13:00 77 20 132/87 06/12/23 12:30 74 22 121/98 06/12/23 12:29 66 17 06/12/23 12:01 71 23 120/93 06/12/23 11:30 70 21 126/92 06/12/23 11:00 67 20 119/69 06/12/23 10:44 67 06/12/23 10:22 36.7 C 74 18 133/82 BP Pulse Ox O2 Del Method 06/12/23 14:52 Room Air 06/12/23 14:52 97 Room Air 06/12/23 14:30 94 Room Air 06/12/23 14:00 95 Room Air 06/12/23 13:00 94 Room Air 06/12/23 12:30 96 Room Air 06/12/23 12:29 121/98 96 Room Air 06/12/23 12:01 97 Room Air 06/12/23 11:30 96 Room Air 06/12/23 11:00 98 Room Air 06/12/23 10:44 06/12/23 10:22 97 Room Air Laboratory Results Laboratory Results - last 24 hr 06/12/23 06/12/23 06/12/23 10:45 11:15 12:35 WBC 5.56 RBC 3.19 L Hgb 10.2 L Hct 30.3 L MCV 95.0 MCH 32.0 MCHC 33.7 RDW Std Deviation 61.4 H RDW Coeff of Shahid 17.8 H Plt Count 156 MPV 11.2 Immature Gran % (Auto) 0.4 Neut % (Auto) 83.4 Lymph % (Auto) 7.9 [place] % (Auto) 3.6 Eos % (Auto) 4.0 Baso % (Auto) 0.7 Neut # (Auto) 4.64 Lymph # (Auto) 0.44 L [place] # (Auto) 0.20 Eos # (Auto) 0.22 Baso # (Auto) 0.04 Immature Gran # (Auto) 0.02 PT 18.3 H INR 1.7 H APTT 47 H PTT Ratio 1.7 Sodium 125 L Potassium 4.4 Chloride 93 L Carbon Dioxide 22 Anion Gap 10 BUN 34 H Creatinine 3.26 H Est Cr Clr Drug Dosing 29.6 Est GFR ( Amer) 21.8 Est GFR (Non-Af Amer) 18.8 BUN/Creatinine Ratio 10.4 Glucose 124 H Calcium 9.1 Total Bilirubin 3.1 H AST 71 H ALT 15 Alkaline Phosphatase 204 H Troponin I High Sens 43.0 H 43.2 H B-Natriuretic Peptide 1056 H Total Protein 7.3 Albumin 3.6 Globulin 3.7 Albumin/Globulin Ratio 1.0 Adenovirus (PCR) Not Detected B. pertussis DNA (PCR) Not Detected B.parapertussis DNA PCR Not Detected C. pneumoniae DNA (PCR) Not Detected Coronavirus OC43 (PCR) Not Detected Coronavirus HKU1 (PCR) Not Detected Coronavirus 229E (PCR) Not Detected SARS-CoV-2 (PCR) Not Detected Coronavirus NL63 (PCR) Not Detected Human Metapneumovir PCR Not Detected Influenza Type A (PCR) Not Detected Influenza Type B (PCR) Not Detected M. pneumoniae (PCR) Not Detected Parainfluenza 1 (PCR) Not Detected Parainfluenza 2 (PCR) Not Detected Parainfluenza 3 (PCR) Not Detected Parainfluenza 4 (PCR) Not Detected RSV (PCR) Not Detected Entero/Rhino (PCR) Not Detected Diagnostic Findings XR chest 1V portable COMPARISON STUDY: Chest radiograph May 19, 2023. FINDINGS: Left subclavian pacer/AICD is in place. There are median sternotomy wires and mediastinal surgical clips. Moderate cardiomegaly is unchanged. There is mild interstitial thickening. Mild left midlung opacity similar to earlier radiograph of March 12, 2023. IMPRESSION: 1. Cardiomegaly with mild interstitial pulmonary edema. 2. Persistent left midlung opacity. This may reflect scarring or a persistent infectious process. However, radiographic follow-up to ensure resolution and exclude the possibility of an underlying pulmonary lesion is recommended. ECG Rate (beats per minute): 70 Rhythm: atrial fibrillation Findings: + LBBB PG Care Time/CCT Total # of Minutes Spent Total Time Spent with Patient: Total time spent is greater than 50% in coordination of care (as documented) at patient's floor/unit and/or counseling patient: Coding Level of Care Code 66553 IN/OBS CONSULT LVL 5,80M Diagnoses Acute kidney injury N17.9 CHF (congestive heart failure) I50.9 Heart failure chronicity: unspecified Heart failure type: unspecified Hyponatremia E87.1 Chronic kidney disease N18.9 Anemia D64.9 Anemia type: unspecified type Elevated bilirubin R17 (2) CHF (congestive heart failure) Heart failure chronicity: unspecified Heart failure type: unspecified Qualified Code(s): I50.9 - Heart failure, unspecified (5) Anemia Anemia type: unspecified type Qualified Code(s): D64.9 - Anemia, unspecified
--- NOTE | 2023-06-12 16:45 | Electrocardiogram Report ---
Test Reason : Blood Pressure : / mmHG Vent. Rate : 070 BPM Atrial Rate : 000 BPM P-R Int : 000 ms QRS Dur : 152 ms QT Int : 434 ms P-R-T Axes : 000 -56 104 degrees QTc Int : 468 ms Atrial fibrillation Left axis deviation Non-specific intra-ventricular conduction delay Abnormal ECG When compared with ECG of 12-MAR-2023 09:13, Atrial fibrillation has replaced Electronic ventricular pacemaker Confirmed by Mohit Dumont ([id number]) on 06/12/2023 4:45:05 PM Referred By: REFERRED SELF Confirmed By:Austen Dumont
[2023-06-12] MEDS: carvediloL 12.5 MG TAB PO SCH (18:10)
[2023-06-12] MEDS: ALBUT/IPRATROP 3MG/0.5MG NEB 3 ML VIAL NEB ONE (19:30)
[2023-06-12] MEDS: UREA (UREA-NA) 15 GM PACK PO SCH (19:53)
[2023-06-12] MEDS: APIXABAN 5 MG TABLET PO SCH (19:53)
[2023-06-12] MEDS ORDERED: SODIUM CHLORIDE 1 GM TABLET PO SCH (21:00)
[2023-06-13] MEDS: LEVOTHYROXINE SODIUM 88 MCG TABLET PO SCH (06:05)
[2023-06-13 07:04] LABS: Basophils # (auto) 0.06 K/uL (0.00-0.20); Eosinophils # (auto) 0.23 K/uL (0.00-0.50); Eosinophils % (auto) 3.7 %; Hematocrit (blood only) 28.8 % (42.0-52.0); Hemoglobin 9.9 g/dl (14.0-18.0); Immature Granulocytes # (auto) 0.02 K/uL (0.01-0.20); Immature Granulocytes % (auto) 0.3 %; Lymphocytes # (auto) 0.54 K/uL (1.20-3.40); Lymphocytes % (auto) 8.7 %; Mean Corpuscular Hemoglobin 31.6 pg (25.0-34.0); Mean Corpuscular Hgb Conc 34.4 g/dL (32.0-36.0); Mean Platelet Volume 11.5 fL (9.4-12.4); Monocytes # (auto) 0.42 K/uL (0.11-0.59); Monocytes % (auto) 6.8 %; Neutrophils # (auto) 4.94 K/uL (1.40-6.50); Neutrophils % (auto) 79.5 %; Platelet Count 142 K/uL (130-400); RDW Coefficient of Variation 17.6 % (11.5-14.5); RDW Standard Deviation 58.7 fL (36.4-46.3); Red Blood Count 3.13 M/uL (4.70-6.10); White Blood Count 6.21 K/ul (4.8-10.8)
[2023-06-13 07:28] LABS: INR 1.8 (0.9-1.1); Prothrombin Time 18.9 Seconds (9.0-12.0)
[2023-06-13 07:32] LABS: Albumin Level 3.4 gm/dl (3.4-5.0); BUN Creatinine Ratio 12.4 (10-20); Bilirubin,Total 3.4 mg/dl (0.2-1.0); Calcium 9.3 mg/dl (8.6-10.3); Creatinine Clr Calc Pharmacy 26.9 ml/min; Est GFR (African American) 20.3 ml/min; Est GFR (Non-African American) 17.5 ml/min; Globulin 3.4 gm/dl (2.5-4.0); Potassium 4.2 mmol/L (3.5-5.1); Total Protein 6.8 gm/dl (6.0-8.3)
[2023-06-13] MEDS: ASPIRIN 81 MG CHEW PO SCH (08:21)
[2023-06-13] MEDS: FOLIC ACID 1 MG TAB PO SCH (08:21)
[2023-06-13] MEDS: PANTOprazole 40 MG TAB PO SCH (08:21)
[2023-06-13] MEDS: CYANOCOBALAMIN (B-12) 500 MCG TABLET PO SCH (08:22)
[2023-06-13] MEDS: ATORVASTATIN 40 MG TAB PO SCH (08:22)
[2023-06-13] MEDS: FERROUS SULFATE 325 MG TAB PO SCH (08:23)
[2023-06-13] MEDS: ASCORBIC ACID 500 MG TAB PO SCH (08:23)
[2023-06-13] MEDS: CHOLECALCIFEROL 25 MCG (1000 UNITS) TAB PO SCH (08:23)
[2023-06-13] MEDS ORDERED: POTASSIUM CHLORIDE CRTAB 20 MEQ TABCR PO SCH (09:00)
[2023-06-13] MEDS: ALBUT/IPRATROP 3MG/0.5MG NEB 3 ML VIAL NEB ONE (09:55)
--- NOTE | 2023-06-13 10:32 | Hospitalist Progress Note ---
Date of Service June 13, 2023 Assessment & Plan (1) CKD (chronic kidney disease), stage III: (2) Acute kidney injury: (3) SOB (shortness of breath): (4) Hypothyroidism (acquired): (5) CAD, multiple vessel: (6) Hypertension: (7) Hyperlipidemia: (8) History of implantable cardiac defibrillator (ICD): (9) HFrEF (heart failure with reduced ejection fraction): Plan Mr. Wheatley is a patient admitted for management of acute HFrEF exacerbation with possible cardiorenal syndrome. HFrEF exacerbation - Suspect exacerbation may have come as a consequence to recently increased frequency to bid of NaCl tabs for hyponatremia - TTE (12/19): mod dilated LV, severely reduced systolic function (EF 25-30%), diffuse hypokinesis with LAD territory akinesis, no significant valvular abnormalities. - s/p ICD placement with recent generator exchange - BNP acutely elevated 1056, previously ranging ~[id number] - High sensitive troponin stable around 43 - Chest x-ray: Cardiomegaly with interstitial pulmonary edema - Admitting weight 111.9 kg compared to last discharge weight of 103.8 kg Weight at 106.9 kg today Continue Lasix 40 mg IV twice daily Strict Is and Os, daily weights, Low sat diet FELIX Creatinine elevation from baseline 1.34 to 3.26 on admission. Was 3.46 this am. Baseline Cr of 1-1.03 (follows with Dr. River) UO low this am (0.19 ml/kg/hr) - Nephrology consulted: Document strict I/O's. Repeat metabolic profile tomorrow AM. Furosemide 40 mg IV BID ordered. Fluid restrict to 1.2 L daily. Avoid RAASi due to kidney dysfunction. Renal US ordered SOB - Likely related to HFrEF exacerbation - CXR noted persistent left midlung opacity that could represent scarring versus persistent infectious process Repeat imaging for resolution and to exclude pulmonary lesion may be considered if SOB persists despite fluid status correction. - Add Duonebs as needed for SOB or wheezing A-fib - On Carvedilol and Eliquis Chronic Hyponatremia - Salt tablets held due to CHF exacerbation - Monitor am labs RA - Home MTX on hold due to renal function - Home Rinvoq on hold due to risk of CM/cardiac HTN - Continue beta freya Pre-Diabetes - Monitor bsg and SSI as needed Hypothyroidism - Last TSH from 02/2023 normal (~2) - Continue Synthroid Hyperlipidemia - Continue statin Dispo: improve volume status and respiratory status prior for discharge Fluid restricted VTE ppx: Eliquis Diet: HH, Low salt, Fluid restriction DNR/DNI Admission and Anticipated Discharge Date Admission Date: June 12, 2023 Supervising Physician Co-Signing Physician Notes Attending attestation Pt seen and examined in concert with Dr. Hernandez. In agreement with the documented findings as noted in the resident documentation with any exceptions or additions as noted here. Ongoing wheezing and SOB with minimal activity but does feel improved from previous. On examination, S1/S2 nl RRR no MCG. CTAB. Abd NT/ND BS+ve HFrEF in the setting of ICM - continue IV furosemide and monitor urine output, weight. Limit fluid intake. CKD III as below CKD III - nephrology consult - trend Cr daily and monitor. Hyponatremia - holding sodium supplementation for now Else see resident documentation as noted. Subjective Mr. Wheatley is a 67 y/o male who was admitted due to HFrEF exacerbation with possible cardiorenal syndrome. Patient was evaluated at bedside and found to be AAOx3, afebrile, and in NAD. He refers he has been having some SOB that is worse with exertion and is "wheezy". Nursing states that patient has had low urine output. Patient denies fevers, chills, weakness, chest pain, palpitations, lightheadedness, near-syncope, or any other symptom. Review of Systems Review of Systems: As per HPI. Physical Exam Physical Exam: General: AAOx3, afebrile, NAD CV: RRR, no r/m/g Pulm: mild crackling, no wheezing, no respiratory distress GI: non-distended, non-tender, soft LE: mild LE swelling without pitting, no calf tenderness Results & Data Results & Data Vital Signs (Past 12 Hours) Vital Signs Temp Pulse Pulse Resp BP Pulse Ox O2 Del Method 06/13/23 09:55 74 16 95 Nasal Cannula 06/13/23 07:28 36.4 C L 71 18 109/73 99 Nasal Cannula 06/13/23 03:27 36.5 C 71 16 122/80 99 Nasal Cannula 06/12/23 23:43 80 06/12/23 23:15 36.5 C 79 18 113/75 97 Nasal Cannula O2 Flow Rate 06/13/23 09:55 4 04/16/24 07:28 2 06/13/23 03:27 2.0 06/12/23 23:43 06/12/23 23:15 2.0
--- NOTE | 2023-06-13 10:45 | Nephrology Progress Note ---
Date of Service June 13, 2023 Assessment & Plan (1) Acute kidney injury: Plan: Non-oliguric. Clinical presentation suggestive of CRS. UA cloudy, +ketones, +bili. Urine microscopy with 3-5 RBC and hyaline casts. Clinical presentation suggestive of cardiorenal syndrome. Repeat urine studies and urine sodium requested this AM. Electrolytes acceptable. Good urine output with diuretics. No emergent indication for FAMILY PHYSICIAN. Renal US pending. Medications are appropriately dosed for kidney function. Document strict I/O's. Repeat metabolic profile tomorrow AM. Methotrexate held. (2) CHF (congestive heart failure): Plan: Acute on chronic heart failure with reduced EF. s/p recent lead revision and generator change. EKG with atrial fibrillation and controlled rate. Furosemide 40 mg IV BID ordered. Fluid restrict to 1.2 L daily. Document I/Os and daily weights. Avoid RAASi due to kidney dysfunction. (3) Hyponatremia: Plan: Chronic. Hypervolemic. IV diuretics and fluid restriction started. Urea-Na therapy BID ordered. Repeat labs this evening. Oral NaCl held for now. Recent outpatient evaluation found the patient to be clinically euthyroid with replacement and with normal serum cortisol testing. (4) Chronic kidney disease: Plan: CKD III A1. Followed by Dr. River. Baseline creatinine 1.0-1.3 mg/dL. (5) Anemia: Plan: Chronic, stable. Followed by hematology. Maintained on oral FeSO4. (6) Elevated bilirubin: Plan: Suspected hepatic congestion. Clinical presentation atypical for HRS. Findings consistent with CRS. Rinvoq held. Prospetive monitoring will be provided. Admission and Anticipated Discharge Date Admission Date: June 12, 2023 Subjective No acute events overnight. Marquise was seen and evaluated with his at the bedside this AM. He reports slight improvement in symptoms. Dyspnea persists and activity tolerance remains poor. No fevers or chills. Good urine output reported. He denies chest pains or palpitations. Review of Systems Review of Systems: All systems reviewed & are unremarkable except as noted in HPI & below Physical Exam Constitutional: well developed; no acute distress Eyes: + anicteric sclerae; no corneal abnormal ity ENMT: external ear and nose normal, oropharynx normal Mouth: oral mucous membranes not dry Neck: normal visual inspection and trachea midline Respiratory: normal respiratory effort Auscultation: lungs clear to auscultation bilaterally and + rales Cardiovascular: Rate/Rhythm: + irregularly irregular Heart Sounds: normal S1, normal S2 and + murmur Extremities: + edema Musculoskeletal: Extremities: no cyanosis and no clubbing Skin: normal turgor; no lesions Neurologic: Motor/Sensory: no tremor and no asterixis Psychiatric: Orientation: alert and oriented x 3 Results & Data Vital Signs (Past 12 Hours) Vital Signs Temp Pulse Pulse Resp BP Pulse Ox O2 Del Method 06/13/23 09:55 74 16 95 Nasal Cannula 06/13/23 07:28 36.4 C L 71 18 109/73 99 Nasal Cannula 06/13/23 03:27 36.5 C 71 16 122/80 99 Nasal Cannula 06/12/23 23:43 80 06/12/23 23:15 36.5 C 79 18 113/75 97 Nasal Cannula O2 Flow Rate 06/13/23 09:55 4 06/13/23 07:28 2 06/13/23 03:27 2.0 06/12/23 23:43 06/12/23 23:15 2.0 Laboratory Results Laboratory Results - last 24 hr 06/12/23 06/12/23 06/12/23 10:45 11:15 12:35 WBC 5.56 RBC 3.19 L Hgb 10.2 L Hct 30.3 L MCV 95.0 MCH 32.0 MCHC 33.7 RDW Std Deviation 61.4 H RDW Coeff of Shahid 17.8 H Plt Count 156 MPV 11.2 Immature Gran % (Auto) 0.4 Neut % (Auto) 83.4 Lymph % (Auto) 7.9 [place] % (Auto) 3.6 Eos % (Auto) 4.0 Baso % (Auto) 0.7 Neut # (Auto) 4.64 Lymph # (Auto) 0.44 L [place] # (Auto) 0.20 Eos # (Auto) 0.22 Baso # (Auto) 0.04 Immature Gran # (Auto) 0.02 PT 18.3 H INR 1.7 H APTT 47 H PTT Ratio 1.7 Sodium 125 L Potassium 4.4 Chloride 93 L Carbon Dioxide 22 Anion Gap 10 BUN 34 H Creatinine 3.26 H Est Cr Clr Drug Dosing 29.6 Est GFR ( Amer) 21.8 Est GFR (Non-Af Amer) 18.8 BUN/Creatinine Ratio 10.4 Glucose 124 H Calcium 9.1 Total Bilirubin 3.1 H AST 71 H ALT 15 Alkaline Phosphatase 204 H Troponin I High Sens 43.0 H 43.2 H B-Natriuretic Peptide 1056 H Total Protein 7.3 Albumin 3.6 Globulin 3.7 Albumin/Globulin Ratio 1.0 Adenovirus (PCR) Not Detected B. pertussis DNA (PCR) Not Detected B.parapertussis DNA PCR Not Detected C. pneumoniae DNA (PCR) Not Detected Coronavirus OC43 (PCR) Not Detected Coronavirus HKU1 (PCR) Not Detected Coronavirus 229E (PCR) Not Detected SARS-CoV-2 (PCR) Not Detected Coronavirus NL63 (PCR) Not Detected Human Metapneumovir PCR Not Detected Influenza Type A (PCR) Not Detected Influenza Type B (PCR) Not Detected M. pneumoniae (PCR) Not Detected Parainfluenza 1 (PCR) Not Detected Parainfluenza 2 (PCR) Not Detected Parainfluenza 3 (PCR) Not Detected Parainfluenza 4 (PCR) Not Detected RSV (PCR) Not Detected Entero/Rhino (PCR) Not Detected 06/13/23 06:02 WBC 6.21 RBC 3.13 L Hgb 9.9 L Hct 28.8 L MCV 92.0 MCH 31.6 MCHC 34.4 RDW Std Deviation 58.7 H RDW Coeff of Shahid 17.6 H Plt Count 142 MPV 11.5 Immature Gran % (Auto) 0.3 Neut % (Auto) 79.5 Lymph % (Auto) 8.7 [place] % (Auto) 6.8 Eos % (Auto) 3.7 Baso % (Auto) 1.0 Neut # (Auto) 4.94 Lymph # (Auto) 0.54 L [place] # (Auto) 0.42 Eos # (Auto) 0.23 Baso # (Auto) 0.06 Immature Gran # (Auto) 0.02 PT 18.9 H INR 1.8 H APTT PTT Ratio Sodium 125 L Potassium 4.2 Chloride 93 L Carbon Dioxide 22 Anion Gap 10 BUN 43 H Creatinine 3.46 H Est Cr Clr Drug Dosing 26.9 Est GFR ( Amer) 20.3 Est GFR (Non-Af Amer) 17.5 BUN/Creatinine Ratio 12.4 Glucose 56 L Calcium 9.3 Total Bilirubin 3.4 H AST 75 H ALT 17 Alkaline Phosphatase 195 H Troponin I High Sens B-Natriuretic Peptide Total Protein 6.8 Albumin 3.4 Globulin 3.4 Albumin/Globulin Ratio 1.0 Adenovirus (PCR) B. pertussis DNA (PCR) B.parapertussis DNA PCR C. pneumoniae DNA (PCR) Coronavirus OC43 (PCR) Coronavirus HKU1 (PCR) Coronavirus 229E (PCR) SARS-CoV-2 (PCR) Coronavirus NL63 (PCR) Human Metapneumovir PCR Influenza Type A (PCR) Influenza Type B (PCR) M. pneumoniae (PCR) Parainfluenza 1 (PCR) Parainfluenza 2 (PCR) Parainfluenza 3 (PCR) Parainfluenza 4 (PCR) RSV (PCR) Entero/Rhino (PCR) PG Care Time/CCT Total # of Minutes Spent Total Time Spent with Patient: Total time spent is greater than 50% in coordination of care (as documented) at patient's floor/unit and/or counseling patient: Coding Level of Care Code 30444 SUB INP/OBS CARE 3/50MIN Diagnoses Acute kidney injury N17.9 CHF (congestive heart failure) I50.9 Heart failure chronicity: unspecified Heart failure type: unspecified Hyponatremia E87.1 Chronic kidney disease N18.9 Anemia D64.9 Anemia type: unspecified type Elevated bilirubin R17 (2) CHF (congestive heart failure) Heart failure chronicity: unspecified Heart failure type: unspecified Qualified Code(s): I50.9 - Heart failure, unspecified (5) Anemia Anemia type: unspecified type Qualified Code(s): D64.9 - Anemia, unspecified
--- NOTE | 2023-06-13 11:23 | Ultrasound Report ---
ULTRASOUND KIDNEYS AND BLADDER CLINICAL HISTORY: Acute renal insufficiency. COMPARISON STUDY: No priors. TECHNIQUE: Real-time, grayscale, and color flow sonography of the kidneys and bladder is performed. I mages are reviewed in the transverse and longitudinal planes. FINDINGS: Kidneys: The kidneys are normal in size and echotexture. The right kidney measures 9.9 x 6.0 x 5.5 cm and the left kidney measures 11.0 x 6.2 x 6.0 cm. There is no hydronephrosis. No shadowing renal ca lculi are identified. There is no sonographic evidence of contour deforming renal mass lesion. No per inephric fluid is identified. Bladder: The bladder is decompressed and not well evaluated. Abdomen: Survey imaging of the liver shows enlarged and heterogeneous liver. Nodularity of the surfac e contour suggestive of cirrhotic change. There is a small volume of abdominopelvic ascites. IMPRESSION: 1. The kidneys are normal in size and without hydronephrosis. 2. The bladder was decompressed and could not be assessed. 3. The liver is enlarged and heterogeneous, and shows morphologic change of cirrhosis. 4. Small volume abdominopelvic ascites. ACT 112: Negative or not required by law. Electronically signed by: Giovanny Gramajo M.D. 06/13/2023 11:22 AM
[2023-06-13 14:12] LABS: Appearance Urine Cloudy (Clear); Bacteria Urine Automated None Seen (None Seen); Bilirubin Urine Negative (Negative); Blood Urine 3+ (Negative); Color Urine Dark Yellow; Glucose Urine UA Negative (Negative); Ketones Urine Negative (Negative); Leukocyte Esterase Urine Negative (Negative); Nitrite Urine Negative (Negative); Protein Urine 2+ (Negative); Specific Gravity Urine 1.014 (1.000-1.030); Urobilinogen Urine Negative (Negative); WBC Urine Automated 0-5 /hpf (0-5)
[2023-06-13] MEDS ORDERED: ALBUMIN 25% 25 GM/100 ML VIAL IV SCH ×2 (15:28→22:00)
[2023-06-13 16:42] LABS: BUN Creatinine Ratio 14.4 (10-20); Calcium 9.5 mg/dl (8.6-10.3); Creatinine Clr Calc Pharmacy 26.4 ml/min; Est GFR (African American) 19.8 ml/min; Est GFR (Non-African American) 17.1 ml/min; Potassium 4.3 mmol/L (3.5-5.1)
[2023-06-13] MEDS ORDERED: Nursing to Pharmacy Communication SCH (19:30)
[2023-06-13] MEDS: ALBUMIN 25% 25 GM/100 ML VIAL IV SCH (19:32)
[2023-06-13] MEDS: ALBUT/IPRATROP 3MG/0.5MG NEB 3 ML VIAL NEB PRN (21:33)
[2023-06-13] MEDS: guaiFENesin 600 MG TABCR PO PRN (21:50)
[2023-06-14] MEDS: OCTREOTIDE ACETATE 100 MCG/ML VIAL SQ SCH ×2 (04:40→09:30)
[2023-06-14 06:31] LABS: Basophils # (auto) 0.05 K/uL (0.00-0.20); Basophils % (auto) 0.9 %; Eosinophils # (auto) 0.29 K/uL (0.00-0.50); Eosinophils % (auto) 5.1 %; Hematocrit (blood only) 28.3 % (42.0-52.0); Hemoglobin 9.5 g/dl (14.0-18.0); Immature Granulocytes # (auto) 0.02 K/uL (0.01-0.20); Immature Granulocytes % (auto) 0.3 %; Lymphocytes # (auto) 0.55 K/uL (1.20-3.40); Lymphocytes % (auto) 9.6 %; Mean Corpuscular Hemoglobin 31.3 pg (25.0-34.0); Mean Corpuscular Hgb Conc 33.6 g/dL (32.0-36.0); Mean Corpuscular Volume 93.1 fL (80.0-100.0); Mean Platelet Volume 11.5 fL (9.4-12.4); Monocytes # (auto) 0.35 K/uL (0.11-0.59); Monocytes % (auto) 6.1 %; Neutrophils # (auto) 4.48 K/uL (1.40-6.50); Platelet Count 129 K/uL (130-400); RDW Coefficient of Variation 17.5 % (11.5-14.5); RDW Standard Deviation 60.1 fL (36.4-46.3); Red Blood Count 3.04 M/uL (4.70-6.10); White Blood Count 5.74 K/ul (4.8-10.8)
[2023-06-14 06:48] LABS: Albumin Globulin Ratio 1.2 (0.9-2); Albumin Level 3.7 gm/dl (3.4-5.0); BUN Creatinine Ratio 16.7 (10-20); Bilirubin,Total 3.5 mg/dl (0.2-1.0); Calcium 9.5 mg/dl (8.6-10.3); Creatinine Clr Calc Pharmacy 26.8 ml/min; Est GFR (African American) 20.3 ml/min; Est GFR (Non-African American) 17.5 ml/min; Globulin 3.1 gm/dl (2.5-4.0); Potassium 3.7 mmol/L (3.5-5.1); Total Protein 6.8 gm/dl (6.0-8.3)
[2023-06-14 07:07] LABS: Ferritin 153.4 ng/ml (8-388)
--- NOTE | 2023-06-14 07:45 | Ultrasound Report ---
ABDOMINAL ULTRASOUND, RIGHT UPPER QUADRANT HISTORY: cholestasis. COMPARISON: Renal ultrasound 06/13/2023. FINDINGS: Pancreas: Obscured by overlying bowel gas. Liver: Heterogeneous echotexture. Subtle nodular contour suggestive of early cirrhosis. 16 cm in bryon th. Trace perihepatic ascites. Gallbladder: Diffusely thickened gallbladder wall measuring up to 5 mm. No gallstones or pericholecys tic fluid. Negative sonographic Quinonez sign. CBD: 7 mm. Right kidney: No hydronephrosis. Miscellaneous: Small right pleural effusion. IMPRESSION: 1. Heterogeneous echotexture throughout the liver demonstrating a subtle nodular contour suggestive o f early cirrhosis. 2. Trace perihepatic ascites and a small right pleural effusion. 3. Diffusely thickened gallbladder wall without gallstones. This is likely due to the underlying hepa tic disease. 4. Mildly dilated common bile duct at 7 mm. ACT 112: Negative or not required by law. Electronically signed by: Johnny Mary M.D. 06/14/2023 7:44 AM
[2023-06-14] MEDS: FUROSEMIDE 40 MG/4 ML VIAL IV SCH (09:30)
[2023-06-14] MEDS: ALBUMIN 25% 25 GM/100 ML VIAL IV SCH ×2 (09:30→18:11)
--- NOTE | 2023-06-14 11:00 | Nephrology Progress Note ---
Date of Service June 14, 2023 Assessment & Plan (1) Acute kidney injury: Plan: Non-oliguric. Clinical presentation suggestive of CRS vs HRS. UA cloudy, +ketones, +bili. Urine microscopy with 3-5 RBC and hyaline casts. Repeat urine sodium requested this AM. Urine sodium notably low yesterday. IV albumin provided overnight with some improvement in UOP. Electrolytes acceptable. No emergent indication for BUSINESS ADVISOR. Renal US without obstruction. Medications are appropriately dosed for kidney function. Document strict I/O's. Repeat metabolic profile tomorrow AM. Methotrexate held. (2) CHF (congestive heart failure): Plan: Acute on chronic heart failure with reduced EF. s/p recent lead revision and generator change. EKG with atrial fibrillation and controlled rate. Furosemide increased to 80 mg IV BID. Fluid restrict to 1.2 L daily. Document I/Os and daily weights. Avoid RAASi due to kidney dysfunction. (3) Hyponatremia: Plan: Chronic. Hypervolemic. IV diuretics and fluid restriction started. Urea-Na therapy BID ordered. IV albumin provided. Recent outpatient evaluation found the patient to be clinically euthyroid with replacement and with normal serum cortisol testing. (4) Chronic kidney disease: Plan: CKD III A1. Followed by Dr. River. Baseline creatinine 1.0-1.3 mg/dL. (5) Anemia: Plan: Chronic, stable. Followed by hematology. Iron deficient. Venofer ordered. (6) Cirrhosis: Plan: Imaging evidence of cirrhosis with cholestasis, INR elevated. Findings of notable chronic liver disease. Small amount of ascites. BP reasonable. Cannot exclude HRS. IV albumin and octreotide ordered (RUQ US without significant pathology). Admission and Anticipated Discharge Date Admission Date: June 12, 2023 Subjective No acute events overnight. Remains dyspneic with minimal activity. Denies chest pains. No palpitations. No lightheadedness or dizziness. Continues to endorse improvement. Persistent edema. Urine output increased -- 600 ml yesterday additional 400 ml this AM. Review of Systems Review of Systems: All systems reviewed & are unremarkable except as noted in HPI & below Physical Exam Constitutional: well developed; no acute distress Eyes: + anicteric sclerae; no corneal abnormal ity ENMT: external ear and nose normal, oropharynx normal Mouth: oral mucous membranes not dry Neck: normal visual inspection and trachea midline Respiratory: normal respiratory effort Auscultation: lungs clear to auscultation bilaterally and + wheezes (soft) Cardiovascular: Rate/Rhythm: + irregularly irregular Heart Sounds: normal S1, normal S2 and + murmur Extremities: + edema Musculoskeletal: Extremities: no cyanosis and no clubbing Skin: normal turgor; no lesions Neurologic: Motor/Sensory: no tremor and no asterixis Psychiatric: Orientation: alert and oriented x 3 Results & Data Vital Signs (Past 12 Hours) Vital Signs Temp Pulse Pulse Resp BP Pulse Ox O2 Del Method 06/14/23 07:48 Nasal Cannula 06/14/23 07:15 36.5 C 74 18 115/76 98 Nasal Cannula 06/14/23 07:00 77 06/14/23 02:54 88 16 98 Nasal Cannula 06/14/23 02:47 36.8 C 75 18 105/71 96 Nasal Cannula 06/14/23 00:00 76 06/13/23 23:57 36.8 C 71 16 111/70 98 Nasal Cannula O2 Flow Rate 06/14/23 07:48 2 06/14/23 07:15 3 06/14/23 07:00 06/14/23 02:54 2 06/14/23 02:47 2 06/14/23 00:00 06/13/23 23:57 2 Laboratory Results Laboratory Results - last 24 hr 06/13/23 06/13/23 06/14/23 13:04 16:06 05:26 WBC 5.74 RBC 3.04 L Hgb 9.5 L Hct 28.3 L MCV 93.1 MCH 31.3 MCHC 33.6 RDW Std Deviation 60.1 H RDW Coeff of Shahid 17.5 H Plt Count 129 L MPV 11.5 Immature Gran % (Auto) 0.3 Neut % (Auto) 78.0 Lymph % (Auto) 9.6 [place] % (Auto) 6.1 Eos % (Auto) 5.1 Baso % (Auto) 0.9 Neut # (Auto) 4.48 Lymph # (Auto) 0.55 L [place] # (Auto) 0.35 Eos # (Auto) 0.29 Baso # (Auto) 0.05 Immature Gran # (Auto) 0.02 Sodium 124 L 126 L Potassium 4.3 3.7 Chloride 92 L 92 L Carbon Dioxide 22 22 Anion Gap 10 12 H BUN 51 H 58 H Creatinine 3.53 H 3.47 H Est Cr Clr Drug Dosing 26.4 26.8 Est GFR ( Amer) 19.8 20.3 Est GFR (Non-Af Amer) 17.1 17.5 BUN/Creatinine Ratio 14.4 16.7 Glucose 103 H 74 Calcium 9.5 9.5 Iron 29 L TIBC 238 L Unsaturated IBC 209 Transferrin % Sat 12 L Ferritin 153.4 Total Bilirubin 3.5 H AST 80 H ALT 17 Alkaline Phosphatase 183 H Total Protein 6.8 Albumin 3.7 Globulin 3.1 Albumin/Globulin Ratio 1.2 Urine Color Dark Yellow Urine Appearance Cloudy A Urine pH 5.0 Ur Specific [place] 1.014 Urine Protein 2+ H Urine Glucose (UA) Negative Urine Ketones Negative Urine Blood 3+ H Urine Nitrite Negative Urine Bilirubin Negative Urine Urobilinogen Negative Ur Leukocyte Esterase Negative Urine WBC (Auto) 0-5 Urine RBC (Auto) 3-5 H U Hyaline Cast (Auto) 6-10 H U Epithel Cells (Auto) 6-10 H Urine Bacteria (Auto) None Seen Ur Random Sodium 13 PG Care Time/CCT Total # of Minutes Spent Total Time Spent with Patient: Total time spent is greater than 50% in coordination of care (as documented) at patient's floor/unit and/or counseling patient: Coding Level of Care Code 08945 SUB INP/OBS CARE 3/50MIN Diagnoses Acute kidney injury N17.9 CHF (congestive heart failure) I50.9 Heart failure chronicity: unspecified Heart failure type: unspecified Hyponatremia E87.1 Chronic kidney disease N18.9 Anemia D64.9 Anemia type: unspecified type Cirrhosis K74.60 (2) CHF (congestive heart failure) Heart failure chronicity: unspecified Heart failure type: unspecified Qualified Code(s): I50.9 - Heart failure, unspecified (5) Anemia Anemia type: unspecified type Qualified Code(s): D64.9 - Anemia, unspecified
[2023-06-14] MEDS: IRON SUCROSE 300 MG in SODIUM CHLORIDE 0.9% 250 ML IV ONE (11:33)
--- NOTE | 2023-06-14 12:12 | Hospitalist Progress Note ---
Date of Service June 14, 2023 Assessment & Plan (1) CKD (chronic kidney disease), stage III: (2) Acute kidney injury: (3) SOB (shortness of breath): (4) Hypothyroidism (acquired): (5) CAD, multiple vessel: (6) Hypertension: (7) Hyperlipidemia: (8) History of implantable cardiac defibrillator (ICD): (9) HFrEF (heart failure with reduced ejection fraction): Plan Mr. Wheatley is a patient admitted for management of acute HFrEF exacerbation with possible cardiorenal syndrome. HFrEF exacerbation - Suspect exacerbation may have come as a consequence to recently increased frequency to bid of NaCl tabs for hyponatremia - TTE (06/14/23): technically difficult study; severely reduced LV systolic function (EF 35-40%), mild hypokinesis involving inferior wall of LV with akinesis of the septum and portions of the apex, anterior LV wall hypokinetic, normal RV function, mod dilated LA, aortic valve sclerosis w/o significant stenosis, mild MV calcification, elevated RV pressure at 40-50 mmHg - s/p ICD placement with recent generator exchange - Chest x-ray: Cardiomegaly with interstitial pulmonary edema - Admitting weight 111.9 kg and yesterday was 106.9 kg - Improved UO and fluid balance negative Continue Lasix twice daily at increased dose as was recc by tire curer Strict Is and Os, daily weights, Low sat diet Hx CKD-III // Acute on chronic Creatinine 3.47 this am (decreased from 3.53 yesterday afternoon) Baseline Cr of 1-1.03 (follows with Dr. River) UO improved with IV albumin (0.19 yesterday to 0.47 ml/kg/hr) - Nephrology consulted: Document strict I/O's. Repeat metabolic profile tomorrow AM. Furosemide 80 mg IV BID ordered. Fluid restrict to 1.2 L daily. Avoid RAASi due to kidney dysfunction. Renal US w/o obstruction SOB - Likely related to HFrEF exacerbation - CXR noted persistent left midlung opacity that could represent scarring versus persistent infectious process Repeat imaging for resolution and to exclude pulmonary lesion may be considered if SOB persists despite fluid status correction. - Add Duonebs as needed for SOB or wheezing and Incentive Spirometry added today. A-fib - On Carvedilol and Eliquis Chronic Hyponatremia - Salt tablets held due to CHF exacerbation - Monitor am labs RA - Home MTX on hold due to renal function - Home Rinvoq on hold due to risk of CM/cardiac HTN - Continue beta freya Pre-Diabetes - Monitor bsg and SSI as needed Hypothyroidism - Last TSH from 02/2023 normal (~2) - Continue Synthroid Hyperlipidemia - Continue statin Dispo: improve volume status and respiratory status prior for discharge Fluid restricted VTE ppx: Eliquis Diet: HH, Low salt, Fluid restriction DNR/DNI Admission and Anticipated Discharge Date Admission Date: June 12, 2023 Supervising Physician Co-Signing Physician Notes Attending attestation Pt seen and examined in concert with Dr. Hernandez. In agreement with the documented findings as noted in the resident documentation with any exceptions or additions as noted here. Ongoing wheezing and SOB with minimal activity, stable from yesterday though with decreased O2 requirement. On examination, S1/S2 nl RRR no MCG. CTAB. Abd NT/ND BS+ve HFrEF in the setting of ICM - continue IV diuresis. Monitor urine output, weight. Limit fluid intake. CKD III as below CKD III - nephrology consult - trend Cr daily and monitor. Hyponatremia - holding sodium supplementation for now Else see resident documentation as noted. Subjective Mr. Wheatley is a 67 y/o male who was admitted due to HFrEF exacerbation with possible cardiorenal syndrome. Patient was evaluated at bedside and found to be AAOx3, afebrile, and in NAD. He refers he has been having some persistent but slightly improved SOB that is worse with exertion and is still feeling "wheezy". Patient denies fevers, chills, weakness, chest pain, palpitations, lightheadedness, near-syncope, or any other symptom. Review of Systems Review of Systems: As per HPI. Physical Exam Physical Exam: General: AAOx3, afebrile, NAD CV: RRR, no r/m/g Pulm: mild crackling, no wheezing, no respiratory distress GI: non-distended, non-tender, soft LE: mild LE swelling without pitting, no calf tenderness Results & Data Results & Data Vital Signs (Past 12 Hours) Vital Signs Temp Pulse Pulse Resp BP Pulse Ox O2 Del Method 06/14/23 11:49 36.4 C L 69 18 113/75 97 Room Air 06/14/23 07:48 Nasal Cannula 06/14/23 07:15 36.5 C 74 18 115/76 98 Nasal Cannula 06/14/23 07:00 77 06/14/23 02:54 88 16 98 Nasal Cannula 06/14/23 02:47 36.8 C 75 18 105/71 96 Nasal Cannula O2 Flow Rate 06/14/23 11:49 06/14/23 07:48 2 06/14/23 07:15 3 06/14/23 07:00 06/14/23 02:54 2 06/14/23 02:47 2 Resident Activity Tracking Resident Involvement: Resident Care Provided Care Provided: Adult Hospital Medicine
--- NOTE | 2023-06-14 12:58 | XCELERA ---
[id number]
[2023-06-14] MEDS ORDERED: ALBUMIN 25% 25 GM/100 ML VIAL IV SCH (14:00)
[2023-06-14 16:23] LABS: Creatinine Urine Random 43.1 mg/dl
[2023-06-14] MEDS: TAMSULOSIN HCL 0.4 MG CAP PO SCH (21:04)
[2023-06-15 07:04] LABS: Basophils # (auto) 0.05 K/uL (0.00-0.20); Eosinophils # (auto) 0.15 K/uL (0.00-0.50); Eosinophils % (auto) 3.1 %; Hematocrit (blood only) 25.9 % (42.0-52.0); Hemoglobin 9.2 g/dl (14.0-18.0); Immature Granulocytes # (auto) 0.01 K/uL (0.01-0.20); Immature Granulocytes % (auto) 0.2 %; Lymphocytes # (auto) 0.34 K/uL (1.20-3.40); Lymphocytes % (auto) 7.1 %; Mean Corpuscular Hemoglobin 31.8 pg (25.0-34.0); Mean Corpuscular Hgb Conc 35.5 g/dL (32.0-36.0); Mean Corpuscular Volume 89.6 fL (80.0-100.0); Mean Platelet Volume 10.4 fL (9.4-12.4); Monocytes # (auto) 0.33 K/uL (0.11-0.59); Monocytes % (auto) 6.9 %; Neutrophils # (auto) 3.93 K/uL (1.40-6.50); Neutrophils % (auto) 81.7 %; Platelet Count 111 K/uL (130-400); RDW Coefficient of Variation 17.4 % (11.5-14.5); RDW Standard Deviation 56.8 fL (36.4-46.3); Red Blood Count 2.89 M/uL (4.70-6.10); White Blood Count 4.81 K/ul (4.8-10.8)
[2023-06-15 07:35] LABS: Albumin Globulin Ratio 1.4 (0.9-2); BUN Creatinine Ratio 18.8 (10-20); Bilirubin,Total 3.9 mg/dl (0.2-1.0); Calcium 9.4 mg/dl (8.6-10.3); Creatinine Clr Calc Pharmacy 29.6 ml/min; Globulin 2.9 gm/dl (2.5-4.0); Potassium 3.2 mmol/L (3.5-5.1); Total Protein 6.9 gm/dl (6.0-8.3)
[2023-06-15] MEDS: POTASSIUM CHLORIDE / WTR 10 MEQ/100 ML PLCT IV ONE (07:58)
[2023-06-15] MEDS: POTASSIUM CHLORIDE CRTAB 20 MEQ TABCR PO STA (07:58)
[2023-06-15] MEDS: IRON SUCROSE 200 MG in 0.9 % SODIUM CHLORIDE 100 ML IV ONE (09:12)
--- NOTE | 2023-06-15 09:49 | Nephrology Progress Note ---
Date of Service June 15, 2023 Assessment & Plan (1) Acute kidney injury: Plan: Non-oliguric. Urine output improved. Slightly negative fluid balance. BP remains acceptable. Continue Octreotide and IV albumin for possible HRS. T bili continues to rise. Platelets have dropped slightly. Bleeding from mouth noted. GI consultation has been requested. Clinical presentation suggestive of CRS as well. Continue furosemide 80 mg IV BID to encourage urine output. UA cloudy, +ketones, +bili. Urine microscopy with 3-5 RBC and hyaline casts. I cannot completely exclude GN -- although presentation would be atypical and Marquise certainly does not have RPGN. ANCA testing, anti-GBM, and ESR will be sent now. Electrolytes acceptable. Good urine output with diuretics. No emergent indication for INSTRUMENTATION TECHNICIAN. US did not demonstrate obstruction. Medications are appropriately dosed for kidney function. Document strict I/O's. Repeat metabolic profile tomorrow AM. Methotrexate held. (2) CHF (congestive heart failure): Plan: Acute on chronic heart failure with reduced EF. s/p recent lead revision and generator change. EKG with atrial fibrillation and controlled rate. Furosemide 80 mg IV BID ordered. Fluid restrict to 1.2 L daily. Document I/Os and daily weights. Avoid RAASi due to kidney dysfunction. (3) Hyponatremia: Plan: Chronic. Hypervolemic. IV diuretics and fluid restriction. Urea-Na therapy BID stopped today. IV albumin is being provided. Recent outpatient evaluation found the patient to be clinically euthyroid with replacement and with normal serum cortisol testing. (4) Chronic kidney disease: Plan: CKD III A1. Followed by Dr. River. Baseline creatinine 1.0-1.3 mg/dL. (5) Anemia: Plan: Iron deficient. Noted recent signs of bleeding. Platelet count dropped slightly. DIC labs added today and peripheral smear sent. (6) Cirrhosis: Plan: Bili continues to rise. INR elevated. Platelets dropping. This is a new diagnosis based on US imaging. GI consultation has been requested. Marquise reported disconcerting signs of bleeding this AM. IV vitamin K will be provided. Eliquis held pending additional monitoring and evaluation. I have placed an order for a follow up H/H at noon. Admission and Anticipated Discharge Date Admission Date: June 12, 2023 Subjective Marquise was resting comfortably in bed this morning. He has dry blood around his mouth. He described some nausea and retching that started last evening. He then had a couple episodes of what he described as vomiting blood. He states that he feels better this morning. He denies abdominal pain or discomfort. The bedside RN reported that bleeding seemed to be coming from his mouth or hemoptysis. He denies any chest pains or palpitations. He denies lightheadedness or dizziness. Urine output increased yesterday. Net negative fluid balance approximately 345 ml. Edema stable. Marquise received a breathing treatment this morning and states that his dyspnea improved post therapy. Review of Systems Review of Systems: All systems reviewed & are unremarkable except as noted in HPI & below Physical Exam Constitutional: well developed; no acute distress Eyes: + anicteric sclerae ENMT: external ear and nose normal, oropharynx normal Mouth: + poor dentition; no lip abnormality and oral mucous membranes not dry Neck: normal visual inspection and trachea midline Respiratory: normal respiratory effort Auscultation: lungs clear to auscultation bilaterally and + wheezes (soft) Cardiovascular: Rate/Rhythm: + irregularly irregular Heart Sounds: normal S1, normal S2 and + murmur Extremities: + edema Gastrointestinal (Abdomen): Inspection/Auscultation: + abdomen distended Percussion/Palpation: abdomen nontender, no guarding and abdomen not rigid Musculoskeletal: Extremities: no cyanosis and no clubbing Skin: normal turgor and + pallor; no jaundice Neurologic: Motor/Sensory: no tremor and no asterixis Psychiatric: Orientation: alert and oriented x 3 Results & Data Vital Signs (Past 12 Hours) Vital Signs Temp Pulse Pulse Resp BP BP Pulse Ox 06/15/23 09:22 79 16 90 06/15/23 08:57 06/15/23 08:56 77 06/15/23 07:38 36.4 C L 77 16 116/75 91 06/15/23 03:21 36.5 C 81 20 116/76 93 06/15/23 00:18 06/14/23 23:00 36.9 C 78 22 98/65 L 94 O2 Del Method O2 Flow Rate 06/15/23 09:22 Room Air 06/15/23 08:57 Room Air 06/15/23 08:56 06/15/23 07:38 Room Air 06/15/23 03:21 Nasal Cannula 1 06/15/23 00:18 Nasal Cannula 2 06/14/23 23:00 Nasal Cannula 1 Laboratory Results Laboratory Results - last 24 hr 06/14/23 06/15/23 15:00 06:38 WBC 4.81 RBC 2.89 L Hgb 9.2 L Hct 25.9 L MCV 89.6 MCH 31.8 MCHC 35.5 RDW Std Deviation 56.8 H RDW Coeff of Shahid 17.4 H Plt Count 111 L MPV 10.4 Immature Gran % (Auto) 0.2 Neut % (Auto) 81.7 Lymph % (Auto) 7.1 [place] % (Auto) 6.9 Eos % (Auto) 3.1 Baso % (Auto) 1.0 Neut # (Auto) 3.93 Lymph # (Auto) 0.34 L [place] # (Auto) 0.33 Eos # (Auto) 0.15 Baso # (Auto) 0.05 Immature Gran # (Auto) 0.01 Sodium 126 L Potassium 3.2 L Chloride 92 L Carbon Dioxide 21 Anion Gap 13 H BUN 61 H Creatinine 3.24 H Est Cr Clr Drug Dosing 29.6 Est GFR ( Amer) 22.0 Est GFR (Non-Af Amer) 19.0 BUN/Creatinine Ratio 18.8 Glucose 116 H Calcium 9.4 Total Bilirubin 3.9 H AST 88 H ALT 19 Alkaline Phosphatase 163 H Total Protein 6.9 Albumin 4.0 Globulin 2.9 Albumin/Globulin Ratio 1.4 Ur Random Creatinine 43.1 Ur Random Sodium 27 PG Care Time/CCT Total # of Minutes Spent Total Time Spent with Patient: Total time spent is greater than 50% in coordination of care (as documented) at patient's floor/unit and/or counseling patient: Coding Level of Care Code 05748 SUB INP/OBS CARE 3/50MIN Diagnoses Acute kidney injury N17.9 CHF (congestive heart failure) I50.9 Heart failure chronicity: unspecified Heart failure type: unspecified Hyponatremia E87.1 Chronic kidney disease N18.9 Anemia D64.9 Anemia type: unspecified type Cirrhosis K74.60 (2) CHF (congestive heart failure) Heart failure chronicity: unspecified Heart failure type: unspecified Qualified Code(s): I50.9 - Heart failure, unspecified (5) Anemia Anemia type: unspecified type Qualified Code(s): D64.9 - Anemia, unspecified
[2023-06-15] MEDS: PHYTONADIONE 10 MG in DEXTROSE 5% 50 ML IV ONE (10:21)
--- NOTE | 2023-06-15 11:08 | Gastrointestinal Consultation ---
Date of Consultation June 15, 2023 Assessment & Plan (1) Anemia: (2) Melena: Plan -Continue to monitor H/H -IV Protonix gtt -One dose of IV Reglan 5 mg now -Patient to OR for push enteroscopy today Supervising Physician Co-Signing Physician Notes Agree with LEE Reid as above Interviewed and examined patient and agree with above Abd: Soft, NT, ND, +BS Continue current therapy and supportive care Proceed with Push enteroscopy now History of Present Illness Reason for Consultation: Hematemesis Attending Physician: Mohit Herrmann MD History of Present Illness Patient is a 67 yo male with PMH of cirrhosis, heart failure, hypothyroidism, insomnia, CVA, multivessel CAD, HTN, HLD, Atrial fibrillation on Eliquis, & DJD. GI has been consulted as patient had an episode of questionable hemoptysis vs hematemesis this AM, followed by ongoing melena. Nursing reports concern for penile bleeding as well. H/H presently 9.2/25.9. BUN 61, Creatinine 3.24. Patient has recently been evaluated for his anemia by [facility]. He had an EGD and colonoscopy in December 2022 without alarming findings. A VCE was advised, but he declined at that time. He is currently hospitalized for possible CHF exacerbation. He is on Protonix 40 mg daily at present. Nephrology added Octreotide to his meds. Allergies Allergy/AdvReac Type Severity Reaction Status Date / Time shellfish derived Allergy Severe TONGUE Verified 05/24/23 10:11 SWELLS UP Iodinated Contrast Media AdvReac Unknown SWEATING,NAUSEA-WITH Verified 05/24/23 10:11 TEST DYE Home Medications Medication Instructions Recorded Confirmed Type ascorbic acid (vitamin C) 500 mg 500 mg PO DAILY 12/13/22 06/12/23 History tablet (Vitamin C With Clare Hips) cholecalciferol (vitamin D3) 50 50 mcg PO QAM 12/13/22 06/12/23 History mcg (2,000 unit) tablet (Vitamin D3) cyanocobalamin (vitamin B-12) 500 500 mcg PO QAM 12/13/22 06/12/23 History mcg tablet (Vitamin B-12) folic acid 1 mg tablet 1 mg PO QAM 12/13/22 06/12/23 History levothyroxine 88 mcg tablet 88 mcg PO DAILYBB 12/13/22 06/12/23 History upadacitinib 15 mg tablet,extended 15 mg PO QAM 12/13/22 06/12/23 History release 24 hr (Rinvoq) aspirin 81 mg chewable tablet 81 mg PO DAILY 12/27/22 06/12/23 History ferrous sulfate 325 mg (65 mg 325 mg PO 2XWK 01/24/23 06/12/23 History iron) tablet,delayed release pantoprazole 40 mg tablet,delayed 40 mg PO DAILY #90 tabs 01/25/23 06/12/23 Rx release potassium chloride 20 mEq 20 meq PO DAILY #90 tabs 02/03/23 06/12/23 Rx tablet,extended release(part/cryst) furosemide 40 mg tablet 40 mg PO DAILY 03/12/23 06/12/23 History methotrexate sodium 2.5 mg tablet 12.5 mg PO WK 03/12/23 06/12/23 History melatonin 3 mg tablet 3 mg PO HS PRN sleep #30 tabs 03/15/23 06/12/23 Rx atorvastatin 80 mg tablet 80 mg PO QAM #90 tabs 04/27/23 06/12/23 Rx carvedilol 12.5 mg tablet 12.5 mg PO BID #180 tabs 04/27/23 06/12/23 Rx apixaban 5 mg tablet (Eliquis) 5 mg PO BID #60 tabs 05/01/23 06/12/23 Rx nitroglycerin 400 mcg/spray 0.4 mg sublingual Q5M PRN chest 05/24/23 06/12/23 Rx translingual pain #12 grams sodium chloride 1,000 mg soluble 2,000 mg (2 x 1,000 mg) PO BID 06/06/23 06/12/23 Rx tablet #120 tabs Patient History Medical History Abnormal lead impedance of implantable cardioverter-defibrillator (ICD) ICD (implantable cardioverter-defibrillator) battery depletion Proteinuria Hypothyroidism (acquired) Prediabetes Elevated AST (SGOT) High alkaline phosphatase History of myocardial infarction (07/13/03) Anterior [place] at [facility], TPA, stent LAD, 60-70%RCA, EF 35% Erosive osteoarthritis bilateral feet Arthritis Hypertension Hyperlipidemia Ventricular tachycardia With arrest now with ICD Ischemic cardiomyopathy DJD (degenerative joint disease) of knee Chronic systolic (congestive) heart failure Atrial fibrillation (~12/2016) Surgical History History of total left knee replacement (TKR) (08/07/15) History of implantable cardiac defibrillator (ICD) Single lead ICD placement, Medtronic device History of percutaneous coronary intervention To the LAD History of coronary artery bypass graft (~2008) X4 in 2008 with a GUILLORY to the LAD, vein graft to the diagonal, posterior lateral circ, and PDA Family History Father Myocardial infarction, Onset Age: 52 Family history of coronary artery disease Son Family history of coronary artery disease, Onset Age: 30 CABG Denies family history of Ovarian cancer Prostate cancer Breast cancer Colorectal cancer Social History Smoking Status: Former smoker Tobacco Type: Pipe Cigarettes Per Day: hx of chewing tobacco; Smoking End Date: 15-16 years ago; Second Hand Exposure: Yes; Do You Dip or Chew Tobacco: No; Tobacco Cessation Education Requested by Patient: No Hx Alcohol Use: Yes Alcohol type: beer Alcohol Intake Frequency: 2-3 x/Week Hx Substance Use: No Preferred Language: Israeli Communication Ability: Effective Visual Impairment: Limited Hearing Ability: Normal Line Palletizer Required: No Beliefs That Will Affect Care: None marital status: Current Living Situation: Spouse current occupational status: retired current occupation: [employer] How many Children do You have: 2 Other Information That Helps Us Care for You: No Feels Safe at Home: Yes Safety Concerns: Feels Safe At This Time Childhood Exposure to Second-Hand Smoke: No Diet: regular Diet Comment: Regular caffeine: Yes (coffee) during the past year weight has: remained stable Dental Care, Regularly: No Physical Activity Frequency: Daily Seatbelt Use: always Sunscreen Use: Yes Assistive Devices: Cane and Walker Review of Systems Constitutional: no fever and no chills Respiratory: + dyspnea Gastrointestinal: melena per nursing staff Physical Exam Constitutional: well developed Respiratory: normal respiratory effort Cardiovascular: Rate/Rhythm: regular rate Gastrointestinal (Abdomen): normal bowel sounds, soft, nontender, no hepatosplenomegaly Results & Data Vital Signs (Past 12 Hours) Vital Signs Temp Pulse Pulse Resp BP Pulse Ox O2 Del Method 06/15/23 09:22 79 16 90 Room Air 06/15/23 08:57 Room Air 06/15/23 08:56 77 06/15/23 07:38 36.4 C L 77 16 116/75 91 Room Air 06/15/23 03:21 36.5 C 81 20 116/76 93 Nasal Cannula 06/15/23 00:18 Nasal Cannula O2 Flow Rate 06/15/23 09:22 06/15/23 08:57 06/15/23 08:56 06/15/23 07:38 06/15/23 03:21 1 06/15/23 00:18 2 PG Care Time/CCT Total # of Minutes Spent Total Time Spent with Patient: Total time spent is greater than 50% in coordination of care (as documented) at patient's floor/unit and/or counseling patient: Coding Level of Care Code 03922 INT INP/OBS CARE 3/75MIN Diagnoses Anemia D64.9 Anemia type: unspecified type Melena K92.1 (1) Anemia Anemia type: unspecified type Qualified Code(s): D64.9 - Anemia, unspecified
--- NOTE | 2023-06-15 11:26 | Hospitalist Progress Note ---
Date of Service June 15, 2023 Assessment & Plan (1) CKD (chronic kidney disease), stage III: (2) Acute kidney injury: (3) SOB (shortness of breath): (4) Hypothyroidism (acquired): (5) CAD, multiple vessel: (6) Hypertension: (7) Hyperlipidemia: (8) History of implantable cardiac defibrillator (ICD): (9) HFrEF (heart failure with reduced ejection fraction): Plan Mr. Wheatley is a patient admitted for management of acute HFrEF exacerbation with possible cardiorenal syndrome. Hematemesis vs Hemoptysis - Patient with episode of vomiting last night that was bloody. - Nursing states that patient had some blood coming from his mouth, but on evalu ation patient had some grayish-brownish streaks coming from pharynx. When asked again patient states that he had some blood coming from his mouth - On re-evaluation by senior mechanical development engineer, patient affirmed that he had vomited blood, and so GI was consulted. - Given history of cirrhosis, EGD was done today which showed acute gastritis with hemorrhage - GI recc: Clear liquid diet Sucralfate suspension 1 g PO QID x10d Protonix 40mg IV bid - Orders placed and Eliquis held. - D-dimer elevated which could be related to CHF exacerbation. Fibrinogen in normal range and platelets without significant change compared to yesterday's labs. Low suspicion for DIC. Low suspicion for PE, and even so cannot do CTA due to renal function. - Will continue to monitor - Continue to monitor am CBC Hx CKD-III // Acute on chronic Creatinine 3.47 this am (decreased from 3.53 yesterday afternoon) Baseline Cr of 1-1.03 (follows with Dr. River) UO improved with IV albumin (0.19 yesterday to 0.47 ml/kg/hr) - Nephrology consulted: Cannot fully r/o glomerulonephritis Orders for ANCA, anti-GBM, and ESR ordered Renal US w/o obstruction HFrEF exacerbation - Suspect exacerbation may have come as a consequence to recently increased frequency to bid of NaCl tabs for hyponatremia - TTE (06/14/23): technically difficult study; severely reduced LV systolic function (EF 35-40%), mild hypokinesis involving inferior wall of LV with akinesis of the septum and portions of the apex, anterior LV wall hypokinetic, normal RV function, mod dilated LA, aortic valve sclerosis w/o significant stenosis, mild MV calcification, elevated RV pressure at 40-50 mmHg - s/p ICD placement with recent generator exchange - Chest x-ray: Cardiomegaly with interstitial pulmonary edema - Improved UO and fluid balance negative Continue Lasix 80mg twice daily Strict Is and Os, daily weights, Low sat diet SOB - Likely related to HFrEF exacerbation - CXR noted persistent left midlung opacity that could represent scarring versus persistent infectious process Repeat imaging for resolution and to exclude pulmonary lesion may be considered if SOB persists despite fluid status correction. - Added Duonebs as needed for SOB or wheezing and Incentive Spirometry. A-fib - On Carvedilol and Eliquis Chronic Hyponatremia - Salt tablets held due to CHF exacerbation - Monitor am labs RA - Home MTX on hold due to renal function - Home Rinvoq on hold due to risk of CM/cardiac HTN - Continue beta freya Pre-Diabetes - Monitor bsg and SSI as needed Hypothyroidism - Last TSH from 02/2023 normal (~2) - Continue Synthroid Hyperlipidemia - Continue statin VTE ppx: Eliquis (Held) Diet: Clear liquid DNR/DNI Admission and Anticipated Discharge Date Admission Date: June 12, 2023 Supervising Physician Co-Signing Physician Notes Attending attestation Pt seen and examined in concert with Dr. Hernandez. In agreement with the documented findings as noted in the resident documentation with any exceptions or additions as noted here. Episode of hemoptysis/hematemesis overnight with subsequent GI evaluation. Ongoing wheezing and SOB with minimal activity, stable from yesterday. On examination, S1/S2 nl RRR no MCG. CTAB. Abd NT/ND BS+ve ?Hematemesis with concern for cirrhosis - GI consult - labs pending, platelet count stable at present. Follow up endoscopic evaluation today for ?source HFrEF in the setting of ICM - continue IV diuresis. Monitor urine output, weight. Limit fluid intake. CKD III as below CKD III - nephrology consult - trend Cr daily and monitor. Hyponatremia - holding sodium supplementation for now Else see resident documentation as noted. Subjective Mr. Wheatley is a 67 y/o male who was admitted due to HFrEF exacerbation with possible cardiorenal syndrome. Patient was evaluated at bedside and found to be AAOx3, afebrile, and in NAD. Refers that he still feels some SOB and had some bleeding from his mouth last night but not since then. No other concerns. Review of Systems Review of Systems: As per HPI. Physical Exam Physical Exam: General: AAOx3, afebrile, streaks of old blood in right corner of mouth, NAD CV: RRR, no r/m/g Pulm: normal resp effort, no respiratory distress GI: non-distended, non-tender, soft LE: mild LE swelling without pitting, no calf tenderness Results & Data Results & Data Vital Signs (Past 12 Hours) Vital Signs Temp Pulse Pulse Resp BP Pulse Ox O2 Del Method 06/15/23 09:22 79 16 90 Room Air 06/15/23 08:57 Room Air 06/15/23 08:56 77 06/15/23 07:38 36.4 C L 77 16 116/75 91 Room Air 06/15/23 03:21 36.5 C 81 20 116/76 93 Nasal Cannula 06/15/23 00:18 Nasal Cannula O2 Flow Rate 06/15/23 09:22 06/15/23 08:57 06/15/23 08:56 06/15/23 07:38 06/15/23 03:21 1 06/15/23 00:18 2 Resident Activity Tracking Resident Involvement: Resident Care Provided Care Provided: Adult Hospital Medicine
[2023-06-15] MEDS: METOCLOPRAMIDE HCL INJ 5 MG/ML 2 ML VIAL IV ONE (12:09)
[2023-06-15] MEDS: LACTATED RINGER'S 1,000 ML IV SCH (12:26)
[2023-06-15] MEDS ORDERED: ONDANSETRON INJ 2 MG/ML 2 ML VIAL IV PRN (12:56)
[2023-06-15] MEDS ORDERED: fentaNYL citrate PF 100 MCG/2 ML VIAL IV PRN (12:56)
[2023-06-15] MEDS ORDERED: ePHEDrine sulfate 50 MG/ML AMP IV PRN (12:56)
[2023-06-15] MEDS ORDERED: ATROPINE SULFATE 0.1 MG/ML 10ML SYR IV PRN (12:56)
--- NOTE | 2023-06-15 12:56 | Anesthesiology Consultation ---
Date of Service June 15, 2023 Assessment & Plan Chart Review Chart Review: Acceptable Risk for Surgery Consults Requested none ASA ASA4 Proposed Anesthesia Anesthesia Type: General Risk / Benefits Reviewed With: PT / POA / Parent / Guardian, Accepts Plan and Informed Consent Obtained History Surgery Operation Date: 06/15/23 11:50 Proposed Procedures p Small Bowel Enteroscopy - Ezekiel Man Case, DO Operation Date: 06/15/23 16:45 Proposed Procedures p Esophagogastroduodenoscopy Dr Combs - Ezekiel Man Case, DO Height/Weight Height: 6 ft Weight: 114 kg Allergies Allergy/AdvReac Type Severity Reaction Status Date / Time shellfish derived Allergy Severe TONGUE Verified 05/24/23 10:11 SWELLS UP Iodinated Contrast Media AdvReac Unknown SWEATING,NAUSEA-WITH Verified 05/24/23 10:11 TEST DYE Medications Home Medications Medication Instructions Recorded Confirmed Last Taken ascorbic acid (vitamin C) 500 mg 500 mg PO DAILY 12/13/22 06/12/23 03/12/23 tablet (Vitamin C With Clare Hips) cholecalciferol (vitamin D3) 50 50 mcg PO QAM 12/13/22 06/12/23 03/12/23 mcg (2,000 unit) tablet (Vitamin D3) cyanocobalamin (vitamin B-12) 500 500 mcg PO QAM 12/13/22 06/12/23 03/12/23 mcg tablet (Vitamin B-12) folic acid 1 mg tablet 1 mg PO QAM 12/13/22 06/12/23 03/12/23 levothyroxine 88 mcg tablet 88 mcg PO DAILYBB 12/13/22 06/12/23 03/12/23 upadacitinib 15 mg tablet,extended 15 mg PO QAM 12/13/22 06/12/23 03/12/23 release 24 hr (Rinvoq) aspirin 81 mg chewable tablet 81 mg PO DAILY 12/27/22 06/12/23 Unknown ferrous sulfate 325 mg (65 mg 325 mg PO 2XWK 01/24/23 06/12/23 Unknown iron) tablet,delayed release pantoprazole 40 mg tablet,delayed 40 mg PO DAILY #90 tabs 01/25/23 06/12/23 03/12/23 release potassium chloride 20 mEq 20 meq PO DAILY #90 tabs 02/03/23 06/12/23 03/12/23 tablet,extended release(part/cryst) furosemide 40 mg tablet 40 mg PO DAILY 03/12/23 06/12/23 03/12/23 methotrexate sodium 2.5 mg tablet 12.5 mg PO WK 03/12/23 06/12/23 Unknown melatonin 3 mg tablet 3 mg PO HS PRN sleep #30 tabs 03/15/23 06/12/23 Unknown atorvastatin 80 mg tablet 80 mg PO QAM #90 tabs 04/27/23 06/12/23 Unknown carvedilol 12.5 mg tablet 12.5 mg PO BID #180 tabs 04/27/23 06/12/23 Unknown apixaban 5 mg tablet (Eliquis) 5 mg PO BID #60 tabs 05/01/23 06/12/23 05/16/23 07:00 nitroglycerin 400 mcg/spray 0.4 mg sublingual Q5M PRN chest 05/24/23 06/12/23 Unknown translingual pain #12 grams sodium chloride 1,000 mg soluble 2,000 mg (2 x 1,000 mg) PO BID 06/06/23 06/12/23 Unknown tablet #120 tabs Active Medications Generic Name Dose Route Start Last Admin Trade Name Freq PRN Reason Stop Dose Admin Albuterol 3 ml 06/13/23 10:47 06/15/23 09:22 Albut/Ipratrop 3mg/0.5mg Neb 3 Ml Vial NEB 07/13/23 10:46 3 ml Q6R PRN Administration Shortness Of Breath Or Wheezing Protocol Apixaban 5 mg 06/12/23 21:00 06/15/23 08:12 Apixaban 5 Mg Tablet PO 07/12/23 20:59 5 mg BID NAM Administration Ascorbic Acid 500 mg 06/13/23 09:00 06/15/23 08:13 Ascorbic Acid 500 Mg Tab PO 07/13/23 08:59 500 mg DAILY NAM Administration Aspirin 81 mg 06/13/23 09:00 06/15/23 08:12 Aspirin 81 Mg Chew PO 07/13/23 08:59 81 mg DAILY NAM Administration Atorvastatin Calcium 80 mg 06/13/23 09:00 06/15/23 08:13 Atorvastatin 40 Mg Tab PO 07/13/23 08:59 80 mg QAM NAM Administration Carvedilol 12.5 mg 06/12/23 17:00 06/15/23 08:12 Carvedilol 12.5 Mg Tab PO 07/12/23 16:59 12.5 mg BIDM NAM Administration Cyanocobalamin 500 mcg 06/13/23 09:00 06/15/23 08:13 Cyanocobalamin (B-12) 500 Mcg Tablet PO 07/13/23 08:59 500 mcg QAM NAM Administration Ferrous Sulfate 325 mg 06/13/23 09:00 06/13/23 08:23 Ferrous Sulfate 325 Mg Tab PO 07/13/23 08:59 325 mg TuFr@0900 NAM Administration Folic Acid 1 mg 06/13/23 09:00 06/15/23 08:12 Folic Acid 1 Mg Tab PO 07/13/23 08:59 1 mg QAM NAM Administration Furosemide 80 mg 06/14/23 09:00 06/15/23 08:05 Furosemide 40 Mg/4 Ml Vial IV 07/14/23 08:59 80 mg BID17 NAM Administration Guaifenesin 600 mg 06/13/23 21:19 06/13/23 21:50 Guaifenesin 600 Mg Tabcr PO 07/13/23 21:18 600 mg Q12H PRN Administration Congestion Albumin Human 25 gm in 100 mls @ 50 mls/hr 06/14/23 17:00 06/15/23 11:57 Albumin 25% IV 06/16/23 16:59 Infused Q8H NAM Infusion Lactated Ringer's 1,000 mls @ 15 mls/hr 06/15/23 12:00 06/15/23 12:26 Lr IV 07/15/23 11:59 15 mls/hr .Q24H NAM Administration Levothyroxine Sodium 88 mcg 06/13/23 06:30 06/15/23 06:08 Levothyroxine Sodium 88 Mcg Tablet PO 07/13/23 06:29 88 mcg DAILYBB NAM Administration Octreotide Acetate 100 mcg 06/14/23 09:15 06/15/23 06:08 Octreotide Acetate 100 Mcg/Ml Vial SQ 07/14/23 09:14 100 mcg Q8 NAM Administration Tamsulosin HCl 0.4 mg 06/14/23 21:00 06/14/23 21:04 Tamsulosin Hcl 0.4 Mg Cap PO 07/14/23 20:59 0.4 mg HS NAM Administration Vitamin D 50 mcg 06/13/23 09:00 06/15/23 08:13 Cholecalciferol 25 Mcg (1000 Units) Tab PO 07/13/23 08:59 50 mcg QAM NAM Administration NPO Date Last Intake of Fluids: 06/15/23 Time Last Intake of Fluids: 08:00 Last Intake of Fluids Comment: sips with PO meds Date Last Intake of Solids: 06/14/23 Time Last Intake of Solids: 17:00 Past Medical History Medical History Abnormal lead impedance of implantable cardioverter-defibrillator (ICD) ICD (implantable cardioverter-defibrillator) battery depletion Proteinuria Hypothyroidism (acquired) Prediabetes Elevated AST (SGOT) High alkaline phosphatase History of myocardial infarction (07/13/03) Anterior [place] at [facility], TPA, stent LAD, 60-70%RCA, EF 35% Erosive osteoarthritis bilateral feet Arthritis Hypertension Hyperlipidemia Ventricular tachycardia With arrest now with ICD Ischemic cardiomyopathy DJD (degenerative joint disease) of knee Chronic systolic (congestive) heart failure Atrial fibrillation (~12/2016) Exercise / Class Metabolic Activity II 4-5 Yardwork/Stairs/Walk up hill Past Family History Family History Father Myocardial infarction, Onset Age: 52 Family history of coronary artery disease Son Family history of coronary artery disease, Onset Age: 30 CABG Denies family history of Ovarian cancer Prostate cancer Breast cancer Colorectal cancer Past Surgical History Surgical History History of total left knee replacement (TKR) (08/07/15) History of implantable cardiac defibrillator (ICD) Single lead ICD placement, Medtronic device History of percutaneous coronary intervention To the LAD History of coronary artery bypass graft (~2008) X4 in 2008 with a GUILLORY to the LAD, vein graft to the diagonal, posterior lateral circ, and PDA Past Anesthesia History No Hx of Anesthesia Complications and No Family Hx of Anesthesia Complications History of PONV No Hx of PONV and No Hx of Motion Sickness Social History Smoking Status: Former smoker Smoking cigarettes per day: hx of chewing tobacco Do You Dip or Chew Tobacco: No Smoking End Date: 15-16 years ago Hx Alcohol Use: Yes Alcohol type: beer alcohol intake frequency: a few times a week Hx Substance Use: No substance use type: does not use Physical Exam Vital Signs Last Vital Signs Temp 97.9 F 06/15/23 12:34 Pulse 88 06/15/23 12:34 Resp 20 06/15/23 12:34 BP 122/85 06/15/23 12:34 Pulse Ox 93 06/15/23 12:34 O2 Del Method Nasal Cannula 06/15/23 12:34 O2 Flow Rate 2 06/15/23 12:34 ENMT Mouth: + poor dentition and + chipped teeth Thyromental Distance: > or= 3.5 Finger Breadths Mallampati Class: III Neck normal visual inspection Respiratory normal respiratory effort Auscultation: lungs clear to auscultation bilaterally Cardiovascular Rate/Rhythm: + abnormal rate and + abnormal rhythm Testing Laboratory Results 06/15/23 06:38 06/15/23 06:38 PT 18.9 Seconds (9.0-12.0) H 06/13/23 06:02 INR 1.8 (0.9-1.1) H 06/13/23 06:02 APTT 47 Seconds (21-31) H 06/12/23 10:45 Urine Color Dark Yellow 06/13/23 13:04 Urine Appearance Cloudy (Clear) A 06/13/23 13:04 Urine pH 5.0 (4.5-7.5) 06/13/23 13:04 Ur Specific [place] 1.014 (1.000-1.030) 06/13/23 13:04 Urine Protein 2+ (Negative) H 06/13/23 13:04 Urine Glucose (UA) Negative (Negative) 06/13/23 13:04 Urine Ketones Negative (Negative) 06/13/23 13:04 Urine Nitrite Negative (Negative) 06/13/23 13:04 Ur Leukocyte Esterase Negative (Negative) 06/13/23 13:04 Urine WBC (Auto) 0-5 /hpf (0-5) 06/13/23 13:04 Urine RBC (Auto) 3-5 /hpf (0-2) H 06/13/23 13:04 U Hyaline Cast (Auto) 6-10 /lpf (0-2) H 06/13/23 13:04 U Epithel Cells (Auto) 6-10 /hpf (0-2) H 06/13/23 13:04 Urine Bacteria (Auto) None Seen (None Seen) 06/13/23 13:04 Electrocardiogram Date: 06/12/23 Atrial fibrillation, rate 70 bpm Left axis deviation Non-specific intra-ventricular conduction delay Abnormal ECG When compared with ECG of 12-MAR-2023 09:13, Atrial fibrillation has replaced Electronic ventricular pacemaker Confirmed by Mohit Dumont ([id number]) on 06/12/2023 4:45:05 PM Chest X-Ray Date: 06/12/23 FINDINGS: Left subclavian pacer/AICD is in place. There are median sternotomy wires and mediastinal surgical clips. Moderate cardiomegaly is unchanged. There is mild interstitial thickening. Mild left midlung opacity similar to earlier radiograph of March 12, 2023. IMPRESSION: 1. Cardiomegaly with mild interstitial pulmonary edema. 2. Persistent left midlung opacity. This may reflect scarring or a persistent infectious process. However, radiographic follow-up to ensure resolution and exclude the possibility of an underlying pulmonary lesion is recommended. Echocardiogram Date: 06/14/23 LV systolic function is severely reduced, EF 35-40% There is mild hypokinesis involving the inferior wall with akinesis of the septum and portions of the apex Anterior wall also mildly hypokinetic LA is mod dilated AV sclerosis mild, without significant AV stenosis Mild mitral annular calcification RVSP is elevated at 40-50mmHg IVC is mildly dilated
[2023-06-15] MEDS ORDERED: fentaNYL citrate PF 100 MCG/2 ML VIAL ONE (12:57)
[2023-06-15] MEDS ORDERED: LIDOCAINE 2% 2 ML VIAL/AMP(20MG/ML) INFIL ONE (13:22)
[2023-06-15] MEDS ORDERED: SUCCINYLCHOLINE CHLORIDE 20 MG/ML 10 ML VIAL IV ONE (13:22)
[2023-06-15] MEDS ORDERED: ONDANSETRON INJ 2 MG/ML 2 ML VIAL ONE (13:22)
[2023-06-15] MEDS ORDERED: PROPOFOL IV EMULSION 10 MG/ML 20 ML VIAL IV ONE (13:22)
[2023-06-15] MEDS ORDERED: PHENYLEPHRINE 100MCG/ML 10ML SYR IV ONE (13:23)
[2023-06-15] MEDS ORDERED: ePHEDrine sulfate 50 MG/5 ML SYR ONE (13:23)
--- NOTE | 2023-06-15 13:34 | GI REPORT ---
Patient Name: Marquise Wheatley Procedure Date: 06/15/2023 12:59 PM Date of : 1955 Admit Type: Inpatient Age: 67 Gender: Male Attending MD: Ezekiel Combs DO, Procedure: Upper GI endoscopy Providers: Ezekiel Combs DO Referring MD: Mohit Herrmann, Dashawn Wynn MD Indications: Melena Medicines: General Anesthesia Complications: No immediate complications. Estimated Blood Loss: Estimated blood loss: none. Procedure: Pre-Anesthesia Assessment: - Prior to the procedure, a History and Physical was performed, and patient medications and allergies were reviewed. The patient's tolerance of previous anesthesia was also reviewed. The risks and benefits of the procedure and the sedation options and risks were discussed with the patient. All questions were answered, and informed consent was obtained. Prior Anticoagulants: The patient has taken Eliquis (apixaban), last dose was 1 day prior to procedure. ASA Grade Assessment: IV - A patient with severe systemic disease that is a constant threat to life. After reviewing the risks and benefits, the patient was deemed in satisfactory condition to undergo the procedure. After obtaining informed consent, the endoscope was passed under direct vision. Throughout the procedure, the patient's blood pressure, pulse, and oxygen saturations were monitored continuously. The Colonoscope was introduced through the mouth, and advanced to the fourth part of duodenum. The upper GI endoscopy was accomplished without difficulty. The patient tolerated the procedure well. Findings: The esophagus was normal. Diffuse severe inflammation with hemorrhage characterized by erythema was found in the entire examined stomach. The examined duodenum was normal. Impression: - Normal esophagus. - Acute gastritis with hemorrhage. - Normal examined duodenum. - No specimens collected. Recommendation: - Return patient to [facility] for [facility] care. - Clear liquid diet. - Use sucralfate suspension 1 gram PO QID for 10 days. - Use Protonix (pantoprazole) 40 mg IV BID. Ezekiel Combs DO 06/15/2023 1:34:23 PM This report has been signed electronically. Note Initiated On: 06/15/2023 12:59 PM Number of Addenda: 0 I attest to the content of the Intraoperative Record and orders documented therein, exceptions below {[id number]}
[2023-06-15] MEDS: PANTOprazole 40 MG in DEXTROSE 5% MINI-B 100 ML IV SCH (13:50)
--- NOTE | 2023-06-15 14:19 | Anesthesiology Progress Note ---
Date of Service June 15, 2023 Anesthesia Post Procedure Vital Signs Vital Signs: Temp Pulse Pulse Pulse Resp BP BP 06/15/23 14:00 88 17 102/67 06/15/23 13:50 81 19 106/77 06/15/23 13:43 96.8 F L 80 34 H 92/57 L 06/15/23 12:34 97.9 F 88 20 122/85 06/15/23 11:39 97.3 F L 84 18 115/74 06/15/23 09:22 79 16 06/15/23 08:57 06/15/23 08:56 77 06/15/23 07:38 97.5 F L 77 16 116/75 06/15/23 03:21 97.7 F 81 20 116/76 06/15/23 00:18 06/14/23 23:00 98.4 F 78 22 98/65 L 06/14/23 20:00 97.3 F L 68 20 102/62 06/14/23 15:30 97.5 F L 63 18 108/75 06/14/23 15:03 77 06/14/23 15:00 Pulse Ox O2 Del Method O2 Flow Rate 06/15/23 14:00 95 Oxymask 6 06/15/23 13:50 93 Oxymask 6 06/15/23 13:43 91 Oxymask 10 06/15/23 12:34 93 Nasal Cannula 2 06/15/23 11:39 94 Nasal Cannula 2 06/15/23 09:22 90 Room Air 06/15/23 08:57 Room Air 06/15/23 08:56 06/15/23 07:38 91 Room Air 06/15/23 03:21 93 Nasal Cannula 1 06/15/23 00:18 Nasal Cannula 2 06/14/23 23:00 94 Nasal Cannula 1 06/14/23 20:00 93 Room Air 06/14/23 15:30 99 Nasal Cannula 2 06/14/23 15:03 06/14/23 15:00 Room Air, Nebulizer Transfer of Care Handoff Completed per policy Notes Mental Status: alert / awake / arousable and participated in evaluation Patient Amnestic to Procedure: Yes Nausea / Vomiting: adequately controlled Pain: adequately controlled Airway Patency, RR, SpO2: stable & adequate BP & HR: stable & adequate Hydration State: stable & adequate Anesthetic Complications: no major complications apparent and Pt Satisfied with anesthetic care
--- NOTE | 2023-06-15 14:43 | Anesthesiology Progress Note ---
Date of Service June 15, 2023 Anesthesia Post Procedure Vital Signs Vital Signs: Temp Pulse Pulse Pulse Resp BP BP 06/15/23 14:31 36.4 C L 94 H 20 106/70 06/15/23 14:20 88 17 107/73 06/15/23 14:10 87 26 H 102/58 L 06/15/23 14:00 88 17 102/67 06/15/23 13:50 81 19 106/77 06/15/23 13:43 36.0 C L 80 34 H 92/57 L 06/15/23 12:34 36.6 C 88 20 122/85 06/15/23 11:39 36.3 C L 84 18 115/74 06/15/23 09:22 79 16 06/15/23 08:57 06/15/23 08:56 77 06/15/23 07:38 36.4 C L 77 16 116/75 06/15/23 03:21 36.5 C 81 20 116/76 06/15/23 00:18 06/14/23 23:00 36.9 C 78 22 98/65 L 06/14/23 20:00 36.3 C L 68 20 102/62 06/14/23 15:30 36.4 C L 63 18 108/75 06/14/23 15:03 77 06/14/23 15:00 Pulse Ox O2 Del Method O2 Flow Rate 06/15/23 14:31 93 Nasal Cannula 3 06/15/23 14:20 94 Nasal Cannula 3 06/15/23 14:10 94 Nasal Cannula 4 06/15/23 14:00 95 Oxymask 6 06/15/23 13:50 93 Oxymask 6 06/15/23 13:43 91 Oxymask 10 06/15/23 12:34 93 Nasal Cannula 2 06/15/23 11:39 94 Nasal Cannula 2 06/15/23 09:22 90 Room Air 06/15/23 08:57 Room Air 06/15/23 08:56 06/15/23 07:38 91 Room Air 06/15/23 03:21 93 Nasal Cannula 1 06/15/23 00:18 Nasal Cannula 2 06/14/23 23:00 94 Nasal Cannula 1 06/14/23 20:00 93 Room Air 06/14/23 15:30 99 Nasal Cannula 2 06/14/23 15:03 06/14/23 15:00 Room Air, Nebulizer Transfer of Care Handoff Completed per policy Notes Mental Status: alert / awake / arousable Patient Amnestic to Procedure: Yes Nausea / Vomiting: adequately controlled Pain: adequately controlled Airway Patency, RR, SpO2: stable & adequate BP & HR: stable & adequate Hydration State: stable & adequate Anesthetic Complications: no major complications apparent and Pt Satisfied with anesthetic care
[2023-06-15 16:13] LABS: Hematocrit (blood only) 29.8 % (42.0-52.0); Hemoglobin 9.9 g/dl (14.0-18.0)
[2023-06-15 16:29] LABS: BUN Creatinine Ratio 19.9 (10-20); Calcium 9.6 mg/dl (8.6-10.3); Creatinine Clr Calc Pharmacy 29.4 ml/min; Est GFR (African American) 21.8 ml/min; Est GFR (Non-African American) 18.8 ml/min; Potassium 3.5 mmol/L (3.5-5.1)
[2023-06-15 17:11] LABS: Fibrinogen 260 mg/dl (184-400); Partial Thromboplastin Ratio 2.2; Partial Thromboplastin Time 62 Seconds (21-31); Prothrombin Time 20.6 Seconds (9.0-12.0)
[2023-06-15 17:23] LABS: D Dimer 1810 ug/L FEU (0-500)
[2023-06-15] MEDS: SUCRALFATE 1 GM/10 ML UDC PO SCH (17:48)
[2023-06-15] MEDS: PANTOprazole 40 MG in SYRINGE 0 ML IV SCH (19:39)
[2023-06-16 06:56] LABS: Hematocrit (blood only) 25.7 % (42.0-52.0); Hemoglobin 8.9 g/dl (14.0-18.0); Mean Corpuscular Hemoglobin 31.6 pg (25.0-34.0); Mean Corpuscular Hgb Conc 34.6 g/dL (32.0-36.0); Mean Corpuscular Volume 91.1 fL (80.0-100.0); Mean Platelet Volume 11.9 fL (9.4-12.4); Platelet Count 109 K/uL (130-400); RDW Coefficient of Variation 17.6 % (11.5-14.5); RDW Standard Deviation 58.6 fL (36.4-46.3); Red Blood Count 2.82 M/uL (4.70-6.10); White Blood Count 7.22 K/ul (4.8-10.8)
[2023-06-16 07:24] LABS: Albumin Globulin Ratio 1.7 (0.9-2); Albumin Level 4.3 gm/dl (3.4-5.0); BUN Creatinine Ratio 18.3 (10-20); Bilirubin,Total 4.6 mg/dl (0.2-1.0); Calcium 9.5 mg/dl (8.6-10.3); Creatinine Clr Calc Pharmacy 29.3 ml/min; Est GFR (African American) 21.8 ml/min; Est GFR (Non-African American) 18.8 ml/min; Globulin 2.6 gm/dl (2.5-4.0); Potassium 3.1 mmol/L (3.5-5.1); Total Protein 6.9 gm/dl (6.0-8.3)
[2023-06-16] MEDS: FUROSEMIDE 40 MG TAB PO SCH (09:17)
[2023-06-16] MEDS: IRON SUCROSE 200 MG in 0.9 % SODIUM CHLORIDE 100 ML IV ONE (09:33)
[2023-06-16] MEDS: POTASSIUM CHLORIDE / WTR 10 MEQ/100 ML PLCT IV SCH (10:34)
[2023-06-16 10:52] LABS: Magnesium 1.6 mg/dl (1.7-2.4)
--- NOTE | 2023-06-16 13:23 | Hospitalist Progress Note ---
Date of Service June 16, 2023 Assessment & Plan (1) CKD (chronic kidney disease), stage III: (2) Acute kidney injury: (3) SOB (shortness of breath): (4) Hypothyroidism (acquired): (5) CAD, multiple vessel: (6) Hypertension: (7) Hyperlipidemia: (8) History of implantable cardiac defibrillator (ICD): (9) HFrEF (heart failure with reduced ejection fraction): (10) Cirrhosis: (11) Erosive gastritis: Plan Mr. Wheatley is a patient admitted for management of acute HFrEF exacerbation with possible cardiorenal syndrome. Hx CKD-III // Acute on chronic Creatinine improving and is 3.27 this am Baseline Cr of 1-1.03 (follows with Dr. River) UO improved with IV albumin (0.71 ml/kg/hr) - Nephrology consulted: Cannot fully r/o glomerulonephritis Orders for ANCA, anti-GBM ESR reassuring at 20 Renal US w/o obstruction 3rd dose of Venofer for treatment of anemia tomorrow Hematemesis vs Hemoptysis - Patient with episode of vomiting yesterday night that was bloody - GI was consulted given new dx of cirrhosis and EGD was done: acute gastritis with hemorrhage - GI recc: continue Sucralfate 1 g PO QID x10d and Protonix 40mg IV bid - Will continue to monitor - Continue to monitor am CBC HFrEF exacerbation - Suspect exacerbation may have come as a consequence to recently increased frequency to bid of NaCl tabs for hyponatremia - s/p ICD placement with recent generator exchange - TTE (06/14/23):severely reduced LV systolic function (EF 35-40%), mild hypokinesis involving inferior wall of LV with akinesis of the septum and portions of the apex, anterior LV wall hypokinetic, normal RV function, mod dilated LA, elevated RV pressure at 40-50 - Chest x-ray: Cardiomegaly with interstitial pulmonary edema - Improved UO and fluid balance negative Continue Lasix 80mg twice daily Strict Is and Os, daily weights, Low sat diet Cirrhosis - New diagnosis; seen on RU US - Patient with history of alcohol abuse as per family member - low platelets, elevated INR, and hyponatremia likely related to this - Continue to monitor am labs Ambulatory dysfunction - PT evaluated and determined patient in need of rehab after discharge - No known history of falls but patient does state he was feeling imbalanced and weak before current admission - CM notified A-fib - On Carvedilol and Eliquis Chronic Hyponatremia - Salt tablets held due to CHF exacerbation - Monitor am labs RA - Home MTX on hold due to renal function - Home Rinvoq on hold due to risk of CM/cardiac HTN - Continue beta freya Pre-Diabetes - Monitor bsg and SSI as needed Hypothyroidism - Last TSH from 02/2023 normal (~2) - Continue Synthroid Hyperlipidemia - Continue statin VTE ppx: Eliquis Diet: Clear liquid w/ aspiration precautions DNR/DNI Admission and Anticipated Discharge Date Admission Date: June 12, 2023 Supervising Physician Co-Signing Physician Notes I also saw the patient with the resident physician and confirmed landa portions of the clinical history and physical examination. I also discussed the case with the nephrology toy consultant. I agree with the impression and plan as noted in resident documentation. Exam 111/72, 80, 19, 36.3, 95% on room air He is pleasant. Awake, alert, slightly confused. Heart is irregularly irregular, rate 80 Respirations are nonlabored DATA Labs Hemoglobin 8.9, platelet count 109 Sodium 130, potassium 3.1, BUN 60, creatinine 3.27 Total bilirubin 4.6, AST 115, ALT 22, alkaline phosphatase 146 EGD completed 06/15/2023 shows diffuse severe inflammation with hemorrhage characterized by erythema in the entire stomach. IMPRESSION & PLAN Acute kidney injury, CKD stage IIIa1 Congestive heart failure Continue Lasix 80 mg IV twice daily Appreciate nephrology consultation Hyponatremia Diuresis and fluid restriction Daily BMP Anemia, iron deficiency Likely also an element of myelosuppression given EtOH Venofer Cirrhosis Elevated INR, mild thrombocytopenia, and hyponatremia reflective of significant liver disease Erosive gastritis seen on EGD, 06/13/2023 PPI Additional per resident documentation Subjective Mr. Wheatley is a 67 y/o male who was admitted due to HFrEF exacerbation with possible cardiorenal syndrome. Patient was evaluated at bedside and found to be AAOx3, afebrile, and in NAD. Refers that he still feels some SOB. Otherwise has no other concerns. Review of Systems Review of Systems: As per HPI. Physical Exam Physical Exam: General: AAOx3, afebrile, streaks of old blood in right corner of mouth, NAD CV: RRR, no r/m/g Pulm: mild end-expiratory wheezing, no crackles, normal resp effort, no respiratory distress GI: non-distended, non-tender, soft LE: mild LE swelling, no calf tenderness Results & Data Results & Data Vital Signs (Past 12 Hours) Vital Signs Temp Pulse Pulse Resp BP Pulse Ox O2 Del Method 06/16/23 11:28 36.3 C L 80 19 111/72 95 Nasal Cannula 06/16/23 08:00 77 06/16/23 08:00 Nasal Cannula 06/16/23 07:57 36.4 C L 75 20 109/76 96 Nasal Cannula 06/16/23 03:21 36.5 C 78 16 102/67 96 Nasal Cannula O2 Flow Rate 06/16/23 11:28 06/16/23 08:00 06/16/23 08:00 2 06/16/23 07:57 2 06/16/23 03:21 2.0
--- NOTE | 2023-06-16 13:24 | Nephrology Progress Note ---
Date of Service June 16, 2023 Assessment & Plan (1) Acute kidney injury: Plan: Non-oliguric. Remains in a daily slightly negative fluid balance. Clinically and subjectively improved. BP remains acceptable. Octreotide and IV albumin for possible HRS will be stopped today. Continue furosemide 80 mg IV BID to encourage urine output. UA cloudy, +ketones, +bili. Urine microscopy with 3-5 RBC and hyaline casts. I cannot completely exclude GN -- although presentation would be atypical and Marquise certainly does not have RPGN. ESR reassuring at 20. ANCA testing + anti- GBM are pending. Electrolytes acceptable. Good urine output with diuretics. No emergent raymon cation for FARM HAND. US did not demonstrate obstruction. Medications are appropriately dosed for kidney function. Document strict I/O's. Repeat metabolic profile tomorrow AM. Methotrexate held. (2) CHF (congestive heart failure): Plan: Acute on chronic heart failure with reduced EF. s/p recent lead revision and generator change. EKG with atrial fibrillation and controlled rate. TTE reviewed 06/13. Furosemide 80 mg IV BID ordered. Fluid restrict to 1.2 L daily. Document I/Os and daily weights. Avoid RAASi due to kidney dysfunction. (3) Hyponatremia: Plan: Manifests more of a poor prognostic indicator in chronic HFrEF and liver disease. Chronic. Hypervolemic. IV diuretics and fluid restriction. Recent outpatient evaluation found the patient to be clinically euthyroid with replacement and with normal serum cortisol testing. (4) Chronic kidney disease: Plan: CKD III A1. Followed by Dr. River. Baseline creatinine 1.0-1.3 mg/dL. (5) Anemia: Plan: Iron deficient. Venofer 200 mg IV x 2 doses have been provided. 3rd dose tomorrow. Recent GI bleeding. EGD demonstrating erosive gastritis. Mild thr ombocytopenia without finding of DIC. Clinical presentation suggestive of advanced liver disease. (6) Cirrhosis: Plan: Bili continues to rise. INR elevated. Vitamin K provided IV yesterday in setting of bleeding. Marquise was not previously aware of underlying liver disease. MELD-Na 33. GI consultation appreciated. I discussed the patient with Dr. Combs yesterday. (7) Erosive gastritis: Plan: With hemorrhage. No melena or hematochezia. Started on sucralfate and IV Protonix yesterday. (8) Atrial fibrillation: Plan: Eliquis held. Anticoagulation to primary service. Remains rate controlled. Admission and Anticipated Discharge Date Admission Date: June 12, 2023 Subjective No acute events overnight. Marquise reports that he vomited small amount of blood this morning. He described some mild nausea. He denies melena or hematochezia. He denies significant dyspnea. No significant fluid retention or edema. Abdominal distention and bloating. No abdominal pain. Urine output is good. Marquise told me this morning that he was previously drinking up to 10 beers per day but that his last drink was 9 days ago. Review of Systems Review of Systems: All systems reviewed & are unremarkable except as noted in HPI & below Physical Exam Constitutional: well developed; no acute distress Eyes: + anicteric sclerae; no corneal abnormal ity ENMT: external ear and nose normal, oropharynx normal Mouth: + poor dentition; no lip abnormality and oral mucous membranes not dry Neck: normal visual inspection and trachea midline Respiratory: normal respiratory effort Auscultation: lungs clear to auscultation bilaterally, + rales and + wheezes (soft) Cardiovascular: Rate/Rhythm: + irregularly irregular Heart Sounds: normal S1, normal S2 and + murmur Extremities: + edema Gastrointestinal (Abdomen): Inspection/Auscultation: + abdomen distended Percussion/Palpation: abdomen nontender, no guarding and abdomen not rigid Musculoskeletal: Extremities: no cyanosis and no clubbing Skin: normal turgor and + pallor; no lesions and no jaundice Neurologic: Motor/Sensory: no tremor and no asterixis Psychiatric: Orientation: alert and oriented x 3 Results & Data Vital Signs (Past 12 Hours) Vital Signs Temp Pulse Pulse Resp BP Pulse Ox O2 Del Method 06/16/23 11:28 36.3 C L 80 19 111/72 95 Nasal Cannula 06/16/23 08:00 77 06/16/23 08:00 Nasal Cannula 06/16/23 07:57 36.4 C L 75 20 109/76 96 Nasal Cannula 06/16/23 03:21 36.5 C 78 16 102/67 96 Nasal Cannula O2 Flow Rate 06/16/23 11:28 06/16/23 08:00 06/16/23 08:00 2 06/16/23 07:57 2 06/16/23 03:21 2.0 Laboratory Results Laboratory Results - last 24 hr 06/15/23 06/15/23 06/16/23 11:00 15:56 06:19 WBC 7.22 RBC 2.82 L Hgb 9.9 L 8.9 L Hct 29.8 L 25.7 L MCV 91.1 MCH 31.6 MCHC 34.6 RDW Std Deviation 58.6 H RDW Coeff of Shahid 17.6 H Plt Count 109 L MPV 11.9 Peripher Smr Path Cons ESR 20 PT 20.6 H INR 2.0 H APTT 62 H PTT Ratio 2.2 Fibrinogen 260 D-Dimer 1810 H* Sodium 128 L 130 L Potassium 3.5 3.1 L Chloride 92 L 93 L Carbon Dioxide 23 22 Anion Gap 13 H 15 H BUN 65 H 60 H Creatinine 3.27 H 3.27 H Est Cr Clr Drug Dosing 29.4 29.3 Est GFR ( Amer) 21.8 21.8 Est GFR (Non-Af Amer) 18.8 18.8 BUN/Creatinine Ratio 19.9 18.3 Glucose 94 80 Calcium 9.6 9.5 Magnesium 1.6 L Total Bilirubin 4.6 H AST 115 H ALT 22 Alkaline Phosphatase 146 H Total Protein 6.9 Albumin 4.3 Globulin 2.6 Albumin/Globulin Ratio 1.7 Stool Occult Bld Scrn Positive A Anti-Proteinase 3 Pending Anti-Myeloperoxidase Pending ANCA Pending Glomerular Base Memb Ab Pending PG Care Time/CCT Total # of Minutes Spent Total Time Spent with Patient: Total time spent is greater than 50% in coordination of care (as documented) at patient's floor/unit and/or counseling patient: Coding Level of Care Code 16343 SUB INP/OBS CARE 3/50MIN Diagnoses Acute kidney injury N17.9 CHF (congestive heart failure) I50.9 Heart failure chronicity: unspecified Heart failure type: unspecified Hyponatremia E87.1 Chronic kidney disease N18.9 Anemia D64.9 Anemia type: unspecified type Cirrhosis K74.60 Erosive gastritis K29.60 Atrial fibrillation I48.91 (2) CHF (congestive heart failure) Heart failure chronicity: unspecified Heart failure type: unspecified Qualified Code(s): I50.9 - Heart failure, unspecified (5) Anemia Anemia type: unspecified type Qualified Code(s): D64.9 - Anemia, unspecified
--- NOTE | 2023-06-16 14:45 | Fluoroscopy Report ---
VIDEO SWALLOW STUDY CLINICAL HISTORY: Aspiration. COMPARISON STUDY: No priors. FLUOROSCOPY TIME: 2.14 minutes. Ka,r: 16.3 mGy. FINDINGS: Fluoroscopic guidance was provided to the department of speech pathology in performing a vi maría elena swallow study. The patient consumed barium impregnated pudding, cracker with paste, nectar thick liquids, and thin barium while the swallowing mechanism was observed in real-time. There is pharyngea l penetration and aspiration is seen with thin barium as well as the nectar thick liquid texture. No penetration or aspiration was seen with the pudding or cracker with paste textures. IMPRESSION: 1. There is transient penetration and aspiration seen with thin barium and the nectar thick liquids. 2. See dedicated speech pathology report for detailed findings and recommendations. Dictated: 06/16/2023 2:14 PM Transcribed: 06/16/2023 2:25 PM Angela [id number] [email or web address] [id number] Electronically signed by: Giovanny Gramajo M.D. 06/16/2023 2:43 PM
[2023-06-17] MEDS: IRON SUCROSE 200 MG in 0.9 % SODIUM CHLORIDE 100 ML IV ONE (06:03)
[2023-06-17 06:24] LABS: Albumin Globulin Ratio 1.6 (0.9-2); Albumin Level 4.2 gm/dl (3.4-5.0); BUN Creatinine Ratio 19.7 (10-20); Bilirubin,Total 4.8 mg/dl (0.2-1.0); Calcium 9.2 mg/dl (8.6-10.3); Creatinine Clr Calc Pharmacy 31.5 ml/min; Est GFR (African American) 24.6 ml/min; Est GFR (Non-African American) 21.3 ml/min; Globulin 2.6 gm/dl (2.5-4.0); Potassium 3.2 mmol/L (3.5-5.1); Total Protein 6.8 gm/dl (6.0-8.3)
[2023-06-17 06:33] LABS: Hematocrit (blood only) 28.5 % (42.0-52.0); Hemoglobin 9.5 g/dl (14.0-18.0); Mean Corpuscular Hemoglobin 31.1 pg (25.0-34.0); Mean Corpuscular Hgb Conc 33.3 g/dL (32.0-36.0); Mean Corpuscular Volume 93.4 fL (80.0-100.0); Mean Platelet Volume 11.5 fL (9.4-12.4); Platelet Count 106 K/uL (130-400); RDW Coefficient of Variation 17.9 % (11.5-14.5); RDW Standard Deviation 61.1 fL (36.4-46.3); Red Blood Count 3.05 M/uL (4.70-6.10); White Blood Count 6.84 K/ul (4.8-10.8)
--- NOTE | 2023-06-17 07:03 | Hospitalist Progress Note ---
Date of Service June 17, 2023 Assessment & Plan (1) CKD (chronic kidney disease), stage III: (2) Acute kidney injury: (3) SOB (shortness of breath): (4) Hypothyroidism (acquired): (5) CAD, multiple vessel: (6) Hypertension: (7) Hyperlipidemia: (8) History of implantable cardiac defibrillator (ICD): (9) HFrEF (heart failure with reduced ejection fraction): (10) Cirrhosis: (11) Erosive gastritis: Plan Mr. Wheatley is a patient admitted for management of acute HFrEF exacerbation with possible cardiorenal syndrome. Today, awaiting placement. Eliquis was restarted yesterday and no concern at the moment for GI bleed recurrence. FELIX on CKD-III Creatinine highest 3.53 this admission, improved to 2.95 this am Baseline Cr of 1-1.03 (follows with Dr. River) UO improved with IV albumin (0.71 ml/kg/hr) - Nephrology consulted: Cannot fully r/o glomerulonephritis Orders for ANCA, anti-GBM ESR reassuring at 20 Renal w/o obstruction 3rd dose of Venofer for treatment of anemia today HFrEF exacerbation, improved - Suspect exacerbation may have come as a consequence to recently increased frequency to bid of NaCl tabs for hyponatremia - s/p ICD placement with recent generator exchange - TTE (06/14/23):severely reduced LV systolic function (EF 35-40%), mild hypokinesis involving inferior wall of LV with akinesis of the septum and portions of the apex, anterior LV wall hypokinetic, normal RV function, mod dilated LA, elevated RV pressure at 40-50 - Chest x-ray: Cardiomegaly with interstitial pulmonary edema - Improved UO and fluid balance negative Continue Lasix 80mg twice daily Strict Is and Os, daily weights, Low sat diet Hematemesis vs Hemoptysis, resolved - Patient with episode of vomiting yesterday night that was bloody - GI was consulted given new dx of cirrhosis and EGD was done: acute gastritis with hemorrhage - GI recc: continue Sucralfate 1 g PO QID x10d and Protonix 40mg IV bid - Will continue to monitor - Continue to monitor am CBC Cirrhosis - New diagnosis; seen on [facility] US - Patient with history of alcohol abuse as per family member - low platelets, elevated INR, and hyponatremia likely related to this - Continue to monitor am labs Ambulatory dysfunction - PT evaluated and determined patient in need of rehab after discharge - No known history of falls but patient does state he was feeling imbalanced and weak before current admission - CM notified A-fib - On Carvedilol and Eliquis Chronic Hyponatremia - Salt tablets held due to CHF exacerbation - Monitor am labs RA - Home MTX on hold due to renal function - Home Rinvoq on hold due to risk of CM/cardiac HTN - Continue beta freya Pre-Diabetes - Monitor bsg and SSI as needed Hypothyroidism - Last TSH from 02/2023 normal (~2) - Continue Synthroid Hyperlipidemia - Continue statin VTE ppx: Eliquis Diet: Clear liquid w/ aspiration precautions Admission and Anticipated Discharge Date Admission Date: June 12, 2023 Supervising Physician Co-Signing Physician Notes I also saw the patient with the resident physician and confirmed landa portions of the clinical history and physical examination. I agree with the impression and plan as noted in resident documentation. Exam Vital signs as noted. Heart is irregularly irregular, rate mid 80s Respirations are nonlabored DATA Labs Hemoglobin 9.5, platelet count 106 Sodium 129, potassium 3.2, BUN 58, creatinine 2.95 Total bilirubin 4.8, AST 195, ALT 34, alkaline phosphatase 153 EGD completed 06/15/2023 shows diffuse severe inflammation with hemorrhage characterized by erythema in the entire stomach. IMPRESSION & PLAN Acute kidney injury, CKD stage IIIa1 Congestive heart failure Continue Lasix 80 mg IV twice daily Appreciate nephrology consultation Hyponatremia Diuresis and fluid restriction Daily BMP Anemia, iron deficiency Likely also an element of myelosuppression given EtOH Venofer Cirrhosis Elevated INR, mild thrombocytopenia, and hyponatremia reflective of significant liver disease Total bilirubin, AST, alkaline phosphatase trending up today Dysphagia/possible aspiration Minced and moist diet with supervision, mouth care, and full aspiration/reflux precautions Erosive gastritis seen on EGD, 06/13/2023 Continue PPI Additional per resident documentation Subjective Mr. Wheatley is a 67 y/o male who was admitted due to HFrEF exacerbation with possible cardiorenal syndrome. Today, pt states he is doing well eating and drinking and is having bowel movements that do not appear to have any blood in them. He does, however, note ongoing profound weakness. Otherwise feeling okay. Family present with him today and state prior to the hospitalization he was independent. Review of Systems Review of Systems: As per HPI. Physical Exam Physical Exam: General:Alert, no acute distress, HEENT: Normocephalic, moist oral mucosa, Cardio: Regular rate and rhythm, no murmur, Resp:Lungs clear to auscultation b/l, no wheezes or rhonchi, Skin: Warm, pink, dry, Results & Data Results & Data Vital Signs (Past 12 Hours) Vital Signs Temp Pulse Resp BP BP Pulse Ox O2 Del Method 06/17/23 06:30 36.4 C L 85 18 114/71 98 Nasal Cannula 06/17/23 06:00 36.4 C L 85 18 106/69 98 Nasal Cannula 06/17/23 02:54 36.3 C L 89 22 113/60 96 Room Air 06/16/23 23:07 36.3 C L 82 18 113/75 96 Nasal Cannula 06/16/23 20:00 Nasal Cannula 06/16/23 19:02 36.3 C L 72 18 100/65 98 Nasal Cannula O2 Flow Rate 06/17/23 06:30 06/17/23 06:00 2 06/17/23 02:54 06/16/23 23:07 2 06/16/23 20:00 2 06/16/23 19:02 2 Resident Activity Tracking Resident Involvement: Resident Care Provided Care Provided: Adult Hospital Medicine
[2023-06-17] MEDS: POTASSIUM CHLORIDE / WTR 10 MEQ/100 ML PLCT IV SCH (07:41)
--- NOTE | 2023-06-17 08:38 | Nephrology Progress Note ---
Date of Service June 17, 2023 Assessment & Plan (1) Acute kidney injury: Plan: * Creatinine has improved from 3.47 to 2.95 * Patient remains nonoliguric * Albumin 4.2 * Continue diuretic therapy w/ target 1 L net diuresis/day (2) CHF (congestive heart failure): Plan: * Acute on chronic heart failure with reduced EF. s/p recent lead revision and generator change. EKG with atrial fibrillation and controlled rate. * Fluid restrict to 1.2 L daily. Document I/Os and daily weights. * Avoid RAASi due to kidney dysfunction. (3) Hyponatremia: Plan: * Mild, asymptomatic but remains a poor prognostic indicator in the setting of chronic HFrEF and liver disease. (4) Chronic kidney disease: Plan: * CKD III A1. Followed by Dr. River. Baseline creatinine 1.0-1.3 mg/dL. (5) Anemia: Plan: * BRANDAN. Day #3 of 3 IV Venofer (6) Cirrhosis: Plan: * Progressive rise in bilirubin, LFT and INR. * Recommend reconsultation w/ GI (7) Erosive gastritis: Plan: * On sucralfate and IV Protonix Admission and Anticipated Discharge Date Admission Date: June 12, 2023 Subjective Mr. Wheatley was evaluated in his hospital room this morning. He c/o abdominal distention causing difficulty with deep breaths. Review of Systems Constitutional: no fever Eyes: no problem reported Ear, Nose, Mouth, Throat: no problem reported Respiratory: no cough and no dyspnea Cardiovascular: no chest pain and no dyspnea Gastrointestinal: + bloating Integumentary: + yellowing of the skin Physical Exam Constitutional: not in distress Eyes: sclerae not anicteric ENMT: external ear and nose normal, oropharynx normal Neck: trachea midline, no thyromegaly Respiratory: normal respiratory effort, lungs clear to auscultation Cardiovascular: Rate/Rhythm: regular rate and regular rhythm Gastrointestinal (Abdomen): Inspection/Auscultation: + abdomen distended Percussion/Palpation: + ascites and + fluid wave; abdomen nontender and no guarding Skin: no rashes, warm and dry Neurologic: Speech / Cognition: normal speech and normal cognition Results & Data Vital Signs (Past 12 Hours) Vital Signs Temp Pulse Resp BP BP Pulse Ox O2 Del Method 06/17/23 08:02 36.4 C L 81 18 112/72 98 Room Air 04/20/24 06:30 36.4 C L 85 18 114/71 98 Nasal Cannula 06/17/23 06:00 36.4 C L 85 18 106/69 98 Nasal Cannula 06/17/23 02:54 36.3 C L 89 22 113/60 96 Room Air 06/16/23 23:07 36.3 C L 82 18 113/75 96 Nasal Cannula O2 Flow Rate 06/17/23 08:02 06/17/23 06:30 06/17/23 06:00 2 06/17/23 02:54 06/16/23 23:07 2 Laboratory Results Laboratory Results - last 24 hr 06/16/23 06/16/23 06/17/23 06:19 16:13 05:34 WBC 6.84 RBC 3.05 L Hgb 9.5 L Hct 28.5 L MCV 93.4 MCH 31.1 MCHC 33.3 RDW Std Deviation 61.1 H RDW Coeff of Shahid 17.9 H Plt Count 106 L MPV 11.5 Sodium 129 L Potassium 3.2 L Chloride 94 L Carbon Dioxide 22 Anion Gap 13 H BUN 58 H Creatinine 2.95 H D Est Cr Clr Drug Dosing 31.5 Est GFR ( Amer) 24.6 Est GFR (Non-Af Amer) 21.3 BUN/Creatinine Ratio 19.7 Glucose 99 Calcium 9.2 Magnesium 1.6 L Total Bilirubin 4.8 H AST 195 H ALT 34 Alkaline Phosphatase 153 H Ammonia 54.0 Total Protein 6.8 Albumin 4.2 Globulin 2.6 Albumin/Globulin Ratio 1.6 PG Care Time/CCT Total # of Minutes Spent Total Time Spent with Patient: Total time spent is greater than 50% in coordination of care (as documented) at patient's floor/unit and/or counseling patient: Coding Level of Care Code 27415 SUB INP/OBS CARE 3/50MIN Diagnoses Acute kidney injury N17.9 CHF (congestive heart failure) I50.9 Heart failure chronicity: unspecified Heart failure type: unspecified Hyponatremia E87.1 Chronic kidney disease N18.9 Anemia D64.9 Anemia type: unspecified type Cirrhosis K74.60 Erosive gastritis K29.60 (2) CHF (congestive heart failure) Heart failure chronicity: unspecified Heart failure type: unspecified Qualified Code(s): I50.9 - Heart failure, unspecified (5) Anemia Anemia type: unspecified type Qualified Code(s): D64.9 - Anemia, unspecified
[2023-06-17] MEDS ORDERED: metHOTREXate sodium 2.5 MG TAB PO SCH (09:00)
[2023-06-17] MEDS: POTASSIUM CHLORIDE CRTAB 20 MEQ TABCR PO STA ×2 (09:53→17:52)
[2023-06-17 11:41] LABS: Appearance Urine Turbid (Clear); Bacteria Urine Automated None Seen (None Seen); Bilirubin Urine Negative (Negative); Blood Urine 3+ (Negative); Color Urine Dark Yellow; Epithelial Cell Urine Auto 0-2 /hpf (0-2); Glucose Urine UA Negative (Negative); Ketones Urine Negative (Negative); Leukocyte Esterase Urine Negative (Negative); Nitrite Urine Negative (Negative); Protein Urine 2+ (Negative); Specific Gravity Urine 1.012 (1.000-1.030); Urobilinogen Urine Negative (Negative); WBC Urine Automated 0-5 /hpf (0-5); pH Urine 5.5 (4.5-7.5)
[2023-06-17 11:58] LABS: Granular Casts Urine Present /lpf (None Prsent)
[2023-06-17 11:59] LABS: Amorphous Sediment Urine Present (None Prsent)
[2023-06-17] MEDS: POTASSIUM CHLORIDE 20 MEQ/15 ML UDC PO STA (18:12)
[2023-06-18 06:53] LABS: Hematocrit (blood only) 29.1 % (42.0-52.0); Hemoglobin 9.5 g/dl (14.0-18.0); Mean Corpuscular Hemoglobin 31.1 pg (25.0-34.0); Mean Corpuscular Hgb Conc 32.6 g/dL (32.0-36.0); Mean Corpuscular Volume 95.4 fL (80.0-100.0); Mean Platelet Volume 11.8 fL (9.4-12.4); Platelet Count 131 K/uL (130-400); RDW Coefficient of Variation 18.3 % (11.5-14.5); RDW Standard Deviation 63.8 fL (36.4-46.3); Red Blood Count 3.05 M/uL (4.70-6.10)
[2023-06-18 07:13] LABS: Albumin Globulin Ratio 1.5 (0.9-2); BUN Creatinine Ratio 17.9 (10-20); Bilirubin,Total 5.1 mg/dl (0.2-1.0); Calcium 9.5 mg/dl (8.6-10.3); Creatinine Clr Calc Pharmacy 30.4 ml/min; Est GFR (African American) 23.5 ml/min; Est GFR (Non-African American) 20.3 ml/min; Globulin 2.7 gm/dl (2.5-4.0); Potassium 3.5 mmol/L (3.5-5.1); Total Protein 6.7 gm/dl (6.0-8.3)
--- NOTE | 2023-06-18 07:24 | Hospitalist Progress Note ---
Date of Service June 18, 2023 Assessment & Plan (1) CKD (chronic kidney disease), stage III: (2) Acute kidney injury: (3) SOB (shortness of breath): (4) Hypothyroidism (acquired): (5) CAD, multiple vessel: (6) Hypertension: (7) Hyperlipidemia: (8) History of implantable cardiac defibrillator (ICD): (9) HFrEF (heart failure with reduced ejection fraction): (10) Cirrhosis: (11) Erosive gastritis: Plan Mr. Wheatley is a patient admitted for management of acute HFrEF exacerbation with possible cardiorenal syndrome. Creatinine today at 3.0, trending down. As per nephro, diuretic was hold today and 1L of 0.9 NS given due to 3rd spacing of volume into abdomen. Elevation of bilirubin and LFTs. Lactulose 30 g po TID added. GI reconsulted. Tolerating well Eliquis. FELIX on CKD-III Creatinine highest 3.53 this admission, improved to 2.95 this am Baseline Cr of 1-1.03 (follows with Dr. River) UO improved with IV albumin (0.71 ml/kg/hr) - Nephrology consulted: Cannot fully r/o glomerulonephritis Urine microscopy w/ granular casts concerning for ATN Orders for ANCA, anti-GBM ESR reassuring at 20 Renal US w/o obstruction Hold diuretic therapy, given 1 NS Urine Na and Cr in AM HFrEF exacerbation, improved - Suspect exacerbation may have come as a consequence to recently increased frequency to bid of NaCl tabs for hyponatremia - s/p ICD placement with recent generator exchange - TTE (06/14/23):severely reduced LV systolic function (EF 35-40%), mild hypokinesis involving inferior wall of LV with akinesis of the septum and portions of the apex, anterior LV wall hypokinetic, normal RV function, mod dilated LA, elevated RV pressure at 40-50 - Chest x-ray: Cardiomegaly with interstitial pulmonary edema - Improved UO and fluid balance negative Continue Lasix 80mg twice daily - hold Strict Is and Os, daily weights, Low sat diet Hematemesis vs Hemoptysis, resolved - Patient with episode of vomiting yesterday night that was bloody - GI was consulted given new dx of cirrhosis and EGD was done: acute gastritis with hemorrhage - GI recc: continue Sucralfate 1 g PO QID x10d and Protonix 40mg IV bid - Will continue to monitor - Continue to monitor am CBC Cirrhosis - New diagnosis; seen on RUQ US - Worsening rise of bilirubin and LFTs - Ammonia at 72 - Patient with history of alcohol abuse as per family member - Continue to monitor am labs - Lactulose 30 g PO TID - GI reconsulted Ambulatory dysfunction - PT evaluated and determined patient in need of rehab after discharge - No known history of falls but patient does state he was feeling imbalanced and weak before current admission - CM notified A-fib - On Carvedilol and Eliquis Chronic Hyponatremia - Salt tablets held due to CHF exacerbation - Monitor am labs RA - Home MTX on hold due to renal function - Home Rinvoq on hold due to risk of CM/cardiac HTN - Continue beta freya Pre-Diabetes - Monitor bsg and SSI as needed Hypothyroidism - Last TSH from 02/2023 normal (~2) - Continue Synthroid Hyperlipidemia - Continue statin VTE ppx: Eliquis Diet: Clear liquid w/ aspiration precautions Admission and Anticipated Discharge Date Admission Date: June 12, 2023 Supervising Physician Co-Signing Physician Notes I also saw the patient with the resident physician and confirmed landa portions of the clinical history and physical examination. I also personally stressed the case with gastroenterology I agree with the impression and plan as noted in resident documentation. He is semireclined in bed. No complaints. Answers basic questions with short answers. Exam 104/69, 70, 20, 36.3, 90% nasal cannula 2 L/min Heart is irregularly irregular, rate mid 80s Respirations are nonlabored Abdomen distended, nontender. Ascites. Pitting edema bilateral lower extremities to knees DATA Labs Hemoglobin 9.5, platelet count 131 Sodium 131, potassium 3.5, BUN 55, creatinine 3.07 Total bilirubin 5.1, AST 219, ALT 41, alkaline phosphatase 155 Ammonia 72 EGD completed 06/15/2023 shows diffuse severe inflammation with hemorrhage characterized by erythema in the entire stomach. IMPRESSION & PLAN Acute kidney injury, CKD stage IIIa1 Congestive heart failure Nephrology has held diuretics today Appreciate nephrology consultation Hyponatremia Fluid restriction Daily BMP Anemia, iron deficiency Likely also an element of myelosuppression given EtOH Venofer x 3 completed Cirrhosis Elevated INR, mild thrombocytopenia, and hyponatremia reflective of significant liver disease Total bilirubin, AST, alkaline phosphatase continue to trend up Lactulose added today I discussed with gastroenterology to see again on Monday Dysphagia/possible aspiration Minced and moist diet with supervision, mouth care, and full aspiration/reflux precautions Erosive gastritis seen on EGD, 06/13/2023 Continue PPI Additional per resident documentation Subjective Mr. Wheatley is a 67 y/o male who was admitted due to HFrEF exacerbation with possible cardiorenal syndrome now found with cirrhosis Today, patient was evaluated in the am and again in the afternoon. Seem a little lethargic but arousable and answering questions. He states he's eating and drinking ok. Denied any abdominal pain, nausea or vomiting. Review of Systems Review of Systems: As per HPI. Physical Exam Constitutional: no acute distress Eyes: sclerae not anicteric Respiratory: normal respiratory effort, lungs clear to auscultation Cardiovascular: RRR, no murmur, no edema Gastrointestinal (Abdomen): Inspection/Auscultation: + abdomen distended Percussion/Palpation: + ascites Non tender, no guarding Skin: no rashes, warm and dry + jaundice Results & Data Results & Data Vital Signs (Past 12 Hours) Vital Signs Temp Pulse Resp BP Pulse Ox O2 Del Method O2 Flow Rate 06/18/23 03:51 Nasal Cannula 2 06/18/23 03:06 36.9 C 82 18 98/61 L 96 Nasal Cannula 2 06/17/23 22:35 36.6 C 86 18 90/57 L 95 Room Air Resident Activity Tracking Resident Involvement: Resident Care Provided Care Provided: Adult Hospital Medicine
--- NOTE | 2023-06-18 09:08 | Nephrology Progress Note ---
Date of Service June 18, 2023 Assessment & Plan (1) Acute kidney injury: Plan: * Creatinine has improved from 3.47 to 3.0 * Urine microscopy w/ granular casts concerning for ATN * Patient remains nonoliguric * Albumin 4.2 * Patient is euvolemic w/ 3rd spacing of volume into abdomen. Hold diuretic therapy. Will provide 1 L 0.9 NS. Monitor PRP, UO. Will order urine Na & Cr with am labs (2) Chronic kidney disease: Plan: * CKD III A1. Followed by Dr. River. Baseline creatinine 1.0-1.3 mg/dL. (3) Cirrhosis: Plan: * Progressive rise in bilirubin, LFT and INR * Patient now lethargic. WBC# wnl. 06/16 urine without infection. Ammonia has risen to 72 * Will order Lactulose 30 g po TID * Will request consultation w/ GI on Monday * Recommend repeat imaging of liver, gallbladder and biliary tree (4) Anemia: Plan: * BRANDAN. Completed 1 g IV Venofer 06/17/23 (5) Erosive gastritis: Plan: * On sucralfate and IV Protonix (6) CHF (congestive heart failure): Plan: * Acute on chronic heart failure with reduced EF s/p recent lead revision and generator change. EKG with atrial fibrillation and controlled rate. * Fluid restrict to 1.2 L daily. Document I/Os and daily weights * Avoid RAASi due to kidney dysfunction Admission and Anticipated Discharge Date Admission Date: June 12, 2023 Subjective Mr. Wheatley was evaluated in his hospital room this morning. His and daughter were at bedside. Mr. Wheatley was lethargic but would respond to simple yes/no questions. He denied dyspnea and appeared to be breathing comfortably on O2 at 2 L/min NC. Review of Systems Constitutional: no fever Eyes: no problem reported Ear, Nose, Mouth, Throat: no problem reported Respiratory: no cough and no dyspnea Cardiovascular: no chest pain and no dyspnea Gastrointestinal: + bloating Integumentary: + yellowing of the skin Physical Exam Constitutional: not in distress Eyes: sclerae not anicteric ENMT: external ear and nose normal, oropharynx normal Neck: trachea midline, no thyromegaly Respiratory: normal respiratory effort, lungs clear to auscultation Cardiovascular: Rate/Rhythm: regular rate and regular rhythm Gastrointestinal (Abdomen): Inspection/Auscultation: + abdomen distended Percussion/Palpation: + ascites and + fluid wave; abdomen nontender and no guarding Skin: no rashes, warm and dry Neurologic: Speech / Cognition: normal speech and normal cognition Results & Data Vital Signs (Past 12 Hours) Vital Signs Temp Pulse Resp BP Pulse Ox O2 Del Method O2 Flow Rate 06/18/23 08:41 81 16 94 Nasal Cannula 2 06/18/23 07:57 36.4 C L 82 18 102/60 97 Nasal Cannula 2 06/18/23 03:51 Nasal Cannula 2 06/18/23 03:06 36.9 C 82 18 98/61 L 96 Nasal Cannula 2 06/17/23 22:35 36.6 C 86 18 90/57 L 95 Room Air Laboratory Results Laboratory Results - last 24 hr 06/17/23 06/18/23 Unknown 06:32 WBC 7.60 RBC 3.05 L Hgb 9.5 L Hct 29.1 L MCV 95.4 MCH 31.1 MCHC 32.6 RDW Std Deviation 63.8 H RDW Coeff of Shahid 18.3 H Plt Count 131 MPV 11.8 Sodium 131 L Potassium 3.5 Chloride 96 L Carbon Dioxide 26 Anion Gap 9 BUN 55 H Creatinine 3.07 H Est Cr Clr Drug Dosing 30.4 Est GFR ( Amer) 23.5 Est GFR (Non-Af Amer) 20.3 BUN/Creatinine Ratio 17.9 Glucose 103 H Calcium 9.5 Total Bilirubin 5.1 H AST 219 H ALT 41 Alkaline Phosphatase 155 H Ammonia 72.0 Total Protein 6.7 Albumin 4.0 Globulin 2.7 Albumin/Globulin Ratio 1.5 Urine Color Dark Yellow Urine Appearance Turbid A Urine pH 5.5 Ur Specific [place] 1.012 Urine Protein 2+ H Urine Glucose (UA) Negative Urine Ketones Negative Urine Blood 3+ H Urine Nitrite Negative Urine Bilirubin Negative Urine Urobilinogen Negative Ur Leukocyte Esterase Negative Urine WBC (Auto) 0-5 Urine RBC (Auto) 11-20 H U Hyaline Cast (Auto) 3-5 H U Epithel Cells (Auto) 0-2 Urine Bacteria (Auto) None Seen Amorphous Sediment Present A Granular Casts Present A Ur Random Creatinine 54.9 PG Care Time/CCT Total # of Minutes Spent Total Time Spent with Patient: Total time spent is greater than 50% in coordination of care (as documented) at patient's floor/unit and/or counseling patient: Coding Level of Care Code 76783 SUB INP/OBS CARE MIN Diagnoses Acute kidney injury N17.9 Chronic kidney disease N18.9 Cirrhosis K74.60 Anemia D64.9 Anemia type: unspecified type Erosive gastritis K29.60 CHF (congestive heart failure) I50.9 Heart failure chronicity: unspecified Heart failure type: unspecified (4) Anemia Anemia type: unspecified type Qualified Code(s): D64.9 - Anemia, unspecified (6) CHF (congestive heart failure) Heart failure chronicity: unspecified Heart failure type: unspecified Qualified Code(s): I50.9 - Heart failure, unspecified
[2023-06-18] MEDS: SODIUM CHLORIDE 0.9% 1,000 ML IV SCH (10:44)
[2023-06-18] MEDS: LACTULOSE SYRUP 30 GM/45 ML UDP PO SCH (14:54)
--- NOTE | 2023-06-18 21:22 | Communication Note ---
Date of Service: June 18, 2023 Alerted by nursing at approximately 2000 of concern for bleeding within mouth. No hemoptysis/hematemesis noted. On exam, blood within mouth that appear to be coming from gum irritation. Poor dentition noted. Eliquis held. Repeat H/H showed stable hemoglobin. If remains stable in morning, will be to restart anticoagulation.
[2023-06-18 21:32] LABS: Hematocrit (blood only) 29.9 % (42.0-52.0); Hemoglobin 9.6 g/dl (14.0-18.0)
[2023-06-19 05:59] LABS: Hematocrit (blood only) 30.5 % (42.0-52.0); Hemoglobin 9.8 g/dl (14.0-18.0); Mean Corpuscular Hgb Conc 32.1 g/dL (32.0-36.0); Mean Corpuscular Volume 96.5 fL (80.0-100.0); Mean Platelet Volume 11.2 fL (9.4-12.4); Platelet Count 139 K/uL (130-400); RDW Coefficient of Variation 18.6 % (11.5-14.5); RDW Standard Deviation 65.5 fL (36.4-46.3); Red Blood Count 3.16 M/uL (4.70-6.10); White Blood Count 7.85 K/ul (4.8-10.8)
[2023-06-19 06:10] LABS: Albumin Globulin Ratio 1.3 (0.9-2); Albumin Level 3.9 gm/dl (3.4-5.0); BUN Creatinine Ratio 17.6 (10-20); Bilirubin,Total 5.1 mg/dl (0.2-1.0); Calcium 9.5 mg/dl (8.6-10.3); Creatinine Clr Calc Pharmacy 29.9 ml/min; Est GFR (Non-African American) 19.9 ml/min; Potassium 3.4 mmol/L (3.5-5.1); Total Protein 6.9 gm/dl (6.0-8.3)
[2023-06-19 06:19] LABS: INR 1.7 (0.9-1.1); Prothrombin Time 17.6 Seconds (9.0-12.0)
[2023-06-19] MEDS: APIXABAN 5 MG TABLET PO SCH (08:18)
--- NOTE | 2023-06-19 08:42 | Nephrology Progress Note ---
Date of Service June 19, 2023 Assessment & Plan (1) Acute kidney injury: Plan: * Creatinine remains stable at 3.1 * 06/17/23 urine microscopy w/ granular casts concerning for ATN * Patient is clinically volume contracted w/ 3rd spacing of volume into abdomen and LE soft tissue. Albumin remains acceptable at 3.9. Patient is nonoliguric despite holding diuretics. Although he is net 1.2 L net volume + since admission, he remains clinically dehydrated. Continue to hold diuretics * Monitor PRP, UO. Awaiting urine Na & Cr (2) Chronic kidney disease: Plan: * CKD III A1. Followed by Dr. River. Baseline creatinine 1.0-1.3 mg/dL. (3) Cirrhosis: Plan: * Progressive rise in bilirubin, AST and INR * Patient remains lethargic. WBC# wnl. 06/16 urine without infection. Ammonia has improved w/ lactulose therapy * Await results of abdominal CT this am (4) Anemia: Plan: * BRANDAN. Completed 1 g IV Venofer 06/17/23 (5) Erosive gastritis: Plan: * On sucralfate and IV Protonix (6) CHF (congestive heart failure): Plan: * Acute on chronic heart failure with reduced EF s/p recent lead revision and generator change. EKG with atrial fibrillation and controlled rate. * Fluid restrict to 1.2 L daily. Document I/Os and daily weights * Avoid RAASi due to kidney dysfunction Admission and Anticipated Discharge Date Admission Date: June 12, 2023 Subjective Mr. Wheatley was evaluated in his hospital room this morning. He remains lethargic but will open his eyes to verbal command and will speak his name. He is not oriented to place or month. He does not appear to be in respiratory distress Review of Systems Constitutional: no fever Eyes: no problem reported Ear, Nose, Mouth, Throat: no problem reported Respiratory: no cough and no dyspnea Cardiovascular: no chest pain and no dyspnea Gastrointestinal: + bloating Integumentary: + yellowing of the skin Physical Exam Constitutional: not in distress Eyes: sclerae not anicteric ENMT: Mouth: + dry oral mucous membranes Neck: trachea midline, no thyromegaly Respiratory: normal respiratory effort, lungs clear to auscultation Cardiovascular: Rate/Rhythm: regular rate and regular rhythm Extremities: + edema (trace to 1+ pretibial pitting edema) Gastrointestinal (Abdomen): Inspection/Auscultation: + abdomen distended Percussion/Palpation: + ascites and + fluid wave; abdomen nontender and no g uarding Skin: no rashes, warm and dry Neurologic: Speech / Cognition: normal speech and normal cognition Results & Data Vital Signs (Past 12 Hours) Vital Signs Temp Pulse Pulse Resp BP Pulse Ox O2 Del Method 06/19/23 08:11 36.3 C L 82 20 101/67 91 Nasal Cannula 06/19/23 05:19 69 06/19/23 02:47 35.9 C L 84 20 92/60 L 94 Nasal Cannula 06/18/23 22:20 36.9 C 72 18 103/70 92 Nasal Cannula O2 Flow Rate 06/19/23 08:11 2 06/19/23 05:19 06/19/23 02:47 2.0 06/18/23 22:20 2.0 Laboratory Results Laboratory Results - last 24 hr 06/18/23 06/19/23 20:51 05:33 WBC 7.85 RBC 3.16 L Hgb 9.6 L 9.8 L Hct 29.9 L 30.5 L MCV 96.5 MCH 31.0 MCHC 32.1 RDW Std Deviation 65.5 H RDW Coeff of Shahid 18.6 H Plt Count 139 MPV 11.2 PT 17.6 H INR 1.7 H Sodium 131 L Potassium 3.4 L Chloride 97 L Carbon Dioxide 24 Anion Gap 10 BUN 55 H Creatinine 3.12 H Est Cr Clr Drug Dosing 29.9 Est GFR ( Amer) 23.0 Est GFR (Non-Af Amer) 19.9 BUN/Creatinine Ratio 17.6 Glucose 108 H Calcium 9.5 Total Bilirubin 5.1 H AST 235 H ALT 45 Alkaline Phosphatase 160 H Ammonia 60.0 Total Protein 6.9 Albumin 3.9 Globulin 3.0 Albumin/Globulin Ratio 1.3 PG Care Time/CCT Total # of Minutes Spent Total Time Spent with Patient: Total time spent is greater than 50% in coordination of care (as documented) at patient's floor/unit and/or counseling patient: Coding Level of Care Code 06954 SUB INP/OBS CARE 3/50MIN Diagnoses Acute kidney injury N17.9 Chronic kidney disease N18.9 Cirrhosis K74.60 Anemia D64.9 Anemia type: unspecified type Erosive gastritis K29.60 CHF (congestive heart failure) I50.9 Heart failure chronicity: unspecified Heart failure type: unspecified (4) Anemia Anemia type: unspecified type Qualified Code(s): D64.9 - Anemia, unspecified (6) CHF (congestive heart failure) Heart failure chronicity: unspecified Heart failure type: unspecified Qualified Code(s): I50.9 - Heart failure, unspecified
--- NOTE | 2023-06-19 09:24 | Gastroenterology Progress Note ---
Date of Service June 19, 2023 Assessment & Plan (1) Cirrhosis: Plan: Likely multifactorial given history of alcohol abuse, metabolic issues, & cardiac problems with US findings of early cirrhosis. No laboratory evidence of hepatic encephalopathy. He will need an outpatient cirrhosis evaluation with his primary GI (Golden Torres), but see #2 for further recommendations. (2) Elevated bilirubin: Plan: Liver US shows possible CBD dilatation. CT reviewed with radiology & no acute biliary/GI concerns. Likely overall picture can be attributed to congestive hepatopathy. Continue to follow LFTs. Admission and Anticipated Discharge Date Admission Date: June 12, 2023 Supervising Physician Co-Signing Physician Notes Agree with LEE Reid as above Interviewed and examined patient and agree with above Gen: Somnolent Abd: Soft, NT, Distended, +BS Continue current therapy and supportive care Family is considering hospice due Multi-system organ failure (Heart, Kidney, Liver) Subjective GI was reconsulted for cirrhosis this 67 yo male with multiple medical comorbidities. Of note, Liver US imaging shows very early changes of nodularity suggestive of early cirrhosis. He has a pleural effusion and trace ascites. Liver US also shows a mildly dilated CBD. INR is 1.7; patient on Eliquis which has been intermittently held throughout the hospitalization due to bleeding. Patient has significant cardiac comorbidities, but also has a history of alcohol abuse. Patient has FELIX on CKD. Ammonia normal throughout hospitalization. WBC count normal. T bili bumped at 5.1, AST 235, ALT 45. Patient without abdominal pain. Review of Systems Constitutional: no fever and no chills Respiratory: + dyspnea; no cough Cardiovascular: no chest pain Gastrointestinal: no abdominal pain Physical Exam Constitutional: well developed Respiratory: normal respiratory effort Cardiovascular: Rate/Rhythm: regular rate Results & Data Results & Data Vital Signs (Past 12 Hours) Vital Signs Temp Pulse Pulse Resp BP Pulse Ox O2 Del Method 06/19/23 09:03 Nasal Cannula 06/19/23 08:11 36.3 C L 82 20 101/67 91 Nasal Cannula 06/19/23 05:19 69 06/19/23 02:47 35.9 C L 84 20 92/60 L 94 Nasal Cannula 06/18/23 22:20 36.9 C 72 18 103/70 92 Nasal Cannula O2 Flow Rate 06/19/23 09:03 2 06/19/23 08:11 2 06/19/23 05:19 06/19/23 02:47 2.0 06/18/23 22:20 2.0 PG Care Time/CCT Total # of Minutes Spent Total Time Spent with Patient: Total time spent is greater than 50% in coordination of care (as documented) at patient's floor/unit and/or counseling patient: Coding Level of Care Code 11860 SUB INP/OBS CARE 3/50MIN Diagnoses Cirrhosis K74.60 Elevated bilirubin R17
--- NOTE | 2023-06-19 10:28 | Hospitalist Progress Note ---
Date of Service June 19, 2023 Assessment & Plan (1) CKD (chronic kidney disease), stage III: (2) Acute kidney injury: (3) SOB (shortness of breath): (4) Hypothyroidism (acquired): (5) CAD, multiple vessel: (6) Hypertension: (7) Hyperlipidemia: (8) History of implantable cardiac defibrillator (ICD): (9) HFrEF (heart failure with reduced ejection fraction): (10) Cirrhosis: (11) Erosive gastritis: Plan Mr. Wehatley is a patient admitted for management of acute HFrEF exacerbation with possible cardiorenal syndrome. Creatinine increased to 3.12 today (3.07 yesterday). Appears dehydrated so continue to hold diuretics, as per nephro. GI recc following LFTs as further i maging would likely affect kidney function further. Patient's and son were present at the time of evaluation. We discussed patient's prognosis and how hepatorenal and cardiorenal status may indicate poor prognosis since to help one system another would need to be affected, and how to stabilize all 3 of his organs would need a lot of fine-tuning and constant monitoring. Unfortunately, patient's current prognosis is guarded, and discussions for hospice for initiated. Patient's to speak with family members, and will revisit tomorrow. FELIX on CKD-III Creatinine highest 3.53 this admission. Cr 3.12 this am Baseline Cr of 1-1.03 (follows with Dr. River) - Nephrology consulted: Cannot fully r/o glomerulonephritis Urine microscopy w/ granular casts concerning for ATN Orders for ANCA, anti-GBM ESR reassuring at 20 Renal US w/o obstruction Hold diuretic therapy, given 1 NS Urine Na and Cr in AM HFrEF exacerbation, improved - Suspect exacerbation may have come as a consequence to recently increased frequency to bid of NaCl tabs for hyponatremia - s/p ICD placement with recent generator exchange - TTE (06/14/23):severely reduced LV systolic function (EF 35-40%), mild hypokinesis involving inferior wall of LV with akinesis of the septum and portions of the apex, anterior LV wall hypokinetic, normal RV function, mod dilated LA, elevated RV pressure at 40-50 - Chest x-ray: Cardiomegaly with interstitial pulmonary edema - Improved UO and fluid balance negative Lasix on hold as patient appears dehydrated Strict Is and Os, daily weights, Low sat diet Hematemesis vs Hemoptysis (Resolved) - Patient with episode of vomiting yesterday night that was bloody - GI was consulted given new dx of cirrhosis and EGD was done: acute gastritis with hemorrhage - GI recc: continue Sucralfate 1 g PO QID x10d and Protonix 40mg IV bid - Will continue to monitor - Continue to monitor am CBC Cirrhosis - New diagnosis; seen on RUQ US - Worsening rise of bilirubin and LFTs - Ammonia at 60 after lactulose addition - Patient with history of alcohol abuse as per family member - Continue to monitor am labs - GI reconsulted: Likely multifactorial no evidence of hepatic encephalopathy outpatient cirrhosis evaluation Liver US shows possible CBD dilatation. Can update imaging, but assessment will be limited by lack of IV contrast due to kidney function. Continue to follow LFTs. Ambulatory dysfunction - PT evaluated and determined patient in need of rehab after discharge - No known history of falls but patient does state he was feeling imbalanced and weak before current admission - CM notified A-fib - On Carvedilol and Eliquis Chronic Hyponatremia - Na of 131 today - Salt tablets held due to CHF exacerbation - Monitor am labs RA - Home MTX on hold due to renal function - Home Rinvoq on hold due to risk of CM/cardiac HTN - Continue beta freya Pre-Diabetes - Monitor bsg and SSI as needed Hypothyroidism - Last TSH from 02/2023 normal (~2) - Continue Synthroid Hyperlipidemia - Continue statin VTE ppx: Eliquis Diet: Clear liquid w/ aspiration precautions Admission and Anticipated Discharge Date Admission Date: June 12, 2023 Supervising Physician Co-Signing Physician Notes I personally examined the patient and verified all landa points of history and exam, discussed case, and agree with decision making with Dr Hernandez no meaningful HPI or ROS obtainable from pt. updated and then separately son to the best of my ability, answered all questions to their satisfaction vitals noted fairly somnolent heent nc at mmm breathing unlabored no accessory muscles. mouth mucosa w superficial appearing bleeding. no lateralizing neuro deficits concerning situation with features c/w hepatorenal, cardiorenal. cirrhosis/FELIX on CKD, MELD ~31-34 throughout hospital stay depending on the day/Na/bili - overall prognosis very concerning. d/w , son. discussed low likelihood of definitive recovery (and discussed delirium on top of all of above makes situation even more concerning) - discussed med management vs comfort care - pt's and son will discuss cautiously back on apixaban - but low threshold to hold longer if any rebleeding Subjective Mr. Wheatley is a 67 y/o male who was admitted due to HFrEF exacerbation with possible cardiorenal syndrome now found with cirrhosis Today, patient was evaluated and found to be awake, alert, afebrile, and in NAD. Patient has been coughing mainly after eating or taking PO meds due to his newly found aspiration. States he feels slightly SOB, but is not in resp distress. Denies chest pain, fevers, chills, or any other symptom. Review of Systems Review of Systems: As per HPI. Physical Exam Physical Exam: General: awake, alert, afebrile, streaks of old blood in right corner of mouth, NAD CV: RRR, no r/m/g Pulm: mild end-expiratory wheezing, normal resp effort, no respiratory distress GI: non-distended, non-tender, soft LE: mild LE swelling, no calf tenderness Results & Data Results & Data Vital Signs (Past 12 Hours) Vital Signs Temp Pulse Pulse Resp BP Pulse Ox O2 Del Method 06/19/23 09:03 Nasal Cannula 06/19/23 08:11 36.3 C L 82 20 101/67 91 Nasal Cannula 06/19/23 05:19 69 06/19/23 02:47 35.9 C L 84 20 92/60 L 94 Nasal Cannula O2 Flow Rate 06/19/23 09:03 2 06/19/23 08:11 2 06/19/23 05:19 06/19/23 02:47 2.0 Resident Activity Tracking Resident Involvement: Resident Care Provided Care Provided: Adult Hospital Medicine
--- NOTE | 2023-06-19 13:12 | Billing Data ---
Date of Service June 19, 2023 Coding Level of Care Code 56671 SUB INP/OBS CARE
--- NOTE | 2023-06-19 15:12 | CT Scan Report ---
CT abdomen wo con HISTORY: 67 years-old Male Elevated LFTs COMPARISON: Ultrasound 06/13/2023. TECHNIQUE: Multiple axial CT images of the abdomen were obtained without IV contrast. A dose lowering technique was used consistent with the principals of TARA. FINDINGS: Median sternotomy. Cardiomegaly with extensive coronary arterial calcifications. Small right greater than left pleural effusions with bibasilar ground-glass and consolidative opacities. Intralobular sep corby thickening is also noted. Partially imaged cardiac pacer leads. Study is mildly motion degraded. Unremarkable gallbladder. Moderately atrophic pancreas. The adrenal glands are unremarkable. Borderli ne gallbladder wall thickening. Cirrhotic liver with hepatic steatosis. No hepatic mass is identified on this noncontrast study. No biliary duct dilation is seen. Nonspecific bilateral perinephric stranding. No hydronephrosis. Atherosclerosis of the aorta. Subcent imeter retroperitoneal lymph nodes are likely physiologic. Colonic diverticulosis. No bowel obstructi on or bowel wall thickening. Small volume of ascites with anasarca. No acute fracture. IMPRESSION: 1. Limited exam as above. 2. Redemonstration of cirrhotic liver with hepatic steatosis. 3. Cardiomegaly with fluid overload manifested by anasarca, pulmonary edema, small pleural effusions with small volume of ascites. 4. Additional bibasilar ground-glass and consolidative opacities may represent alveolar pulmonary naun ma versus superimposed pneumonia. 5. Additional findings as above. ACT 112: Negative or not required by law. The above report was generated using voice recognition software. It may contain grammatical, syntax o r spelling errors. Dictated: 06/19/2023 10:56 AM Transcribed: 06/19/2023 11:07 AM Paddy [id number] [email or web address] Electronically signed by: Ruben Garcia M.D. 06/19/2023 3:11 PM
[2023-06-20 04:42] LABS: Sodium Random Urine < 10 mmol/L
[2023-06-20 04:48] LABS: Appearance Urine Turbid (Clear); Bacteria Urine Automated None Seen (None Seen); Bilirubin Urine 1+ (Negative); Blood Urine 3+ (Negative); Color Urine Dark Yellow; Glucose Urine UA Negative (Negative); Ketones Urine Negative (Negative); Leukocyte Esterase Urine Trace (Negative); Nitrite Urine Negative (Negative); Protein Urine 2+ (Negative); RBC Urine Automated >20 /hpf (0-2); Specific Gravity Urine 1.015 (1.000-1.030); Urobilinogen Urine Negative (Negative); WBC Urine Automated 0-5 /hpf (0-5)
[2023-06-20 04:51] LABS: Creatinine Urine Random 96.5 mg/dl
[2023-06-20 05:00] LABS: Amorphous Sediment Urine Present (None Prsent); Granular Casts Urine Present /lpf (None Prsent); Renal Epithelial Cells Urine Present /lpf (None Presnt)
--- NOTE | 2023-06-20 05:15 | Death Pronouncement Note ---
Date of Service June 20, 2023 Pronouncement Note Admission Date Admission Date: June 12, 2023 Contributing Factors (1) Cirrhosis: (2) Elevated bilirubin: Summary Additional details: I was called to pronounce the of Marquise Wheatley ( 1955) by Casandra Abraham on 06/20/23. Upon entering the room, patient was found to be in a terminal state. They were unresponsive to, and did not withdrawal from, verbal or tactile stimuli. They were unresponsive to corneal, pupillary, and oculocephalic reflexes. On cardiopulmonary exam, they were found to be without detectable carotid pulses, and without spontaneous heart tones or respirations. Time of was pronounced by me on 06/20/23 at 0524. Attending physician was notified was notified. Next of kin was notified me. Signed: Jennifer Martin DO Additional Data Attending physician: Jesus Alberto Siu DO
--- NOTE | 2023-06-20 06:19 | Communication Note ---
Date of Service: June 20, 2023 Notified by nursing of concern of increased work of breathing. Per nursing had been more solacement though out dayshift today with intermittent increased work of breathing. Saw pt at bedside. Vital signs were stable without increased oxygen requirement. Resp rate of 20, some increased work of breathing. Lungs clear to auscultation B/L, heart with regular rate and rhythm, no murmur. CXR and labs ordered at that time.
--- NOTE | 2023-06-20 07:01 | XRay Report ---
XR chest 1V portable HISTORY: Increased respiratory rate COMPARISON: Chest 06/12/2023. FINDINGS: No pneumothorax. Trace left pleural effusion. The heart remains enlarged. There are postste rnotomy changes and left-sided pacemaker/defibrillator. Perihilar interstitial/vascular thickening roth s progressed and is consistent with mild pulmonary edema. Left midlung zone density remains unchanged . Stable linear densities within the right upper lobe. No acute fractures. IMPRESSION: 1. Cardiomegaly with mild interstitial pulmonary edema and a trace left pleural effusion. This has sl ightly progressed. 2. Left midlung zone density persists. Continued follow-up recommended to ensure resolution. ACT 112: Negative or not required by law. Electronically signed by: Johnny Mary M.D. 06/20/2023 7:00 AM
--- NOTE | 2023-06-20 17:48 | Discharge Summary ---
Discharge Summary Date of Service June 20, 2023 Notes For Next Care Provider Medication Changes From Visit n/a Admission HPI Per Admitting Provider Marquise is a 67-year-old male currently discharged 05/19/2023 following admission for generator change and lead revision of his ICD who presents to the ER with progressive shortness of breath for approximately 5 days acutely worsened in the last 24 hours. Has had swelling in his legs and abdomen despite taking his prescribed Lasix 40 mg twice daily. Denies chest pain, chest pressure. Feels similar to prior CHF. Has been taking his blood thinner. Started swelling monday started twice daily NaCl around the same time, was on daily once daily for ~one month and then bumped to twice daily last week no chest pain, no chest pressure. Has a heaviness to reathing and pressure in belly from swelling NO fevers, chills, or sweats. No nausea/vomiting Peeing less and lessa amounts. Urination decreased despite Lasix after increa sing salt tablets to twice daily No dysuria no abdominal pain, although feels a tight pressure from fluid in his abdomen Has not had chest pain at any point Endorses worsening orthopnea Medical History: Reviewed Medications: Reviewed Surgical History: Reviewed Family history: Reviewed Allergies: Reviewed Social History: No tobacco. No etoh in 7 days, no history of withdrawal. No rec drugs Code Status: DNR/DNI, discussed w/ pt Principal Dx & Hospital Course #1 = Principal Diagnosis (1) CKD (chronic kidney disease), stage III: (2) Acute kidney injury: (3) SOB (shortness of breath): (4) Hypothyroidism (acquired): (5) CAD, multiple vessel: (6) Hypertension: (7) Hyperlipidemia: (8) History of implantable cardiac defibrillator (ICD): (9) HFrEF (heart failure with reduced ejection fraction): (10) Cirrhosis: (11) Erosive gastritis: Plan Patient was in a severe state of illness, appearing quite consistent with elements of hepatorenal and cardiorenal bothprognosis very worrisome. I had discussions with both the patient's and son in this regard, and had discussed that with his severity of illness hospice would be a very viable option to consider. Appears they were leaning in this direction at the end of our discussions. At the same time, patient had a very abrupt decline overnight and passed early in the morning 06/20/2023. Last full assessment and plan from yesterday06/18 as below: Mr. Wheatley is a patient admitted for management of acute HFrEF exacerbation with possible cardiorenal syndrome. Creatinine increased to 3.12 today (3.07 yesterday). Appears dehydrated so continue to hold diuretics, as per nephro. GI recc following LFTs as further imaging would likely affect kidney function further. Patient's and son were present at the time of evaluation. We discussed patient's prognosis and how hepatorenal and cardiorenal status may indicate poor prognosis since to help one system another would need to be affected, and how to stabilize all 3 of his organs would need a lot of fine-tuning and constant monitoring. Unfortunately, patient's current prognosis is guarded, and discussions for hospice for initiated. Patient's to speak with family members, and will revisit tomorrow. FELIX on CKD-III Creatinine highest 3.53 this admission. Cr 3.12 this am Baseline Cr of 1-1.03 (follows with Dr. River) - Nephrology consulted: Cannot fully r/o glomerulonephritis Urine microscopy w/ granular casts concerning for ATN Orders for ANCA, anti-GBM ESR reassuring at 20 Renal US w/o obstruction Hold diuretic therapy, given 1 NS Urine Na and Cr in AM HFrEF exacerbation, improved - Suspect exacerbation may have come as a consequence to recently increased frequency to bid of NaCl tabs for hyponatremia - s/p ICD placement with recent generator exchange - TTE (06/14/23):severely reduced LV systolic function (EF 35-40%), mild hypokinesis involving inferior wall of LV with akinesis of the septum and portions of the apex, anterior LV wall hypokinetic, normal RV function, mod dilated LA, elevated RV pressure at 40-50 - Chest x-ray: Cardiomegaly with interstitial pulmonary edema - Improved UO and fluid balance negative Lasix on hold as patient appears dehydrated Strict Is and Os, daily weights, Low sat diet Hematemesis vs Hemoptysis (Resolved) - Patient with episode of vomiting yesterday night that was bloody - GI was consulted given new dx of cirrhosis and EGD was done: acute gastritis with hemorrhage - GI recc: continue Sucralfate 1 g PO QID x10d and Protonix 40mg IV bid - Will continue to monitor - Continue to monitor am CBC Cirrhosis - New diagnosis; seen on RUQ US - Worsening rise of bilirubin and LFTs - Ammonia at 60 after lactulose addition - Patient with history of alcohol abuse as per family member - Continue to monitor am labs - GI reconsulted: Likely multifactorial no evidence of hepatic encephalopathy outpatient cirrhosis evaluation Liver US shows possible CBD dilatation. Can update imaging, but assessment will be limited by lack of IV contrast due to kidney function. Continue to follow LFTs. Ambulatory dysfunction - PT evaluated and determined patient in need of rehab after discharge - No known history of falls but patient does state he was feeling imbalanced and weak before current admission - CM notified A-fib - On Carvedilol and Eliquis Chronic Hyponatremia - Na of 131 today - Salt tablets held due to CHF exacerbation - Monitor am labs RA - Home MTX on hold due to renal function - Home Rinvoq on hold due to risk of CM/cardiac HTN - Continue beta freya Pre-Diabetes - Monitor bsg and SSI as needed Hypothyroidism - Last TSH from 02/2023 normal (~2) - Continue Synthroid Hyperlipidemia - Continue statin VTE ppx: Eliquis Diet: Clear liquid w/ aspiration precautions I personally examined the patient and verified all landa points of history and exam, discussed case, and agree with decision making with Dr Hernandez no meaningful HPI or ROS obtainable from pt. updated and then separately son to the best of my ability, answered all questions to their satisfaction vitals noted fairly somnolent heent nc at mmm breathing unlabored no accessory muscles. mouth mucosa w superficial appearing bleeding. no lateralizing neuro deficits concerning situation with features c/w hepatorenal, cardiorenal. cirrhosis/FELIX on CKD, MELD ~31-34 throughout hospital stay depending on the day/Na/bili - overall prognosis very concerning. d/w , son. discussed low likelihood of definitive recovery (and discussed delirium on top of all of above makes situation even more concerning) - discussed med management vs comfort care - pt's and son will discuss cautiously back on apixaban - but low threshold to hold longer if any rebleeding Discharge Exam see note Updated Medication List Medication Instructions Recorded Confirmed Type ascorbic acid (vitamin C) 500 mg 500 mg PO DAILY 12/13/22 06/12/23 History tablet (Vitamin C With Clare Hips) cholecalciferol (vitamin D3) 50 50 mcg PO QAM 12/13/22 06/12/23 History mcg (2,000 unit) tablet (Vitamin D3) cyanocobalamin (vitamin B-12) 500 500 mcg PO QAM 12/13/22 06/12/23 History mcg tablet (Vitamin B-12) folic acid 1 mg tablet 1 mg PO QAM 12/13/22 06/12/23 History levothyroxine 88 mcg tablet 88 mcg PO DAILYBB 12/13/22 06/12/23 History upadacitinib 15 mg tablet,extended 15 mg PO QAM 12/13/22 06/12/23 History release 24 hr (Rinvoq) aspirin 81 mg chewable tablet 81 mg PO DAILY 12/27/22 06/12/23 History ferrous sulfate 325 mg (65 mg 325 mg PO 2XWK 01/24/23 06/12/23 History iron) tablet,delayed release pantoprazole 40 mg tablet,delayed 40 mg PO DAILY #90 tabs 01/25/23 06/12/23 Rx release potassium chloride 20 mEq 20 meq PO DAILY #90 tabs 02/03/23 06/12/23 Rx tablet,extended release(part/cryst) furosemide 40 mg tablet 40 mg PO DAILY 03/12/23 06/12/23 History methotrexate sodium 2.5 mg tablet 12.5 mg PO WK 03/12/23 06/12/23 History melatonin 3 mg tablet 3 mg PO HS PRN sleep #30 tabs 03/15/23 06/12/23 Rx atorvastatin 80 mg tablet 80 mg PO QAM #90 tabs 04/27/23 06/12/23 Rx carvedilol 12.5 mg tablet 12.5 mg PO BID #180 tabs 04/27/23 06/12/23 Rx apixaban 5 mg tablet (Eliquis) 5 mg PO BID #60 tabs 05/01/23 06/12/23 Rx nitroglycerin 400 mcg/spray 0.4 mg sublingual Q5M PRN chest 05/24/23 06/12/23 Rx translingual pain #12 grams sodium chloride 1,000 mg soluble 2,000 mg (2 x 1,000 mg) PO BID 06/06/23 06/12/23 Rx tablet #120 tabs Hospital Stay Data Consultations 06/12/23 12:04 ED Decision to Admit Stat 06/13/23 21:00 Consult Nephrology Routine 06/18/23 10:09 Consult Gastroenterology Routine Procedures Performed Operation Date: 06/15/23 16:45 <No data on this case meets the specified criteria> Diagnostic Imagining Performed 06/13/23 15:24 US abdomen [US liver] Routine 06/13/23 17:34 US renal/blad retro comp Routine 06/16/23 13:30 Fluoro video [FL video swallow] Routine 06/19/23 09:17 CT abdomen wo con Routine Total Time Total Time Spent Total Time Spent (In Minutes): <30
[2023-06-21 02:19] LABS: ANCA Screen Negative (Negative); Anti-Glom Basement Antibody <1.0 AI (<1.0); Myeloperoxidase Ab <1.0 AI (<1.0); Proteinase-3 AB <1.0 AI (<1.0)
== END 2023-06-20 09:30 | disposition expired | DRG 291 ==
LOC: ED 10:00 → EDINP 12:57 → SUATTDRO 12:57 → 2S 13:26